=== PATIENT | male | born 1950 | race Caucasian/White ===

== ENCOUNTER 2017-04-21 08:24 | Emergency (ER) | payer MEDICARE, SELFPAY ==
[2017-04-21 08:26] VITALS: BP 150/85; PULSE 77; RESP 15; TEMP 36.4; O2SAT 100; BMI 29.2
--- NOTE | 2017-04-21 08:31 | NURSING ---
PT USING RIGHT ARM TO LIFT SELF TO STANDING POSITION WITHOUT DIFFICULTY.
--- NOTE | 2017-04-21 08:39 | RAD_ITS ---
STUDY: X-RAY - RIGHT SHOULDER REASON FOR EXAM: Male, 66 years old. Pain, fall TECHNIQUE: 4 view(s) of the shoulder. COMPARISON: Chest x-ray 06/12/2015 FINDINGS: Normal glenohumeral articulation. There is degenerative arthrosis of the acromioclavicular joint without inferior osseous spur formation. Normal acromion. High riding humeral head. There is periarticular soft tissue calcification consistent with a calcific tendinitis. Stable calcification along the inferior glenoid. Normal visualized pulmonary apex. RAD/Shoulder min 2 Views IMPRESSION: There is no acute displaced fracture or dislocation. Degenerative changes of the acromioclavicular joint, high riding humeral head frequency with ligamentous laxity or injury of the rotator cuff. Stable calcification along the inferior glenoid. Electronically Signed: Stacy Bates MD at 9:33 EST , Service support ,
--- NOTE | 2017-04-21 08:40 | ED.VISSUMM ---
- ER Visit Summary Date of Service: 04/21/17 Chief Complaint: [right Shoulder pain] History of Present Illness: The patient is a 66 M [who presents the emergency department with right shoulder pain. He fell on the ice 3 days ago. He fell directly on his right shoulder. He continues to have a sharp pain over the top and lateral aspect of the shoulder joint. He does have pain with range of motion. No numbness or tingling. No previous injuries. No other injuries during his fall. Past medical history: Diabetes] Physical Examination: [] Blood pressure 150/85 other vitals within acceptable limits Nation of the right upper extremity reveals no tenderness over the clavicle he has mild tenderness over the lateral proximal humerus there is no ecchymosis or swelling is no erythema he has full range of motion but does have some pain with abduction over 45?. Sensation is intact there is no motor weakness he has strong distal radial pulses skin is unremarkable Test Results: [] Emergency Department Course and Treatment: [X-rays of the shoulder were obtained.x ray show no fracture. sling will be counter productive and may result in frozen shoulder. patient will need physical therapy. he has an appointment with his primary doctor on . he does not want any additional pain medication. he will ice and rest.] Treatment Plan: [] Disposition: [discharge ] Impression: [right rotator cuff injury.] This note was generated with [employer] dictation software. It may contain incorrect words, spelling, and punctuation that were not noted in review of the chart prior to signing ED Disposition - Plan for ED Patient: Chief Complaint: Upper Extremity Injury Referrals: Chary Cardona MD [Primary Care Provider] -
--- NOTE | 2017-04-21 10:17 | ED.DEP ---
ED Disposition - Plan for ED Patient: Chief Complaint: Upper Extremity Injury Instructions: ED Torn Rotator Cuff Referrals: Chary Cardona MD [Primary Care Provider] - 04/25/17
[2017-04-21 10:22] VITALS: BP 158/91; PULSE 72; RESP 16; O2SAT 98
== END 2017-04-21 10:23 | disposition home or self-care (01) ==
PROVIDERS: Emergency Provider Emergency Medicine; Family Provider Internal Medicine; PCP Internal Medicine
DX: S46.001A Unspecified injury of muscle(s) and tendon(s) of the rotator cuff of right shoulder, initial encounter (principal); W00.9XXA Unspecified fall due to ice and snow, initial encounter; Y93.9 Activity, unspecified; Y92.9 Unspecified place or not applicable; E11.9 Type 2 diabetes mellitus without complications; Z79.84 Long term (current) use of oral hypoglycemic drugs
CPT/HCPCS: 73030; 99282

== ENCOUNTER 2017-05-19 17:21 | Emergency (ER) | payer MEDICARE, SELFPAY ==
[2017-05-19 17:22] VITALS: BP 182/91; PULSE 87; RESP 20; TEMP 36.6; O2SAT 98; BMI 28.3
[2017-05-19 17:27] VITALS: PULSE 85; RESP 17; O2SAT 98
[2017-05-19 18:45] LABS: Bedside Glucose 61 mg/dL (70-110)
[2017-05-19 18:47] VITALS: BP 144/88; PULSE 81; RESP 16; O2SAT 97
--- NOTE | 2017-05-19 18:48 | NURSING ---
PT EXPRESSES THAT HE WOULD LIKE TO GO TO A PENITENTIARY IF POSSIBLE. DEANNA DE LA ROSA STATES I DON'T KNOW IF THAT'S GOING TO BE POSSIBLE TONIGHT, BUT WE'LL GET YOU CHECKED OUT AND SEE WHERE YOU NEED TO BE
[2017-05-19 18:58] LABS: Absolute Lymphocyte Count 2.08 X10^3/ul (0.83-4.51); Absolute Neutrophil Count 5.3 X10^3/uL (2.0-7.7); Basophil# 0.04 X10^3/uL; Basophil% 0.5 % (0-1); Eosinophil# 0.09 X10^3/uL; Eosinophils% 1.1 % (0-5); Hematocrit 37.2 % (40-54); Hemoglobin 12.4 g/dl (13.0-16.5); Lymphocyte # 2.08 X10^3/ul (4.0); Lymphocyte % 24.8 % (19-41); Mean Corp Hgb Conc 33.3 g/gl (32-36); Mean Corpuscular Hgb 31.9 pg (27.0-32.0); Mean Corpuscular Volume 95.6 fL (80-94); Mean Platelet Vol. 8.8 fl (6.2-12.0); Monocyte# 0.89 X10^3/uL; Monocyte% 10.6 % (0-10); Neutrophil # 5.27 X10^3/uL (2.7-7.7); Neutrophil % 62.6 % (47-70); POSITIVE COUNT NO; POSITIVE DIFFERENTIAL NO; POSITIVE MORPHOLOGY NO; Platelet Count 203 K/mm3 (150-450); RBC Distribution Width CV 13.4 % (11.6-14.6); RBC Distribution Width SD 46.4 fl (35.1-43.9); Red Blood Count 3.89 M/mm3 (4.6-6.2); White Blood Count 8.4 K/mm3 (4.4-11.0)
--- NOTE | 2017-05-19 19:00 | RAD_ITS ---
STUDY: X-RAY - ACUTE ABDOMINAL SERIES REASON FOR EXAM: Male, 66 years old. Abdominal pain TECHNIQUE: Single view of the chest. Supine, and erect view(s) of the abdomen were obtained. COMPARISON: September 05, 2015 FINDINGS: The lungs are underexpanded with bibasilar compression of lung markings.. Normal size heart. Normal mediastinum and ofelia. Normal visualized pulmonary arteries. There is atherosclerotic calcification of the aortic arch with tortuosity. There is mild retained stool throughout the colon. No bowel obstruction. The soft tissue structures of the abdomen and pelvis are unremarkable. There are diffuse degenerative changes of the visualized lumbar spine. RAD/Acute Abdomen Inc Chest IMPRESSION: There is mild retained stool throughout the colon. Electronically Signed: Phyllis Cohen MD at 19:32 EDT , Service support ,
[2017-05-19 19:19] LABS: ALB/GLOB Ratio 0.8 RATIO (0.9-2.4); AST(SGOT) 17 U/L (15-37); Alanine Aminotransfer ALT/SGPT 18 U/L (16-61); Albumin, Serum 3.4 g/dL (3.2-5.0); Alkaline Phosphatase 94 U/L (45-117); Anion Gap 10 (5-15); BUN 18 mg/dL (7-18); BUN/Creat Ratio 17.6 RATIO (10-20); Calcium,Total 8.7 mg/dL (8.5-10.1); Chloride 106 mmol/L (98-107); Creatinine, Serum 1.02 mg/dL (0.70-1.30); EST Glomerular Filtration Rate 78 mL/min (>60); Est Glom Filt Rate - Afr Amer 94 mL/min (>60); Estimated Creatinine Clearance 73.16 ml/min; Glucose 61 mg/dL (74-106); Lipase 96 U/L (73-393); Potassium 3.4 mmol/L (3.5-5.1); Protein, Total 7.4 g/dL (6.4-8.2); Sodium Level 142 mmol/L (136-145)
[2017-05-19 20:57] LABS: Bacteria 0 SEEN /hpf (None Seen); Red Blood Cells-Urine 0 SEEN /hpf (0-5)
[2017-05-19 21:00] LABS: Color, Urine Yellow (Yellow); Glucose, Dipstick Normal (Normal); Ketone-Dipstick 5 mg/dl (Negative); Leukocyte Esterase-Dipstick Negative /ul (Negative); Nitrite-Dipstick Negative (Negative); Occult Blood-Urine 25 /ul (Negative); Protein-Dipstick 500 mg/dl (Negative); Urine Bilirubin Dipstick Negative (Negative); Urine Clarity Sl. Cloudy (Clear); Urine Urobilinogen Normal (Normal)
[2017-05-19 21:13] LABS: Hyaline Cast 0-5 SEEN /lpf (0-5)
[2017-05-19 21:15] LABS: Mucous, Urine 2+ /hpf (<or=2+)
[2017-05-19 21:16] LABS: Squamous Epithelial Cells - UA 0-5 SEEN /hpf (0-5)
[2017-05-19 21:19] LABS: Uric Acid Crystals Ur RARE /hpf (<or=1+); White Blood Cells 0-5 SEEN /hpf (0-5)
--- NOTE | 2017-05-19 21:47 | ED.VISSUMM ---
- ER Visit Summary Date of Service: 05/19/17 Chief Complaint: Abdominal pain History of Present Illness: The patient is a 66 M who presents with abdominal pain that has been getting worse over the past 2 hours. Patient states the pain is diffuse across his abdomen. Patient denies any nausea or vomiting. Patient denies any chest pain. Patient states he has occasional episodes where he gets short of breath. Patient also states he feels like he is unsteady on his feet and has occasional headaches. Patient states he does have a history of diabetes and thinks this may be was causing him to be unsteady on his feet. Physical Examination: Vital signs are stable. Patient is afebrile. Patient is in no acute distress. Oral mucosa is pink and moist. Neck is supple. Trachea is midline. There is no JVD or lymphadenopathy noted. Heart was regular rate and rhythm. Lungs are clear and equal bilaterally. Abdomen is soft. There is mild diffuse tenderness. There is no rebound or guarding noted. Cranial nerves II through XII are intact. There are no focal motor or sensory deficits noted. The remaining physical exam is within normal limits. Test Results: Acute abdominal x-rays were obtained and were negative. CBC, basic metabolic profile, and urinalysis were obtained and were all within normal limits. Emergency Department Course and Treatment: Patient was able to eat a meal here in the emergency department. Patient felt better on reevaluation. Treatment Plan: Patient was instructed to follow-up with his primary care physician in 7-10 days. Patient was instructed to return if worse in any way. Patient understood and was agreeable with the plan. All questions were answered. Disposition: Discharged home Impression: Abdominal pain This note was generated with [employer] dictation software. It may contain incorrect words, spelling, and punctuation that were not noted in review of the chart prior to signing ED Disposition - Plan for ED Patient: Disposition: Home or Assisted Living Chief Complaint: General Illness Diagnosis: Abdominal pain Instructions: ED Abdominal Pain Unkn Cause Referrals: Chary Cardona MD [Primary Care Provider] -
[2017-05-19 22:07] VITALS: BP 163/93; PULSE 81; RESP 16; O2SAT 99
--- NOTE | 2017-05-19 22:08 | ED.RN ---
CALLED [facility] FOR PATIENT. ETA 30 MIN. PT SENT TO THE WAITING ROOM.
== END 2017-05-19 22:11 | disposition home or self-care (01) ==
PROVIDERS: Emergency Provider Emergency Medicine; Family Provider Internal Medicine; PCP Internal Medicine
DX: R10.9 Unspecified abdominal pain (principal); R06.00 Dyspnea, unspecified; R26.81 Unsteadiness on feet; R51 Headache; H53.8 Other visual disturbances; Z86.73 Personal history of transient ischemic attack (TIA), and cerebral infarction without residual deficits; E11.9 Type 2 diabetes mellitus without complications; Z79.84 Long term (current) use of oral hypoglycemic drugs
CPT/HCPCS: 74022; 80053; 81001; 82962; 83690; 85025; 99285; A4216

== ENCOUNTER 2017-08-19 09:43 | Emergency (ER) | payer MEDICARE, SELFPAY ==
[2017-08-19 09:45] VITALS: BP 101/56; PULSE 104; RESP 18; TEMP 36.6; O2SAT 98; BMI 29.5
--- NOTE | 2017-08-19 09:57 | ED.VISSUMM ---
- ER Visit Summary Date of Service: 08/19/17 Chief Complaint: Ache, nausea History of Present Illness: The patient is a 66 M presents to the emergency department with headache and nausea. Patient states he has a history of migraine. He states this morning, he woke with a dull headache. He states over the past 2 hours it has slightly progressed. He does describe light sensitivity. He has had nausea without vomiting. Patient does admit to some mild abdominal cramping. He denies any fevers or chills. He denies any carbon monoxide exposure. He denies any trauma. He is on no anticoagulants. Patient denies any weakness, numbness, tingling, or other neurologic complaints. He states this feels like all his other headaches that he has had in the past. Physical Examination: Well-appearing patient is in no acute distress. Head is normocephalic, atraumatic. Pupils equal round reactive, extraocular muscles intact. There is no temporal artery tenderness. There is no vesicular rash. Neck supple. Kernig's and Brudzinski's are negative. Heart regular rate and rhythm. Lungs clear, chest nontender. Abdomen soft, nontender, nondistended. Neuro exam displays no focal or lateralizing deficit. 2+ symmetric lower extremity reflexes. No clonus. No ataxia or gait abnormality. Test Results: [] Emergency Department Course and Treatment: The patient presents with his normal migraine. He is not meningitic or encephalopathic. His neck is supple. His neurologic exam is benign. He was treated with IV fluids, Compazine, Benadryl, and Toradol. I did obtain some screening labs given his history of diabetes. He does have mild renal insufficiency which does appear to be chronic. With treatment, the patient symptoms are improved. His abdomen is nontender. I do not suspect a dangerous process. The patient be discharged home. Treatment Plan: [] Disposition: Charge Impression: 1. Migraine 2. Nausea This note was generated with [employer] dictation software. It may contain incorrect words, spelling, and punctuation that were not noted in review of the chart prior to signing ED Disposition - Plan for ED Patient: Chief Complaint: Headache Instructions: ED Headache Migraine Prescriptions: Ondansetron [Zofran Odt] 4 mg PO Q8H PRN PRN #10 tab PRN Reason: Nausea Referrals: Chary Cardona MD [Primary Care Provider] -
[2017-08-19 10:15] LABS: Absolute Lymphocyte Count 1.34 X10^3/ul (0.83-4.51); Basophil# 0.03 X10^3/uL; Basophil% 0.4 % (0-1); Eosinophils% 1.2 % (0-5); Hematocrit 35.3 % (40-54); Hemoglobin 12.3 g/dl (13.0-16.5); Lymphocyte # 1.34 X10^3/ul (4.0); Lymphocyte % 16.6 % (19-41); Mean Corp Hgb Conc 34.8 g/gl (32-36); Mean Corpuscular Hgb 33.5 pg (27.0-32.0); Mean Corpuscular Volume 96.2 fL (80-94); Monocyte# 0.58 X10^3/uL; Monocyte% 7.2 % (0-10); Neutrophil # 6.01 X10^3/uL (2.7-7.7); Neutrophil % 74.4 % (47-70); Platelet Count 222 K/mm3 (150-450); RBC Distribution Width CV 12.1 % (11.6-14.6); RBC Distribution Width SD 41.6 fl (35.1-43.9); Red Blood Count 3.67 M/mm3 (4.6-6.2); White Blood Count 8.1 K/mm3 (4.4-11.0)
[2017-08-19 10:16] LABS: POSITIVE COUNT NO; POSITIVE DIFFERENTIAL NO; POSITIVE MORPHOLOGY NO
[2017-08-19 10:29] LABS: Anion Gap 7 (5-15); BUN 38 mg/dL (7-18); BUN/Creat Ratio 20.7 RATIO (10-20); Calcium,Total 8.9 mg/dL (8.5-10.1); Chloride 105 mmol/L (98-107); Creatinine, Serum 1.84 mg/dL (0.70-1.30); EST Glomerular Filtration Rate 39 mL/min (>60); Est Glom Filt Rate - Afr Amer 48 mL/min (>60); Estimated Creatinine Clearance 40.56 ml/min; Glucose 231 mg/dL (74-106); Potassium 4.2 mmol/L (3.5-5.1); Sodium Level 136 mmol/L (136-145)
[2017-08-19] MEDS: proCHLORPERazine 10 MG/2 ML Vial IV (10:31)
[2017-08-19] MEDS: DiphenhydrAMINE 50 MG/ML Syringe 25 MG IV (10:31)
[2017-08-19] MEDS: Ketorolac 15 MG/ML Vial IV (10:31)
[2017-08-19] MEDS: 0.9% Normal Saline 1,000 ML 1000 ML IV (10:31)
[2017-08-19 12:05] VITALS: BP 152/90; PULSE 95; RESP 16; O2SAT 100
== END 2017-08-19 12:07 | disposition home or self-care (01) ==
LOC: ED 10:06
PROVIDERS: Emergency Provider Emergency Medicine; Family Provider Internal Medicine; PCP Internal Medicine
DX: G43.909 Migraine, unspecified, not intractable, without status migrainosus (principal); R11.0 Nausea; E11.22 Type 2 diabetes mellitus with diabetic chronic kidney disease; N18.9 Chronic kidney disease, unspecified; Z79.84 Long term (current) use of oral hypoglycemic drugs
CPT/HCPCS: 80048; 85025; 96361; 96374; 96375; 99284; A4216

== ENCOUNTER 2017-08-30 10:15 | Inpatient (IN) | payer MEDICARE, SELFPAY ==
[2017-08-30] VITALS (13 sets, daily range): BP systolic 142–166; BP diastolic 71–107; PULSE 78–98; RESP 16–21; TEMP 36.3–36.8; O2SAT 95–99; BMI 27.8
[2017-08-30 10:36] LABS: Bedside Glucose 136 mg/dL (70-110)
--- NOTE | 2017-08-30 10:40 | EKG12_ITS ---
Test Reason : NEURO Blood Pressure : / mmHG Vent. Rate : 086 BPM Atrial Rate : 086 BPM P-R Int : 146 ms QRS Dur : 090 ms QT Int : 360 ms P-R-T Axes : 019 036 063 degrees QTc Int : 430 ms Normal sinus rhythm Normal ECG Confirmed by DERRICK ORDAZ MD ([id number]), manuscript editor ARDEN CERVANTES ([id number]) on 09/05/2017 3:10:18 PM Referred By: DEB Confirmed By:DERRICK ORDAZ MD
--- NOTE | 2017-08-30 10:40 | CT_ITS ---
STUDY: CT BRAIN WITHOUT CONTRAST REASON FOR EXAM: Male, 67 years old. Mental status changes. RADIATION DOSAGE (If Supplied By Facility): CTDIvol = ( 60.81 ) mGy, DLP = ( 1089.89 ) mGycm TECHNIQUE: Transaxial CT imaging of the brain was performed without administration of intravenous contrast material. Individualized dose optimization techniques were used for this CT. COMPARISON: Comparison is made with prior study dated September 05, 2015. FINDINGS: Normal soft tissue structures. Normal calvarium. There is moderate cerebral atrophy with widening of the extra-axial spaces and ventricular dilatation. There are areas of decreased attenuation within the white matter tracts of the supratentorial brain, consistent with microvascular disease changes. Old lacunar infarcts of the thalami bilaterally. Normal brainstem. Normal cerebellum. There is no intracranial hemorrhage. There are no findings of an acute ischemic infarction. Nodular mucosal thickening of the maxillary sinuses and ethmoid sinuses bilaterally. Stable increased density of the right globe most likely prosthetic. CT/Brain/Head without Contrast IMPRESSION: Chronic involutional changes of the brain. Electronically Signed: Reese Segura MD at 11:25 EDT Tel [phone], Service support ,
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
[2017-08-30 11:08] LABS: International Normalized Ratio 0.9; Prothrombin Time (Protime)PT. 12.5 SECONDS (11.7-14.9)
[2017-08-30 11:09] LABS: Partial Thromboplast Time 25.2 Seconds (24.1-36.2)
[2017-08-30 11:20] LABS: Anion Gap 7 (5-15); BUN 27 mg/dL (7-18); BUN/Creat Ratio 24.3 RATIO (10-20); Calcium,Total 9.1 mg/dL (8.5-10.1); Chloride 105 mmol/L (98-107); Creatinine, Serum 1.11 mg/dL (0.70-1.30); EST Glomerular Filtration Rate 71 mL/min (>60); Est Glom Filt Rate - Afr Amer 86 mL/min (>60); Estimated Creatinine Clearance 66.35 ml/min; Glucose 129 mg/dL (74-106); Potassium 4.2 mmol/L (3.5-5.1); Sodium Level 138 mmol/L (136-145)
[2017-08-30 11:31] LABS: Absolute Lymphocyte Count 1.04 X10^3/ul (0.83-4.51); Absolute Neutrophil Count 3.6 X10^3/uL (2.0-7.7); Basophil# 0.01 X10^3/uL; Basophil% 0.2 % (0-1); Differential Indicated SCAN CRITERIA MET; Eosinophil# 0.11 X10^3/uL; Eosinophils% 2.1 % (0-5); Hematocrit 37.8 % (40-54); Lymphocyte # 1.04 X10^3/ul (4.0); Lymphocyte % 19.4 % (19-41); Mean Corp Hgb Conc 34.4 g/gl (32-36); Mean Corpuscular Hgb 32.8 pg (27.0-32.0); Mean Corpuscular Volume 95.5 fL (80-94); Mean Platelet Vol. 8.8 fl (6.2-12.0); Monocyte# 0.53 X10^3/uL; Monocyte% 9.9 % (0-10); Neutrophil # 3.64 X10^3/uL (2.7-7.7); POSITIVE COUNT YES; POSITIVE DIFFERENTIAL NO; POSITIVE MORPHOLOGY NO; Platelet Count 159 K/mm3 (150-450); RBC Distribution Width CV 12.5 % (11.6-14.6); RBC Distribution Width SD 43.1 fl (35.1-43.9); Red Blood Count 3.96 M/mm3 (4.6-6.2); White Blood Count 5.4 K/mm3 (4.4-11.0)
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
--- NOTE | 2017-08-30 13:18 | MRI_ITS ---
STUDY: MRI BRAIN WITHOUT CONTRAST REASON FOR EXAM: Male, 67 years old. Altered mental status TECHNIQUE: Standardized multiplanar fat and water weighted pulse sequences were obtained. COMPARISON: August 30, 2017 CT brain and MR brain November 11, 2013 FINDINGS: There is moderate cerebral atrophy with widening of the extra-axial spaces and ventricular dilatation. There are multiple white matter hyperintensities, distributed throughout the deep white matter tracts of the cerebral hemispheres, consistent with moderate chronic white matter ischemic changes. There is no evidence for recent intracranial ischemia or other cause of cytotoxic edema on diffusion weighted imaging (DWI). There are prominent perivascular spaces (PVS) involving the basal ganglia. Remote lacunar infarcts are noted in the thalami bilaterally. There is no extra-axial fluid accumulation. Normal flow voids within the major intracranial circulation suggesting patency by spin echo criteria. Normal sella turcica, pituitary gland, infundibular stalk, optic chiasm and hypothalamus. Normal tectal plate and pineal gland. Normal midbrain, sloane and medulla. Remote lacunar infarcts noted in the left cerebellar hemisphere. Normal basal cisterns. Normal bilateral temporal bones. Normal bilateral internal auditory canals. Ocular prosthesis on the right. Normal visualized paranasal sinuses. Normal calvarium and skull base. Normal visualized soft tissue structures. Normal visualized upper cervical spine. MRI/Brain without Contrast IMPRESSION: Involutional changes of the brain, as described above. Electronically Signed: Arnold Schmitt MD at 16:36 EDT , Service support ,
--- NOTE | 2017-08-30 13:18 | ECHOD_ITS ---
Reason For Study: TIA/CVA Procedure This was a 2D Doppler, Color Flow transthoracic echocardiogram. The study was technically difficult. Exam performed portable in patient room. Left Ventricle Normal LV size. Left ventricular systolic function is normal. The estimated ejection fraction is 60 %. Transmitral diastolic flow velocities suggest mild (stage 1) diastolic dysfunction (reversed pattern). No regional wall motion abnormalities noted. Aortic Valve Trisinus/trileaflet aortic valve. Pulmonic Valve The pulmonic valve is not well visualized. Great Vessels Mildly dilated aortic root. The pulmonary artery is normal size. Normal inferior vena cava. Pericardium/Pleural No pericardial effusion. MMode/2D Measurements & Calculations LVOT diam: 2.0 cm Ao root diam: 3.8 cm LAV(MOD-bp): 37.5 ml LVOT area: 3.1 cm2 ACS: 1.2 cm LAV(MOD-sp2): 31.6 ml LAV(MOD-sp4): 45.2 ml LVAd ap4: 24.8 cm2 SV(MOD-sp4): 38.0 ml SV(sp4-el): 37.6 ml EDV(MOD-sp4): 66.3 ml EDV(sp4-el): 66.7 ml LVAs ap4: 14.4 cm2 ESV(MOD-sp4): 28.3 ml ESV(sp4-el): 29.1 ml EF(MOD-sp4): 57.4 % EF(sp4-el): 56.4 % LA A4 area: 15.7 cm2 RA A4 area: 11.3 cm2 Time Measurements MV dec time: 0.25 sec Doppler Measurements & Calculations MV E max wilfredo: 59.9 cm/sec Lat Peak E' Wilfredo: 3.9 cm/sec Med Peak E' Wilfredo: 3.0 cm/sec MV A max wilfredo: 113.2 cm/sec E/E' lat: 15.2 E/E' med: 20.2 MV E/A: 0.53 MV V2 max: 143.5 cm/sec MV P1/2t max wilfredo: 73.2 cm/sec Ao V2 max: 127.1 cm/sec MV max P.2 mmHg MV P1/2t: 52.6 msec Ao max P.5 mmHg MV V2 mean: 74.9 cm/sec MV dec slope: 407.9 cm/sec2 Ao V2 mean: 76.4 cm/sec MV mean P.6 mmHg MVA(P1/2t): 4.2 cm2 Ao mean P.8 mmHg MV V2 VTI: 24.7 cm Ao V2 VTI: 22.0 cm MVA(VTI): 2.1 cm2 KARINA(I,D): 2.4 cm2 KARINA(V,D): 2.1 cm2 LV V1 max: 86.7 cm/sec SV(LVOT): 52.3 ml PA V2 max: 83.8 cm/sec LV V1 max P.0 mmHg LV V1 mean P.5 mmHg LV V1 mean: 57.1 cm/sec LV V1 VTI: 16.9 cm Interpretation Summary Normal LV size. Left ventricular systolic function is normal. The estimated ejection fraction is 60 %. Transmitral diastolic flow velocities suggest mild (stage 1) diastolic dysfunction (reversed pattern). Mildly dilated aortic root. Ordering Physician: Irene Thompson Referring Physician: Chary Cardona M.D. Performed By: Yann Ruby RCS
--- NOTE | 2017-08-30 13:18 | MRI_ITS ---
STUDY: MRA OF THE HEAD WITHOUT CONTRAST REASON FOR EXAM: Male, 67 years old. Altered mental status TECHNIQUE: 3-D [id number] (TOF) imaging was performed with MIPs. The study was performed unenhanced. COMPARISON: MRA brain November 16, 2013 FINDINGS: Normal bilateral petrous carotid arteries. Normal right cavernous carotid artery with a normal supraclinoid bifurcation. There may be a 1 to 2 mm aneurysm along the anterior lateral aspect of the cavernous segment on the left. Normal right A1 segments of the anterior cerebral artery. Normal left A1 segments of the anterior cerebral artery. Normal intact anterior communicating artery (ACOM). Normal bilateral A2 segments of the anterior cerebral arteries. Normal right M1 and M2 segments of the middle cerebral arteries, with a normal M1 bifurcation. Normal left M1 and M2 segments of the middle cerebral arteries, with a normal M1 bifurcation. Normal right posterior communicating artery (PCOM). Normal left posterior communicating artery (PCOM). Normal bilateral vertebral arteries. Normal basilar artery with a normal basilar bifurcation. The visualized bilateral superior cerebellar (SCA) arteries are normal. Normal bilateral P1, P2 and visualized P3 segments of the posterior cerebral arteries. There is no demonstrated aneurysm of the [place]. There is no major vessel occlusion or hemodynamically significant stenosis. There is no demonstrated abnormality of the visualized brain. 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 Follow-up CTA May BE helpful if clinically warranted. Electronically Signed: Arnold Schmitt MD at 16:47 EDT , Service support ,
--- NOTE | 2017-08-30 13:18 | MRI_ITS ---
STUDY: MRA NECK WITHOUT CONTRAST REASON FOR EXAM: Male, 67 years old. November 16, 2013 TECHNIQUE: Source images were obtained, MIPs were performed. The study was performed unenhanced. COMPARISON: November 16, 2013 FINDINGS: RIGHT CAROTID ARTERIES: Normal right common carotid artery (CCA). Normal right common carotid bulb. Normal origin of the right internal carotid (ICA) artery without a hemodynamically significant stenosis. Normal visualized cervical portion of the right internal carotid artery. Normal origin of the right external carotid artery (ECA). LEFT CAROTID ARTERIES: Normal left common carotid artery (CCA). Normal left common carotid bulb. Normal origin of the left internal carotid (ICA) artery without a hemodynamically significant stenosis. Normal visualized cervical portion of the left internal carotid artery. Normal origin of the left external carotid artery (ECA). VERTEBRAL ARTERIES: Normal antegrade flow within the bilateral vertebral artery without a hemodynamically significant stenosis. IMPRESSION: Motion limited exam but grossly Normal bilateral cervical carotid and vertebral arteries. Electronically Signed: Arnold Schmitt MD at 16:22 EDT , Service support , MRI/MRA Neck without Contrast
[2017-08-30] MEDS: 0.9% NaCl Peripheral Flush Adult/Peds IV (15:52)
[2017-08-30] MEDS: 0.9% Normal Saline 1,000 ML 75 ML IV (15:53)
[2017-08-30] MEDS: Atorvastatin Calcium 80 MG Tablet PO (15:59)
[2017-08-30 17:21] LABS: Bedside Glucose 170 mg/dL (70-110)
[2017-08-31] VITALS (10 sets, daily range): BP systolic 146–187; BP diastolic 83–108; PULSE 80–95; RESP 18; TEMP 36.5–37.2; O2SAT 96–97; BMI 27.8
[2017-08-31] MEDS: 0.9% Normal Saline 1,000 ML 75 ML IV (05:29)
[2017-08-31 06:50] LABS: Bedside Glucose 223 mg/dL (70-110)
[2017-08-31 07:18] LABS: Prothrombin Time (Protime)PT. 13.1 SECONDS (11.7-14.9)
[2017-08-31 07:56] LABS: Anion Gap 8 (5-15); BUN 23 mg/dL (7-18); BUN/Creat Ratio 22.5 RATIO (10-20); Calcium,Total 8.7 mg/dL (8.5-10.1); Chloride 105 mmol/L (98-107); Cholesterol 126 mg/dL (200); Creatinine, Serum 1.02 mg/dL (0.70-1.30); EST Glomerular Filtration Rate 78 mL/min (>60); Est Glom Filt Rate - Afr Amer 94 mL/min (>60); Glucose 228 mg/dL (74-106); High Density Lipoprotein 36 mg/dL; Sodium Level 138 mmol/L (136-145); Triglycerides 87 mg/dL; Very Low Density Lipoprotein 17 mg/dL (5-40)
[2017-08-31] MEDS: Insulin Lispro 100 UNIT/ML INSULN.PEN SC ×2 (09:01→12:41)
[2017-08-31] MEDS: Atorvastatin Calcium 80 MG Tablet PO (09:02)
[2017-08-31] MEDS: Aspirin 81 MG TAB.CHEW PO (09:02)
[2017-08-31] MEDS: Lisinopril 10 MG Tablet PO (10:05)
--- NOTE | 2017-08-31 10:29 | PCM.DC ---
- Discharge Diagnoses Reason(s) for Visit for Discharge Instructions: Confusion You will use the following diet at home:: Calorie/Carbohydrate Controlled (specify 1200, 1400, etc), Cardiac Your food should be the consistency of: Regular Your liquids should be the consistency of: Regular/Thin Discharge Activity: Return to Normal Activity Additional Instructions: Note the changes to your medications. Youshould avoid driving until yoiu have been re-evaluated by your primary physician and neurologist. Continue to monitor your blood glucose closely. Allergies/Adverse Reactions: Allergies No Known Allergies Allergy (Verified 08/30/17 10:22) Medications to take at Discharge Metformin HCl 1,000 mg PO BIDCM 04/21/17 Aspirin [Aspirin, Baby] 81 mg PO DAILY@0800 #30 tab.chew 08/31/17 Insulin Lispro [Humalog] 42 units SQ DAILY 08/31/17 Lisinopril [Zestril] 10 mg PO DAILY #30 tablet 08/31/17 The following prescriptions were given: Aspirin [Aspirin, Baby] 81 mg PO DAILY@0800 #30 tab.chew Lisinopril [Zestril] 10 mg PO DAILY #30 tablet Orders to be completed after discharge: Basic Metabolic Profile (BMP) Time Frame: 3 Days, Location: Laboratory Primary Care Physician: Chary Cardona MD [Primary Care Provider] - Please follow up with your Primary Care Physician in: within 2 weeks Proposed Discharge Date: 08/31/17
--- NOTE | 2017-08-31 10:38 | DCINST_ITS ---
- Discharge Diagnoses Reason(s) for Visit for Discharge Instructions: Confusion You will use the following diet at home:: Calorie/Carbohydrate Controlled ( specify 1200, 1400, etc), Cardiac Your food should be the consistency of: Regular Your liquids should be the consistency of: Regular/Thin Discharge Activity: Return to Normal Activity Additional Instructions: Note the changes to your medications. Youshould avoid driving until yoiu have been re-evaluated by your primary physician and neurologist. Continue to monitor your blood glucose closely. Allergies/Adverse Reactions: Allergies No Known Allergies Allergy (Verified 08/30/17 10:22) Medications to take at Discharge Metformin HCl 1,000 mg PO BIDCM 04/21/17 Aspirin [Aspirin, Baby] 81 mg PO DAILY@0800 #30 tab.chew 08/31/17 Insulin Lispro [Humalog] 42 units SQ DAILY 08/31/17 Lisinopril [Zestril] 10 mg PO DAILY #30 tablet 08/31/17 The following prescriptions were given: Aspirin [Aspirin, Baby] 81 mg PO DAILY@0800 #30 tab.chew Lisinopril [Zestril] 10 mg PO DAILY #30 tablet Orders to be completed after discharge: Basic Metabolic Profile (BMP) Time Frame: 3 Days, Location: Laboratory Primary Care Physician: Chary Cardona MD [Primary Care Provider] - Please follow up with your Primary Care Physician in: within 2 weeks Proposed Discharge Date: 08/31/17
--- NOTE | 2017-08-31 10:41 | PCM.DC.SUM ---
Discharge Date and Diagnosis Date of Admission: 08/30/17 Date of Discharge: 08/31/17 - Primary Discharge Diagnosis Acute metabolic encephalopathy CVA ruled out Cervical spondylosis - Secondary Discharge Diagnosis Chronic Problems HTN (hypertension) (Chronic) NSTEMI (non-ST elevation myocardial infarction) (Chronic) Type 2 diabetes mellitus (Chronic) Hospital Course and Treatment Imaging Results: Clinical Impression(s) from Imaging Studies Brain CT 08/30/17 10:40 IMPRESSION: Chronic involutional changes of the brain. Electronically Signed: Reese Segura MD at 11:25 EDT Tel [phone], Service support , Brain MRI 08/30/17 13:18 IMPRESSION: Involutional changes of the brain, as described above. Electronically Signed: Arnold Schmitt MD at 16:36 EDT , Service support , Head MRA 08/30/17 13:18 IMPRESSION: Possible minute 1 to 2 mm aneurysm left cavernous segment internal carotid artery. Follow-up CTA May BE helpful if clinically warranted. Electronically Signed: Arnold Schmitt MD at 16:47 EDT , Service support , Neck MRA 08/30/17 13:18 Neurology Operations: None Procedures: None Summary of Care Provided: 67 year old M with PMHx of Type 2DM, hypertension, history of CVA, CAD status post GA comes in with altered mental status/confusion. Patient was found by the police weaving in between traffic. He was brought into the ED and NIH score was said to be 2, repeat on the floor was 0. Neurology consulted and stroke workup begun. 1. Altered mental status/acute metabolic encephalopathy, unclear etiology, resolved. Admitting CT scan was negative, MRI was unremarkable, blood work was unremarkable. Patient was said to have had a focal neurological deficit in the ED with pronator drift of the left arm as well as the right leg drift was and NIH scale of 2. This is apparently absent by the time patient came to the medical floor. Neurology consulted. MRI of the brain showed no acute stroke. MRA of the head and neck as well as CT of the head and neck was stable. 2D echo was normal, patient statins were normal. PT and OT evaluated and recommended home 2. Hypertension, not on medications, blood pressure slightly elevated, made to his medications, discharged home on amlodipine 3. Type II DM, on metformin 4. CAD status post GA, on aspirin Discharge Diet: Low fat/ Low Cholesterol, 2000 mg Sodium Diet, Carb Control Diet Discharge Activity: Return to Normal Activity Home Medications: Medications to take at Discharge Amlodipine [Norvasc] 5 mg PO DAILY #30 tab 08/31/17 Aspirin [Aspirin, Baby] 81 mg PO DAILY@0800 #30 tab.chew 08/31/17 Insulin Glargine [Lantus SoloStar Pen] 42 units SC DAILY pen 08/31/17 Following Prescrptions Were Given to Patient: Amlodipine [Norvasc] 5 mg PO DAILY #30 tab Aspirin [Aspirin, Baby] 81 mg PO DAILY@0800 #30 tab.chew Primary Care Physician: Chary Cardona MD [Primary Care Provider] - Please follow up with your Primary Care Physician in: within 2 weeks Please Follow Up With: Carlos Gregg MD When: in 2 weeks Disposition: Home Minutes spent on discharge:: 45 Patient Condition:: Stable Medical Necessity - Tobacco Use Smoking Status: Never smoker Tobacco Use: Non-smoker Meaningful Use Info Meaningful Use Diagnoses (Choose all that apply): None applicable Code Visit Inpatient E&M: 36378 Disch Hosp
--- NOTE | 2017-08-31 11:16 | CT_ITS ---
STUDY: CTA OF THE BRAIN REASON FOR EXAM: Male, 67 years old. ? 1-2 MM ANEURYSM LT INTERNAL CAROTID SEEN ON MRI, HX-CAD, [place], CVA, HTN, DB. RADIATION DOSAGE (If Supplied By Facility): CTDIvol = ( 30.44 ) mGy, DLP = ( 1606.53 ) mGycm TECHNIQUE: CT angiography was performed with a multi-detector CT scanner. Data acquisition was obtained from the skull base through the vertex following intravenous administration of ml of . MIP images were reconstructed from the axial data set. Post-processing of the angiographic images was performed, with multiplanar reformation and 3D reconstruction. Individualized dose optimization techniques were used for this CT. COMPARISON: MRA dated August 30, 2017 FINDINGS: Normal bilateral petrous carotid arteries. There is calcified plaque formation of the right cavernous carotid artery, without a cross-sectional luminal stenosis. There is calcified plaque formation of the left cavernous carotid artery, without a cross-sectional luminal stenosis. There is no demonstrated aneurysms of the left cavernous carotid artery. Normal right A1 segments of the anterior cerebral artery. Normal left A1 segments of the anterior cerebral artery. Normal intact anterior communicating artery (ACOM). Normal bilateral A2 segments of the anterior cerebral arteries. Normal right M1 and M2 segments of the middle cerebral arteries, with a normal M1 bifurcation. Normal left M1 and M2 segments of the middle cerebral arteries, with a normal M1 bifurcation. Normal bilateral vertebral arteries. Normal basilar artery with a normal basilar bifurcation. The visualized bilateral superior cerebellar (SCA) arteries are normal. Normal bilateral P1, P2 and visualized P3 segments of the posterior cerebral arteries. There is no demonstrated aneurysm of the [place]. There is no demonstrated abnormality of the visualized brain. CT/CTA Head W/WO Contrast IMPRESSION: Mild atherosclerotic plaque. No demonstrated aneurysm or hemodynamically significant stenosis. Electronically Signed: Benji Echols MD at 13:52 EDT Tel , Service support ,
--- NOTE | 2017-08-31 11:17 | CT_ITS ---
STUDY: CTA NECK WITH CONTRAST REASON FOR EXAM: Male, 67 years old. ? 1-2 MM ANEURYSM LT INTERNAL CAROTID SEEN ON MRI, HX-CAD, [place], CVA, HTN, DB. RADIATION DOSAGE (If Supplied By Facility): CTDIvol = ( 30.44 ) mGy, DLP = ( 1606.53 ) mGycm TECHNIQUE: CT angiography with multi-detector data acquisition was performed from the aortic arch to the skull base following intravenous administration of 100 ml of Isovue 370 contrast. MIP images were reconstructed from the axial data set. Post-processing of the angiographic images was performed, with multiplanar reformation and 3D reconstruction. Individualized dose optimization techniques were used for this CT. COMPARISON: None. FINDINGS: AORTIC ARCH: There is mild atherosclerotic calcification of the aorta RIGHT CAROTID ARTERIES: Normal right common carotid artery (CCA). There is mild atherosclerotic plaque formation with minimal narrowing of the right carotid bulb. Normal origin of the right internal carotid (ICA) artery without a hemodynamically significant stenosis. Normal visualized cervical portion of the right internal carotid artery. Normal origin of the right external carotid artery (ECA). LEFT CAROTID ARTERIES: Normal left common carotid artery (CCA). There is mild atherosclerotic plaque formation with minimal narrowing of the left carotid bulb. There is mild atherosclerotic plaque formation of the origin of the left internal carotid artery with less than 50% cross sectional diameter stenosis. Normal visualized cervical portion of the left internal carotid artery. Normal origin of the left external carotid artery (ECA). VERTEBRAL ARTERIES: Normal bilateral vertebral arteries. CT/CTA Neck W/WO Contrast IMPRESSION: Less than 50% stenosis of the left ICA. Electronically Signed: Benji Echols MD at 15:29 EDT Tel , Service support ,
--- NOTE | 2017-08-31 11:43 | MRI_ITS ---
STUDY: MRI CERVICAL SPINE WITHOUT CONTRAST REASON FOR EXAM: Male, 67 years old. Right arm weakness. Confusion TECHNIQUE: Standardized fat and water weighted pulse sequences were obtained in the sagittal and axial planes. COMPARISON: None FINDINGS: Mild straightening of the cervical lordotic curvature. Craniocervical junction appears unremarkable. No evidence for cord edema or myelomalacia. Mild anterior wedging of the C5 and C6 vertebral bodies which appear chronic. Disc desiccation all levels. Mild loss of disc at and C5-C6 and C6-C7 levels. Mild anterior and posterior ossific spurring. Mild endplate degenerative changes at C5-C6 level. Level by level segmental analysis: C2-C3 level: Uncovertebral joint and facet joint degenerative changes and broad-based disc osteophyte complexes resulting in moderate to severe right-sided and mild left-sided neural foraminal narrowing with mild effacement of ventral thecal sac. C3-C4 level: Uncovertebral joint and facet joint degenerative changes with broadbase disc osteophyte complex resulting in severe left-sided and [id number] right-sided neural foraminal narrowing with a superimposed small central disc protrusion with mild effacement of ventral thecal sac. C4-C5 level: Uncovertebral joint and facet joint degenerative changes of broad-based disc osteophyte complex resulting in moderate to severe right-sided and moderate left-sided neural foraminal narrowing without seen in central canal stenosis. C5-C6 level: Uncovertebral joint and facet joint degenerative changes with broad-based disc osteophyte complex resulting in moderate to severe bilateral neural foraminal narrowing and superimposed small central disc protrusion with mild effacement of ventral thecal sac. Thickening of the ligamentum flavum is seen. C6-C7 level: Uncovertebral joint and facet joint degenerative changes with broad-based disc osteophyte complexes resulting in uiiw-he-dvlneoeh bilateral neural foraminal narrowing and a superimposed small central disc protrusion with minimal effacement of ventral thecal sac. C7-T1 level: Uncovertebral joint and facet joint degenerative changes with broadbase disc osteophyte complex resulting in minimal bilateral neural foraminal narrowing without significant central canal stenosis. No paraspinal soft tissue mass. No evidence for acute cervical spine fractures. IMPRESSION: Cervical spondylotic changes with multilevel neural foraminal narrowing without significant central canal stenosis. As above level by level complete analysis and details. No evidence for acute cervical spine fractures. Electronically Signed: Ramy Colin, at 15:04 EDT Tel , Service support , MRI/Spine Cervical (Routine)
--- NOTE | 2017-08-31 11:54 | CASEMGMT ---
RN RICARDO Face to Face with patient for initial transition planning/care coordination assessment. RN CM introduced self and role at [facility]. Patient lying chair, alert and oriented. Patient willing to participate in assessment and is able to answer all questions appropriately. Care providers, pharmacy, and demographics verified. See link attached. Patient wishes to discharge home, denies need for home health at this time. Patient states he has no further needs or concerns at this time. CM to follow for discharge planning needs that may arise. Disposition Plan: Patient to discharge home with follow-up plans in place.
[2017-08-31 12:00] LABS: Bedside Glucose 331 mg/dL (70-110)
--- NOTE | 2017-08-31 12:32 | PCM.CONS.GEN ---
Problem List (1) Confusion Status: Acute Reason for Consult Date of Consultation: 08/31/17 Reason for Consultation: confusion History of Present Illness: The patient is a 67 year old CM with PMH HTN, HLD, DM, H/O Stroke, CAD admitted with episode of confusion. Per patient yesterday (08/30/17) he started driving at around 8 am after dropping his friend at his place and later remembers being pulled over by the police since he was weaving in and out of the road, transit police officer felt he was confused and by the time patient was in the ED he was back to his baseline per ED documentation. Per patient he remembers that he started to drive and the next thing he remembers was being pulled over, but probably does not remember driving for about 30 minutes. Patient is a poor historian, per patient he lives alone, denies any falls, does not use cane or walker to ambulate, does drive and does not need any assistance for his ADLs. Patient denies any neck pain but does have atrophy of the small muscles of hands bilaterally, with a weak care program director bilaterally. No fasciculations. MRI brain done on admission reported nothing acute. MRA head/neck reported to show possible small left cavernous ICA aneurysm. Patient denies any ESQUEDA, visual disturbances, speech disturbances, sensory loss or focal motor weakness.Per patient he takes ASA at baseline but does not take it everyday. Denies any witnessed seizures, tongue bite or urinary incontinence. [] Past Medical History Past Medical History (Chronic Problems): Chronic Problems HTN (hypertension) (Chronic) NSTEMI (non-ST elevation myocardial infarction) (Chronic) Type 2 diabetes mellitus (Chronic) Allergies No Known Allergies Allergy (Verified 08/30/17 10:22) Home Medications: Ambulatory Orders Medication Instructions Recorded Amlodipine [Norvasc] 5 mg PO DAILY #30 tab 08/31/17 Aspirin [Aspirin, Baby] 81 mg PO DAILY@0800 #30 tab.chew 08/31/17 Insulin Glargine [Lantus SoloStar 42 units SC DAILY pen 08/31/17 Pen] Surgical History: - - Foot surgery Psychiatric History: No pertinent psych hx Lives: Alone Smoking Status: Never smoker Tobacco Use: Non-smoker Alcohol: None Drugs: None - *Family History Maternal History Items: Unknown Paternal History Items: Unknown Sibling History Items: Unknown Review of Systems Constitutional: Reports: - - complete ROS negative except as documented in HPI - Physical Exam General: Alert, - HEENT: Normocephalic Neck: Supple Lungs: Clear to auscultation Cardiovascular: Normal S1, Normal S2 Abdomen: Bowel Sounds Present Extremities: No cyanosis Skin: No rashes Musculoskeletal: No Tenderness to Palpation of Joints or Extremities Neurological: - - consious, alert, CN 2-12 grossly intact, power 5/5 proximally both UE, 5/5 both LE, but distal hand care program director weakness with atrophy of small muscles of hands, bilateral FDI, no fasciculations, Reflexes B/L +++ B/S/T/K/A, no clonus, no sensory loss, no cerebellar signs, gait deferred. Vital Signs Temp Pulse Resp BP Pulse Ox 98.9 F 89 18 166/92 H 96 08/31/17 09:10 08/31/17 09:10 08/31/17 09:10 08/31/17 09:10 08/31/17 09:10 Oxygen Delivery Method Room Air Weight: 81.4 kg Body Mass Index (BMI) 27.8 Intake and Output for Last 24 Hours 08/29/17 08/30/17 08/31/17 23:59 23:59 23:59 Intake Total 655 / 655 406 / 406 Output Total 650 / 650 Balance 655 / 655 -244 / -244 Laboratory Tests Past 24 Hrs 08/30/17 08/30/17 08/31/17 13:55 17:09 06:53 PT INR Sodium 138 Potassium 4.0 Chloride 105 Carbon Dioxide 25.0 Anion Gap 8 BUN 23 H Creatinine 1.02 Estim Creat Clear Calc 72.20 Est GFR (MDRD) Af Amer 94 Est GFR (MDRD) Non-Af 78 BUN/Creatinine Ratio 22.5 H Glucose 228 H Calcium 8.7 Troponin I < 0.015 < 0.015 Triglycerides 87 Cholesterol 126 LDL Cholesterol 73 VLDL Cholesterol 17 HDL Cholesterol 36 L 08/31/17 06:53 PT 13.1 INR 1.0 Sodium Potassium Chloride Carbon Dioxide Anion Gap BUN Creatinine Estim Creat Clear Calc Est GFR (MDRD) Af Amer Est GFR (MDRD) Non-Af BUN/Creatinine Ratio Glucose Calcium Troponin I Triglycerides Cholesterol LDL Cholesterol VLDL Cholesterol HDL Cholesterol POC Glucose 08/31/17 08/31/17 08/30/17 11:54 06:44 17:15 POC Glucose 331 H 223 H 170 H Assessment/Plan All Active Problems Acute ischemic stroke (Acute) Encephalopathy (Acute) Confusion (Acute) Acute renal insufficiency (Acute) The patient is a 67 year old CM with PMH HTN, HLD, DM, H/O Stroke, CAD admitted with episode of confusion. Per patient yesterday (08/30/17) he started driving at around 8 am after dropping his friend at his place and later remembers being pulled over by the police since he was weaving in and out of the road, transit police officer felt he was confused and by the time patient was in the ED he was back to his baseline per ED documentation. Per patient he remembers that he started to drive and the next thing he remembers was being pulled over, but probably does not remember driving for about 30 minutes. Patient is a poor historian, per patient he lives alone, denies any falls, does not use cane or walker to ambulate, does drive and does not need any assistance for his ADLs. Patient denies any neck pain but does have atrophy of the small muscles of hands bilaterally, with a weak care program director bilaterally. No fasciculations. MRI brain done on admission reported nothing acute. MRA head/neck reported to show possible small left cavernous ICA aneurysm. Patient denies any ESQUEDA, visual disturbances, speech disturbances, sensory loss or focal motor weakness.Per patient he takes ASA at baseline but does not take it everyday. Impression Acute confusion episode- possible TGA Unlikely to be TIA/acute stroke at present ? Left ICA aneurysm R/O Compressive cervical myelopathy Plan -On ASA and statin -Recommend MRI C spine w/o contrast and CTA head/neck -If CTA head/neck shows aneurysm, need outpatient neurosurgery consult -Spine surgery consult if MRI C spine is abnormal -Await EEG -Recommend outpatient EMG/NCS both UE/LE. -Patient counseled to be compliant with medications, he understands the same. -Denies any illicit drug abuse, ETOH or tobacco abuse. -Fall precautions -PT/OT -Stroke risk factors discussed and stroke education provided -Plan discussed with Dr. Ocampo -Follow up with Neurology in 4-6 weeks as outpatient -Please call with questions if any -Thank you for allowing us to participate in patients care and management I spent 60 minutes taking history, doing physical examination, reviewing medical records, coordinating care and counseling the patient. Code Visit Inpatient E&M: 03442 Init Hosp L3
[2017-08-31] MEDS: amLODIPine 5 MG Tablet PO (17:12)
--- NOTE | 2017-09-02 14:35 | EEG ---
- Electroencephalogram Date of Service: 08/31/17 History EEG is being done in this 67 yr M to rule out seizures EEG Description: This is an 18 channel EEG with 10-20 lead placement system. Bipolar montages, Referential and Circumferential montages were reviewed. Photic stimulation and Hyperventilation were performed. The posterior dominant background rhythm is 7 HZ synchronous, symmetric, reacting to eye opening and closing. Photo stimulation elicited normal driving response but no abnormal photoparoxysmal response, Hyperventilation did not elicit any abnormal photoparoxysmal response. Drowsiness was identified. There was no epileptiform discharges or electrographic seizures noted during this recording. The generalized back ground rhythm was in the theta frequency range. EEG Interpretation This is an abnormal EEG due to the presence of mild generalized slowing. This can be seen in generalized cerebral dysfunction like metabolic/toxic encephalopathy. Clinical correlation is advised. There is no epileptiform discharges or electrographic seizures noted during the record.
--- NOTE | 2017-09-02 16:10 | CASEMGMT ---
DEANNA SILVA Discharge F/U phone call LACE: 12 Strata: 4 Discharge date: 08/31/17 Call date: 09/02/17 Call time: [id number] Duration: 3 minutes Admission dx: TIA Pt states has been doing 'OK' since discharge from hospital. Pt states no questions/concerns regarding medications or discharge instructions at this time. Pt states has follow up appointment scheduled for 09/09/17 at 1220 and states plans on keeping appointment. Pt states no suggestions for [facility] at this time. Pt states no further questions/concerns/needs at this time. [place] DEANNA SILVA
== END 2017-08-31 17:45 | disposition home or self-care (01) | DRG 72 ==
LOC: ED 11:21 → PCU 12:52
PROVIDERS: Admitting Provider Internal Medicine; Emergency Provider Emergency Medicine; Family Provider Internal Medicine; PCP Internal Medicine; Visit Provider Internal Medicine
DX: G93.41 Metabolic encephalopathy (principal); E11.9 Type 2 diabetes mellitus without complications; Z79.84 Long term (current) use of oral hypoglycemic drugs; I25.2 Old myocardial infarction; I25.10 Atherosclerotic heart disease of native coronary artery without angina pectoris; I10 Essential (primary) hypertension; M47.9 Spondylosis, unspecified; Z86.73 Personal history of transient ischemic attack (TIA), and cerebral infarction without residual deficits
CPT/HCPCS: 36415; 70450; 70496; 70498; 70544; 70547; 70551; 72141; 80048; 80061; 82962; 84484; 85025; 85610; 85730; 92523; 93005; 93306; 95819; 97162; 97166; 99285; J7030; Q9957; Q9967; A4216

== ENCOUNTER → 2017-10-29 05:00 | Outpatient (REF) | payer MEDICARE, SELFPAY ==
[2017-10-29 10:04] LABS: Hematocrit 36.6 % (40-54); Hemoglobin 12.1 g/dl (13.0-16.5); Mean Corp Hgb Conc 33.1 g/gl (32-36); Mean Corpuscular Hgb 32.4 pg (27.0-32.0); Mean Corpuscular Volume 97.9 fL (80-94); Mean Platelet Vol. 9.3 fl (6.2-12.0); Platelet Count 232 K/mm3 (150-450); RBC Distribution Width CV 12.8 % (11.6-14.6); RBC Distribution Width SD 45.7 fl (35.1-43.9); Red Blood Count 3.74 M/mm3 (4.6-6.2)
[2017-10-29 10:07] LABS: Anion Gap 8 (5-15); BUN 31 mg/dL (7-18); BUN/Creat Ratio 25.8 RATIO (10-20); Chloride 107 mmol/L (98-107); Cholesterol 125 mg/dL (200); EST Glomerular Filtration Rate 65 mL/min (>60); Est Glom Filt Rate - Afr Amer 78 mL/min (>60); Glucose 119 mg/dL (74-106); High Density Lipoprotein 34 mg/dL; Scan Indicated on CBC? Y/N NO; Sodium Level 139 mmol/L (136-145); Triglycerides 93 mg/dL; Very Low Density Lipoprotein 19 mg/dL (5-40)
[2017-10-29 10:17] LABS: Hemoglobin A1c 8.3 % (4.2-6.3)
== END ==
LOC: OLS.WCC 05:00
PROVIDERS: Visit Provider Family Medicine
DX: E11.9 Type 2 diabetes mellitus without complications (principal); E78.5 Hyperlipidemia, unspecified; Z79.899 Other long term (current) drug therapy
CPT/HCPCS: 36415; 80048; 80061; 83036; 85027

== ENCOUNTER 2017-11-26 15:44 | Inpatient (IN) | payer MEDICARE, SELFPAY ==
[2017-11-26] VITALS (11 sets, daily range): BP systolic 131–171; BP diastolic 80–111; PULSE 83–114; RESP 13–24; TEMP 36.6–36.8; O2SAT 95–100; BMI 29.2; BMI 27.3
--- NOTE | 2017-11-26 15:57 | CT_ITS ---
STUDY: CTA NECK WITH CONTRAST REASON FOR EXAM: Male, 67 years old. CVA RADIATION DOSAGE (If Supplied By Facility): CTDIvol = ( 22.36 ) mGy, DLP = ( 789.60 ) mGycm Individualized dose optimization techniques were used for this CT. TECHNIQUE: CT angiography with multi-detector data acquisition was performed from the aortic arch to the skull base following intravenous administration of 100 ml of Isovue 370 contrast. MIP images were reconstructed from the axial data set. Post-processing of the angiographic images was performed, with multiplanar reformation and 3D reconstruction. COMPARISON: None. FINDINGS: AORTIC ARCH: There is atherosclerotic calcific plaque formation of the aortic arch and great vessels arising from the aortic arch, without a hemodynamically significant stenosis. There is a normal origin of the brachiocephalic, left common carotid, and left subclavian arteries. Normal origins of the brachiocephalic, left common carotid, and left subclavian arteries. RIGHT CAROTID ARTERIES: Normal right common carotid artery (CCA). Normal right common carotid bulb. There is mild atherosclerotic plaque formation of the origin of the right internal carotid artery with less than 50% cross sectional diameter stenosis. Normal visualized cervical portion of the right internal carotid artery. Normal origin of the right external carotid artery (ECA). LEFT CAROTID ARTERIES: Normal left common carotid artery (CCA). Normal left common carotid bulb. There is mild atherosclerotic plaque formation of the origin of the left internal carotid artery with less than 50% cross sectional diameter stenosis. Normal visualized cervical portion of the left internal carotid artery. Normal origin of the left external carotid artery (ECA). VERTEBRAL ARTERIES: Normal bilateral vertebral arteries. IMPRESSION: There is no hemodynamically significant stenosis. Calculated stenosis of the Right and Left ICA's is less than 50% By ICA/CCA PSV Ratio. ALL ABOVE CRITERIA BY NASCET. Electronically Signed: Monroe Aburto MD at 17:16 EDT , Service support , STUDY: CTA OF THE BRAIN REASON FOR EXAM: Male, 67 years old. CVA RADIATION DOSAGE (If Supplied By Facility): CTDIvol = ( 22.36 ) mGy, DLP = ( 789.60 ) mGycm TECHNIQUE: CT angiography was performed with a multi-detector CT scanner. Data acquisition was obtained from the skull base through the vertex following intravenous administration of 100 ml of Isovue-370. MIP images were reconstructed from the axial data set. Post-processing of the angiographic images was performed, with multiplanar reformation and 3D reconstruction. Individualized dose optimization techniques were used for this CT. COMPARISON: None. FINDINGS: Normal bilateral petrous carotid arteries. There is calcified plaque formation of the right cavernous carotid artery, with a mild stenosis (less than 50%). There is calcified plaque formation of the left cavernous carotid artery, with a mild stenosis (less than 50%). Normal right A1 segments of the anterior cerebral artery. Normal left A1 segments of the anterior cerebral artery. Normal intact anterior communicating artery (ACOM). Normal bilateral A2 segments of the anterior cerebral arteries. Normal right M1 and M2 segments of the middle cerebral arteries, with a normal M1 bifurcation. Normal left M1 and M2 segments of the middle cerebral arteries, with a normal M1 bifurcation. Normal right posterior communicating artery (PCOM). Normal left posterior communicating artery (PCOM). Normal bilateral vertebral arteries. Normal basilar artery with a normal basilar bifurcation. The visualized bilateral superior cerebellar (SCA) arteries are normal. Normal bilateral P1, P2 and visualized P3 segments of the posterior cerebral arteries. There is no demonstrated aneurysm of the [place] of [place]. There is no demonstrated abnormality of the visualized brain. CT/CTA Head W/WO Contrast IMPRESSION: There is calcified plaque formation of the right cavernous carotid artery, with a mild stenosis (less than 50%). There is calcified plaque formation of the left cavernous carotid artery, with a mild stenosis (less than 50%). ALL ABOVE CRITERIA BY NASCET. Electronically Signed: Monroe Aburto MD at 17:17 EDT , Service support ,
--- NOTE | 2017-11-26 15:57 | CT_ITS ---
STUDY: CT BRAIN WITHOUT CONTRAST REASON FOR EXAM: Male, 67 years old. CVA. RADIATION DOSAGE (If Supplied By Facility): CTDIvol = ( 60.81 ) mGy, DLP = ( 1158.30 ) mGycm TECHNIQUE: Transaxial CT imaging of the brain was performed without administration of intravenous contrast material. Individualized dose optimization techniques were used for this CT. COMPARISON: 08/31/2017. FINDINGS: There is no definite acute abnormality. There is diffuse mild symmetric atrophy. There is atrophy of the posterior fossa structures. There is diffuse small vessel ischemic disease of the white matter. There are stable bilateral lacunar infarcts. Encephalomalacia from previous infarcts seen in the left cerebellar hemisphere, in the right occipital lobe, and in the right frontal lobe. There is no definite acute infarct. There is no bleed. There is no gross mass, mass effect, or midline shift. There is no acute abnormality of the skull. No fractures. Hypodensity in the right globe consistent with intraocular blood. Grossly normal sinuses. CT/Brain/Head without Contrast IMPRESSION: Chronic age related changes and atrophy. Several previous infarcts. No change since previous exam. No acute abnormality. Electronically Signed: Andre Cadet MD at 16:30 EDT , Service support ,
--- NOTE | 2017-11-26 15:57 | EKG12_ITS ---
Test Reason : NEURO Blood Pressure : / mmHG Vent. Rate : 082 BPM Atrial Rate : 082 BPM P-R Int : 178 ms QRS Dur : 092 ms QT Int : 384 ms P-R-T Axes : 028 057 083 degrees QTc Int : 448 ms Normal sinus rhythm Normal ECG Confirmed by JP MOLINA, RUBENS ([id number]), news editor ARDEN CERVANTES ([id number]) on 11/29/2017 2:17:20 PM Referred By: Shelley Perez Confirmed By:RUBENS OLIVA MD
--- NOTE | 2017-11-26 15:57 | CT_ITS ---
STUDY: CTA NECK WITH CONTRAST REASON FOR EXAM: Male, 67 years old. CVA RADIATION DOSAGE (If Supplied By Facility): CTDIvol = ( 22.36 ) mGy, DLP = ( 789.60 ) mGycm Individualized dose optimization techniques were used for this CT. TECHNIQUE: CT angiography with multi-detector data acquisition was performed from the aortic arch to the skull base following intravenous administration of 100 ml of Isovue 370 contrast. MIP images were reconstructed from the axial data set. Post-processing of the angiographic images was performed, with multiplanar reformation and 3D reconstruction. COMPARISON: None. FINDINGS: AORTIC ARCH: There is atherosclerotic calcific plaque formation of the aortic arch and great vessels arising from the aortic arch, without a hemodynamically significant stenosis. There is a normal origin of the brachiocephalic, left common carotid, and left subclavian arteries. Normal origins of the brachiocephalic, left common carotid, and left subclavian arteries. RIGHT CAROTID ARTERIES: Normal right common carotid artery (CCA). Normal right common carotid bulb. There is mild atherosclerotic plaque formation of the origin of the right internal carotid artery with less than 50% cross sectional diameter stenosis. Normal visualized cervical portion of the right internal carotid artery. Normal origin of the right external carotid artery (ECA). LEFT CAROTID ARTERIES: Normal left common carotid artery (CCA). Normal left common carotid bulb. There is mild atherosclerotic plaque formation of the origin of the left internal carotid artery with less than 50% cross sectional diameter stenosis. Normal visualized cervical portion of the left internal carotid artery. Normal origin of the left external carotid artery (ECA). VERTEBRAL ARTERIES: Normal bilateral vertebral arteries. IMPRESSION: There is no hemodynamically significant stenosis. Calculated stenosis of the Right and Left ICA's is less than 50% By ICA/CCA PSV Ratio. ALL ABOVE CRITERIA BY NASCET. Electronically Signed: Monroe Aburto MD at 17:16 EDT , Service support , STUDY: CTA OF THE BRAIN REASON FOR EXAM: Male, 67 years old. CVA RADIATION DOSAGE (If Supplied By Facility): CTDIvol = ( 22.36 ) mGy, DLP = ( 789.60 ) mGycm TECHNIQUE: CT angiography was performed with a multi-detector CT scanner. Data acquisition was obtained from the skull base through the vertex following intravenous administration of 100 ml of Isovue-370. MIP images were reconstructed from the axial data set. Post-processing of the angiographic images was performed, with multiplanar reformation and 3D reconstruction. Individualized dose optimization techniques were used for this CT. COMPARISON: None. FINDINGS: Normal bilateral petrous carotid arteries. There is calcified plaque formation of the right cavernous carotid artery, with a mild stenosis (less than 50%). There is calcified plaque formation of the left cavernous carotid artery, with a mild stenosis (less than 50%). Normal right A1 segments of the anterior cerebral artery. Normal left A1 segments of the anterior cerebral artery. Normal intact anterior communicating artery (ACOM). Normal bilateral A2 segments of the anterior cerebral arteries. Normal right M1 and M2 segments of the middle cerebral arteries, with a normal M1 bifurcation. Normal left M1 and M2 segments of the middle cerebral arteries, with a normal M1 bifurcation. Normal right posterior communicating artery (PCOM). Normal left posterior communicating artery (PCOM). Normal bilateral vertebral arteries. Normal basilar artery with a normal basilar bifurcation. The visualized bilateral superior cerebellar (SCA) arteries are normal. Normal bilateral P1, P2 and visualized P3 segments of the posterior cerebral arteries. There is no demonstrated aneurysm of the [place] of [place]. There is no demonstrated abnormality of the visualized brain. CT/CTA Neck W/WO Contrast IMPRESSION: There is calcified plaque formation of the right cavernous carotid artery, with a mild stenosis (less than 50%). There is calcified plaque formation of the left cavernous carotid artery, with a mild stenosis (less than 50%). ALL ABOVE CRITERIA BY NASCET. Electronically Signed: Monroe Aburto MD at 17:17 EDT , Service support ,
[2017-11-26 16:01] LABS: Bedside Glucose 367 mg/dL (70-110)
--- NOTE | 2017-11-26 16:15 | RAD_ITS ---
STUDY: X-RAY CHEST REASON FOR EXAM: Male, 67 years old. Confusion and weakness. TECHNIQUE: Single AP portable view of the chest. COMPARISON: 05/19/2017. FINDINGS: Low to moderate lung volumes. No infiltrates. No effusions. Normal size heart. Implanted court recording monitor seen on the left. Normal mediastinum and ofelia. Normal visualized pulmonary arteries. Normal visualized aortic arch and descending thoracic aorta. There are diffuse degenerative changes of the visualized thoracic spine. There is degenerative osteoarthritis of the bilateral shoulders. There is no demonstrated abnormality of the visualized soft tissue structures of the upper abdomen. RAD/Chest 1 View IMPRESSION: Low to moderate lung volumes. No evidence for acute chest disease. Electronically Signed: Andre Cadet MD at 16:33 EDT , Service support ,
[2017-11-26 16:24] LABS: Absolute Lymphocyte Count 2.04 X10^3/ul (0.83-4.51); Absolute Neutrophil Count 6.1 X10^3/uL (2.0-7.7); Basophil# 0.05 X10^3/uL; Basophil% 0.5 % (0-1); Eosinophil# 0.19 X10^3/uL; Eosinophils% 2.1 % (0-5); Hematocrit 35.9 % (40-54); Hemoglobin 12.4 g/dl (13.0-16.5); Lymphocyte # 2.04 X10^3/ul (4.0); Lymphocyte % 22.3 % (19-41); Mean Corp Hgb Conc 34.5 g/gl (32-36); Mean Corpuscular Hgb 33.1 pg (27.0-32.0); Mean Corpuscular Volume 95.7 fL (80-94); Mean Platelet Vol. 9.3 fl (6.2-12.0); Monocyte# 0.71 X10^3/uL; Monocyte% 7.8 % (0-10); Neutrophil # 6.09 X10^3/uL (2.7-7.7); Neutrophil % 66.8 % (47-70); Platelet Count 270 K/mm3 (150-450); RBC Distribution Width CV 12.5 % (11.6-14.6); RBC Distribution Width SD 42.3 fl (35.1-43.9); Red Blood Count 3.75 M/mm3 (4.6-6.2); White Blood Count 9.1 K/mm3 (4.4-11.0)
[2017-11-26 16:26] LABS: Anion Gap 8 (5-15); BUN 36 mg/dL (7-18); BUN/Creat Ratio 23.8 RATIO (10-20); Calcium,Total 9.1 mg/dL (8.5-10.1); Chloride 100 mmol/L (98-107); Creatinine, Serum 1.51 mg/dL (0.70-1.30); EST Glomerular Filtration Rate 50 mL/min (>60); Est Glom Filt Rate - Afr Amer 60 mL/min (>60); Estimated Creatinine Clearance 48.77 ml/min; Glucose 336 mg/dL (74-106); Potassium 4.9 mmol/L (3.5-5.1); Sodium Level 134 mmol/L (136-145)
[2017-11-26 16:37] LABS: POSITIVE COUNT NO; POSITIVE DIFFERENTIAL NO; POSITIVE MORPHOLOGY NO
[2017-11-26 17:09] LABS: Partial Thromboplast Time 28.3 Seconds (24.1-36.2); Prothrombin Time (Protime)PT. 12.7 SECONDS (11.7-14.9)
--- NOTE | 2017-11-26 17:35 | NURSING ---
pt walked to restroom. needed assistance for balance. pt tore out his iv while in the restroom. he was unable to explain as to why her pulled it. dr mccarty informed.
--- NOTE | 2017-11-26 17:50 | NURSING ---
NIH's can be discontinued per ed [id number]
--- NOTE | 2017-11-26 18:38 | HP.PCM_ITS ---
Problem List (1) Headache Status: Acute History of Present Illness Date of Admission: 11/26/17 Chief Complaint: headache The patient is a 67 year old M with an extensive past medical history of hypertension, diabetes, hyperlipidemia and arthritis. He was admitted from his senior care on 11/26/2017 with a complaint of headache. His last known well was ~ 10am this morning, was on his exercise bike in the senior care was noted to have a headache. There is a question of if patient possibly passed out or not. Nursing was concerned about him having a stroke and so he was brought to the ED. Patient states he had a headache which started around 10 AM this morning was around his right eye. There is a question of possible loss of vision in left eye. He has a history of left-sided weakness from a prior stroke and so nursing was concerned that he possibly had increased weakness on that side again. Patient was brought into the ED and review of systems is otherwise negative. Vitals in the ED showed temperature of 97.8 Fahrenheit, blood pressure 160/97, pulse rate of 93 respiratory rate of 14. Labs were significant for sodium of 134 and creatinine of 1.51 with glucose of 336. Troponin was less than 0.015. Brain CT showed hypodensity in the right lobe consistent with intraocular blood and chronic age-related changes and atrophic with several previous infarct but no other change since previous exam. CTA of the head and neck showed calcified plaque formation of the right cavernous carotid artery with mild stenosis less than 50% and calcified plaques of motion of the left cavernous carotid artery with mild stenosis less than 50%. He is being admitted to be worked up for stroke. Per ED doctor, he discussed intraocular bleeding of right globe with traffic monitor specialist who did not think he was acute and so said he would see patient tomorrow on consult. [] Past Medical History Past Medical History (Chronic Problems): Chronic Problems HTN (hypertension) (Chronic) NSTEMI (non-ST elevation myocardial infarction) (Chronic) Type 2 diabetes mellitus (Chronic) Allergies No Known Allergies Allergy (Verified 11/26/17 15:50) Home Medications: Ambulatory Orders Medication Instructions Recorded Acetaminophen [Tylenol Arthritis] 1,300 mg PO PRN PRN 11/26/17 Aspirin [Aspirin EC] 81 mg PO DAILY 11/26/17 Atorvastatin Calcium [Lipitor] 40 mg PO QHS 11/26/17 Cholecalciferol (Vitamin D3) 1,000 unit PO DAILY 11/26/17 [Vitamin D3] Insulin Glargine [Lantus SoloStar 50 units SC DAILY 11/26/17 Pen] Lisinopril [Zestril] 2.5 mg PO DAILY 11/26/17 Metformin HCl 1,000 mg PO BID 11/26/17 Metoprolol Tartrate [Lopressor 25 mg PO BID 11/26/17 (Beta Karla)] Surgical History: - - Foot surgery Psychiatric History: No pertinent psych hx Lives: Senior Living Smoking Status: Former smoker Tobacco Use: Non-smoker Alcohol: None Drugs: None - *Family History Maternal History Items: Unknown Paternal History Items: Unknown Sibling History Items: Unknown Review of Systems Constitutional: Denies: Chills, Fever, Weight Change Eyes: Reports: Blurred vision, Pain. Denies: Double vision, Redness, Vision Change HEENT: Denies: Head Aches, Sinus Congestion, Sinus Drainage Cardiovascular: Denies: Chest Pain, Chest Pressure, Chest Tightness, Edema, Light Headedness, Orthopnea, Palpitations Respiratory: Denies: Cough, Shortness of Breath, Shortness of breath at rest, Sputum production Gastrointestinal: Denies: Abdominal Pain, Constipation, Diarrhea, Nausea, Vomiting Genitourinary: Denies: Dysuria Musculoskeletal: Denies: Joint Pain, Joint Tenderness Skin: Denies: Rash, Wounds Neurological: Reports: Blurred vision - right eye. Denies: Focal weakness, Numbness, Tingling Psychiatric: Denies: Anxiety, Depression, Homicidal Ideations, Suicidal Ideations Hematologic/ Lymphatic: Denies: Easy Bruising, Easy Bleeding VTE Information - Inpt Only VTE Present on Admission: No VTE Mechan Device Prophylaxis: SCD's VTE Pharm Prophylaxis ordered?: No Patient Problems: Active and Suspected Problems Headache (Acute) - Physical Exam General: Alert, Oriented x3, Cooperative, No apparent distress HEENT: Atraumatic, PERRLA, EOMI, Normocephalic Oral: Moist Mucosa Neck: Supple, No JVD, Negative Carotid Bruits Lungs: Clear to auscultation, Normal air movement, No rhonchi, No wheeze, No rales Cardiovascular: Regular rate, Regular Rhythm, Normal S1, Normal S2, No murmurs Abdomen: Bowel Sounds Present, Soft, Non Tender, Non-Distended, No Hepato- splenomegaly Extremities: No clubbing, No cyanosis, No edema, Capillary Refill Less than 3 Seconds Skin: No rashes, No breakdown Musculoskeletal: No Tenderness to Palpation of Joints or Extremities Lymphatic: No Cervical, Supraclavicular, or Inguinal Adenopathy Neurological: Cranial nerves II-XII grossly intact, Neuro grossly intact, Motor Exam 5/5 strength throughout, Muscle tone normal, Sensory exam intact to light touch and pain Psych/Mental Status: Normal Affect, Appropriate, Alert and oriented to time, place, person, mood and affect Comment: NIHSS -1 (for LLE drift- may be chronic from old stroke) Vital Signs Temp Pulse Resp BP Pulse Ox 97.8 F 93 14 164/97 H 97 11/26/17 15:45 11/26/17 18:29 11/26/17 18:29 11/26/17 18:29 11/26/17 18:29 Oxygen Flow Rate (L/min) 14 Oxygen Delivery Method Room Air Weight: 197 lb 12.074 oz Body Mass Index (BMI) 29.2 Finger Stick Blood Glucose 367 Laboratory Tests Past 24 Hrs 11/26/17 11/26/17 11/26/17 15:50 15:50 15:50 WBC 9.1 RBC 3.75 L Hgb 12.4 L Hct 35.9 L MCV 95.7 H MCH 33.1 H MCHC 34.5 RDW 12.5 RDW Differential 42.3 Plt Count 270 MPV 9.3 Immature Gran % (Auto) 0.500 Neut % (Auto) 66.8 Lymph % (Auto) 22.3 Dickinson % (Auto) 7.8 Eos % (Auto) 2.1 Baso % (Auto) 0.5 Absolute Neuts (auto) 6.1 Absolute Lymphs (auto) 2.04 Total Counted Not Reportable PT 12.7 INR 1.0 APTT 28.3 Sodium 134 L Potassium 4.9 Chloride 100 Carbon Dioxide 26.0 Anion Gap 8 BUN 36 H Creatinine 1.51 H Estim Creat Clear Calc 48.77 Est GFR (MDRD) Af Amer 60 Est GFR (MDRD) Non-Af 50 L BUN/Creatinine Ratio 23.8 H Glucose 336 H Calcium 9.1 Troponin I < 0.015 POC Glucose 11/26/17 15:52 POC Glucose 367 H Diagnostic Data Brain CT 11/26/17 15:57 IMPRESSION: Chronic age related changes and atrophy. Several previous infarcts. No change since previous exam. No acute abnormality. Electronically Signed: Andre Cadet MD at 16:30 EDT , Service support , Head CTA 11/26/17 15:57 IMPRESSION: There is calcified plaque formation of the right cavernous carotid artery, with a mild stenosis (less than 50%). There is calcified plaque formation of the left cavernous carotid artery, with a mild stenosis (less than 50%). ALL ABOVE CRITERIA BY NASCET. Electronically Signed: Monroe Aburto MD at 17:17 EDT , Service support , Neck CTA 11/26/17 15:57 IMPRESSION: There is calcified plaque formation of the right cavernous carotid artery, with a mild stenosis (less than 50%). There is calcified plaque formation of the left cavernous carotid artery, with a mild stenosis (less than 50%). ALL ABOVE CRITERIA BY NASCET. Electronically Signed: Monroe Aburto MD at 17:17 EDT , Service support , Chest X-Ray 11/26/17 16:15 IMPRESSION: Low to moderate lung volumes. No evidence for acute chest disease. Electronically Signed: Andre Caedt MD at 16:33 EDT , Service support , Assessment/Plan All Active Problems Headache (Acute) Acute ischemic stroke (Acute) Encephalopathy (Acute) Confusion (Acute) Acute renal insufficiency (Acute) [age]-year-old male presenting with headache and last known well of 10 AM this morning. 1. Right periorbital headache * suspicion for stroke as he complained of severe headache this morning. rated it at 8/10 * he suddenly had time finding left hand up on his exercise bicycle and so they were concerned he may have lost vision in his left eye. He does have a history of left-sided weakness from previous stroke. * EKG showed normal sinus rhythm with no acute ST changes. initial troponin was negative. * CT head showed chronic ischemic changes and hypodensity in the right lobe consistent with intraocular blood. CT a of the head and neck showed narrowing of blood vessels less than 50%. * ED discussed with ophthalmology, will evaluate patient tomorrow. * NIH stroke scale was only 1 for mild drift of the left lower extremity which may be chronic from previous stroke. * I do not think this patient may have had a stroke I think his symptoms are likely due to intraocular bleeding. * will consult ophthalmology and neurology * will get MRI of brain tomorrow. will hold off on plavix for now as patient has an intraocular bleed; will await ophthalmology evaluation.DIscussed with Dr Amanda on the phone. I discussed my concern about persistent right periorbital headache. Patient's does not have any right eye erythema or swelling. Dr. Amanda to see patient tomorrow. * on atorvastatin and aspirin. will continue * 2.FAVIAN: Cr is 1.51. Baseline is on 1. Will hydrate and monitor. 3. Diabetes mellitus blood sugar was in 300s on admission. On lantus 50IU daily and metformin 1000mg bid. 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 Will continue insulin. Accu-Cheks before meals at bedtime. 4.Hypertension: Fairly controlled. On lisinopril 2.5 mg daily and metoprolol 25 mg twice daily. Will continue. DVT prophylaxis: SCDs.No anticoagulation o/a of suspicion for intraocular bleeding. Code status: full code. * Code Visit Inpatient E&M: 02860 Init Hosp L3
--- NOTE | 2017-11-26 18:43 | ED.VISSUMM ---
- ER Visit Summary Date of Service: 11/26/17 Chief Complaint: [Headache and concern for possible stroke] History of Present Illness: The patient is a 67 M [presents the emergency department with a headache that he tells me started around 10 AM this morning. Headache came on rather suddenly. Patient still rates his pain as an 8 out of 10. Patient has had some pain behind his right eye. The correction was concerned because patient was on a exercise bicycle and he was having a hard time finding the left handlebar and was concerned that he had vision loss in the left eye. Patient has a history of left-sided weakness from prior stroke and the correction staff had concern that he he had increased weakness to that side again. Patient to me denies any weakness or paresthesias. He denies any visual changes. Patient has no other complaints other than the right-sided headache at this time. He denies any chest pain or shortness of breath. He denies any falls or head injuries.] Physical Examination: [Patient right pupil is 2 mm and reactive and his left pupil is 4 mm and irregularly shaped. Patient does not know if his pupils are normally unequal., EOMI. Cranial nerves II through XII grossly intact. TMs clear. Mucous membranes moist. No adenopathy. Cardiovascular-regular rate and rhythm without murmur or ectopy Lungs-clear to auscultation, chest wall stable without crepitus or subcu emphysema Abdomen-normoactive bowel sounds, soft, nontender, no rebound or rigidity, no peritoneal signs. Neuro [id number] and heel sands testing within normal limits, negative Romberg, negative pronator drift, NIH stroke scale was 0. Extremities-intact ?4, normal range of motion, normal pulses, atraumatic] Test Results: [EKG obtained on arrival showed sinus rhythm with a ventricular rate of 82 bpm with no acute ST segment changes. CT scan of the brain without contrast showed chronic ischemic changes and a hypodensity in the right globe consistent with intraocular blood. No new infarct noted. CTA of the head and neck showed some chronic changes with some narrowing of blood vessels less than 50%.] Emergency Department Course and Treatment: [Case was discussed with ophthalmology who will evaluate patient tomorrow regarding the possible blood in the right eye. Patient case was discussed with hospitalist will evaluate patient for admission. Etiology of patient's symptoms unclear at and it is unclear patient may have had a TIA.] Patient is not a TPA candidate as symptoms have resolved and symptoms started greater than 4-1/2 hours ago. Treatment Plan: [Admit for further workup and evaluation] Disposition: [Admit] Impression: [TIA Cephalgia] This note was generated with [employer] dictation software. It may contain incorrect words, spelling, and punctuation that were not noted in review of the chart prior to signing ED Disposition - Plan for ED Patient: Chief Complaint: Neuro S/Sx Referrals: Chary Cardona MD [Primary Care Provider] -
--- NOTE | 2017-11-26 18:47 | ED.DCSUM_ITS ---
- ER Visit Summary Date of Service: 11/26/17 Chief Complaint: [Headache and concern for possible stroke] History of Present Illness: The patient is a 67 M [presents the emergency department with a headache that he tells me started around 10 AM this morning. Headache came on rather suddenly. Patient still rates his pain as an 8 out of 10. Patient has had some pain behind his right eye. The [facility] was concerned because patient was on a exercise bicycle and he was having a hard time finding the left handlebar and was concerned that he had vision loss in the left eye. Patient has a history of left-sided weakness from prior stroke and the [facility] staff had concern that he he had increased weakness to that side again. Patient to me denies any weakness or paresthesias. He denies any visual changes. Patient has no other complaints other than the right-sided headache at this time. He denies any chest pain or shortness of breath. He denies any falls or head injuries.] Physical Examination: [Patient right pupil is 2 mm and reactive and his left pupil is 4 mm and irregularly shaped. Patient does not know if his pupils are normally unequal., EOMI. Cranial nerves II through XII grossly intact. TMs clear. Mucous membranes moist. No adenopathy. Cardiovascular-regular rate and rhythm without murmur or ectopy Lungs-clear to auscultation, chest wall stable without crepitus or subcu emphysema Abdomen-normoactive bowel sounds, soft, nontender, no rebound or rigidity, no peritoneal signs. Neuro [id number] and heel sands testing within normal limits, negative Romberg, negative pronator drift, NIH stroke scale was 0. Extremities-intact ?4, normal range of motion, normal pulses, atraumatic] Test Results: [EKG obtained on arrival showed sinus rhythm with a ventricular rate of 82 bpm with no acute ST segment changes. CT scan of the brain without contrast showed chronic ischemic changes and a hypodensity in the right globe consistent with intraocular blood. No new infarct noted. CTA of the head and neck showed some chronic changes with some narrowing of blood vessels less than 50%.] Emergency Department Course and Treatment: [Case was discussed with ophthalmology who will evaluate patient tomorrow regarding the possible blood in the right eye. Patient case was discussed with hospitalist will evaluate patient for admission. Etiology of patient's symptoms unclear at and it is unclear patient may have had a TIA.] Patient is not a TPA candidate as symptoms have resolved and symptoms started greater than 4-1/2 hours ago. Treatment Plan: [Admit for further workup and evaluation] Disposition: [Admit] Impression: [TIA Cephalgia] This note was generated with Tweegee dictation software. It may contain incorrect words, spelling, and punctuation that were not noted in review of the chart prior to signing ED Disposition - Plan for ED Patient: Chief Complaint: Neuro S/Sx Referrals: Chary Cardona MD [Primary Care Provider] -
[2017-11-26] MEDS: Metoprolol Tartrate 25 MG Tablet PO (22:28)
[2017-11-26] MEDS: Atorvastatin Calcium 40 MG Tablet PO (22:28)
[2017-11-26] MEDS: Insulin Lispro 100 UNIT/ML INSULN.PEN SQ (22:42)
[2017-11-26 23:00] LABS: Bedside Glucose 389 mg/dL (70-110)
[2017-11-27] VITALS (13 sets, daily range): BP systolic 116–145; BP diastolic 66–94; PULSE 80–98; RESP 14–20; TEMP 36.4–36.9; O2SAT 94–100; BMI 27.3
--- NOTE | 2017-11-27 03:01 | NURSING ---
BED ALARM WAS GOING OFF. THIS RN IMMEDIATELY RESPONDED TO THE PATIENT'S ROOM AND HE WAS STANDING INSIDE THE BATHROOM. THIS RN APPROACHED THE PATIENT AND HIS LEGS SUDDENLY WENT WEAK AND THIS RN LOWERED HIM TO THE FLOOR. VSS. MOVED HIM FROM ROOM 122 TO 111.
[2017-11-27 06:08] LABS: Absolute Lymphocyte Count 0.42 X10^3/ul (0.83-4.51); Absolute Neutrophil Count 7.1 X10^3/uL (2.0-7.7); Basophil# 0.02 X10^3/uL; Basophil% 0.2 % (0-1); Eosinophil# 0.11 X10^3/uL; Eosinophils% 1.3 % (0-5); Hematocrit 36.5 % (40-54); Hemoglobin 12.8 g/dl (13.0-16.5); Lymphocyte # 0.42 X10^3/ul (4.0); Lymphocyte % 5.1 % (19-41); Mean Corp Hgb Conc 35.1 g/gl (32-36); Mean Corpuscular Hgb 33.1 pg (27.0-32.0); Mean Corpuscular Volume 94.3 fL (80-94); Mean Platelet Vol. 9.1 fl (6.2-12.0); Monocyte# 0.54 X10^3/uL; Monocyte% 6.6 % (0-10); Neutrophil # 7.06 X10^3/uL (2.7-7.7); Neutrophil % 86.4 % (47-70); Platelet Count 246 K/mm3 (150-450); RBC Distribution Width CV 12.3 % (11.6-14.6); RBC Distribution Width SD 41.6 fl (35.1-43.9); Red Blood Count 3.87 M/mm3 (4.6-6.2); White Blood Count 8.2 K/mm3 (4.4-11.0)
[2017-11-27 06:09] LABS: Differential Indicated SCAN CRITERIA MET; POSITIVE COUNT NO; POSITIVE DIFFERENTIAL YES; POSITIVE MORPHOLOGY NO
[2017-11-27 06:10] LABS: Anion Gap 10 (5-15); BUN 34 mg/dL (7-18); Calcium,Total 8.9 mg/dL (8.5-10.1); Chloride 103 mmol/L (98-107); Cholesterol 141 mg/dL (200); Creatinine, Serum 1.26 mg/dL (0.70-1.30); EST Glomerular Filtration Rate 61 mL/min (>60); Est Glom Filt Rate - Afr Amer 74 mL/min (>60); Estimated Creatinine Clearance 58.45 ml/min; Glucose 248 mg/dL (74-106); High Density Lipoprotein 39 mg/dL; Potassium 4.2 mmol/L (3.5-5.1); Sodium Level 136 mmol/L (136-145); Triglycerides 139 mg/dL; Very Low Density Lipoprotein 28 mg/dL (5-40)
[2017-11-27 06:11] LABS: Bedside Glucose 248 mg/dL (70-110)
[2017-11-27 06:47] LABS: Differential Comment SCANNED
--- NOTE | 2017-11-27 07:24 | NURSING ---
VOICEMAIL LEFT FOR HIS SISTER SENA TO NOTIFY HER TO CALL [facility] SO WE CAN TELL HER ABOUT LOWERING THE PATIENT TO THE FLOOR OVERNIGHT. [employer] DEANNA GRIMALDO NOTIFIED THAT A VOICEMAIL AND PCU PHONE NUMBER WAS LEFT.
[2017-11-27 07:26] LABS: Bedside Glucose 275 mg/dL (70-110)
--- NOTE | 2017-11-27 08:00 | MRI_ITS ---
STUDY: MRI BRAIN WITHOUT CONTRAST REASON FOR EXAM: Male, 67 years old. Headache, confusion and weakness. TECHNIQUE: Standardized multiplanar fat and water weighted pulse sequences were obtained. COMPARISON: CT of the head dated November 26, 2017 and MRI of the brain dated August 30, 2017. FINDINGS: There is mild cerebral atrophy with widening of the extra-axial spaces and ventricular dilatation. There are multiple white matter hyperintensities, distributed throughout the deep white matter tracts of the cerebral hemispheres, consistent with moderate chronic white matter ischemic changes. There appears to be encephalomalacia right frontal lobe probably related to old infarcts. There are several areas of abnormal signal within the centrum semiovale that are probably related to old infarcts. There is abnormal signal within the posterior right paramedian occipital lobe that suggest sequela of previous infarct and probably are cysts related to the infarct. There is a tiny focus of restricted diffusion in the right centrum semiovale best seen on axial image #22 of MR series #4. There may be additional foci of restricted diffusion in the left basal ganglia with the one most obvious on image 16 of MR series 4. This is also identified on MR series #401 images #15, 16 and 17. Normal T2* images of the brain without demonstrated susceptibility artifact. There is no demonstrated hemosiderin stain. The basal ganglia have a generally normal appearance on other sequences. There appear to be small areas of abnormal signal in the thalami suggesting encephalomalacia and sequela of old infarcts. There is no extra-axial fluid accumulation. Normal flow voids within the major intracranial circulation suggesting patency by spin echo criteria. There is tortuosity of the cavernous carotid arteries. Normal sella turcica, pituitary gland, infundibular stalk, optic chiasm and hypothalamus. Normal tectal plate and pineal gland. Normal midbrain, sloane and medulla. There are large areas of encephalomalacia in the left cerebellar hemisphere consistent with old infarcts. The right cerebellar hemisphere is within normal limits. There are large basal cisterns. Normal bilateral temporal bones. Normal bilateral internal auditory canals. There is abnormal signal in the right globe. This suggests possible sequela of previous intervention possibly for retinal detachment. There are bilateral lenticular implants. Normal visualized paranasal sinuses. Normal calvarium and skull base. Normal visualized soft tissue structures. Normal visualized upper cervical spine. MRI/Brain without Contrast IMPRESSION: 1. Involutional changes of the brain, as described above. 2. Multiple tiny foci of restricted diffusion, as described, suggesting acute or subacute infarcts. 3. Sequela of multiple previous infarcts. N.B. : The above information has been verbally conveyed by Orly Mendez MD to Maxi Kwok MD, on 11/27/2017 11:15:13 (ET). Electronically Signed: Orly Mendez MD at 11:02 EDT , Service support ,
--- NOTE | 2017-11-27 09:55 | CON.PCM_ITS ---
Problem List (1) Headache Status: Acute Qualifiers: Headache chronicity pattern: unspecified pattern Reason for Consult Date of Consultation: 11/27/17 Reason for Consultation: Headache History of Present Illness: The patient is a 67 year old CM with PMH HTN, HLD, DM, H/O stroke, NH resident admitted with ESQUEDA. Patient is a poor historian, history is obtained from patient, medical records and documentation. Per patient he woke up normal yesterday morning (11/26/17), was later resting in the NH and the next thing he remembers was waking up in the ambulance, he complained of right sided ESQUEDA, per doc umentation there was a question if he passed out, nursing was concerned about possible loss of vision left eye, possible increase left sided weakness, CT head on admission reported to show right optic globe hemorrhage, CTA head/neck showed < 50% stenosis of B/L ICA. MRI brain done on admission reported (by Dr. Orly Mendez) to show tiny focus of restricted diffusion in the right centrum semiovale, there may be additional foci of restricted diffusion in the left basal ganglia but on my review there is no clear DWI restriction and there does not appear to be any acute or subacute stroke but shows old right MCA stroke. Per patient he ambulates with a walker. [] Past Medical History Past Medical History (Chronic Problems): Chronic Problems HTN (hypertension) (Chronic) NSTEMI (non-ST elevation myocardial infarction) (Chronic) Type 2 diabetes mellitus (Chronic) Allergies No Known Allergies Allergy (Verified 11/26/17 15:50) Home Medications: Ambulatory Orders Medication Instructions Recorded Acetaminophen [Tylenol Arthritis] 1,300 mg PO PRN PRN 11/26/17 Aspirin [Aspirin EC] 81 mg PO DAILY 11/26/17 Atorvastatin Calcium [Lipitor] 40 mg PO QHS 11/26/17 Cholecalciferol (Vitamin D3) 1,000 unit PO DAILY 11/26/17 [Vitamin D3] Insulin Glargine [Lantus SoloStar 50 units SC DAILY 11/26/17 Pen] Lisinopril [Zestril] 2.5 mg PO DAILY 11/26/17 Metformin HCl 1,000 mg PO BID 11/26/17 Metoprolol Tartrate [Lopressor 25 mg PO BID 11/26/17 (Beta Karla)] Surgical History: - - Foot surgery Psychiatric History: No pertinent psych hx [facility]: [facility] Smoking Status: Former smoker Tobacco Use: Non-smoker Alcohol: None Drugs: None - *Family History Maternal History Items: Unknown Paternal History Items: Unknown Sibling History Items: Unknown Review of Systems Constitutional: Reports: - - complete ROS negative except as documented in HPI Patient Problems: Active and Suspected Problems Headache (Acute) - Physical Exam General: Alert HEENT: Normocephalic Neck: Supple Lungs: Normal air movement Cardiovascular: Normal S1, Normal S2 Abdomen: Bowel Sounds Present Extremities: No cyanosis Neurological: - - consious, awake, CN 2-12 grossly intact except right pupil smaller than right, moves all 4 extremities, power 5/5 all 4 extremities, denies any sensory loss, no cerebellar signs, Reflexes + B/L B/S/T/K/A, gait deferred. Psych/Mental Status: Normal Affect Vital Signs Temp Pulse Resp BP Pulse Ox 97.8 F 94 14 116/66 100 11/27/17 06:50 11/27/17 07:11 11/27/17 06:50 11/27/17 06:50 11/27/17 06:50 Oxygen Flow Rate (L/min) 14 Oxygen Delivery Method Room Air Weight: 84 kg Body Mass Index (BMI) 27.3 Finger Stick Blood Glucose 367 Intake and Output for Last 24 Hours 11/25/17 11/26/17 11/27/17 23:59 23:59 23:59 Intake Total 200 / 200 Output Total 150 / 150 Balance 50 / 50 Laboratory Tests Past 24 Hrs 11/26/17 11/26/17 11/26/17 15:50 15:50 15:50 WBC 9.1 RBC 3.75 L Hgb 12.4 L Hct 35.9 L MCV 95.7 H MCH 33.1 H MCHC 34.5 RDW 12.5 RDW Differential 42.3 Plt Count 270 MPV 9.3 Immature Gran % (Auto) 0.500 Neut % (Auto) 66.8 Lymph % (Auto) 22.3 [place] % (Auto) 7.8 Eos % (Auto) 2.1 Baso % (Auto) 0.5 Absolute Neuts (auto) 6.1 Absolute Lymphs (auto) 2.04 Total Counted Not Reportable Differential Comment PT 12.7 INR 1.0 APTT 28.3 Sodium 134 L Potassium 4.9 Chloride 100 Carbon Dioxide 26.0 Anion Gap 8 BUN 36 H Creatinine 1.51 H Estim Creat Clear Calc 48.77 Est GFR (MDRD) Af Amer 60 Est GFR (MDRD) Non-Af 50 L BUN/Creatinine Ratio 23.8 H Glucose 336 H Calcium 9.1 Troponin I < 0.015 Triglycerides Cholesterol LDL Cholesterol VLDL Cholesterol HDL Cholesterol 11/27/17 11/27/17 05:24 05:24 WBC 8.2 RBC 3.87 L Hgb 12.8 L Hct 36.5 L MCV 94.3 H MCH 33.1 H MCHC 35.1 RDW 12.3 RDW Differential 41.6 Plt Count 246 MPV 9.1 Immature Gran % (Auto) 0.400 Neut % (Auto) 86.4 H Lymph % (Auto) 5.1 L [place] % (Auto) 6.6 Eos % (Auto) 1.3 Baso % (Auto) 0.2 Absolute Neuts (auto) 7.1 Absolute Lymphs (auto) 0.42 L Total Counted Not Reportable Differential Comment SCANNED PT INR APTT Sodium 136 Potassium 4.2 Chloride 103 Carbon Dioxide 23.0 Anion Gap 10 BUN 34 H Creatinine 1.26 Estim Creat Clear Calc 58.45 Est GFR (MDRD) Af Amer 74 Est GFR (MDRD) Non-Af 61 BUN/Creatinine Ratio 27.0 H Glucose 248 H Calcium 8.9 Troponin I Triglycerides 139 Cholesterol 141 LDL Cholesterol 74 VLDL Cholesterol 28 HDL Cholesterol 39 L POC Glucose 11/27/17 11/27/17 11/26/17 07:09 02:44 22:27 POC Glucose 275 H 248 H 389 H 11/26/17 15:52 POC Glucose 367 H Assessment/Plan All Active Problems Headache (Acute) Acute ischemic stroke (Acute) Encephalopathy (Acute) Confusion (Acute) Acute renal insufficiency (Acute) The patient is a 67 year old CM with PMH HTN, HLD, DM, H/O stroke, NH resident admitted with ESQUEDA. Patient is a poor historian, history is obtained from patient, medical records and documentation. Per patient he woke up normal yesterday morning (11/26/17), was later resting in the NH and the next thing he remembers was waking up in the ambulance, he complained of right sided ESQUEDA, per documentation there was a question if he passed out, nursing was concerned about possible loss of vision left eye, possible increase left sided weakness, CT head on admission reported to show right optic globe hemorrhage, CTA head/neck showed < 50% stenosis of B/L ICA. MRI brain done on admission reported (by Dr. Orly Mendez) to show tiny focus of restricted diffusion in the right centrum semiovale, there may be additional foci of restricted diffusion in the left basal ganglia but on my review there is no clear DWI restriction and there does not appear to be any acute or subacute stroke but shows old right MCA stroke. P er patient he ambulates with a walker. At present patient denies any focal motor weakness, sensory loss. Impression Headache ?Syncope Plan -MRI brain images reviewed- unlikely to be acute/subacute stroke at present, no DWI restriction appreciated on my review but Radiologist Dr. Orly Mendez reported as showing tiny focus of restricted diffusion in the right centrum semiovale, there may be additional foci of restricted diffusion in the left basal ganglia. Also discussed MRI brain images with Radiologist Dr. Jones and on review he also did not see any acute DWI restriction lesions suggestive of stroke. -CTA head/neck -B/L ICA < 50% stenosis -On ASA and Lipitor 40 mg PO q hs -Ophthalmology referral for right optic globe hemorrhage and pupil asymmetry on examination -Check EEG, TTE- since per patient he remembers waking up in the ambulance and clinical history is not clear -LDL-74, check HbA1c -Check 30 day event recorder -PT/OT/ST -GI/DVT prophylaxis -Further medical management per primary team -Fall precautions -Please call with questions if any -Thank you for allowing us to participate in patient's care and management I spent 60 minutes taking history, doing physical examination, reviewing medical records, coordinating care and counseling the patient. Code Visit Inpatient E&M: 70005 Init Hosp L3
[2017-11-27] MEDS: Insulin Lispro 100 UNIT/ML INSULN.PEN SQ ×4 (10:11→21:01)
[2017-11-27] MEDS: Aspirin E.C. 81 MG Tablet PO (10:11)
[2017-11-27] MEDS: Lisinopril 2.5 MG Tablet PO (10:13)
[2017-11-27] MEDS: Metoprolol Tartrate 25 MG Tablet PO ×2 (10:28→21:00)
--- NOTE | 2017-11-27 11:39 | CASEMGMT ---
Patient is from [facility]. FRANCISCO called Jenfier at [facility] and she said patient is from their assisted living, but they will have a bed for him on the skilled side when ready and if needed. FRANCISCO to send updates when available and follow for d/c back to [facility]. Daphnie OAKLEY
[2017-11-27 12:20] LABS: Bedside Glucose 373 mg/dL (70-110)
[2017-11-27] MEDS: Glucerna Shake 120 ML LIQUID PO ×3 (13:21→21:00)
--- NOTE | 2017-11-27 13:26 | ECHOD_ITS ---
Reason For Study: syncope Procedure This was a 2D Doppler, Color Flow transthoracic echocardiogram. The study was technically difficult. Exam performed portable in patient room. Left Ventricle Normal size and thickness. The estimated ejection fraction is 65 %. Stage 1 diastolic dysfunction. No regional wall motion abnormalities noted. Right Ventricle Normal RV size. Normal systolic function. Atria Normal left atrium. Normal right atrium. Normal atrial septum. Mitral Valve The mitral valve is structurally normal. No prolapse or stenosis seen. Tricuspid Valve Normal tricuspid valve. Trivial tricuspid valve insufficiency. Right ventricular systolic pressure estimated to be 23 mmHg. Aortic Valve Trisinus/trileaflet aortic valve. Mild focal aortic valve thickening. There is no aortic stenosis. Pulmonic Valve Normal pulmonic valve. Great Vessels Normal aortic root. Normal arch. Normal inferior vena cava. Inferior vena cava collapse with sniff. Pericardium/Pleural No pericardial effusion. MMode/2D Measurements & Calculations LVIDd: 4.0 cm IVSd: 1.6 cm Ao root diam: 3.4 cm LVIDs: 2.8 cm LVPWd: 1.2 cm LA dimension: 3.6 cm RVDd: 3.0 cm FS: 28.8 % LAV(MOD-bp): 42.0 ml LA A4 area: 15.7 cm2 RA A4 area: 11.3 cm2 LAV(MOD-bp) Indexed: 21.0 ml/m2 LAV(MOD-sp2): 39.5 ml LAV(MOD-sp4): 39.7 ml Doppler Measurements & Calculations MV E max wilfredo: 72.3 cm/sec Lat Peak E' Wilfredo: 6.4 cm/sec Med Peak E' Wilfredo: 4.9 cm/sec MV A max wilfredo: 124.8 cm/sec E/E' lat: 11.4 E/E' med: 14.7 MV E/A: 0.58 Ao V2 max: 143.7 cm/sec LV V1 max: 103.5 cm/sec PA V2 max: 91.8 cm/sec Ao max P.3 mmHg LV V1 max P.3 mmHg TR max wilfredo: 211.7 cm/sec TR max P.9 mmHg Interpretation Summary The estimated ejection fraction is 65 %. Stage 1 diastolic dysfunction. Trivial tricuspid valve insufficiency. Right ventricular systolic pressure estimated to be 23 mmHg. Compared to echo report dated 08/30/2017, no appreciable changes noted. Ordering Physician: Julianna Gregg Referring Physician: Shelley Perez Performed By: Polly Thomson RDCS, RVT
--- NOTE | 2017-11-27 13:49 | CASEMGMT ---
Addendum entered by Daphnie Sepulveda 11/27/17 13:58: Received return call from Jenifer at [facility] and she is aware patient will possibly be returning [facility]. Daphnie OAKLEY Original Note: Physician said he plans on discharging patient tomorrow. Patient will not get a qualifying stay. PT is not recommending further therapy. SW called Jenifer at [facility] and left her a voice mail letting her know above. Daphnie OAKLEY
[2017-11-27 16:31] LABS: Bedside Glucose 496 mg/dL (70-110)
--- NOTE | 2017-11-27 17:26 | PN_ITS ---
Patient Problems: Active and Suspected Problems Headache (Acute) Subjective: Patient was seen and examined today, I talked with neurology about his care, neurology does not feel that he had an acute stroke this admission, patient complains of a slight headache but he does not seem to be bothered by it. Ophthalmology saw the patient today and they were familiar with the patient and stated that they no longer see the patient because he has had a series of bleeds into his right eye and it is a chronic condition and there is no treatment for it. I also talked with the patient's sister who told me that up until a few months ago, patient was living by himself but was not taking care of himself and he had a hoarder's house and was forced to move out of his house into assisted living. - Physical Exam General: Alert, Cooperative, No apparent distress, Well developed HEENT: Atraumatic, PERRLA, EOMI, Normocephalic Oral: Moist Mucosa Neck: Supple, No Nuchal Rigidity, Trachea Midline, Thyroid Normal Size and Te xture Lungs: Clear to auscultation, Normal air movement, No rhonchi, No wheeze, No rales Cardiovascular: Regular rate, Regular Rhythm, Normal S1, Normal S2, No murmurs, No Ectopic Activity, PMI Normal, No rub noted, No Gallop Abdomen: Bowel Sounds Present, Soft, Non Tender, Non-Distended, No hernias noted Extremities: No clubbing, No cyanosis, No edema, Capillary Refill Less than 3 Seconds Skin: No rashes, No breakdown Musculoskeletal: No Tenderness to Palpation of Joints or Extremities Neurological: Cranial nerves II-XII grossly intact, Sensory exam intact to light touch and pain Psych/Mental Status: Flat Affect, - - Patient is alert, he has moderate confusion, he is oriented as to self and place Vital Signs Temp Pulse Resp BP Pulse Ox 98.5 F 86 16 133/85 H 95 11/27/17 14:33 11/27/17 15:06 11/27/17 14:33 11/27/17 14:33 11/27/17 14:33 Oxygen Flow Rate (L/min) 14 Oxygen Delivery Method Room Air Weight: 84 kg Body Mass Index (BMI) 27.3 Finger Stick Blood Glucose 367 Intake and Output for Last 24 Hours 11/25/17 11/26/17 11/27/17 23:59 23:59 23:59 Intake Total 600 / 600 Output Total 150 / 150 Balance 450 / 450 Laboratory Tests Past 24 Hrs 11/27/17 11/27/17 05:24 05:24 WBC 8.2 RBC 3.87 L Hgb 12.8 L Hct 36.5 L MCV 94.3 H MCH 33.1 H MCHC 35.1 RDW 12.3 RDW Differential 41.6 Plt Count 246 MPV 9.1 Immature Gran % (Auto) 0.400 Neut % (Auto) 86.4 H Lymph % (Auto) 5.1 L [place] % (Auto) 6.6 Eos % (Auto) 1.3 Baso % (Auto) 0.2 Absolute Neuts (auto) 7.1 Absolute Lymphs (auto) 0.42 L Total Counted Not Reportable Differential Comment SCANNED Sodium 136 Potassium 4.2 Chloride 103 Carbon Dioxide 23.0 Anion Gap 10 BUN 34 H Creatinine 1.26 Estim Creat Clear Calc 58.45 Est GFR (MDRD) Af Amer 74 Est GFR (MDRD) Non-Af 61 BUN/Creatinine Ratio 27.0 H Glucose 248 H Calcium 8.9 Triglycerides 139 Cholesterol 141 LDL Cholesterol 74 VLDL Cholesterol 28 HDL Cholesterol 39 L POC Glucose 11/27/17 11/27/17 11/27/17 16:22 12:06 07:09 POC Glucose 496 H* 373 H 275 H 11/27/17 11/26/17 02:44 22:27 POC Glucose 248 H 389 H Medical Necessity - Tobacco Use Smoking Status: Former smoker Tobacco Use: Non-smoker Assessment/Plan All Active Problems Headache (Acute) Acute ischemic stroke (Ruled-out) NSTEMI (non-ST elevation myocardial infarction) (Resolved) Encephalopathy (Resolved) Confusion (Resolved) Acute renal insufficiency (Resolved) #1 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 Neurology wants to do an EEG today, echocardiogram that was performed today does not show any evidence of thrombus. 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
[2017-11-27] MEDS: Atorvastatin Calcium 40 MG Tablet PO (21:00)
[2017-11-27 23:36] LABS: Bedside Glucose 331 mg/dL (70-110)
[2017-11-28] VITALS (7 sets, daily range): BP systolic 120–141; BP diastolic 57–78; PULSE 68–83; RESP 16–18; TEMP 36.4–36.7; O2SAT 95–97
[2017-11-28 07:16] LABS: Bedside Glucose 288 mg/dL (70-110)
[2017-11-28] MEDS: Insulin Lispro 100 UNIT/ML INSULN.PEN SQ ×2 (08:56→11:03)
[2017-11-28] MEDS: Insulin Lispro 100 UNIT/ML INSULN.PEN 18 UNIT SC ×2 (08:57→11:03)
[2017-11-28] MEDS: Aspirin E.C. 81 MG Tablet PO (08:57)
[2017-11-28] MEDS: Metoprolol Tartrate 25 MG Tablet PO (08:58)
[2017-11-28] MEDS: Lisinopril 2.5 MG Tablet PO (08:59)
--- NOTE | 2017-11-28 11:32 | DCINST_ITS ---
- Discharge Diagnoses Current Active Problems: Current Active and Chronic Problems Headache (Acute) You will use the following diet at home:: Calorie/Carbohydrate Controlled (specify 1200, 1400, etc) - 1800 fernando Your food should be the consistency of: Regular Your liquids should be the consistency of: Regular/Thin Discharge Activity: Return to Normal Activity Weight Bearing Status: Full weight bearing Additional Instructions: NO DRIVING UNTIL YOU SEE DR MENDEZ Allergies/Adverse Reactions: Allergies No Known Allergies Allergy (Verified 11/26/17 15:50) Medications to take at Discharge Acetaminophen [Tylenol Arthritis] 1,300 mg PO PRN PRN 11/26/17 Aspirin [Aspirin EC] 81 mg PO DAILY 11/26/17 Atorvastatin Calcium [Lipitor] 40 mg PO QHS 11/26/17 Cholecalciferol (Vitamin D3) [Vitamin D3] 1,000 unit PO DAILY 11/26/17 Lisinopril [Zestril] 2.5 mg PO DAILY 11/26/17 Metoprolol Tartrate [Lopressor (beta marilee)] 25 mg PO BID 11/26/17 Insulin Glargine [Lantus SoloStar Pen] 40 units SC BID pen 11/28/17 Insulin Lispro [Humalog KwikPen] 18 unit SUBCUT TIDAC #5 insuln.pen 11/28/17 Metformin HCl 1,000 mg PO BID #1 11/28/17 The following prescriptions were given: Insulin Lispro [Humalog KwikPen] 18 unit SUBCUT TIDAC #5 insuln.pen Primary Care Physician: Chary Cardona MD [Primary Care Provider] - Test Results: Test results from this visit will be discussed in further detail at your follow- up appointment, if applicable. Please Follow Up With: Armaan Mendez MD When: next week
[2017-11-28 11:36] LABS: Bedside Glucose 248 mg/dL (70-110)
--- NOTE | 2017-11-28 12:15 | CASEMGMT ---
Social Work Pt ready for d/c. SW met with pt in room and pt plans to return to [facility] and states he believes someone from the Care center can transport him back. Phone call to Jenifer at [facility] and informed of return to [facility] today. Pt will return to [place] where he has been residing. [facility] can transport pt and will pick him up at 1:30. Pt and nursing made aware. With pt permission phone call to sister Bisi and VM left with d/c plan. Orders faxed. Plan: [facility] assisted living today SAMINA Arambula
--- NOTE | 2017-11-28 13:07 | EEG ---
- Electroencephalogram Date of service 11/27/2017 History EEG is being done in this 67 yr M to rule out seizures EEG Description: This is an 18 channel EEG with 10-20 lead placement system. Bipolar montages, Referential and Circumferential montages were reviewed. Photic stimulation and Hyperventilation were performed. The posterior dominant rhythm is 6 HZ synchronous, symmetric, reacting to eye opening and closing. Photo stimulation elicited normal driving response but no abnormal photoparoxysmal response, Hyperventilation did not elicit any abnormal photoparoxysmal response. Sleep was identified. There is abnormal background slowing noted in the theta frequency range. There was no epileptiform discharges or electrographic seizures noted during this recording. EEG Interpretation This is an abnormal EEG due to the presence of moderate background slowing. This can be seen in generalized cerebral dysfunction like metabolic/toxic encephalopathy. Clinical correlation is advised. There is no epileptiform discharges or electrographic seizures noted during the record.
[2017-11-28 15:30] LABS: Bedside Glucose 466 mg/dL (70-110)
[2017-11-28 15:31] LABS: Bedside Glucose 421 mg/dL (70-110)
--- NOTE | 2017-11-28 18:23 | DS.PCM_ITS ---
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 #4 type 2 diabetes-uncontrolled #5 hyperlipidemia #6 hypertension #7 cephalgia-etiology unknown, not related to ischemic stroke or right eye hemorrhage - Secondary Discharge Diagnosis Chronic Problems HTN (hypertension) (Chronic) Type 2 diabetes mellitus (Chronic) Hospital Course and Treatment Operations: None Procedures: 2-D Echocardiogram Summary of Care Provided: The patient is a 67 year old M who was seen in the emergency room at [facility] after being brought in from a local assisted living at which he resided with complaints of headache, mild confusion, and possible left-sided weakness. Workup in the emergency room included a CT scan of the brain which showed chronic ischemic changes and a hypodensity in the right globe consistent with blood, no evidence of new infarction was noted, CT of the head neck showed some chronic changes and mild narrowing of his blood vessels. Etiology of the patient's symptoms were unclear, he was admitted to PCU for possible ischemic stroke, further workup however revealed that he did not have an acute stroke, this was confirmed by neurology who personally reviewed his MRI images. Ophthalmology was contacted but it was noted that the blood in the patient's right globe was chronic and this was not an acute event. Patient was seen by PT and OT, he had some period of confusion during his hospitalization, I felt it was probably secondary to multi-infarct dementia. Patient had a mild headache d uring his hospitalization, the etiology of this headache was not determined, it was not related to any pathology on the patient's imaging studies. On 11/28/17, patient was seen and examined: HEENT: Patient is normocephalic, no thyroid masses were palpated, no JVD was noted. Lungs: Lungs were clear to auscultation apex to base bilaterally, no rales rhonchi or wheezes were noted. Heart: Heart rate and rhythm is regular, no ectopy was noted there was no murmurs noted, patient was not tachycardic. Abdomen: abdomen was soft, bowel sounds are present in all 4 quadrants, abdomen was nontender. Neuro: No focal motor deficits were noted, sensation is intact to light touch and pinprick, cranial nerves II through XII are grossly intact. Psych: Patient is alert, he is oriented as to time, place and self. EEG was performed on the patient, it showed only diffuse slowing indicative of previous cerebral damage from his old stroke. Patient was stable for discharge back to assisted living on 11/28/17, he was advised not to drive until he discussed this with his primary care doctor. Discharge Activity: Return to Normal Activity, May Not Drive Weight Bearing Status: Full weight bearing Home Medications: Medications to take at Discharge Acetaminophen [Tylenol Arthritis] 1,300 mg PO PRN PRN 11/26/17 Aspirin [Aspirin EC] 81 mg PO DAILY 11/26/17 Atorvastatin Calcium [Lipitor] 40 mg PO QHS 11/26/17 Cholecalciferol (Vitamin D3) [Vitamin D3] 1,000 unit PO DAILY 11/26/17 Lisinopril [Zestril] 2.5 mg PO DAILY 11/26/17 Metoprolol Tartrate [Lopressor (beta marilee)] 25 mg PO BID 11/26/17 Insulin Glargine [Lantus SoloStar Pen] 40 units SC BID pen 11/28/17 Insulin Lispro [Humalog KwikPen] 18 unit SUBCUT TIDAC #5 insuln.pen 11/28/17 Metformin HCl 1,000 mg PO BID #1 11/28/17 Following Prescrptions Were Given to Patient: Insulin Lispro [Humalog KwikPen] 18 unit SUBCUT TIDAC #5 insuln.pen Primary Care Physician: Chary Cardona MD [Primary Care Provider] - Please Follow Up With: Armaan Mendez MD When: next week Disposition: Asstd Living/Non-Skill [place] Minutes spent on discharge:: 32 Patient Condition:: Stable Medical Necessity - Tobacco Use Smoking Status: Former smoker Tobacco Use: Non-smoker Meaningful Use Info Meaningful Use Diagnoses (Choose all that apply): None applicable Code Visit Inpatient E&M: 11733 Disch Hosp
== END 2017-11-28 13:40 | disposition home or self-care (01) | DRG 57 ==
LOC: ED 17:05 → PCU 19:02
PROVIDERS: Admitting Provider Student in an Organized Health Care Education/Training Program; Emergency Provider Emergency Medicine; Family Provider Internal Medicine; PCP Internal Medicine; Referring Provider Student in an Organized Health Care Education/Training Program; Visit Provider Internal Medicine
DX: I69.318 Other symptoms and signs involving cognitive functions following cerebral infarction (principal); N17.9 Acute kidney failure, unspecified; R41.0 Disorientation, unspecified; F01.50 Vascular dementia, unspecified severity, without behavioral disturbance, psychotic disturbance, mood disturbance, and anxiety; R51 Headache; I10 Essential (primary) hypertension; E78.5 Hyperlipidemia, unspecified; E11.9 Type 2 diabetes mellitus without complications; Z87.891 Personal history of nicotine dependence; Z79.4 Long term (current) use of insulin; H54.61 Unqualified visual loss, right eye, normal vision left eye
CPT/HCPCS: 36415; 70450; 70496; 70498; 70551; 71045; 80048; 80061; 82962; 84484; 85025; 85610; 85730; 92523; 93005; 93306; 97162; 97166; 97530; 97802; 99284; Q9957; Q9967; A4216

== ENCOUNTER 2017-12-16 19:38 | Inpatient (IN) | payer MEDICARE, SELFPAY ==
[2017-12-16] VITALS (9 sets, daily range): BP systolic 142–163; BP diastolic 76–88; PULSE 77–88; RESP 16–20; TEMP 36.7; O2SAT 96–100; BMI 28.9
[2017-12-16 19:51] LABS: Bedside Glucose 105 mg/dL (70-110)
--- NOTE | 2017-12-16 19:52 | EKG12_ITS ---
Test Reason : CP Blood Pressure : / mmHG Vent. Rate : 080 BPM Atrial Rate : 080 BPM P-R Int : 192 ms QRS Dur : 092 ms QT Int : 382 ms P-R-T Axes : 023 071 083 degrees QTc Int : 440 ms Normal sinus rhythm Normal ECG Confirmed by PJ MOLINA, RUBENS ([id number]), visual effects editor ARDEN CERVANTES ([id number]) on 12/19/2017 11:28:51 AM Referred By: Confirmed By:RUBENS OLIVA MD
--- NOTE | 2017-12-16 19:52 | CT_ITS ---
STUDY: CT BRAIN WITHOUT CONTRAST REASON FOR EXAM: Male, 67 years old. Weakness. Recent fall. RADIATION DOSAGE (If Supplied By Facility): CTDIvol = ( 44.99 ) mGy, DLP = ( 829.85 ) mGycm TECHNIQUE: Transaxial CT imaging of the brain was performed without administration of intravenous contrast material. Individualized dose optimization techniques were used for this CT. COMPARISON: November 26, 2017 FINDINGS: There is stable increased density of the right orbital globe. Normal calvarium. There is moderate cerebral atrophy with widening of the extra-axial spaces and ventricular dilatation. There are areas of decreased attenuation within the white matter tracts of the supratentorial brain, consistent with microvascular disease changes. Stable right frontal and occipital volume loss with encephalomalacia. Normal basal ganglia and thalami. Normal brainstem. There is mild cerebellar atrophy. The prior left cerebellar infarcts. There is no intracranial hemorrhage. There are no findings of an acute ischemic infarction. Mild mucosal thickening in the left maxillary sinus CT/Brain/Head without Contrast IMPRESSION: Chronic involutional changes of the brain. Stable appearance. No hemorrhage. Electronically Signed: Aurelio Anderson MD at 20:57 EDT , Service support ,
--- NOTE | 2017-12-16 20:00 | RAD_ITS ---
STUDY: X-RAY CHEST REASON FOR EXAM: Male, 67 years old. Neurologic symptoms TECHNIQUE: Single AP portable view of the chest. COMPARISON: November 26, 2017 FINDINGS: There are monitoring devices. There is implantable cardiac rhythm monitoring device. The lungs are underexpanded with crowding of bronchovascular markings. There is no demonstrated pleural abnormality. There is borderline cardiomegaly. Normal mediastinum and ofelia. Normal visualized pulmonary arteries. Normal visualized aortic arch and descending thoracic aorta. There are diffuse degenerative changes of the visualized thoracic spine. Normal visualized ribs, clavicles, and shoulders. There is no demonstrated abnormality of the visualized soft tissue structures of the upper abdomen. RAD/Chest 1 View IMPRESSION: Degenerative changes, as described above. No demonstrated acute cardiopulmonary process. Electronically Signed: Aurelio Anderson MD at 21:26 EDT , Service support ,
[2017-12-16 20:12] LABS: Absolute Neutrophil Count 6.8 X10^3/uL (2.0-7.7); Basophil# 0.03 X10^3/uL; Basophil% 0.3 % (0-1); Eosinophil# 0.13 X10^3/uL; Eosinophils% 1.3 % (0-5); Hematocrit 38.2 % (40-54); Hemoglobin 12.7 g/dl (13.0-16.5); Lymphocyte % 20.5 % (19-41); Mean Corp Hgb Conc 33.2 g/gl (32-36); Mean Corpuscular Hgb 32.6 pg (27.0-32.0); Mean Corpuscular Volume 98.2 fL (80-94); Monocyte# 0.82 X10^3/uL; Monocyte% 8.4 % (0-10); Neutrophil # 6.75 X10^3/uL (2.7-7.7); Neutrophil % 69.3 % (47-70); Platelet Count 230 K/mm3 (150-450); RBC Distribution Width SD 46.5 fl (35.1-43.9); Red Blood Count 3.89 M/mm3 (4.6-6.2); White Blood Count 9.8 K/mm3 (4.4-11.0)
[2017-12-16 20:17] LABS: POSITIVE COUNT NO; POSITIVE DIFFERENTIAL NO; POSITIVE MORPHOLOGY NO
[2017-12-16 20:21] LABS: Anion Gap 9 (5-15); BUN 37 mg/dL (7-18); BUN/Creat Ratio 26.8 RATIO (10-20); Calcium,Total 9.6 mg/dL (8.5-10.1); Chloride 102 mmol/L (98-107); Creatinine, Serum 1.38 mg/dL (0.70-1.30); EST Glomerular Filtration Rate 55 mL/min (>60); Est Glom Filt Rate - Afr Amer 66 mL/min (>60); Estimated Creatinine Clearance 53.37 ml/min; Glucose 137 mg/dL (74-106); Potassium 4.6 mmol/L (3.5-5.1); Sodium Level 137 mmol/L (136-145)
[2017-12-16 20:24] LABS: International Normalized Ratio 0.9; Prothrombin Time (Protime)PT. 12.4 SECONDS (11.7-14.9)
--- NOTE | 2017-12-16 21:59 | ED.DCSUM_ITS ---
- ER Visit Summary Date of Service: 12/16/17 Chief Complaint: Weakness History of Present Illness: The patient is a 67 M who presents after 10-1/2 hours of left leg and left arm weakness. No paresthesias. He has had a history of CVA. He has no chest pain shortness of breath fever chills or any other syst emic complaints. He has no vision changes he has no speech difficulties. He lives in an assisted living and is brought by the nurse there. Physical Examination: Not appear in acute distress. Moist mucous membranes, no obvious facial deformity No C-spine tenderness supple neck. Regular rate and rhythm without any obvious murmurs Clear lungs bilaterally speaking in full sentences without any obvious respiratory distress Abdomen soft and nontender no guarding or rebound Moves all extremities without any difficulty or pain. Skin does not show any obvious rashes or lesions, no trauma. Alert oriented ?3 there is weakness of the left arm and left leg, this makes his NIH stroke scale of 4. Emergency Department Course and Treatment: Patient was reevaluated he did have an NIH stroke scale of 2, so he is improving, I reviewed his recent MRI, I reviewed his recent angiogram of the vessels and echocardiogram all these were unremarkable. He is on antiplatelet therapy in the form of aspirin. I discussed with neurology and they did recommend admission. Therefore patient will be admitted to the hospital. Admit to the hospital Impression: Acute stroke symptoms This note was generated with Access [employer] dictation software. It may contain incorrect words, spelling, and punctuation that were not noted in review of the chart prior to signing ED Disposition - Plan for ED Patient: Chief Complaint: Neuro S/Sx Referrals: Armaan Mendez MD [Primary Care Provider] -
--- NOTE | 2017-12-16 23:05 | HP.PCM_ITS ---
Problem List (1) Transient left leg weakness Status: Acute (2) HTN (hypertension) Status: Chronic Qualifiers: (3) Encephalopathy Status: Resolved (4) Confusion Status: Resolved (5) Type 2 diabetes mellitus Status: Chronic History of Present Illness Date of Admission: 12/16/17 Chief Complaint: left leg weakness The patient is a 67 year old male patient with a history of stroke and left sided weakness presents to the ER with complaint of worsening left leg and arm weakness. Onset was 10.5 hours prior to ED arrival. His baseline NIH score is a 2 and was a 4 upon arrival. He now states he feels more like himself and NIH is currently a 2 at time of my evaluation. He denies chest pain or shortness of breath or other complaints. CT scan of brain is negative for hemorrhage. Recent MRI showed multiple areas of stroke and CTA of head and neck showed areas of stenosis but none greater than 50%(done in late November). He will be admitted for observation and MRI in am per neurology request. Past Medical History Past Medical History (Chronic Problems): Chronic Problems HTN (hypertension) (Chronic) Type 2 diabetes mellitus (Chronic) Allergies No Known Allergies Allergy (Verified 12/16/17 19:44) Home Medications: Ambulatory Orders Medication Instructions Recorded Aspirin [Aspirin EC] 81 mg PO DAILY 11/26/17 Atorvastatin Calcium [Lipitor] 40 mg PO QHS 11/26/17 Cholecalciferol (Vitamin D3) 1,000 unit PO DAILY 11/26/17 [Vitamin D3] Lisinopril [Zestril] 2.5 mg PO DAILY 11/26/17 Metoprolol Tartrate [Lopressor 25 mg PO BID 11/26/17 (beta marilee)] Insulin Aspart [Novolog Flexpen 14 units SC TIDCM 12/16/17 ([facility])] Insulin Glargine [Lantus SoloStar 50 units SC DAILY 12/16/17 Pen] Latanoprost [Xalatan] 2.5 ml RIGHT EYE QHS 12/16/17 Metformin HCl 1,000 mg PO BIDCM 12/16/17 Surgical History: - - Foot surgery Psychiatric History: No pertinent psych hx Smoking Status: Never smoker - *Family History Maternal History Items: Unknown Paternal History Items: Unknown Sibling History Items: Unknown Review of Systems Constitutional: Denies: Chills, Fever, Weight Change HEENT: Denies: Head Aches, Sinus Congestion, Sinus Drainage Cardiovascular: Denies: Chest Pain, Palpitations Respiratory: Denies: Cough, Shortness of breath at rest, Sputum production Gastrointestinal: Denies: Abdominal Pain, Nausea, Vomiting Genitourinary: Denies: Dysuria Musculoskeletal: Denies: Joint Pain, Joint Tenderness Skin: Denies: Rash, Wounds Neurological: Reports: Focal weakness, Numbness, Tingling Psychiatric: Denies: Anxiety, Depression, Homicidal Ideations, Suicidal Ideations Hematologic/ Lymphatic: Denies: Easy Bruising, Easy Bleeding VTE Information - Inpt Only VTE Present on Admission: No VTE Mechan Device Prophylaxis: None VTE Pharm Prophylaxis ordered?: Yes Patient Problems: Active and Suspected Problems Transient left leg weakness (Acute) - Physical Exam General: Alert, Oriented x3, Cooperative HEENT: Atraumatic, PERRLA - constricted, EOMI, Normocephalic Neck: Supple, No JVD, Negative Carotid Bruits Lungs: Clear to auscultation, Normal air movement Cardiovascular: Regular rate, Normal S1, Normal S2, No murmurs Abdomen: Bowel Sounds Present, Soft, Non Tender Extremities: No edema, Capillary Refill Less than 3 Seconds Skin: No rashes, No breakdown Musculoskeletal: No Tenderness to Palpation of Joints or Extremities Neurological: Cranial nerves II-XII grossly intact Psych/Mental Status: Normal Affect, Appropriate Vital Signs Temp Pulse Resp BP Pulse Ox 98.1 F 80 20 H 144/76 H 97 12/16/17 19:39 12/16/17 22:30 12/16/17 22:30 12/16/17 22:30 12/16/17 22:30 Oxygen Delivery Method Room Air Weight: 195 lb 12.8 oz Body Mass Index (BMI) 28.9 Finger Stick Blood Glucose 105 Laboratory Tests Past 24 Hrs 12/16/17 12/16/17 12/16/17 19:55 19:55 19:55 WBC 9.8 RBC 3.89 L Hgb 12.7 L Hct 38.2 L MCV 98.2 H MCH 32.6 H MCHC 33.2 RDW 13.0 RDW Differential 46.5 H Plt Count 230 MPV 9.0 Immature Gran % (Auto) 0.200 Neut % (Auto) 69.3 Lymph % (Auto) 20.5 [place] % (Auto) 8.4 Eos % (Auto) 1.3 Baso % (Auto) 0.3 Absolute Neuts (auto) 6.8 Absolute Lymphs (auto) 2.00 Total Counted Not Reportable PT 12.4 INR 0.9 APTT 29.0 Sodium 137 Potassium 4.6 Chloride 102 Carbon Dioxide 26.0 Anion Gap 9 BUN 37 H Creatinine 1.38 H Estim Creat Clear Calc 53.37 Est GFR (MDRD) Af Amer 66 Est GFR (MDRD) Non-Af 55 L BUN/Creatinine Ratio 26.8 H Glucose 137 H Calcium 9.6 Troponin I < 0.015 POC Glucose 12/16/17 19:45 POC Glucose 105 Assessment/Plan All Active Problems Transient left leg weakness (Acute) Headache (Acute) Acute ischemic stroke (Ruled-out) NSTEMI (non-ST elevation myocardial infarction) (Resolved) Encephalopathy (Resolved) Confusion (Resolved) Acute renal insufficiency (Resolved) Assessment - TIA Plan - admit to PCU for observation - neurochecks q 4 hrs - Consult Dr Morocho - aspirin per routine - MRI brain in am - continue routine home medications for stable medical conditions - LMWH for DVT prophylaxis Code Visit OBSV E&M: 99803 Initial observation care L2
[2017-12-17] VITALS (15 sets, daily range): BP systolic 115–161; BP diastolic 67–97; PULSE 81–99; RESP 16–21; TEMP 36.4–37; O2SAT 97–99; BMI 28.0; BMI 28.1
--- NOTE | 2017-12-17 06:12 | NURSING ---
paged through [employer] and later through the ground surveillance systems operator. Attempting to reach MD to notify of increase in NIHSS and to obtain order for STAT CTA of head and neck. Still have not heard back from .
[2017-12-17 07:01] LABS: Bedside Glucose 126 mg/dL (70-110)
[2017-12-17] MEDS: metFORMIN HCl 1,000 MG Tablet 1000 MG PO ×2 (08:48→17:41)
[2017-12-17] MEDS: Aspirin E.C. 81 MG Tablet PO (08:48)
[2017-12-17] MEDS: Metoprolol Tartrate 25 MG Tablet PO (08:49)
[2017-12-17] MEDS: Lisinopril 2.5 MG Tablet PO (08:49)
[2017-12-17] MEDS: Enoxaparin 40 MG/0.4 ML Syringe SC (08:50)
[2017-12-17] MEDS: Glucerna Shake 120 ML LIQUID PO ×4 (08:55→21:38)
--- NOTE | 2017-12-17 09:56 | CASEMGMT ---
FRANCISCO noted patient is from [facility] [place]. FRANCISCO spoke with Jenifer at [facility] and she confirmed patient is still in [place]. SW to follow for d/c planning. Daphnie DEXTER AGRICULTURAL SCIENTIST
--- NOTE | 2017-12-17 10:09 | CON.PCM_ITS ---
Reason for Consult Date of Consultation: 12/17/17 Reason for Consultation: CVA History of Present Illness: The patient is a 67 year old M Per admit H&P: The patient is a 67 year old male patient with a history of stroke and left sided weakness presents to the ER with complaint of worsening left leg and arm weakness. Onset was 10.5 hours prior to ED arrival. His baseline NIH score is a 2 and was a 4 upon arrival. He now states he feels more like himself and NIH is currently a 2 at time of my evaluation. He denies chest pain or shortness of breath or other complaints. CT scan of brain is negative for hemorrhage. Recent MRI showed multiple areas of stroke and CTA of head and neck showed areas of stenosis but none greater than 50%(done in late November). He will be admitted for observation and MRI in am per neurology request. Past Medical History Past Medical History (Chronic Problems): Chronic Problems HTN (hypertension) (Chronic) Type 2 diabetes mellitus (Chronic) Allergies No Known Allergies Allergy (Verified 12/16/17 19:44) Home Medications: Ambulatory Orders Medication Instructions Recorded Aspirin [Aspirin EC] 81 mg PO DAILY 11/26/17 Atorvastatin Calcium [Lipitor] 40 mg PO QHS 11/26/17 Cholecalciferol (Vitamin D3) 1,000 unit PO DAILY 11/26/17 [Vitamin D3] Lisinopril [Zestril] 2.5 mg PO DAILY 11/26/17 Metoprolol Tartrate [Lopressor 25 mg PO BID 11/26/17 (beta marilee)] Insulin Aspart [Novolog Flexpen 14 units SC TIDCM 12/16/17 ([facility])] Insulin Glargine [Lantus SoloStar 50 units SC DAILY 12/16/17 Pen] Latanoprost [Xalatan] 2.5 ml RIGHT EYE QHS 12/16/17 Metformin HCl 1,000 mg PO BIDCM 12/16/17 Surgical History: - - Foot surgery Psychiatric History: No pertinent psych hx Smoking Status: Never smoker Tobacco Use: Cigarettes - *Family History Maternal History Items: Unknown Paternal History Items: Unknown Sibling History Items: Unknown Patient Problems: Active and Suspected Problems Transient left leg weakness (Acute) - Physical Exam Vital Signs Temp Pulse Resp BP Pulse Ox 36.6 C 99 16 133/75 H 97 12/17/17 08:40 12/17/17 08:49 12/17/17 08:40 12/17/17 08:49 12/17/17 08:40 Oxygen Delivery Method Room Air Weight: 86.2 kg Body Mass Index (BMI) 28.0 Finger Stick Blood Glucose 105 Intake and Output for Last 24 Hours 12/15/17 12/16/17 12/17/17 23:59 23:59 23:59 Intake Total 0 / 0 Output Total 600 / 600 Balance -600 / -600 Laboratory Tests Past 24 Hrs 12/16/17 12/16/17 12/16/17 19:55 19:55 19:55 WBC 9.8 RBC 3.89 L Hgb 12.7 L Hct 38.2 L MCV 98.2 H MCH 32.6 H MCHC 33.2 RDW 13.0 RDW Differential 46.5 H Plt Count 230 MPV 9.0 Immature Gran % (Auto) 0.200 Neut % (Auto) 69.3 Lymph % (Auto) 20.5 [place] % (Auto) 8.4 Eos % (Auto) 1.3 Baso % (Auto) 0.3 Absolute Neuts (auto) 6.8 Absolute Lymphs (auto) 2.00 Total Counted Not Reportable PT 12.4 INR 0.9 APTT 29.0 Sodium 137 Potassium 4.6 Chloride 102 Carbon Dioxide 26.0 Anion Gap 9 BUN 37 H Creatinine 1.38 H Estim Creat Clear Calc 53.37 Est GFR (MDRD) Af Amer 66 Est GFR (MDRD) Non-Af 55 L BUN/Creatinine Ratio 26.8 H Glucose 137 H Calcium 9.6 Troponin I < 0.015 POC Glucose 12/17/17 12/16/17 06:53 19:45 POC Glucose 126 H 105 MRI reviewed. He has acute right pontine infarct. He also has confluent subcortical white matter chronic changes. CTA from 11/26/17 reviewed, no significant stenosis. MRI from 11/27/17 reviewed, he has a small acute right MCA distribution infarct at that time. Assessment/Plan All Active Problems Transient left leg weakness (Acute) Headache (Acute) Acute ischemic stroke (Ruled-out) NSTEMI (non-ST elevation myocardial infarction) (Resolved) Encephalopathy (Resolved) Confusion (Resolved) Acute renal insufficiency (Resolved) right pontine infarct, acute, on asa and lipitor at e[facility] await echo hold bp meds tele pt/ot/sp consider rehab
--- NOTE | 2017-12-17 10:19 | PN_ITS ---
Patient Problems: Active and Suspected Problems Transient left leg weakness (Acute) Subjective: 67-year-old male with past medical history of CVA and residual left-sided weakness admitted with worsening left-sided weakness. MRI showed acute pontine infarct. Patient denies any complaints. NIHSS scores this morning 6-8 No worsening weakness of the extremities or dizziness Vitals/I&O's: Vital Signs Temp Pulse Resp BP Pulse Ox 97.8 F 99 16 133/75 H 97 12/17/17 08:40 12/17/17 08:49 12/17/17 08:40 12/17/17 08:49 12/17/17 08:40 Oxygen Delivery Method Room Air Weight: 86.2 kg Body Mass Index (BMI) 28.0 Finger Stick Blood Glucose 105 Intake and Output for Last 24 Hours 12/15/17 12/16/17 12/17/17 23:59 23:59 23:59 Intake Total 0 / 0 Output Total 600 / 600 Balance -600 / -600 General: Alert, Oriented x3, Cooperative, No apparent distress HEENT: Atraumatic, PERRLA, EOMI, Normocephalic Neck: Supple Lungs: Clear to auscultation, Normal air movement Cardiovascular: Regular rate, Regular Rhythm, Normal S1, Normal S2, No murmurs Abdomen: Bowel Sounds Present, Soft, Non Tender, Non-Distended, No Hepato- splenomegaly Extremities: No edema Skin: No rashes, No breakdown Musculoskeletal: No Tenderness to Palpation of Joints or Extremities Lymphatic: No Cervical, Supraclavicular, or Inguinal Adenopathy Neurological: Cranial nerves II-XII grossly intact, Motor Exam 5/5 strength throughout Psych/Mental Status: Normal Affect, Appropriate Laboratory Results 12/16/17 19:45: POC Glucose 105 12/16/17 19:55: WBC 9.8, RBC 3.89 L, Hgb 12.7 L, Hct 38.2 L, MCV 98.2 H, MCH 32.6 H, MCHC 33.2, RDW 13.0, RDW Differential 46.5 H, Plt Count 230, MPV 9.0, Immature Gran % (Auto) 0.200, Neut % (Auto) 69.3, Lymph % (Auto) 20.5, [place] % (Auto) 8.4, Eos % (Auto) 1.3, Baso % (Auto) 0.3, Absolute Neuts (auto) 6.8, Absolute Lymphs (auto) 2.00, Total Counted Not Reportable 12/16/17 19:55: PT 12.4, INR 0.9, APTT 29.0 12/16/17 19:55: Sodium 137, Potassium 4.6, Chloride 102, Carbon Dioxide 26.0, Anion Gap 9, BUN 37 H, Creatinine 1.38 H, Estim Creat Clear Calc 53.37, Est GFR (MDRD) Af Amer 66, Est GFR (MDRD) Non-Af 55 L, BUN/Creatinine Ratio 26.8 H, Glucose 137 H, Calcium 9.6, Troponin I < 0.015 12/17/17 06:53: POC Glucose 126 H Current Medications Aspirin (Ecotrin) 81 mg PO DAILY [facility] Last Admin: 12/17/17 08:48 Dose: 81 mg Atorvastatin Calcium (Lipitor) 40 mg PO QHS [facility] Cholecalciferol (Vitamin D) 1,000 unit PO DAILY [facility] Last Admin: 12/17/17 08:49 Dose: 1,000 unit Enoxaparin Sodium (Lovenox) 40 mg SC DAILY [facility] Last Admin: 12/17/17 08:50 Dose: 40 mg Insulin Glargine (Lantus (Bkc)) 50 units SC DAILY [facility] Last Admin: 12/17/17 08:53 Dose: 50 units Insulin Human Lispro (Humalog Kwikpen (Bkc)) 0 unit SC [facility]; Protocol Last Admin: 12/17/17 07:04 Dose: Not Given Latanoprost (Xalatan Opthalmic) 1 drop RIGHT EYE QHS [facility] Lisinopril (Zestril) 2.5 mg PO DAILY [facility] Last Admin: 12/17/17 08:49 Dose: 2.5 mg [facility] ([facility] Last Admin: 12/17/17 08:48 Dose: 1,000 mg Metoprolol Tartrate (Lopressor (Beta Karla)) 25 mg PO BID [facility] Last Admin: 12/17/17 08:49 Dose: 25 mg Nutritional Formula (Lactose Free) (Glucerna Shake) 120 ml PO 4X/DAY [facility] Last Admin: 12/17/17 08:55 Dose: 120 ml Sodium Chloride () 5 - 30 ml IV UD PRN PRN Reason: SALINE FLUSH Medical Necessity - Tobacco Use Smoking Status: Never smoker Tobacco Use: Cigarettes Assessment/Plan All Active Problems Transient left leg weakness (Acute) Headache (Acute) Acute ischemic stroke (Ruled-out) NSTEMI (non-ST elevation myocardial infarction) (Resolved) Encephalopathy (Resolved) Confusion (Resolved) Acute renal insufficiency (Resolved) 87-year-old male with past medical history of CVA, residual left sided weakness, recently discharged, comes in with complaints of worsening right-sided weakness 1. Acute right pontine infarct, in a patient who is on aspirin, recent 2D echo done that was negative for any bubble study or thrombi. Blood pressure is controlled Will add Plavix to aspirin, continue on statin, lipid profile, monitor on telemetry, will hold lisinopril 2. Hypertension, on lisinopril, will hold blood pressure medication to allow for permissive hypertension, continue to monitor vitals 3. Hyperlipidemia, on statin, lipid profile in a.m. 4. Type II DM, on Lantus, pre-meal insulin, metformin, will add Accu-Cheks with insulin sliding scale 5. DVT prophylaxis with Lovenox subcu Code Visit Inpatient E&M: 96323 Subs Hosp L2
[2017-12-17 11:40] LABS: Anion Gap 10 (5-15); BUN 30 mg/dL (7-18); BUN/Creat Ratio 23.6 RATIO (10-20); Calcium,Total 9.5 mg/dL (8.5-10.1); Chloride 104 mmol/L (98-107); Creatinine, Serum 1.27 mg/dL (0.70-1.30); EST Glomerular Filtration Rate 60 mL/min (>60); Est Glom Filt Rate - Afr Amer 73 mL/min (>60); Estimated Creatinine Clearance 57.99 ml/min; Glucose 236 mg/dL (74-106); Potassium 4.3 mmol/L (3.5-5.1); Sodium Level 138 mmol/L (136-145)
[2017-12-17] MEDS: Clopidogrel Bisulfate 75 MG Tablet PO (11:57)
[2017-12-17 12:00] LABS: Bedside Glucose 202 mg/dL (70-110)
[2017-12-17] MEDS: Insulin Lispro 100 UNIT/ML INSULN.PEN SC ×3 (12:00→21:38)
--- NOTE | 2017-12-17 15:11 | CASEMGMT ---
SW spoke with patient about d/c plan. He is from [facility]. He is in agreement with going to [facility] care home for skilled therapy. Daphnie DEXTER MSW
[2017-12-17 15:19] LABS: Hemoglobin A1c 7.9 % (4.2-6.3)
[2017-12-17 17:46] LABS: Bedside Glucose 153 mg/dL (70-110)
[2017-12-17] MEDS: Latanoprost 0.005% 1 Bottle 1 DRP RIGHT EYE (21:39)
[2017-12-17] MEDS: Atorvastatin Calcium 40 MG Tablet PO (21:46)
--- NOTE | 2017-12-17 23:39 | MRI_ITS ---
STUDY: MRI BRAIN WITHOUT CONTRAST REASON FOR EXAM: Male, 67 years old. AMS,weakness; hx prior cva TECHNIQUE: Standardized multiplanar fat and water weighted pulse sequences were obtained. COMPARISON: None. FINDINGS: There is 1.2 cm right pontine restricted diffusion with drop of signal on ADC map, consistent with acute infarct. There is moderate cerebral atrophy with widening of the extra-axial spaces and ventricular dilatation. There are multiple confluent white matter hyperintensities, distributed throughout the deep white matter tracts of the cerebral hemispheres, consistent with severe chronic white matter ischemic changes. Again noted are the right frontal, right occipital cortical small infarcts. Bilateral cerebellar chronic lacunar infarcts are also noted. Normal bilateral basal ganglia. Normal thalami. There is no extra-axial fluid accumulation. Normal flow voids within the major intracranial circulation suggesting patency by spin echo criteria. Normal sella turcica, pituitary gland, infundibular stalk, optic chiasm and hypothalamus. Normal tectal plate and pineal gland. There are chronic white matter ischemic changes of the [place]. The midbrain and medulla are otherwise normal. Normal basal cisterns. MRI/Brain without Contrast IMPRESSION: Acute right pontine infarction. Chronic right frontal and occipital infarctions. Lacunar infarcts and Severe chronic microvascular ischemic changes. N.B. : The above information has been verbally conveyed by Benji Echols MD to Debbie Neumann RN, on 12/17/2017 11:01:29 (ET). Electronically Signed: Benji Echols MD at 10:54 EDT Tel , Service support ,
[2017-12-17 23:45] LABS: Bedside Glucose 174 mg/dL (70-110)
[2017-12-18] VITALS (16 sets, daily range): BP systolic 104–153; BP diastolic 67–88; PULSE 80–105; RESP 14–18; TEMP 36.3–37.1; O2SAT 95–98; BMI 28.0
--- NOTE | 2017-12-18 03:34 | NURSING ---
NIHSS completed at this time. Pt scoring a 15. Pt lethargic at this time and not participating fully in NIHSS. Will relay results to
[2017-12-18 06:10] LABS: Absolute Lymphocyte Count 1.75 X10^3/ul (0.83-4.51); Absolute Neutrophil Count 6.1 X10^3/uL (2.0-7.7); Basophil# 0.04 X10^3/uL; Basophil% 0.4 % (0-1); Eosinophil# 0.26 X10^3/uL; Eosinophils% 2.9 % (0-5); Hematocrit 36.3 % (40-54); Hemoglobin 12.3 g/dl (13.0-16.5); Lymphocyte # 1.75 X10^3/ul (4.0); Lymphocyte % 19.3 % (19-41); Mean Corp Hgb Conc 33.9 g/gl (32-36); Mean Corpuscular Hgb 33.3 pg (27.0-32.0); Mean Corpuscular Volume 98.4 fL (80-94); Mean Platelet Vol. 9.2 fl (6.2-12.0); Monocyte# 0.88 X10^3/uL; Monocyte% 9.7 % (0-10); Neutrophil # 6.08 X10^3/uL (2.7-7.7); Neutrophil % 67.3 % (47-70); Platelet Count 238 K/mm3 (150-450); RBC Distribution Width CV 12.7 % (11.6-14.6); RBC Distribution Width SD 43.5 fl (35.1-43.9); Red Blood Count 3.69 M/mm3 (4.6-6.2); White Blood Count 9.1 K/mm3 (4.4-11.0)
[2017-12-18 06:17] LABS: POSITIVE COUNT NO; POSITIVE DIFFERENTIAL NO; POSITIVE MORPHOLOGY NO
--- NOTE | 2017-12-18 06:32 | CT_ITS ---
STUDY: CT BRAIN WITHOUT CONTRAST REASON FOR EXAM: Male, 67 years old. Worsening NIHSS RADIATION DOSAGE (If Supplied By Facility): CTDIvol = ( 60.81 ) mGy, DLP = ( 3338.08 ) mGycm TECHNIQUE: Transaxial CT imaging of the brain was performed without administration of intravenous contrast material. Individualized dose optimization techniques were used for this CT. COMPARISON: 12/16/2017 FINDINGS: Normal soft tissue structures. Normal calvarium. Stable increased density at the right orbital globe. There is mild cerebral atrophy with widening of the extra-axial spaces and ventricular dilatation. There are areas of decreased attenuation within the white matter tracts of the supratentorial brain, consistent with microvascular disease changes. Normal basal ganglia and thalami. Normal brainstem. There is mild cerebellar atrophy. Stable left cerebellar infarct. There is no intracranial hemorrhage. There are no findings of an acute ischemic infarction. There is mucoperiosteal inflammatory disease of the paranasal sinuses consistent with mild chronic sinusitis. CT/Brain/Head without Contrast IMPRESSION: Chronic involutional changes of the brain. Stable from 2 days prior Electronically Signed: Nicolas Ledesma DO at 7:30 EDT Tel , Service support ,
[2017-12-18 06:36] LABS: Anion Gap 10 (5-15); BUN 32 mg/dL (7-18); BUN/Creat Ratio 27.8 RATIO (10-20); Calcium,Total 8.8 mg/dL (8.5-10.1); Chloride 108 mmol/L (98-107); Cholesterol 131 mg/dL (200); Creatinine, Serum 1.15 mg/dL (0.70-1.30); EST Glomerular Filtration Rate 68 mL/min (>60); Est Glom Filt Rate - Afr Amer 82 mL/min (>60); Estimated Creatinine Clearance 64.04 ml/min; Glucose 85 mg/dL (74-106); High Density Lipoprotein 37 mg/dL; Potassium 4.3 mmol/L (3.5-5.1); Sodium Level 138 mmol/L (136-145); Triglycerides 90 mg/dL; Very Low Density Lipoprotein 18 mg/dL (5-40)
[2017-12-18 07:05] LABS: Bedside Glucose 77 mg/dL (70-110)
[2017-12-18] MEDS: metFORMIN HCl 1,000 MG Tablet 1000 MG PO ×2 (08:01→16:07)
[2017-12-18] MEDS: Enoxaparin 40 MG/0.4 ML Syringe SC (09:13)
[2017-12-18] MEDS: Aspirin E.C. 81 MG Tablet PO (09:13)
[2017-12-18] MEDS: Clopidogrel Bisulfate 75 MG Tablet PO (09:16)
[2017-12-18] MEDS: Glucerna Shake 120 ML LIQUID PO ×4 (09:16→23:28)
--- NOTE | 2017-12-18 09:32 | PN_ITS ---
Patient Problems: Active and Suspected Problems Transient left leg weakness (Acute) Subjective: Patient was seen and examined. Denies any new complaints. Overnight, his NIHSS goals were reportedly high - 8,10,15. He got a repeat repeat CT scan of the head to monitor for worsening NIH SS - results show stable changes. Telemetry shows normal sinus rhythm, no acute events Objective: General: Alert, Oriented x3, Cooperative, No apparent distress HEENT: Atraumatic, PERRLA, EOMI, Normocephalic Neck: Supple Lungs: Clear to auscultation, Normal air movement Cardiovascular: Regular rate, Regular Rhythm, Normal S1, Normal S2, No murmurs Abdomen: Bowel Sounds Present, Soft, Non Tender, Non-Distended, No Hepato- splenomegaly Extremities: No edema Skin: No rashes, No breakdown Musculoskeletal: No Tenderness to Palpation of Joints or Extremities Lymphatic: No Cervical, Supraclavicular, or Inguinal Adenopathy Neurological: Cranial nerves II-XII grossly intact except slight left facial droop, POA, Motor Exam 5/5 strength except 4/5 in the left upper extremity, present on admission, remains the same Psych/Mental Status: Normal Affect, Appropriate Vitals/I&O's: Vital Signs Temp Pulse Resp BP Pulse Ox 97.4 F L 96 14 117/69 98 12/18/17 07:32 12/18/17 07:32 12/18/17 07:32 12/18/17 07:32 12/18/17 07:32 Oxygen Delivery Method Room Air Weight: 86.2 kg Body Mass Index (BMI) 28.0 Finger Stick Blood Glucose 105 Intake and Output for Last 24 Hours 12/16/17 12/17/17 12/18/17 23:59 23:59 23:59 Intake Total 1240 / 1240 0 / 0 Output Total 1350 / 1350 Balance -110 / -110 0 / 0 Laboratory Results 12/16/17 19:55: Hemoglobin A1c 7.9 H 12/17/17 10:55: Sodium 138, Potassium 4.3, Chloride 104, Carbon Dioxide 24.0, Anion Gap 10, BUN 30 H, Creatinine 1.27, Estim Creat Clear Calc 57.99, Est GFR (MDRD) Af Amer 73, Est GFR (MDRD) Non-Af 60, BUN/Creatinine Ratio 23.6 H, Glucose 236 H, Calcium 9.5 12/17/17 11:55: POC Glucose 202 H 12/17/17 17:38: POC Glucose 153 H 12/17/17 21:36: POC Glucose 174 H 12/18/17 05:38: WBC 9.1, RBC 3.69 L, Hgb 12.3 L, Hct 36.3 L, MCV 98.4 H, MCH 33.3 H, MCHC 33.9, RDW 12.7, RDW Differential 43.5, Plt Count 238, MPV 9.2, Immature Gran % (Auto) 0.400, Neut % (Auto) 67.3, Lymph % (Auto) 19.3, [place] % (Auto) 9.7, Eos % (Auto) 2.9, Baso % (Auto) 0.4, Absolute Neuts (auto) 6.1, Absolute Lymphs (auto) 1.75, Total Counted Not Reportable 12/18/17 05:38: Sodium 138, Potassium 4.3, Chloride 108 H, Carbon Dioxide 20.0 L , Anion Gap 10, BUN 32 H, Creatinine 1.15, Estim Creat Clear Calc 64.04, Est GFR (MDRD) Af Amer 82, Est GFR (MDRD) Non-Af 68, BUN/Creatinine Ratio 27.8 H, Glucose 85, Calcium 8.8, Triglycerides 90, Cholesterol 131, LDL Cholesterol 76, VLDL Cholesterol 18, HDL Cholesterol 37 L 12/18/17 06:56: POC Glucose 77 Current Medications Aspirin (Ecotrin) 81 mg PO DAILY [facility] Last Admin: 12/18/17 09:13 Dose: 81 mg Atorvastatin Calcium (Lipitor) 40 mg PO QHS [facility] Last Admin: 12/17/17 21:46 Dose: 40 mg Cholecalciferol (Vitamin D) 1,000 unit PO DAILY [facility] Last Admin: 12/18/17 09:14 Dose: 1,000 unit Clopidogrel Bisulfate (Plavix) 75 mg PO DAILY [facility] Last Admin: 12/18/17 09:16 Dose: 75 mg Dextrose (D50w Syringe) 0 gm IV X1 PRN; Protocol PRN Reason: Hypoglycemia Enoxaparin Sodium (Lovenox) 40 mg SC DAILY [facility] Last Admin: 12/18/17 09:13 Dose: 40 mg Glucagon () 1 mg IM .X1 PRN PRN Reason: Hypoglycemia Insulin Human Lispro (Humalog Kwikpen (Bkc)) 0 unit SC ACHS [facility]; Protocol Last Admin: 12/18/17 07:45 Dose: Not Given Latanoprost (Xalatan Opthalmic) 1 drop RIGHT EYE QHS [facility] Last Admin: 12/17/17 21:39 Dose: 1 drop Metformin HCl (Glucophage) 1,000 mg PO BIDCM [facility] Last Admin: 12/18/17 08:01 Dose: 1,000 mg Metoprolol Tartrate (Lopressor (Beta Karla)) 25 mg PO BID [facility] Last Admin: 12/18/17 00:26 Dose: Not Given Nutritional Formula (Lactose Free) (Glucerna Shake) 120 ml PO 4X/DAY [facility] Last Admin: 12/18/17 09:16 Dose: 120 ml Sodium Chloride () 5 - 30 ml IV UD PRN PRN Reason: SALINE FLUSH Medical Necessity - Tobacco Use Smoking Status: Former smoker Tobacco Use: Cigarettes Assessment/Plan All Active Problems Transient left leg weakness (Acute) Headache (Acute) Acute ischemic stroke (Ruled-out) NSTEMI (non-ST elevation myocardial infarction) (Resolved) Encephalopathy (Resolved) Confusion (Resolved) Acute renal insufficiency (Resolved) 87-year-old male with past medical history of CVA, residual left sided weakness, recently discharged, comes in with complaints of worsening right-sided weakness 1. Acute right pontine infarct, in a patient who was on aspirin, recent 2D echo done that was negative for any bubble study or thrombi. Blood pressure is controlled, started on Plavix, continue aspirin, statin, Lipid profile showed triglycerides of 90, total cholesterol 131, LDL 76, HDL 37, No acute events on telemetry. 2. Hypertension, on lisinopril and metoprolol, blood pressure meds were held yesterday to allow for permissive hypertension, will slowly resume on lisinopril, continue to monitor blood pressure if elevated would add metoprolol. 3. Hyperlipidemia, on statin 4. Type II DM, on Lantus, pre-meal insulin, metformin, blood sugar profile showed a low blood sugar reading of 77 this morning, will hold insulin, continue Metformin, will trend Accu-Cheks and may resume home insulin regimen if sugars start to be elevated 5. Mild oropharyngeal dysphagia, high risk for aspiration with rapid intake, seen by speech therapy, on regular textures, thin liquids, distant supervision with cues to slow down with feeding, will continue to follow-up with nursing and speech therapy 6. Debility related to current acute stroke, will continue with PT and OT recommendation, possible discharge back to care home facility 7. DVT prophylaxis with Lovenox subcu Code Visit Inpatient E&M: 59539 Subs Hosp L2
--- NOTE | 2017-12-18 10:20 | PCM.PN.NEU ---
Patient Problems: Active and Suspected Problems Transient left leg weakness (Acute) Subjective: no new complaints, denies pain. willing to consider inpt rehab - Physical Exam General: Alert, Oriented x3, Cooperative, No apparent distress Neurological: Cranial nerves II-XII grossly intact, Sensory exam intact to light touch and pain, - - left arm drift 4/5, left leg minimal weakness compared to right Vital Signs Temp Pulse Resp BP Pulse Ox 36.3 C L 96 14 104/72 98 12/18/17 07:32 12/18/17 07:32 12/18/17 09:48 12/18/17 10:08 12/18/17 09:48 Oxygen Delivery Method Room Air Weight: 86.2 kg Body Mass Index (BMI) 28.0 Finger Stick Blood Glucose 105 Intake and Output for Last 24 Hours 12/16/17 12/17/17 12/18/17 23:59 23:59 23:59 Intake Total 1240 / 1240 0 / 0 Output Total 1350 / 1350 Balance -110 / -110 0 / 0 Laboratory Tests Past 24 Hrs 12/16/17 12/17/17 12/18/17 19:55 10:55 05:38 WBC 9.1 RBC 3.69 L Hgb 12.3 L Hct 36.3 L MCV 98.4 H MCH 33.3 H MCHC 33.9 RDW 12.7 RDW Differential 43.5 Plt Count 238 MPV 9.2 Immature Gran % (Auto) 0.400 Neut % (Auto) 67.3 Lymph % (Auto) 19.3 [place] % (Auto) 9.7 Eos % (Auto) 2.9 Baso % (Auto) 0.4 Absolute Neuts (auto) 6.1 Absolute Lymphs (auto) 1.75 Total Counted Not Reportable Sodium 138 Potassium 4.3 Chloride 104 Carbon Dioxide 24.0 Anion Gap 10 BUN 30 H Creatinine 1.27 Estim Creat Clear Calc 57.99 Est GFR (MDRD) Af Amer 73 Est GFR (MDRD) Non-Af 60 BUN/Creatinine Ratio 23.6 H Glucose 236 H Hemoglobin A1c 7.9 H Calcium 9.5 Triglycerides Cholesterol LDL Cholesterol VLDL Cholesterol HDL Cholesterol 12/18/17 05:38 WBC RBC Hgb Hct MCV MCH MCHC RDW RDW Differential Plt Count MPV Immature Gran % (Auto) Neut % (Auto) Lymph % (Auto) [place] % (Auto) Eos % (Auto) Baso % (Auto) Absolute Neuts (auto) Absolute Lymphs (auto) Total Counted Sodium 138 Potassium 4.3 Chloride 108 H Carbon Dioxide 20.0 L Anion Gap 10 BUN 32 H Creatinine 1.15 Estim Creat Clear Calc 64.04 Est GFR (MDRD) Af Amer 82 Est GFR (MDRD) Non-Af 68 BUN/Creatinine Ratio 27.8 H Glucose 85 Hemoglobin A1c Calcium 8.8 Triglycerides 90 Cholesterol 131 LDL Cholesterol 76 VLDL Cholesterol 18 HDL Cholesterol 37 L POC Glucose 12/18/17 12/17/17 12/17/17 06:56 21:36 17:38 POC Glucose 77 174 H 153 H 12/17/17 11:55 POC Glucose 202 H Medical Necessity - Tobacco Use Smoking Status: Former smoker Tobacco Use: Cigarettes Assessment/Plan All Active Problems Transient left leg weakness (Acute) Headache (Acute) Acute ischemic stroke (Ruled-out) NSTEMI (non-ST elevation myocardial infarction) (Resolved) Encephalopathy (Resolved) Confusion (Resolved) Acute renal insufficiency (Resolved) right pontine infarct, acute, on asa and lipitor at [facility] asa/plavix/statin hold bp meds tele pt/ot/sp consider rehab
--- NOTE | 2017-12-18 10:52 | CASEMGMT ---
Patient is ready for d/c today. However, he has not received his qualifying stay to go to SNF. FRANCISCO spoke with Beth regarding patient going to the rehab unit. They are full, but a patient is possibly being d/c today and he can have that bed. Dr Morocho has accepted patient. FRANCISCO let Jenifer at [facility] know about plan and she was fine with this as patient needs therapy. FRANCISCO spoke with patient and explained above. He was ok with going to rehab before going back to [place]. He then told SW to call [facility] and have someone come and pick him up today. FRANCISCO reminded him of converstion we just had about going to the rehab unit. He said he was ok with rehab unit. FRANCISCO called patient's sister and left her a vm to discuss plan. Plan: possible d/c to inpatient rehab unit Daphnie DEXTER MSW
[2017-12-18] MEDS: Insulin Lispro 100 UNIT/ML INSULN.PEN SC ×3 (11:29→23:30)
[2017-12-18] MEDS: Magnesium Hydroxide 30 ML UDC PO (11:29)
[2017-12-18 11:31] LABS: Bedside Glucose 267 mg/dL (70-110)
--- NOTE | 2017-12-18 12:56 | NURSING ---
student charting reviewed by this rn.
--- NOTE | 2017-12-18 13:54 | CASEMGMT ---
Patient in Rehab is not being d/c at this time. volleyball referee told SW that patient is getting a Modified Barium Swallow (MBS) tomorrow. FRANCISCO spoke with Jenifer at [facility] and told her there is not a bed in rehab right now. FRANCISCO told her he is having a MBS tomorrow so we can follow up tomorrow. FRANCISCO also spoke with patient's sister letting her know patient may not get qualifying stay so he may have to private pay. FRANCISCO also told her we were hoping for a bed in the rehab unit, but at this time there is not bed. SW told her will let her know what happens. Daphnie DEXTER MSW
[2017-12-18 16:35] LABS: Bedside Glucose 220 mg/dL (70-110)
[2017-12-18] MEDS: Latanoprost 0.005% 1 Bottle 1 DRP RIGHT EYE (23:29)
[2017-12-18] MEDS: Atorvastatin Calcium 40 MG Tablet PO (23:29)
[2017-12-19] VITALS (10 sets, daily range): BP systolic 124–155; BP diastolic 81–86; PULSE 91–108; RESP 16–20; TEMP 36.4–36.9; O2SAT 95–97
[2017-12-19 00:31] LABS: Bedside Glucose 202 mg/dL (70-110)
[2017-12-19 07:51] LABS: Bedside Glucose 187 mg/dL (70-110)
[2017-12-19] MEDS: Enoxaparin 40 MG/0.4 ML Syringe SC (08:19)
[2017-12-19] MEDS: Insulin Lispro 100 UNIT/ML INSULN.PEN SC ×4 (08:19→21:06)
[2017-12-19] MEDS: Aspirin E.C. 81 MG Tablet PO (08:19)
[2017-12-19] MEDS: metFORMIN HCl 1,000 MG Tablet 1000 MG PO ×2 (08:19→15:50)
[2017-12-19] MEDS: Clopidogrel Bisulfate 75 MG Tablet PO (08:19)
[2017-12-19] MEDS: Glucerna Shake 120 ML LIQUID PO ×3 (08:21→21:18)
--- NOTE | 2017-12-19 11:31 | PCM.PN.HOSP ---
Patient Problems: Active and Suspected Problems Transient left leg weakness (Acute) Subjective: Patient was seen and examined. No acute events overnight. Intermittently confused. Waiting on insurance precertification for discharge to rehab Objective: General: Alert, Oriented x3, Cooperative, No apparent distress HEENT: Atraumatic, PERRLA, EOMI, Normocephalic Neck: Supple Lungs: Clear to auscultation, Normal air movement Cardiovascular: Regular rate, Regular Rhythm, Normal S1, Normal S2, No murmurs Abdomen: Bowel Sounds Present, Soft, Non Tender, Non-Distended, No Hepato-splenomegaly Extremities: No edema Skin: No rashes, No breakdown Musculoskeletal: No Tenderness to Palpation of Joints or Extremities Lymphatic: No Cervical, Supraclavicular, or Inguinal Adenopathy Neurological: Cranial nerves II-XII grossly intact except slight left facial droop, POA, Motor Exam 5/5 strength except 4/5 in the left upper extremity, present on admission, remains the same Psych/Mental Status: Normal Affect, Appropriate Vitals/I&O's: Vital Signs Temp Pulse Resp BP Pulse Ox 97.7 F L 99 18 131/81 H 97 12/19/17 07:25 12/19/17 11:19 12/19/17 07:25 12/19/17 07:25 12/19/17 07:25 Oxygen Delivery Method Room Air Weight: 86.2 kg Body Mass Index (BMI) 28.0 Finger Stick Blood Glucose 105 Intake and Output for Last 24 Hours 12/17/17 12/18/17 12/19/17 23:59 23:59 23:59 Intake Total 1240 / 1240 1119.9 / 1119.9 Output Total 1350 / 1350 1200 / 1200 350 / 350 Balance -110 / -110 -80.1 / -80.1 -350 / -350 Laboratory Results 12/18/17 11:23: POC Glucose 267 H 12/18/17 16:05: POC Glucose 220 H 12/18/17 23:23: POC Glucose 202 H 12/19/17 07:30: POC Glucose 187 H Current Medications Aspirin (Ecotrin) 81 mg PO DAILY [facility] Last Admin: 12/19/17 08:19 Dose: 81 mg Atorvastatin Calcium (Lipitor) 40 mg PO QHS [facility] Last Admin: 12/18/17 23:29 Dose: 40 mg Cholecalciferol (Vitamin D) 1,000 unit PO DAILY [facility] Last Admin: 12/19/17 08:19 Dose: 1,000 unit Clopidogrel Bisulfate (Plavix) 75 mg PO DAILY [facility] Last Admin: 12/19/17 08:19 Dose: 75 mg Dextrose (D50w Syringe) 0 gm IV X1 PRN; Protocol PRN Reason: Hypoglycemia Enoxaparin Sodium (Lovenox) 40 mg SC DAILY [facility] Last Admin: 12/19/17 08:19 Dose: 40 mg Glucagon () 1 mg IM .X1 PRN PRN Reason: Hypoglycemia Insulin Human Lispro (Humalog Kwikpen (Bkc)) 0 unit SC ACHS [facility]; Protocol Last Admin: 12/19/17 08:19 Dose: 1 unit Latanoprost (Xalatan Opthalmic) 1 drop RIGHT EYE QHS [facility] Last Admin: 12/18/17 23:29 Dose: 1 drop Magnesium Hydroxide (Milk Of Magnesia) 30 ml PO BID PRN PRN Reason: Constipation Last Admin: 12/18/17 11:29 Dose: 30 ml Metformin HCl (Glucophage) 1,000 mg PO BIDCM [facility] Last Admin: 12/19/17 08:19 Dose: 1,000 mg Nutritional Formula (Lactose Free) (Glucerna Shake) 120 ml PO 4X/DAY [facility] Last Admin: 12/19/17 08:21 Dose: 120 ml Sodium Chloride () 5 - 30 ml IV UD PRN PRN Reason: SALINE FLUSH Medical Necessity - Tobacco Use Smoking Status: Former smoker Tobacco Use: Cigarettes Assessment/Plan All Active Problems Transient left leg weakness (Acute) Headache (Acute) Acute ischemic stroke (Ruled-out) NSTEMI (non-ST elevation myocardial infarction) (Resolved) Encephalopathy (Resolved) Confusion (Resolved) Acute renal insufficiency (Resolved) 87-year-old male with past medical history of CVA, residual left sided weakness, recently discharged, comes in with complaints of worsening right-sided weakness 1. Acute right pontine infarct, on aspirin, Plavix, statin, awaiting discharge to shelter facility. 2. Hypertension, off blood pressure medications, blood pressures remain controlled, will continue to monitor. 3. Hyperlipidemia, on statin 4. Type II DM, HbA1c 7.9, was on Lantus, pre-meal insulin, metformin, blood sugar profile to fairly controlled blood sugar, will resume Lantus at 5 units nightly, continue to monitor blood sugars 5. Mild oropharyngeal dysphagia, high risk for aspiration with rapid intake, seen by speech therapy, on regular textures, thin liquids, distant supervision with cues to slow down with feeding, going for modified barium swallow today, will follow 6. Debility related to current acute stroke, awaiting discharge to shelter facility. 7. DVT prophylaxis with Lovenox subcu Code Visit Inpatient E&M: 06162 Subs Hosp L2
[2017-12-19 12:01] LABS: Bedside Glucose 199 mg/dL (70-110)
--- NOTE | 2017-12-19 13:00 | RAD_ITS ---
STUDY: SWALLOWING STUDY REASON FOR EXAM: Male, 67 years old. TIA and dysphagia TECHNIQUE: The examination was performed with Speech Pathology in attendance. Under fluoroscopic observation, the patient ingested thin barium, thick barium, barium pudding, and barium coated cracker. # of Images: 0 FLUOROSCOPY TIME: 2:48 minutes/seconds RADIOLOGIST INVOLVEMENT: No COMPARISON: None. FINDINGS: Fluoroscopic guided swallowing study was performed in the lateral projection utilizing barium intermixed with multiple textured foods and liquids as per clinical history. The exam was performed without radiologist presence and consultation with the speech pathologist is recommended for more complete information RAD/Swallowing Function w/Video IMPRESSION: Fluoroscopic guided barium swallow. The swallow study findings were discussed with the patient by the speech pathologist at the conclusion of the examination. Please see speech pathology report for more information and recommendations. The procedure was performed by speech pathologist Electronically Signed: John Keys MD at 17:15 EDT , Service support ,
--- NOTE | 2017-12-19 13:00 | SP.MBSS_ITS ---
PRIMARY / SECONDARY DIAGNOSIS: CVA / dysphagia REFERRING PHYSICIAN: Dr. Thompson CURRENT DIET: Regular textures / Thin liquids DENTITION: Natural dentition w/ poor repair, multiple missing teeth; halitosis. MENTAL STATUS: decreased ability to follow commands for participation in MBS w/ verbal/tactile cues and repetition of instruction required RESPIRATORY STATUS: Respiratory standards met w/ patient oxygenating on room air PREVIOUS MODIFIED BARIUM SWALLOW STUDY: n/a REASON FOR REFERRAL: Pt is a 67 y/o right handed male w/ a history of CVA and left sided weakness who presented to ED from [facility] d/t worsening of left arm/leg weakness. Further assessment of swallow function under fluoroscopy recommended following meal analysis at bedside 12/18/2917 d/t concern for dyssynchrony w/ increased risk for aspiration 12/16/2017 CT/Brain/Head without Contrast IMPRESSION: Chronic involutional changes of the brain. Stable appearance. No hemorrhage. 12/16/2017 Chest x-ray IMPRESSION: Degenerative changes, as described above. No demonstrated acute cardiopulmonary process. 12/17/2017 MRI/Brain without Contrast IMPRESSION: Acute right pontine infarction. Chronic right frontal and occipital infarctions. Lacunar infarcts and Severe chronic microvascular ischemic changes. MEDICAL HISTORY: CVA, HTN and DMI STUDY FINDINGS: Patient participated in a Modified Barium Swallow (MBS) study on 12/19/2017. This study was recorded in the lateral view and images were sent to PACs fto be read by the Radiologist and for storage. The following consistencies were presented to this patient for analysis of oropharyngeal swallow function: thin liquid, pudding, and a regular texture Carol Doone cookie. Results of the MBS are as follows: PENETRATION / ASPIRATION SCALE (STODDARD): 1 = does not enter airway 2 = enters airway/above vocal folds/ejected 3 = enters airway/above vocal folds/not ejected 4 = enters airway/contacts vocal folds/ejected 5 = enters airway/contacts vocal folds/not ejected 6 = enters airway/below vocal folds/ejected 7 = enters airway/below vocal folds/not ejected despite effort 8 = enters airway/below vocal folds/no effort PENETRATION / ASPIRATION SCALE (SCORE) listed in order of presentation: 1. Thin liquid, teaspoon: 1 2. Thin liquid, teaspoon: 5 difficult to assess of trace contrast dropped below vocal folds d/t positioning w/ shoulder partially obstructing view, increased risk for aspiration as penetrated contrast was not ejected 3. Thin liquid, cup: 2 4. Thin liquid, cup: 2 trace undercoating of the epiglottis during the swallow 5. Thin liquid, cup: 2 trace undercoating of the epiglottis during the swallow 6. Puddin 7. ? Shortbread Cookie: 1 8. Thin liquid, cup: 2 trace undercoating of the epiglottis during the swallow 9. Thin liquid, sequential swallows, cup: 2 10. Thin liquid, straw: 3 11. Thin liquid, cup, cued for small sip: 1 IMPRESSION ORAL PHASE CHARACTERIZED BY: LABIAL SEAL: could not view under fluoroscopy TONGUE CONTROL DURING ORAL HOLDING OF LIQUIDS: posterior escape of greater than half of bolus BOLUS PREPARATION / MASTICATION: slow prolonged chewing/mashing with complete recollection BOLUS TRANSPORT / LINGUAL MOTION: slowed tongue motion ORAL RESIDUE: residue collection on oral structures PHARYNGEAL PHASE CHARACTERIZED BY: INITIATION OF PHARYNGEAL SWALLOW: bolus head in pyriforms at first hyoid excursion SOFT PALATE ELEVATION: no bolus between soft palate and pharyngeal wall LARYNGEAL ELEVATION: partial superior movement of thyroid cartilage/partial approximation of arytenoids cartilage to epiglottic petiole ANTERIOR HYOID EXCURSION: partial anterior movement EPIGLOTTIC MOVEMENT: incomplete epiglottic inversion LARYNGEAL VESTIBULE CLOSURE AT HEIGHT OF SWALLOW: incomplete laryngeal vestibule closure with narrow column of air/contrast in laryngeal vestibule PHARYNGEAL STRIPPING WAVE: pharyngeal stripping wave present / diminished PHARYNGOESOPHAGEAL SEGMENT OPENING: could not view d/t positioning w/ shoulder obstructing view TONGUE BASE RETRACTION: wide column of contrast between tongue base and posterior pharyngeal wall PHARYNGEAL RESIDUE: collection of residue within or on pharyngeal structures ESOPHAGEAL PHASE CHARACTERIZED BY: ESOPHAGEAL BOLUS CLEARANCE IN THE UPRIGHT POSITION: could not view d/t positioning w/ shoulder obstructing view EFFECTS OF TREATMENT STRATEGIES ATTEMPTED: * Cough and reswallow = unable to follow command to execute effectively w/ dystussia appreciated * Double swallow = unable to follow command to elicit a volitional second swallow * Reduced bolus size = effective * Reduced rate of intake = effective * Removal of straw = effective INTERPRETATION OF RESULTS: Patient presents with mild to moderate oropharyngeal dysphagia (R13.12). Oral phase is characterized by mild mastication inefficiency w/ a munching pattern utilized resulting in prolonged oral prep of solid textures. Suboptimal lingual control (moderate) resulting in premature pharyngeal bolus entry w/ liquids pooling in the pyriform sinuses prior to swallow onset. Mild oral residue post deglutition noted w/ inability to clear when prompted to utilize a volitional dry swallow. Pharyngeal phase primarily marked by delayed pharyngeal swallow onset timing resulting in suboptimal bolus location upon swallow onset resulting in inconsistent pooling of liquid in the pyriform sinuses w/ laryngeal vestibule penetration occurring w/ liquid transferring from the pyriform sinuses into the laryngeal vestibule during the swallow. Reduced tongue base retraction and diminished pharyngeal stripping wave resulted in suboptimal pressure for pharyngeal bolus clearance. Incomplete epiglottic inversion and incomplete airway closure achieved during deglutition d/t reduced laryngeal elevation and anterior hyoid excursion which resulted in inconsistent laryngeal vestibule closure and moderate pharyngeal residue retention (valleculae). Reduced tongue base retraction and diminished pharyngeal stripping wave resulted in suboptimal pressure for pharyngeal bolus clearance. Patient demonstrated poor ability to follow commands, with little to no benefit from attempted compensatory strategies. Moderate dystussia w/ cough ineffective to clear laryngeal vestibule penetration. Although unable to visualize if penetrated contrast did result in aspiration under fluoroscopy d/t poor positioning w/ shoulder partially obstructing view, the patient remains at increased risk to aspirate. Elevated risk for penetration/aspiration appreciated w/ large volume sips, sequential swallow via cup and with thin liquid consumption via straw. Deficits ameliorated with bolus volume adjustments. RECOMMENDATIONS: DIET TEXTURE RECOMMENDATIONS: Will recommend a regular textured, thin liquid diet. COMPENSATORY STRATEGIES RECOMMENDED: Direct 1:1 supervision with frequent verbal cues to facilitate adherence to the following precautions and assist w/ positioning - reduced bolus volume, reduced rate of intake, no straws, seated upright at 90 degrees during PO intake, remain upright for 30-60 minutes post meal (GERD precaution) Patient requires intensive skilled speech-language intervention targeting: * training and implementation of recommended compensatory strategies * training and implementation of recommended oral strengthening exercises to facilitate improved oral control * training and implementation of recommended oropharyngeal strengthening exercises to facilitate improved swallow onset timing, laryngeal vestibule closure / pressure and pharyngeal motility The patient demonstrated significant difficulty following directions presented both verbally one step at a time, and visually, with very limited benefit for extensive implementation of compensatory strategies. Anticipate that this may limit patient?s benefit from traditional dysphagia treatment / exercise program ADDITIONAL COMMENTS/RECOMMENDATIONS: Results and recommendations were discussed with the Patient immediately following MBS completion, with the Patient verbalizing understanding and agreement with all recommendations and education provided. Continued education and reinforcement of recommendations and aspiration precautions are necessary d/t suspected poor comprehension and poor likelihood of carryover / compliance.
--- NOTE | 2017-12-19 14:36 | CASEMGMT ---
Addendum entered by Daphnie Sepulveda 12/19/17 14:41: SW also notified Lillian in the rehab unit patient will be going to [facility]. Daphnie OAKLEY Original Note: Patient is not ready for d/c today and he will go to [facility] for skilled therapy tomorrow. SW let patient know this information. FRANCISCO also let Jenifer at [facility] know this too. Patient's sister was also notified. Plan: d/c to [facility] under skilled level of care. Daphnie OAKLEY
[2017-12-19 15:55] LABS: Bedside Glucose 219 mg/dL (70-110)
[2017-12-19] MEDS: Atorvastatin Calcium 40 MG Tablet PO (21:06)
[2017-12-19] MEDS: Latanoprost 0.005% 1 Bottle 1 DRP RIGHT EYE (21:10)
[2017-12-19] MEDS: 0.9% NaCl Peripheral Flush Adult/Peds IV (21:16)
[2017-12-19 21:40] LABS: Bedside Glucose 187 mg/dL (70-110)
[2017-12-20 02:20] VITALS: BP 160/84; PULSE 99; RESP 20; TEMP 36.8; O2SAT 98
[2017-12-20 02:59] VITALS: PULSE 90
[2017-12-20 05:50] LABS: Absolute Lymphocyte Count 1.75 X10^3/ul (0.83-4.51); Absolute Neutrophil Count 5.8 X10^3/uL (2.0-7.7); Basophil# 0.02 X10^3/uL; Basophil% 0.2 % (0-1); Eosinophil# 0.27 X10^3/uL; Eosinophils% 3.1 % (0-5); Hematocrit 35.7 % (40-54); Lymphocyte # 1.75 X10^3/ul (4.0); Lymphocyte % 19.9 % (19-41); Mean Corp Hgb Conc 33.6 g/gl (32-36); Mean Corpuscular Hgb 32.8 pg (27.0-32.0); Mean Corpuscular Volume 97.5 fL (80-94); Mean Platelet Vol. 8.8 fl (6.2-12.0); Monocyte# 0.97 X10^3/uL; Neutrophil # 5.77 X10^3/uL (2.7-7.7); Neutrophil % 65.6 % (47-70); Platelet Count 192 K/mm3 (150-450); RBC Distribution Width CV 12.8 % (11.6-14.6); RBC Distribution Width SD 45.6 fl (35.1-43.9); Red Blood Count 3.66 M/mm3 (4.6-6.2); White Blood Count 8.8 K/mm3 (4.4-11.0)
[2017-12-20 05:52] LABS: POSITIVE COUNT NO; POSITIVE DIFFERENTIAL NO; POSITIVE MORPHOLOGY NO
[2017-12-20 06:08] LABS: Anion Gap 9 (5-15); BUN 30 mg/dL (7-18); BUN/Creat Ratio 25.4 RATIO (10-20); Calcium,Total 8.8 mg/dL (8.5-10.1); Chloride 104 mmol/L (98-107); Creatinine, Serum 1.18 mg/dL (0.70-1.30); EST Glomerular Filtration Rate 66 mL/min (>60); Est Glom Filt Rate - Afr Amer 80 mL/min (>60); Estimated Creatinine Clearance 62.41 ml/min; Glucose 177 mg/dL (74-106); Potassium 4.4 mmol/L (3.5-5.1); Sodium Level 138 mmol/L (136-145)
[2017-12-20 06:50] LABS: Bedside Glucose 170 mg/dL (70-110)
[2017-12-20 07:00] VITALS: PULSE 90
[2017-12-20 08:09] VITALS: BP 161/95; PULSE 101; RESP 16; TEMP 36.6; O2SAT 97
[2017-12-20] MEDS: Aspirin E.C. 81 MG Tablet PO (09:39)
[2017-12-20] MEDS: metFORMIN HCl 1,000 MG Tablet 1000 MG PO (09:39)
[2017-12-20] MEDS: Insulin Lispro 100 UNIT/ML INSULN.PEN SC ×2 (09:39→11:51)
[2017-12-20] MEDS: Enoxaparin 40 MG/0.4 ML Syringe SC (09:40)
[2017-12-20] MEDS: Glucerna Shake 120 ML LIQUID PO (09:40)
[2017-12-20] MEDS: Clopidogrel Bisulfate 75 MG Tablet PO (09:40)
[2017-12-20 11:00] VITALS: PULSE 103
--- NOTE | 2017-12-20 11:20 | PCM.TXEXTCAR ---
- Diet 12/17/17 01:55 Diet: Cardiac: Carb-Controlled Is pt able to select menu?: No Diet Comments: 1800 ADA - Routine Orders/Code Status Routine Lab Work: CBC - within 1 week, BMP - within 1 week Code Status: Full Code - Therapies Weight Bearing: Full weight bearing Physical Therapy: Eval and Treat Occupational Therapy: Eval and Treat Speech Therapy: Eval and Treat - Allergies/Procedures Done in Hospital Allergies/Adverse Reactions: Allergies No Known Allergies Allergy (Verified 12/16/17 19:44) Procedures: None - Type of Care/Length of Stay Estimated LOS: Convalescent Care Less Than 30 days Type of Care Needed: Skilled Rehab Potential: Good Prognosis: Good - Additional Orders/Day of Discharge Additional Orders: Patient's BP medications were held for permissive hypertension. On the day of discharge, patient was resumed on his Lisinopril. His BP should be monitored and he should be restarted on his metoprolol if BP persists to be elevated. His Lantus was also held for hypoglycemia and he was slowly resumed on Lantus 10 units QHS as well as premeal insulin 14 units TID. Blood glucose monitoring should be continued and Lantus insulin may slowly need to be increased. Day of Discharge: 12/20/17 - Dietary and Speech Recommendations Dietitian Recommendations/Changes: Rec continue 1800 calorie controlled, cardiac diet. Continue Glucerna ONS w/ medpass until PO >75% consistently established. Speech Linguistic Eval Summary: Pt is a 67 y/o right handed male w/ a history of CVA and left sided weakness who presented to ED from [facility] d/t worsening of left arm/leg weakness. Past medical history is significant for CVA, HTN and DMII. 12/16/2017 CT/Brain/Head without Contrast IMPRESSION: Chronic involutional changes of the brain. Stable appearance. No hemorrhage. 12/16/2017 Chest x-ray IMPRESSION: Degenerative changes, as described above. No demonstrated acute cardiopulmonary process. 12/17/2017 MRI/Brain without Contrast IMPRESSION: Acute right pontine infarction. Chronic right frontal and occipital infarctions. Lacunar infarcts and Severe chronic microvascular ischemic changes. Patient has a 9th grade education. Baseline cognitive status is unknown. Patient denies any new/acute changes in cognitive function associated w/ this admission, although patient was evaluated by this department approx. 2 weeks prior w/ a marked change in performance this date comparatively. Patient presents w/ expressive and receptive deficits characterized by mild to moderate dysarthria, decreased attention, memory, recall. Oriented to all except date (off by 2). Answered simple to complex yes/no ?s accurately. Executed 2 step commands w/ 50% accuracy, 3 step commands w/ 0% accuracy. Adequate generative naming, although patient repeated items previously named several times w/ no seeming awareness. Able to read at the word and sentence level WNL. Immediate recall of 3 word sequences: 50%, delayed recall 0% even w/ category cues and choice of 3. Mod-max cues required for problem solving and reasoning tasks this date. Again, premorbid cognitive-linguistic function is unknown, but warrants further investigation. Pt is agreeable to participation in skilled ST services targeting the above listed deficits w/ goal of returning to [facility] at highest level of independent functioning possible. - Follow Up Care Primary Care Physician: Armaan Mendez MD [Primary Care Provider] - Please follow up with your Primary Care Physician in: within 2 weeks Please Follow Up With: Koko Morocho MD When: in 3 weeks
[2017-12-20 11:22] VITALS: BP 159/83; PULSE 101; RESP 16; O2SAT 98
--- NOTE | 2017-12-20 11:33 | TREXTCAR_ITS ---
- Diet 12/17/17 01:55 Diet: Cardiac: Carb-Controlled Is pt able to select menu?: No Diet Comments: 1800 ADA - Routine Orders/Code Status Routine Lab Work: CBC - within 1 week, BMP - within 1 week Code Status: Full Code - Therapies Weight Bearing: Full weight bearing Physical Therapy: Eval and Treat Occupational Therapy: Eval and Treat Speech Therapy: Eval and Treat - Allergies/Procedures Done in Hospital Allergies/Adverse Reactions: Allergies No Known Allergies Allergy (Verified 12/16/17 19:44) Procedures: None - Type of Care/Length of Stay Estimated LOS: Convalescent Care Less Than 30 days Type of Care Needed: Skilled Rehab Potential: Good Prognosis: Good - Additional Orders/Day of Discharge Additional Orders: Patient's BP medications were held for permissive hypertension. On the day of discharge, patient was resumed on his Lisinopril. His BP should be monitored and he should be restarted on his metoprolol if BP persists to be elevated. His Lantus was also held for hypoglycemia and he was slowly resumed on Lantus 10 units QHS as well as premeal insulin 14 units TID. Blood glucose monitoring should be continued and Lantus insulin may slowly need to be increased. Day of Discharge: 12/20/17 - Dietary and Speech Recommendations Dietitian Recommendations/Changes: Rec continue 1800 calorie controlled, cardiac diet. Continue Glucerna ONS w/ medpass until PO >75% consistently established. Speech Linguistic Eval Summary: Pt is a 67 y/o right handed male w/ a history of CVA and left sided weakness who presented to ED from [facility] d/t worsening of left arm/leg weakness. Past medical history is significant for CVA, HTN and DMII. 12/16/2017 CT/Brain/Head without Contrast IMPRESSION: Chronic involutional changes of the brain. Stable appearance. No hemorrhage. 12/16/2017 Chest x-ray IMPRESSION: Degenerative changes, as described above. No demonstrated acute cardiopulmonary process. 12/17/2017 MRI/Brain without Contrast IMPRESSION: Acute right pontine infarction. Chronic right frontal and occipital infarctions. Lacunar infarcts and Severe chronic microvascular ischemic changes. Patient has a 9th grade education. Baseline cognitive status is unknown. Patient denies any new/acute changes in cognitive function associat ed w/ this admission, although patient was evaluated by this department approx. 2 weeks prior w/ a marked change in performance this date comparatively. Patient presents w/ expressive and receptive deficits characterized by mild to moderate dysarthria, decreased attention, memory, recall. Oriented to all except date (off by 2). Answered simple to complex yes/no ?s accurately. Executed 2 step commands w/ 50% accuracy, 3 step commands w/ 0% accuracy. Adequate generative naming, although patient repeated items previously named several times w/ no seeming awareness. Able to read at the word and sentence level WNL. Immediate recall of 3 word sequences: 50%, delayed recall 0% even w/ category cues and choice of 3. Mod-max cues required for problem solving and reasoning tasks this date. Again, premorbid cognitive-linguistic function is unknown, but warrants further investigation. Pt is agreeable to participation in skilled ST services targeting the above listed deficits w/ goal of returning to [facility] at highest level of independent functioning possible. - Follow Up Care Primary Care Physician: Armaan Mendez MD [Primary Care Provider] - Please follow up with your Primary Care Physician in: within 2 weeks Please Follow Up With: Koko Morocho MD When: in 3 weeks
--- NOTE | 2017-12-20 11:38 | PCM.DC.SUM ---
Discharge Date and Diagnosis Date of Admission: 12/16/17 Date of Discharge: 12/20/17 - Primary Discharge Diagnosis Active and Suspected Problems Acute right parietal CVA - Secondary Discharge Diagnosis Chronic Problems HTN (hypertension) (Chronic) Type 2 diabetes mellitus (Chronic) H/O TIA Hospital Course and Treatment Imaging Results: Clinical Impression(s) from Imaging Studies Brain CT 12/16/17 19:52 IMPRESSION: Chronic involutional changes of the brain. Stable appearance. No hemorrhage. Electronically Signed: Aurelio Anderson MD at 20:57 EDT , Service support , Chest X-Ray 12/16/17 20:00 IMPRESSION: Degenerative changes, as described above. No demonstrated acute cardiopulmonary process. Electronically Signed: Aurelio Anderson MD at 21:26 EDT , Service support , Brain MRI 12/17/17 23:39 IMPRESSION: Acute right pontine infarction. Chronic right frontal and occipital infarctions. Lacunar infarcts and Severe chronic microvascular ischemic changes. N.B. : The above information has been verbally conveyed by Benji Echols MD to Debbie Neumann RN, on 12/17/2017 11:01:29 (ET). Electronically Signed: Benji Echols MD at 10:54 EDT Tel , Service support , ADDENDUM: 12/19/[address] 12/18/17 06:32 IMPRESSION: Chronic involutional changes of the brain. Stable from 2 days prior Electronically Signed: Nicolas Ledesma DO at 7:30 EDT Tel , Service support , Videofluoroscopic Swallow 12/19/17 13:00 IMPRESSION: Fluoroscopic guided barium swallow. The swallow study findings were discussed with the patient by the speech pathologist at the conclusion of the examination. Please see speech pathology report for more information and recommendations. The procedure was performed by speech pathologist Electronically Signed: John Keys MD at 17:15 EDT , Service support , Neurology - Dr. Morocho Operations: None Procedures: None Summary of Care Provided: The patient is a 67 year 5-year-old male with past medical history of CVA, residual left sided weakness, recently discharged after CVA comes in with complaints of worsening right-sided weakness. MRI brain showed new acute right pontine infarct. Neurology was consulted. He was on aspirin, started on Plavix, continued on statin. He was skilled to go back to SNF for subacute rehab. He was managed initially off BP meds to allow for permissive hypertension. His BP meds were slowly resumed when BP started going up. His home Lantus was also adjusted for hypoglycemia and slowly resumed. He was seen by speech therapy and started on a modified diet for oropharyngeal dysphagia. He also underwent modified barium swallow and findings confirmed oropharyngeal dysphagia and recmmedations included direct 1:1 supervision with frequent verbal cues to facilitate adherence to the following precautions and assist w/ positioning - reduced bolus volume, reduced rate of intake, no straws, seated upright at 90 degrees during PO intake, remain upright for 30-60 minutes post meal (GERD precaution). He will have follow-up speech therapy treatments in the SNF. Subjective: On the day of discharge, patient felt well. No complains. No events on telemetry Objective: Physical exam: General: Alert, Oriented x3, Cooperative, No apparent distress HEENT: Atraumatic, PERRLA, EOMI, Normocephalic Neck: Supple Lungs: Clear to auscultation, Normal air movement Cardiovascular: Regular rate, Regular Rhythm, Normal S1, Normal S2, No murmurs Abdomen: Bowel Sounds Present, Soft, Non Tender, Non-Distended, No Hepato-splenomegaly Extremities: No edema Skin: No rashes, No breakdown Musculoskeletal: No Tenderness to Palpation of Joints or Extremities Lymphatic: No Cervical, Supraclavicular, or Inguinal Adenopathy Neurological: Cranial nerves II-XII grossly intact except slight left facial droop, POA, Motor Exam 5/5 strength except 4/5 in the left upper extremity, present on admission, remains the same Psych/Mental Status: Normal Affect, Appropriate - Physical Exam Vital Signs Temp Pulse Resp BP Pulse Ox 98 F 103 H 16 161/95 H 97 12/20/17 08:09 12/20/17 11:00 12/20/17 08:09 12/20/17 08:09 12/20/17 08:09 Oxygen Delivery Method Room Air Weight: 86.2 kg Body Mass Index (BMI) 28.0 Finger Stick Blood Glucose 105 Intake and Output for Last 24 Hours 12/18/17 12/19/17 12/20/17 23:59 23:59 23:59 Intake Total 1119.9 / 1119.9 370 / 370 50 / 50 Output Total 1200 / 1200 830 / 830 225 / 225 Balance -80.1 / -80.1 -460 / -460 -175 / -175 Laboratory Tests Past 24 Hrs 12/20/17 12/20/17 05:33 05:33 WBC 8.8 RBC 3.66 L Hgb 12.0 L Hct 35.7 L MCV 97.5 H MCH 32.8 H MCHC 33.6 RDW 12.8 RDW Differential 45.6 H Plt Count 192 MPV 8.8 Immature Gran % (Auto) 0.200 Neut % (Auto) 65.6 Lymph % (Auto) 19.9 [place] % (Auto) 11.0 H Eos % (Auto) 3.1 Baso % (Auto) 0.2 Absolute Neuts (auto) 5.8 Absolute Lymphs (auto) 1.75 Total Counted Not Reportable Sodium 138 Potassium 4.4 Chloride 104 Carbon Dioxide 25.0 Anion Gap 9 BUN 30 H Creatinine 1.18 Estim Creat Clear Calc 62.41 Est GFR (MDRD) Af Amer 80 Est GFR (MDRD) Non-Af 66 BUN/Creatinine Ratio 25.4 H Glucose 177 H Calcium 8.8 POC Glucose 12/20/17 12/19/17 12/19/17 06:46 21:04 15:48 POC Glucose 170 H 187 H 219 H 12/19/17 11:51 POC Glucose 199 H Discharge Diet: Low fat/ Low Cholesterol, 2000 mg Sodium Diet Discharge Activity: Return to Normal Activity Home Medications: Medications to take at Discharge Aspirin [Aspirin EC] 81 mg PO DAILY 11/26/17 Atorvastatin Calcium [Lipitor] 40 mg PO QHS 11/26/17 Cholecalciferol (Vitamin D3) [Vitamin D3] 1,000 unit PO DAILY 11/26/17 Lisinopril [Zestril] 2.5 mg PO DAILY 11/26/17 Insulin Aspart [Novolog Flexpen] 14 units SC TIDCM 12/16/17 Latanoprost [Xalatan] 2.5 ml RIGHT EYE QHS 12/16/17 Metformin HCl 1,000 mg PO BIDCM 12/16/17 Clopidogrel Bisulfate [Plavix] 75 mg PO DAILY tablet 12/20/17 Glucerna Shake 120 ml PO 4X/DAY liquid 12/20/17 Insulin Glargine [Lantus SoloStar Pen] 10 units SC QHS pen 12/20/17 Insulin Lispro [Humalog KwikPen] See Protocol SC ACHS insuln.pen 12/20/17 Primary Care Physician: Armaan Mendez MD [Primary Care Provider] - Please follow up with your Primary Care Physician in: within 2 weeks Please Follow Up With: Koko Morocho MD When: in 3 weeks Disposition: Shelter facility Minutes spent on discharge:: 40 Patient Condition:: Stable Medical Necessity - Tobacco Use Smoking Status: Former smoker Tobacco Use: Cigarettes Meaningful Use Info Meaningful Use Diagnoses (Choose all that apply): Ischemic CVA - CVA Therapy Assessed for PT,OT and/or ST?: Yes - Ischemic Stroke Antithrombotic order at d/c?: No Reason antithrombotic not ordered: Treatment not Indicated Dx of Atrial fib/flutter?: No Anticoagulant at discharge?: No Reason anticoagulant not ordered: Treatment not Indicated Statins at discharge?: Yes Primary Dx Acute Ischemic CVA?: Yes IV tPA ordered during stay?: No Reason IV t-PA not ordered: Treatment not Indicated Code Visit Inpatient E&M: 94991 Disch Hosp
--- NOTE | 2017-12-20 12:17 | CASEMGMT ---
Social Work Pt ready to be d/c today. SW met with pt in room and informed of d/c to [facility] today. Pt is agreeable and states he thinks [facility] can transport him. Phone call to Michelle at [facility] and informed of d/c today and confirmed they are able to transport pt. Orders faxed and 7000 completed and faxed. Pt and nursing made aware that [facility] will be coming shortly to fern picker pt. Phone call to pt sister and VM left informing of d/c to [facility] today. SAMINA Arambula
[2017-12-20] MEDS: Lisinopril 2.5 MG Tablet PO (12:37)
[2017-12-20 15:25] LABS: Bedside Glucose 269 mg/dL (70-110)
== END 2017-12-20 13:00 | disposition skilled nursing facility (03) | DRG 65 ==
LOC: ED 21:19 → PCU 23:36
PROVIDERS: Internal Medicine; Admitting Provider Family Medicine; Emergency Provider Emergency Medicine; Family Provider Family Medicine; PCP Family Medicine; Visit Provider Internal Medicine
DX: I63.9 Cerebral infarction, unspecified (principal); I69.354 Hemiplegia and hemiparesis following cerebral infarction affecting left non-dominant side; R13.12 Dysphagia, oropharyngeal phase; R29.810 Facial weakness; R29.704 NIHSS score 4; I10 Essential (primary) hypertension; E11.9 Type 2 diabetes mellitus without complications; Z79.4 Long term (current) use of insulin; Z87.891 Personal history of nicotine dependence
CPT/HCPCS: 36415; 70450; 70551; 71045; 74230; 80048; 80061; 82962; 83036; 84484; 85025; 85610; 85730; 92523; 92526; 93005; 97162; 97165; 97530; 97535; 97802; 99283; A4216

== ENCOUNTER → 2018-03-20 04:30 | Outpatient (REF) | payer MEDICARE, SELFPAY ==
[2018-03-20 08:16] LABS: Hemoglobin 11.7 g/dl (13.0-16.5); Mean Corp Hgb Conc 33.4 g/gl (32-36); Mean Corpuscular Volume 98.6 fL (80-94); Mean Platelet Vol. 9.2 fl (6.2-12.0); Platelet Count 248 K/mm3 (150-450); RBC Distribution Width CV 13.6 % (11.6-14.6); RBC Distribution Width SD 47.4 fl (35.1-43.9); Red Blood Count 3.55 M/mm3 (4.6-6.2); White Blood Count 8.2 K/mm3 (4.4-11.0)
[2018-03-20 08:19] LABS: Scan Indicated on CBC? Y/N NO
[2018-03-20 08:39] LABS: Anion Gap 9 (5-15); BUN 35 mg/dL (7-18); BUN/Creat Ratio 29.2 RATIO (10-20); Calcium,Total 8.9 mg/dL (8.5-10.1); Chloride 106 mmol/L (98-107); Cholesterol 120 mg/dL (200); EST Glomerular Filtration Rate 65 mL/min (>60); Est Glom Filt Rate - Afr Amer 78 mL/min (>60); Glucose 100 mg/dL (74-106); High Density Lipoprotein 36 mg/dL; Potassium 4.5 mmol/L (3.5-5.1); Sodium Level 138 mmol/L (136-145); Thyroid Stim Hormone (TSH) 5.06 uIU/mL (0.358-3.74); Triglycerides 121 mg/dL; Very Low Density Lipoprotein 24 mg/dL (5-40)
[2018-03-20 09:32] LABS: Hemoglobin A1c 6.7 % (4.2-6.3)
--- OUTSIDE RECORDS SUMMARY | 2018-05-24 17:44 | XMS RPT_ITS ---
:1950 Author Organization OHIP Support Name Relationship Address Phone Mast, Sena Unavailable [address] + [place] [address] R Unavailable Unavailable Unavailable Mast, Sena Unavailable [address] + [place] [address] R Unavailable Unavailable Unavailable MAST, SENA Unavailable [address] + [place] [address] R Unavailable Unavailable Unavailable MAST, SENA Unavailable [address] + [place] [address] R Unavailable Unavailable Unavailable MAST, SENA Unavailable [address] + [place] [address] R Unavailable Unavailable Unavailable MAST, SENA Unavailable [address] + [place] [address] R Unavailable Unavailable Unavailable MAST, SENA Unavailable [address] + [place] [address] R Unavailable Unavailable Unavailable MAST, SENA Unavailable [address] + [place] [address] R Unavailable Unavailable Unavailable MAST, SENA Unavailable Unavailable + [place] [address] R Unavailable Unavailable Unavailable MAST, SENA Unavailable Unavailable + [place] [address] R Unavailable Unavailable Unavailable MAST, SENA Unavailable Unavailable + [place] [address] R Unavailable Unavailable Unavailable MAST, SENA Unavailable Unavailable + [place] [address] R Unavailable Unavailable Unavailable MAST, SENA Unavailable [address] + [place] [address] R Unavailable Unavailable Unavailable Mast, Sena Unavailable [address] + [place] [address] R Unavailable Unavailable Unavailable MAST, SENA Unavailable Unavailable + [place] [address] R Unavailable Unavailable Unavailable D Unavailable Unavailable Unavailable MAST, SENA Unavailable Unavailable + [place] [address] MAST, SENA Unavailable Unavailable + [place] [address] R Unavailable Unavailable Unavailable MAST, SENA Unavailable Unavailable + [place] [address] R Unavailable Unavailable Unavailable D Unavailable Unavailable Unavailable MAST, SENA Unavailable Unavailable + [place] [address] D Unavailable Unavailable Unavailable MAST, SENA Unavailable Unavailable + [place] [address] D Unavailable Unavailable Unavailable MAST, SENA Unavailable / + [place] [address] Care Team Providers Name Role Phone DARIN CHRIS Referring Unavailable TALAMPAS, SHIMON D Attending Unavailable DARIN CHRIS Referring Unavailable DARIN CHRIS Referring Unavailable TALAMPAS, SHIMON D Referring Unavailable DARIN CHRIS Referring Unavailable DOTDARIN Referring Unavailable TALAMPAS, SHIMON D Attending Unavailable DARIN CHRIS Referring Unavailable TALAMPAS, SHIMON D Referring Unavailable Armaan Cervantes Attending Unavailable Talampas, Shimon Primary Care Unavailable Racquel Segal Attending Unavailable Talampas, Shimon Primary Care Unavailable Shai Mcfarlane Attending Unavailable Talampas, Shimon Primary Care Unavailable Braulio Mueller Attending Unavailable Talampas, Shimon Primary Care Unavailable Paintsil, Lyerly Admitting Unavailable Paintsil, Lyerly Attending Unavailable Carlos Gregg Consulting Unavailable Paintsil, Lyerly Admitting Unavailable Paintsil, Lyerly Attending Unavailable Talampas, Shimon Primary Care Unavailable Koko Morocho Consulting Unavailable Paintsil, Lyerly Consulting Unavailable Paintsil, Lyerly Admitting Unavailable Paintsil, Lyerly Attending Unavailable Talampas, Shimon Primary Care Unavailable Koko Morocho Consulting Unavailable Paintsil, Lyerly Consulting Unavailable Chris Quinteros Attending Unavailable CervantesArmaan Attending Unavailable Talampas, Shimon Primary Care Unavailable Koram, Shelley Jennifer Admitting Unavailable Koram, Shelley Jennifer Referring Unavailable John Amanda Consulting Unavailable Tereletsky, Maxi Attending Unavailable Cristino, Carlos S. Consulting Unavailable Koram, Shelley Jennifer Admitting Unavailable Koram, Shelley Jennifer Attending Unavailable Koram, Shelley Jennifer Referring Unavailable Talampas, Shimon Primary Care Unavailable AmandaJohn Consulting Unavailable Koram, Shelley Jennifer Consulting Unavailable Koram, Shelley Jennifer Admitting Unavailable Tereletsky, Maxi Attending Unavailable Koram, Shelley Jennifer Referring Unavailable Talampas, Shimon Primary Care Unavailable Amanda, John Consulting Unavailable Cristino, Carlos S. Consulting Unavailable Tereletsky, Maxi Consulting Unavailable Koram, Shelley Jennifer Admitting Unavailable Tereletsky, Maxi Attending Unavailable Koram, Shelley Jennifer Referring Unavailable Talampas, Shimon Primary Care Unavailable Amanda, John Consulting Unavailable Crisitno, Carlos S. Consulting Unavailable Tereletsky, Maxi Consulting Unavailable [place], Armaan Primary Care Unavailable Espinoza, Silvano Admitting Unavailable Morocho, Koko Consulting Unavailable Paintsil, Lyerly Attending Unavailable Espinoza, Islvano Attending Unavailable Cervantes, Armaan Primary Care Unavailable Espinoza, Silvano Admitting Unavailable Paintsil, Lyerly Attending Unavailable [place], Armaan Primary Care Unavailable Morocho, Koko Consulting Unavailable Paintsil, Lyerly Consulting Unavailable Espinoza, Silvano Admitting Unavailable Paintsil, Lyerly Attending Unavailable [place], Armaan Primary Care Unavailable Morocho, Koko Consulting Unavailable Paintsil, Lyerly Consulting Unavailable Espinoza, Silvano Admitting Unavailable Paintsil, Lyerly Attending Unavailable [place], Armaan Primary Care Unavailable Morocho, Koko Consulting Unavailable Paintsil, Lyerly Consulting Unavailable Espinoza, Silvano Admitting Unavailable Paintsil, Lyerly Attending Unavailable [facility] Primary Care Unavailable Morocho, Koko Consulting Unavailable Paintsil, Lyerly Consulting Unavailable Harish Levy Attending Unavailable TereletskyMaxi Referring Unavailable Cervantes, Armaan Attending Unavailable PROBLEMS PROBLEMS DATE TYPE CONDITION / CODE ATTENDING STATUS SOURCE 12/26/2017 Unknown E11.9 - Type 2 Andrea Armaan Active [place] diabetes mellitus Community without Hospital complications / Repository E11.9(ICD-10) 12/26/2017 Unknown E78.5 - Armaan Cervantes Active [place] Hyperlipidemia, Community unspecified / Hospital E78.5(ICD-10) Repository 12/26/2017 Unknown Z79.899 - Other Armaan Guevara Active [place] term (current) drug Community therapy / Hospital Z79.899(ICD-10) Repository 09/03/2017 Unknown R41.82 - Altered Paintsil, Lyerly Active [place] mental status, Community unspecified / Hospital R41.82(ICD-10) Repository 02/26/2015 Active Mixed hyperlipidemia NA Active [place] / E78.2(ICD-10) Clinic Main [place] Repository 01/21/2015 Active Essential (primary) NA Active [place] hypertension / Clinic Main I10(ICD-10) [place] Repository 01/21/2015 Active Type 2 diabetes NA Active [place] mellitus with Clinic Main diabetic peripheral [place] angiopathy without Repository gangrene / E11.51(ICD-10) 01/21/2015 Active Type 2 diabetes NA Active [place] mellitus with Clinic Main hyperglycemia / [place] E11.65(ICD-10) Repository 04/09/2017 Active Unknown / NA Active [place] UNK(Unknown) Clinic Main [place] Repository PROCEDURES PROCEDURES No Procedure Records FoundRESULTS RESULTS CBC-COMPLETE BLOOD CNT Collected: 03/20/2018 Status: F Source: [place] NO DIFF 5:16 AM [facility] REPOSITORY Order Comment: 119/1 TYPE CODE TESTS RESULT OUT OF RANGE REFERENCE UNITS LAB L100.1000 4.4-11.0 K/mm3 Normal WBC 8.2 LAB L100.1200 4.6-6.2 M/mm3 Low RBC 3.55 LAB L100.1300 13.0-16.5 g/dl Low HGB 11.7 LAB L100.1400 40-54 % Low HCT 35.0 LAB L100.1500 80-94 fL High MCV 98.6 LAB L100.1600 27.0-32.0 pg High MCH 33.0 LAB L100.1700 32-36 g/gl Normal MCHC 33.4 LAB L100.1810 11.6-14.6 % Normal RDW CV 13.6 LAB L100.1820 35.1-43.9 fl High RDW SD 47.4 LAB L100.1900 150-450 K/mm3 Normal PLT 248 LAB L100.2000 6.2-12.0 fl Normal MPV 9.2 Performed By: #### L100.0500 #### [facility] [address] [place], [address] BASIC METABOLIC Collected: 03/20/2018 Status: F Source: [place] PROFILE (BMP) 5:16 AM [facility] REPOSITORY Order Comment: 119/ TYPE CODE TESTS RESULT OUT OF RANGE REFERENCE UNITS LAB L501.0100 74-106 mg/dL Normal GLU 100 Result Comment: Fasting Glucose result from 100 to 125 mg/dL suggests IMPAIRED HOMEOSTASIS per A.D.A. criteria. Please note revised GLUCOSE reference range effective 2017. LAB L501.1000 7-18 mg/dL High BUN 35 LAB L501.1100 0.70-1.30 mg/dL Normal CREAT,SERUM 1.20 Result Comment: The validity of the calculated GFR AND GFRAA in patients over 70 years has not been determined. Clinical correlation is essential. LAB L501.1110 >60 mL/min Normal EST GFR 65 Result Comment: Non- GFR Calc LAB L501.1115 >60 mL/min Normal EST GFR - AA 78 Result Comment: GFR Calc LAB L501.1300 10-20 RATIO High BUN/CRE 29.2 LAB L501.2200 8.5-10.1 mg/dL CA Normal 8.9 LAB L501.5300 136-145 mmol/L NA Normal 138 LAB L501.5600 3.5-5.1 mmol/L K Normal 4.5 LAB L501.5900 98-107 mmol/L CL Normal 106 LAB L501.6100 21.0-32.0 mmol/L Normal CO2 23.0 LAB L501.6200 5-15 Normal GAP 9 Performed By: #### L500.2500, L500.4100, L501.9520 #### [facility] [address] [place], [address] LIPID PROFILE Collected: 03/20/2018 Status: F Source: [place] 5:16 AM [facility] REPOSITORY Order Comment: 119/1 TYPE CODE TESTS RESULT OUT OF RANGE REFERENCE UNITS LAB L501.4900 200 mg/dL Normal CHOL 120 Result Comment: <200 mg/dL Desirable 200-240 mg/dL Borderline >240 mg/dL High Risk LAB L501.5000 mg/dL Normal TRIG 121 Result Comment: The drugs N-Acetylcysteine and Metamizole may falsely depress this assay. Serum Triglycerides Reference Interval Normal <150 mg/dL Borderline high 150 - 199 mg/dL High 200 - 499 mg/dL Very High > or = 500 mg/dL LAB L501.6400 mg/dL Low HDL 36 Result Comment: The drugs N-Acetylcysteine and Metamizole may falsely depress this assay. Reference Range HDL <40 mg/dL Low HDL Cholesterol HDL >or= 60 mg/dL High HDL Cholesterol LAB L501.6500 0-130 mg/dL Normal LDL 60 LAB L501.6600 5-40 mg/dL Normal VLDL 24 Performed By: #### L500.2500, L500.4100, L501.9520 #### [facility] [address] [place], [address] THYROID STIM HORMONE Collected: 03/20/2018 Status: F Source: [place] (TSH) 5:16 AM [facility] REPOSITORY Order Comment: 119/1 TYPE CODE TESTS RESULT OUT OF RANGE REFERENCE UNITS LAB L501.9520 0.358-3.74 uIU/mL High TSH 5.06 Performed By: #### L500.2500, L500.4100, L501.9520 #### [facility] [address] [place], [address] HEMOGLOBIN A1C Collected: 03/20/2018 Status: F Source: [place] 5:16 AM [facility] REPOSITORY Order Comment: 119/1 TYPE CODE TESTS RESULT OUT OF RANGE REFERENCE UNITS LAB L501.9985 4.2-6.3 % High HGB A1C 6.7 Performed By: #### L501.9985 #### [facility] [address] [place], [address] PROGRESS Observed: 01/31/2018 Status: COMPLETED Source: [place] 10:56 AM [facility] [place] REPOSITORY O ID: [id number] Author: Lauren Graff Service: (none) Author Type: Registered Nurse Type: Progress Notes Filed: 01/31/2018 10:57 AM Note Text: PRIMARY CARE COORDINATION CHART REVIEW Patient identified for Care Coordination from: PCP Referral Last PCP office visit: 2017 Next OV: Visit date not found CHRONIC DX: DM, uncontrolled CARE GAPS: None UTILIZATION WITHIN THE LAST 12 MONTHS: ? none ? HOSPITAL: no ? SNF: [facility]- pt will be permanent resident there as of 10/2017 DOES THIS PATIENT HAVE AN ADVANCE DIRECTIVE? ? No PRIMARY CARE COORDINATION OUTREACH PLAN: ? None Lauren Graff RN Ambulatory Director Family Internal Medicine [facility] ? ? ? January 31, 2018 ONURJACOBY Observed: 01/31/2018 Status: COMPLETED Source: [place] 12:00 AM [facility] REPOSITORY Patient Outreach (INTMWS) SUKI OKEEFE ([id number]) 1950 M Date Time Provider Department 01/31/18 LAUREN GIBSON During your visit today, we recorded the following information about you: Lauren Allen RN 01/31/2018 10:57 AM Signed PRIMARY CARE COORDINATION CHART REVIEW Patient identified for Care Coordination from: PCP Referral Last PCP office visit: 2017 Next OV: Visit date not found CHRONIC DX: DM, uncontrolled CARE GAPS: None UTILIZATION WITHIN THE LAST 12 MONTHS: ? none ? HOSPITAL: no ? SNF: [facility]- pt will be permanent resident there as of 10/2017 DOES THIS PATIENT HAVE AN ADVANCE DIRECTIVE? ? No PRIMARY CARE COORDINATION OUTREACH PLAN: ? None Lauren Graff RN Ambulatory Director Family Internal Medicine [facility] ? ? ? January 31, 2018 Allergies As of Date: 01/31/2018 (No Known Allergies) Date Reviewed: 2017 Reviewed by: Oumou Mosqueda Ma - Fully Assessed Reason for Visit: Director Family Chronic Care [[id number]] Prescriptions as of 01/31/2018 Sig: INSULIN GLARGINE (U-100) 100 * Inject 42 Units subcutaneousl* BLOOD SUGAR DIAGNOSTIC STRIPS Use as instructed to check bl* CHOLECALCIFEROL (VITAMIN D3) * Take 1 capsule by mouth once * METFORMIN 1,000 MG TABLET TAKE 1 TABLET BY MOUTH TWICE * ATORVASTATIN 40 MG TABLET Take 1 tablet by mouth once d* LISINOPRIL 2.5 MG TABLET TAKE 1 TABLET BY MOUTH DAILY METOPROLOL TARTRATE 25 MG TAB* Take 1 tablet by mouth twice * ASPIRIN 81 MG TABLET,DELAYED * Take 1 tablet by mouth once d* PEN NEEDLE, DIABETIC 32 GAUGE* Use as directed once daily wi* LANCETS Use as instructed to check bl* Problem List As Of Date 01/31/2018 Noted Resolved Open wound of foot excluding toes [S91.309A] INVALID FOR* More... DM (diabetes mellitus) type II uncontrolled, pe*INVALID FOR* More... Essential hypertension [I10] INVALID FOR* More... DEPRESSIVE DISORDER NEC [F32.9] INVALID FOR* More... Diabetic polyneuropathy (HCC) [E11.42] INVALID FOR* Debility [R53.81] INVALID FOR* OVERWEIGHT [E66.9] INVALID FOR* Mixed hyperlipidemia [E78.2] INVALID FOR* More... Proteinuria [R80.9] INVALID FOR* More... Non-proliferative diabetic retinopathy, moderat*INVALID FOR* More... Proliferative diabetic retinopathy, right eye [*INVALID FOR* More... Angina pectoris (HCC) [I20.9] INVALID FOR*03/09/2016 More... CAD (coronary artery disease) [I25.10] INVALID FOR* Financial difficulties [Z59.8] INVALID FOR* Current non-adherence to medical treatment [Z91*INVALID FOR* Non-STEMI (non-ST elevated myocardial infarctio*INVALID FOR*04/25/2017 H/O: CVA (cerebrovascular accident) [Z86.73] INVALID FOR* Hemiparesis due to recent stroke (HCC) [I69.359]INVALID FOR* More... Other malaise and fatigue [R53.81, R53.83] INVALID FOR* Encounter Status:Closed by LAUREN GRAFF on 01/31/18 DISCHARGE SUMMARY Observed: 12/23/2017 Status: F Source: [place] 9:02 AM [facility] REPOSITORY [facility] Medical Records Department [address] [place] [address] [place] [address] Discharge Summary 12/20/17 1138 MR#: [id number] Acct: [id number] Name: SUKI OKEEFE Rep #: [id number] : 1950 67 From: Irene Thompson MD PCP: Armaan Cervantes MD Status: DIS IN Y Location: [place] [id number] Discharge Date and Diagnosis Date of Admission: 12/16/17 Date of Discharge: 12/20/17 - Primary Discharge Diagnosis Active and Suspected Problems Acute right parietal CVA - Secondary Discharge Diagnosis Chronic Problems HTN (hypertension) (Chronic) Type 2 diabetes mellitus (Chronic) H/O TIA Hospital Course and Treatment Imaging Results: Clinical Impression(s) from Imaging Studies Brain CT 12/16/17 19:52 IMPRESSION: Chronic involutional changes of the brain. Stable appearance. No hemorrhage. Electronically Signed: Aurelio Anderson MD at 20:57 EDT , Service support , Chest X-Ray 12/16/17 20:00 IMPRESSION: Degenerative changes, as described above. No demonstrated acute cardiopulmonary process. Electronically Signed: Aurelio nAderson MD at 21:26 EDT , Service support , Brain MRI 12/17/17 23:39 IMPRESSION: Acute right pontine infarction. Chronic right frontal and occipital infarctions. Lacunar infarcts and Severe chronic microvascular ischemic changes. N.B. : The above information has been verbally conveyed by Benji Echols MD to Debbie Neumann RN, on 12/17/2017 11:01:29 (ET). Electronically Signed: Benji Echols MD at 10:54 EDT Tel , Service support , ADDENDUM: 12/19/[address] 12/18/17 06:32 IMPRESSION: Chronic involutional changes of the brain. Stable from 2 days prior Electronically Signed: Nicolas Ledesma DO at 7:30 EDT Tel , Service support , Videofluoroscopic Swallow 12/19/17 13:00 IMPRESSION: Fluoroscopic guided barium swallow. The swallow study findings were discussed with the patient by the speech pathologist at the conclusion of the examination. Please see speech pathology report for more information and recommendations. The procedure was performed by speech pathologist Electronically Signed: John Keys MD at 17:15 EDT , Service support , Neurology - Dr. Morocho Operations: None Procedures: None Summary of Care Provided: The patient is a 67 year 5-year-old male with past medical history of CVA, residual left sided weakness, recently discharged after CVA comes in with complaints of worsening right-sided weakness. MRI brain showed new acute right pontine infarct. Neurology was consulted. He was on aspirin, started on Plavix, continued on statin. He was skilled to go back to SNF for subacute rehab. He was managed initially off BP meds to allow for permissive hypertension. His BP meds were slowly resumed when BP started going up. His home Lantus was also adjusted for hypoglycemia and slowly resumed. He was seen by speech therapy and started on a modified diet for oropharyngeal dysphagia. He also underwent modified barium swallow and findings confirmed oropharyngeal dysphagia and recmmedations included direct 1:1 supervision with frequent verbal cues to facilitate adherence to the following precautions and assist w/ positioning - reduced bolus volume, reduced rate of intake, no straws, seated upright at 90 degrees during PO intake, remain upright for 30-60 minutes post meal (GERD precaution). He will have follow-up speech therapy treatments in the SNF. Subjective: On the day of discharge, patient felt well. No complains. No events on telemetry Objective: Physical exam: General: Alert, Oriented x3, Cooperative, No apparent distress HEENT: Atraumatic, PERRLA, EOMI, Normocephalic Neck: Supple Lungs: Clear to auscultation, Normal air movement Cardiovascular: Regular rate, Regular Rhythm, Normal S1, Normal S2, No murmurs Abdomen: Bowel Sounds Present, Soft, Non Tender, Non-Distended, No Hepato-splenomegaly Extremities: No edema Skin: No rashes, No breakdown Musculoskeletal: No Tenderness to Palpation of Joints or Extremities Lymphatic: No Cervical, Supraclavicular, or Inguinal Adenopathy Neurological: Cranial nerves II-XII grossly intact except slight left facial droop, POA, Motor Exam 5/5 strength except 4/5 in the left upper extremity, present on admission, remains the same Psych/Mental Status: Normal Affect, Appropriate - Physical Exam Vital Signs Temp Pulse Resp BP Pulse Ox 98 F 103 H 16 161/95 H 97 12/20/17 08:09 12/20/17 11:00 12/20/17 08:09 12/20/17 08:09 12/20/17 08:09 Oxygen Delivery Method Room Air Weight: 86.2 kg Body Mass Index (BMI) 28.0 Finger Stick Blood Glucose 105 Intake and Output for Last 24 Hours Intake Total 1119.9 / 1119.9 370 / 370 50 / 50 Output Total 1200 / 1200 830 / 830 225 / 225 Balance -80.1 / -80.1 -460 / -460 -175 / -175 Laboratory Tests Past 24 Hrs WBC 8.8 RBC 3.66 L Hgb 12.0 L Hct 35.7 L MCV 97.5 H MCH 32.8 H MCHC 33.6 POC Glucose POC Glucose 170 H 187 H 219 H POC Glucose 199 H Discharge Diet: Low fat/ Low Cholesterol, 2000 mg Sodium Diet Discharge Activity: Return to Normal Activity Home Medications: Medications to take at Discharge Aspirin [Aspirin EC] 81 mg PO DAILY 11/26/17 Atorvastatin Calcium [Lipitor] 40 mg PO QHS 11/26/17 Cholecalciferol (Vitamin D3) [Vitamin D3] 1,000 unit PO DAILY 11/26/17 Lisinopril [Zestril] 2.5 mg PO DAILY 11/26/17 Insulin Aspart [Novolog Flexpen] 14 units SC TIDCM 12/16/17 Latanoprost [Xalatan] 2.5 ml RIGHT EYE QHS 12/16/17 Metformin HCl 1,000 mg PO BIDCM 12/16/17 Clopidogrel Bisulfate [Plavix] 75 mg PO DAILY tablet 12/20/17 Glucerna Shake 120 ml PO 4X/DAY liquid 12/20/17 Insulin Glargine [Lantus SoloStar Pen] 10 units SC QHS pen 12/20/17 Insulin Lispro [Humalog KwikPen] See Protocol SC ACHS insuln.pen 12/20/17 Primary Care Physician: Armaan Cervantes MD [Primary Care Provider] - Please follow up with your Primary Care Physician in: within 2 weeks Please Follow Up With: Koko Morcoho MD When: in 3 weeks Disposition: Retirement facility Minutes spent on discharge:: 40 Patient Condition:: Stable Medical Necessity - Tobacco Use Smoking Status: Former smoker Tobacco Use: Cigarettes Meaningful Use Info Meaningful Use Diagnoses (Choose all that apply): Ischemic CVA - CVA Therapy Assessed for PT,OT and/or ST?: Yes - Ischemic Stroke Antithrombotic order at d/c?: No Reason antithrombotic not ordered: Treatment not Indicated Dx of Atrial fib/flutter?: No Anticoagulant at discharge?: No Reason anticoagulant not ordered: Treatment not Indicated Statins at discharge?: Yes Primary Dx Acute Ischemic CVA?: Yes IV tPA ordered during stay?: No Reason IV t-PA not ordered: Treatment not Indicated Code Visit Inpatient E AND M: [id number] Disch Hosp 12/23/17 0902 <Electronically signed by Irene Thompson MD> Date Irene Thompson MD Cosigner Signature (if applicable): Date CC: Irene Thompson MD; Armaan Cervantes MD Signed CBC-COMPLETE BLOOD CNT Collected: 12/23/2017 Status: F Source: [place] NO DIFF 5:10 AM [facility] REPOSITORY Order Comment: 119-1 TYPE CODE TESTS RESULT OUT OF RANGE REFERENCE UNITS LAB L100.1000 4.4-11.0 K/mm3 Normal WBC 8.0 LAB L100.1200 4.6-6.2 M/mm3 Low RBC 3.43 LAB L100.1300 13.0-16.5 g/dl Low HGB 11.2 LAB L100.1400 40-54 % Low HCT 33.9 LAB L100.1500 80-94 fL High MCV 98.8 LAB L100.1600 27.0-32.0 pg High MCH 32.7 LAB L100.1700 32-36 g/gl Normal MCHC 33.0 LAB L100.1810 11.6-14.6 % Normal RDW CV 13.0 LAB L100.1820 35.1-43.9 fl High RDW SD 46.7 LAB L100.1900 150-450 K/mm3 Normal PLT 232 LAB L100.2000 6.2-12.0 fl Normal MPV 9.4 Performed By: #### L100.0500 #### [facility] [address] [place], [address] BASIC METABOLIC Collected: 12/23/2017 Status: F Source: [place] PROFILE (BMP) 5:10 AM [facility] REPOSITORY Order Comment: 119-1 TYPE CODE TESTS RESULT OUT OF RANGE REFERENCE UNITS LAB L501.0100 74-106 mg/dL High GLU 154 Result Comment: Fasting Glucose result greater than or equal to 126 mg/dL suggests DIABETES MELLITUS per A.D.A. criteria. Please note revised GLUCOSE reference range effective 2017. LAB L501.1000 7-18 mg/dL High BUN 50 LAB L501.1100 0.70-1.30 mg/dL High CREAT,SERUM 1.38 Result Comment: The validity of the calculated GFR AND GFRAA in patients over 70 years has not been determined. Clinical correlation is essential. LAB L501.1110 >60 mL/min Low EST GFR 55 Result Comment: Non- GFR Calc LAB L501.1115 >60 mL/min Normal EST GFR - AA 66 Result Comment: GFR Calc LAB L501.1300 10-20 RATIO High BUN/CRE 36.2 LAB L501.2200 8.5-10.1 mg/dL CA Normal 8.9 LAB L501.5300 136-145 mmol/L NA Normal 140 LAB L501.5600 3.5-5.1 mmol/L K Normal 4.5 LAB L501.5900 98-107 mmol/L CL Normal 105 LAB L501.6100 21.0-32.0 mmol/L Normal CO2 22.0 LAB L501.6200 5-15 Normal GAP 13 Performed By: #### L500.2500 #### [facility] [address] [place], [address] TRANSFER TO [facility] Observed: 12/20/2017 Status: F Source: [facility] 11:33 [facility] REPOSITORY [facility] Medical Records Department [address] [place] [address] Transfer to Extended Care MR#: [id number] Acct: [id number] Name: SUKI OKEEFE Rep #: [id number] : 1950 67 From: Irene Thompson MD PCP: Armaan Cervantes MD Status: ADM IN SUKI OKEEFE (Patient) (Health Ins. Claim No.) (Day of Discharge to Facility) Certification of patient admission REQUIRED AT TIME OF ADMISSION. I CERTIFY THAT POST-HOSPITAL ECF SERVICES ARE REQUIRED TO BE GIVEN ON AN IN-PATIENT BASIS BECAUSE OF THE ABOVE NAMED PATIENT'S NEED FOR [facility]CI CARE ON A CONTINUING BASIS FOR THE CONDITION(S) FOR WHICH HE/SHE WAS RECEIVING IN-PATIENT HOSPITAL SERVICES PRIOR TO HIS/HER TRANSFER TO THE F. 12/20/17 1133 <Electronically signed by Irene Thompson MD> Date Irene Thompson MD - Diet 12/17/17 01:55 Diet: Cardiac: Carb-Controlled Is pt able to select menu?: No Diet Comments: 1800 ADA - Routine Orders/Code Status Routine Lab Work: CBC - within 1 week, BMP - within 1 week Code Status: Full Code - Therapies Weight Bearing: Full weight bearing Physical Therapy: Eval and Treat Occupational Therapy: Eval and Treat Speech Therapy: Eval and Treat - Allergies/Procedures Done in Hospital Allergies/Adverse Reactions: Allergies No Known Allergies Allergy (Verified 12/16/17 19:44) Procedures: None - Type of Care/Length of Stay Estimated LOS: Convalescent Care Less Than 30 days Type of Care Needed: Skilled Rehab Potential: Good Prognosis: Good - Additional Orders/Day of Discharge Additional Orders: Patient's BP medications were held for permissive hypertension. On the day of discharge, patient was resumed on his Lisinopril. His BP should be monitored and he should be restarted on his metoprolol if BP persists to be elevated. His Lantus was also held for hypoglycemia and he was slowly resumed on Lantus 10 units QHS as well as premeal insulin 14 units TID. Blood glucose monitoring should be continued and Lantus insulin may slowly need to be increased. Day of Discharge: 12/20/17 - Dietary and Speech Recommendations Dietitian Recommendations/Changes: Rec continue 1800 calorie controlled, cardiac diet. Continue Glucerna ONS w/ medpass until PO >75% consistently established. Speech Linguistic Eval Summary: Pt is a 67 y/o right handed male w/ a history of CVA and left sided weakness who presented to ED from [facility] d/t worsening of left arm/leg weakness. Past medical history is significant for CVA, HTN and DMII. 12/16/2017 CT/Brain/Head without Contrast IMPRESSION: Chronic involutional changes of the brain. Stable appearance. No hemorrhage. 12/16/2017 Chest x-ray IMPRESSION: Degenerative changes, as described above. No demonstrated acute cardiopulmonary process. 12/17/2017 MRI/Brain without Contrast IMPRESSION: Acute right pontine infarction. Chronic right frontal and occipital infarctions. Lacunar infarcts and Severe chronic microvascular ischemic changes. Patient has a 9th grade education. Baseline cognitive status is unknown. Patient denies any new/acute changes in cognitive function associated w/ this admission, although patient was evaluated by this department approx. 2 weeks prior w/ a marked change in performance this date comparatively. Patient presents w/ expressive and receptive deficits characterized by mild to moderate dysarthria, decreased attention, memory, recall. Oriented to all except date (off by 2). Answered simple to complex yes/no ?s accurately. Executed 2 step commands w/ 50% accuracy, 3 step commands w/ 0% accuracy. Adequate generative naming, although patient repeated items previously named several times w/ no seeming awareness. Able to read at the word and sentence level WNL. Immediate recall of 3 word sequences: 50%, delayed recall 0% even w/ category cues and choice of 3. Mod-max cues required for problem solving and reasoning tasks this date. Again, premorbid cognitive-linguistic function is unknown, but warrants further investigation. Pt is agreeable to participation in skilled ST services targeting the above listed deficits w/ goal of returning to [facility] at highest level of independent functioning possible. - Follow Up Care Primary Care Physician: Armaan Cervantes MD [Primary Care Provider] - Please follow up with your Primary Care Physician in: within 2 weeks Please Follow Up With: Koko Morocho MD When: in 3 weeks 12/20/17 1133 <Electronically signed by Irene Thompson MD> Date Irene Thompson MD CC: Armaan Cervantes MD; Koko Morocho MD Signed BEDSIDE GLUCOSE Collected: 12/20/2017 Status: F Source: ARLENE 11:11 AM [facility] REPOSITORY TYPE CODE TESTS RESULT OUT OF REFERENCE UNITS RANGE LAB L501.080 70-110 mg/dL High BEDSIDE GLU 269 Result Comment: MANAGEMENT OF PATIENT CARE PER NURSING PROTOCOL Performed By: #### L501.080 #### [facility] Point of Care [address] [place] [address] BEDSIDE GLUCOSE Collected: 12/20/2017 Status: F Source: ARLENE 6:46 AM [facility] REPOSITORY TYPE CODE TESTS RESULT OUT OF REFERENCE UNITS RANGE LAB L501.080 70-110 mg/dL High BEDSIDE GLU 170 Result Comment: MANAGEMENT OF PATIENT CARE PER NURSING PROTOCOL Performed By: #### L501.080 #### [facility] Point of Care [address] [place] [address] CBC W/DIFF, AUTOMATED Collected: 12/20/2017 Status: F Source: ARLENE 5:33 AM [facility] REPOSITORY TYPE CODE TESTS RESULT OUT OF RANGE REFERENCE UNITS LAB L100.1000 4.4-11.0 K/mm3 Normal WBC 8.8 LAB L100.1200 4.6-6.2 M/mm3 Low RBC 3.66 LAB L100.1300 13.0-16.5 g/dl Low HGB 12.0 LAB L100.1400 40-54 % Low HCT 35.7 LAB L100.1500 80-94 fL High MCV 97.5 LAB L100.1600 27.0-32.0 pg High MCH 32.8 LAB L100.1700 32-36 g/gl Normal MCHC 33.6 LAB L100.1810 11.6-14.6 % Normal RDW CV 12.8 LAB L100.1820 35.1-43.9 fl High RDW SD 45.6 LAB L100.1900 150-450 K/mm3 Normal PLT 192 LAB L100.2000 6.2-12.0 fl Normal MPV 8.8 LAB L100.2100 47-70 % Normal NEUT% 65.6 LAB L100.2200 19-41 % Normal LY% 19.9 LAB L100.2300 0-10 % High MONO% 11.0 LAB L100.2400 0-5 % Normal EO% 3.1 LAB L100.2500 0-1 % Normal BASO% 0.2 LAB L100.2550 0.0-0.9 % Normal IM GRAN % 0.200 Result Comment: IG% - Immature Granulocytes (promyelocytes, myelocytes and metamyelocytes) > 1% indicates that a LEFT SHIFT is Present. LAB L100.2620 2.0-7.7 X10 3/uL Normal Absolute Neut 5.8 LAB L100.2720 0.83-4.51 X10 3/ul Normal Absolute Lymph 1.75 Performed By: #### L100.0100 #### [facility] [address] [place], [place], [address] BASIC METABOLIC Collected: 12/20/2017 Status: F Source: TROPIC PROFILE (BMP) 5:33 AM [facility] REPOSITORY TYPE CODE TESTS RESULT OUT OF RANGE REFERENCE UNITS LAB L501.0100 74-106 mg/dL High GLU 177 Result Comment: Fasting Glucose result greater than or equal to 126 mg/dL suggests DIABETES MELLITUS per A.D.A. criteria. Please note revised GLUCOSE reference range effective 2017. LAB L501.1000 7-18 mg/dL High BUN 30 LAB L501.1100 0.70-1.30 mg/dL Normal CREAT,SERUM 1.18 Result Comment: The validity of the calculated GFR AND GFRAA in patients over 70 years has not been determined. Clinical correlation is essential. LAB L501.1110 >60 mL/min Normal EST GFR 66 Result Comment: Non- GFR Calc LAB L501.1115 >60 mL/min Normal EST GFR - AA 80 Result Comment: GFR Calc LAB L501.1255 ml/min Normal Estimated CRCL 62.41 LAB L501.1300 10-20 RATIO High BUN/CRE 25.4 LAB L501.2200 8.5-10 mg/dL Normal .1 CA 8.8 LAB L501.5300 136-14 mmol/L Normal 5 NA 138 LAB L501.5600 3.5-5. mmol/L Normal 1 K 4.4 LAB L501.5900 98-107 mmol/L Normal CL 104 LAB L501.6100 21.0-3 mmol/L Normal 2.0 CO2 25.0 LAB L501.6200 5-15 Normal GAP 9 Performed By: #### L500.2500 #### [facility] [address] [facility] [address] BEDSIDE GLUCOSE Collected: 12/19/2017 Status: F Source: TROPIC 9:04 PM [facility] REPOSITORY TYPE CODE TESTS RESULT OUT OF REFERENCE UNITS RANGE LAB L501.080 70-110 mg/dL High BEDSIDE GLU 187 Result Comment: MANAGEMENT OF PATIENT CARE PER NURSING PROTOCOL Performed By: #### L501.080 #### [facility] Point of Care [address] [place] [address] BEDSIDE GLUCOSE Collected: 12/19/2017 Status: F Source: TROPIC 3:48 PM [facility] REPOSITORY TYPE CODE TESTS RESULT OUT OF REFERENCE UNITS RANGE LAB L501.080 70-110 mg/dL High BEDSIDE GLU 219 Result Comment: MANAGEMENT OF PATIENT CARE PER NURSING PROTOCOL Performed By: #### L501.080 #### [facility] Point of Care [address] [place] [address] MODIFIED BARIUM Observed: 12/19/2017 Status: F Source: TROPIC SWALLOW STUDY 3:21 PM [facility] REPOSITORY [facility] Speech Pathology [address] [place] [id number] Modified Barium Swallow Study MR#: [id number] Acct: [id number] Name: SUKI OKEEFE Rep #: [id number] : 1950 67 From: Jessica Mtz M.A., CCC-PANEL INSTALLER PRIMARY / SECONDARY DIAGNOSIS: CVA / dysphagia REFERRING PHYSICIAN: Dr. Thompson CURRENT DIET: Regular textures / Thin liquids DENTITION: Natural dentition w/ poor repair, multiple missing teeth; halitosis. MENTAL STATUS: decreased ability to follow commands for participation in MBS w/ verbal/tactile cues and repetition of instruction required RESPIRATORY STATUS: Respiratory standards met w/ patient oxygenating on room air PREVIOUS MODIFIED BARIUM SWALLOW STUDY: n/a REASON FOR REFERRAL: Pt is a 67 y/o right handed male w/ a history of CVA and left sided weakness who presented to ED from [facility] d/t worsening of left arm/leg weakness. Further assessment of swallow function under fluoroscopy recommended following meal analysis at bedside 12/18/2917 d/t concern for dyssynchrony w/ increased risk for aspiration 12/16/2017 CT/Brain/Head without Contrast IMPRESSION: Chronic involutional changes of the brain. Stable appearance. No hemorrhage. 12/16/2017 Chest x-ray IMPRESSION: Degenerative changes, as described above. No demonstrated acute cardiopulmonary process. 12/17/2017 MRI/Brain without Contrast IMPRESSION: Acute right pontine infarction. Chronic right frontal and occipital infarctions. Lacunar infarcts and Severe chronic microvascular ischemic changes. MEDICAL HISTORY: CVA, HTN and DMI STUDY FINDINGS: Patient participated in a Modified Barium Swallow (MBS) study on 12/19/2017. This study was recorded in the lateral view and images were sent to PACs fto be read by the Radiologist and for storage. The following consistencies were presented to this patient for analysis of oropharyngeal swallow function: thin liquid, pudding, and a regular texture Carol Doone cookie. Results of the MBS are as follows: PENETRATION / ASPIRATION SCALE (STODDARD): 1 = does not enter airway 2 = enters airway/above vocal folds/ejected 3 = enters airway/above vocal folds/not ejected 4 = enters airway/contacts vocal folds/ejected 5 = enters airway/contacts vocal folds/not ejected 6 = enters airway/below vocal folds/ejected 7 = enters airway/below vocal folds/not ejected despite effort 8 = enters airway/below vocal folds/no effort PENETRATION / ASPIRATION SCALE (SCORE) listed in order of presentation: 1. Thin liquid, teaspoon: 1 2. Thin liquid, teaspoon: 5 difficult to assess of trace contrast dropped below vocal folds d/t positioning w/ shoulder partially obstructing view, increased risk for aspiration as penetrated contrast was not ejected 3. Thin liquid, cup: 2 4. Thin liquid, cup: 2 trace undercoating of the epiglottis during the swallow 5. Thin liquid, cup: 2 trace undercoating of the epiglottis during the swallow 6. Puddin 7. Shortbread Cookie: 1 8. Thin liquid, cup: 2 trace undercoating of the epiglottis during the swallow 9. Thin liquid, sequential swallows, cup: 2 10. Thin liquid, straw: 3 11. Thin liquid, cup, cued for small sip: 1 IMPRESSION ORAL PHASE CHARACTERIZED BY: LABIAL SEAL: could not view under fluoroscopy TONGUE CONTROL DURING ORAL HOLDING OF LIQUIDS: posterior escape of greater than half of bolus BOLUS PREPARATION / MASTICATION: slow prolonged chewing/mashing with complete recollection BOLUS TRANSPORT / LINGUAL MOTION: slowed tongue motion ORAL RESIDUE: residue collection on oral structures PHARYNGEAL PHASE CHARACTERIZED BY: INITIATION OF PHARYNGEAL SWALLOW: bolus head in pyriforms at first hyoid excursion SOFT PALATE ELEVATION: no bolus between soft palate and pharyngeal wall LARYNGEAL ELEVATION: partial superior movement of thyroid cartilage/partial approximation of arytenoids cartilage to epiglottic petiole ANTERIOR HYOID EXCURSION: partial anterior movement EPIGLOTTIC MOVEMENT: incomplete epiglottic inversion LARYNGEAL VESTIBULE CLOSURE AT HEIGHT OF SWALLOW: incomplete laryngeal vestibule closure with narrow column of air/contrast in laryngeal vestibule PHARYNGEAL STRIPPING WAVE: pharyngeal stripping wave present / diminished PHARYNGOESOPHAGEAL SEGMENT OPENING: could not view d/t positioning w/ shoulder obstructing view TONGUE BASE RETRACTION: wide column of contrast between tongue base and posterior pharyngeal wall PHARYNGEAL RESIDUE: collection of residue within or on pharyngeal structures ESOPHAGEAL PHASE CHARACTERIZED BY: ESOPHAGEAL BOLUS CLEARANCE IN THE UPRIGHT POSITION: could not view d/t positioning w/ shoulder obstructing view EFFECTS OF TREATMENT STRATEGIES ATTEMPTED: * Cough and reswallow = unable to follow command to execute effectively w/ dystussia appreciated * Double swallow = unable to follow command to elicit a volitional second swallow * Reduced bolus size = effective * Reduced rate of intake = effective * Removal of straw = effective INTERPRETATION OF RESULTS: Patient presents with mild to moderate oropharyngeal dysphagia (R13.12). Oral phase is characterized by mild mastication inefficiency w/ a munching pattern utilized resulting in prolonged oral prep of solid textures. Suboptimal lingual control (moderate) resulting in premature pharyngeal bolus entry w/ liquids pooling in the pyriform sinuses prior to swallow onset. Mild oral residue post deglutition noted w/ inability to clear when prompted to utilize a volitional dry swallow. Pharyngeal phase primarily marked by delayed pharyngeal swallow onset timing resulting in suboptimal bolus location upon swallow onset resulting in inconsistent pooling of liquid in the pyriform sinuses w/ laryngeal vestibule penetration occurring w/ liquid transferring from the pyriform sinuses into the laryngeal vestibule during the swallow. Reduced tongue base retraction and diminished pharyngeal stripping wave resulted in suboptimal pressure for pharyngeal bolus clearance. Incomplete epiglottic inversion and incomplete airway closure achieved during deglutition d/t reduced laryngeal elevation and anterior hyoid excursion which resulted in inconsistent laryngeal vestibule closure and moderate pharyngeal residue retention (valleculae). Reduced tongue base retraction and diminished pharyngeal stripping wave resulted in suboptimal pressure for pharyngeal bolus clearance. Patient demonstrated poor ability to follow commands, with little to no benefit from attempted compensatory strategies. Moderate dystussia w/ cough ineffective to clear laryngeal vestibule penetration. Although unable to visualize if penetrated contrast did result in aspiration under fluoroscopy d/t poor positioning w/ shoulder partially obstructing view, the patient remains at increased risk to aspirate. Elevated risk for penetration/aspiration appreciated w/ large volume sips, sequential swallow via cup and with thin liquid consumption via straw. Deficits ameliorated with bolus volume adjustments. RECOMMENDATIONS: DIET TEXTURE RECOMMENDATIONS: Will recommend a regular textured, thin liquid diet. COMPENSATORY STRATEGIES RECOMMENDED: Direct 1:1 supervision with frequent verbal cues to facilitate adherence to the following precautions and assist w/ positioning - reduced bolus volume, reduced rate of intake, no straws, seated upright at 90 degrees during PO intake, remain upright for 30-60 minutes post meal (GERD precaution) Patient requires intensive skilled speech-language intervention targeting: * training and implementation of recommended compensatory strategies * training and implementation of recommended oral strengthening exercises to facilitate improved oral control * training and implementation of recommended oropharyngeal strengthening exercises to facilitate improved swallow onset timing, laryngeal vestibule closure / pressure and pharyngeal motility The patient demonstrated significant difficulty following directions presented both verbally one step at a time, and visually, with very limited benefit for extensive implementation of compensatory strategies. Anticipate that this may limit patient s benefit from traditional dysphagia treatment / exercise program ADDITIONAL COMMENTS/RECOMMENDATIONS: Results and recommendations were discussed with the Patient immediately following MBS completion, with the Patient verbalizing understanding and agreement with all recommendations and education provided. Continued education and reinforcement of recommendations and aspiration precautions are necessary d/t suspected poor comprehension and poor likelihood of carryover / compliance. 12/19/17 1521 <Electronically signed by Jessica Mtz M.A., CCC-PANEL INSTALLER> Date Jessica Mtz M.A., CCC-PANEL INSTALLER Co-Signature Required for all Medicare patients Date/Time Co-Signature CC: BEDSIDE GLUCOSE Collected: 12/19/2017 Status: F Source: TROPIC 11:51 AM [facility] REPOSITORY TYPE CODE TESTS RESULT OUT OF REFERENCE UNITS RANGE LAB L501.080 70-110 mg/dL High BEDSIDE GLU 199 Result Comment: MANAGEMENT OF PATIENT CARE PER NURSING PROTOCOL Performed By: #### L501.080 #### [facility] Point of Care [address] [facility] [place] [address] 12 LEAD ELECTROCARDIOGRAM Observed: 12/19/2017 Status: F Source: TROPIC 11:29 AM [facility] REPOSITORY [facility] Cardiovascular Services [address] [place] [address] 12 Lead EKG 12/16/171999 MR#: [id number] Acct: [id number] Name: SUKI OKEEFE Rep #: [id number] : 1950 67 From: Silvano Lemon MD Attending Dr: Irene Thompson MD Status: ADM IN Ordering Dr: Silvano Siegel MD Date: 12/16/17 Location: [facility] Sex: M C Admitted: 12/17/17 Test Reason : CP Blood Pressure : / mmHG Vent. Rate : 080 BPM Atrial Rate : 080 BPM P-R Int : 192 ms QRS Dur : 092 ms QT Int : 382 ms P-R-T Axes : 023 071 083 degrees QTc Int : 440 ms Normal sinus rhythm Normal ECG Confirmed by PJ MOLINA, SILVANO ([id number]), editorial clerk ARDEN CERVANTES ([id number]) on 12/19/2017 11:28:51 AM Referred By: Confirmed By:SILVANO LEMON MD 12/19/17 1128 Date Silvano Lemon MD CC: Irene Thompson MD; Armaan Cervantes MD; Silvano Siegel MD Signed BEDSIDE GLUCOSE Collected: 12/19/2017 Status: F Source: ARLENE 7:30 AM [facility] REPOSITORY TYPE CODE TESTS RESULT OUT OF REFERENCE UNITS RANGE LAB L501.080 70-110 mg/dL High BEDSIDE GLU 187 Result Comment: MANAGEMENT OF PATIENT CARE PER NURSING PROTOCOL Performed By: #### L501.080 #### [facility] Point of Care [address] [place] [address] SWALLOWING FUNCTION Observed: 12/19/2017 Status: F Source: ARLENE W/VIDEO 12:00 AM [facility] REPOSITORY [facility] Imaging Services [address] [place] [address] Swallowing Function w/Video MR#: [id number] Acct: [id number] Name: SUKI OKEEFE Rep #: [id number] : 1950 M 67 From: John Keys MD PCP: Armaan Cervantes MD Status: DIS IN Study: Swallowing Function w/Video Date of Exam: 12/19/17 Exam# [id number] Ordering Dr: Irene Thompson MD STUDY: SWALLOWING STUDY REASON FOR EXAM: Male, 67 years old. TIA and dysphagia TECHNIQUE: The examination was performed with Speech Pathology in attendance. Under fluoroscopic observation, the patient ingested thin barium, thick barium, barium pudding, and barium coated cracker. # of Images: 0 FLUOROSCOPY TIME: 2:48 minutes/seconds RADIOLOGIST INVOLVEMENT: No COMPARISON: None. FINDINGS: Fluoroscopic guided swallowing study was performed in the lateral projection utilizing barium intermixed with multiple textured foods and liquids as per clinical history. The exam was performed without radiologist presence and consultation with the speech pathologist is recommended for more complete information RAD/Swallowing Function w/Video IMPRESSION: Fluoroscopic guided barium swallow. The swallow study findings were discussed with the patient by the speech pathologist at the conclusion of the examination. Please see speech pathology report for more information and recommendations. The procedure was performed by speech pathologist Electronically Signed: John Keys MD at 17:15 EDT , Service support , CC: Irene Thompson MD; Armaan Cervantes MD Speeder Frame Tender: Signed BEDSIDE GLUCOSE Collected: 12/18/2017 Status: F Source: ARLENE 11:23 PM [facility] REPOSITORY TYPE CODE TESTS RESULT OUT OF REFERENCE UNITS RANGE LAB L501.080 70-110 mg/dL High BEDSIDE GLU 202 Result Comment: MANAGEMENT OF PATIENT CARE PER NURSING PROTOCOL Performed By: #### L501.080 #### [facility] Point of Care [address] [place] [address] BEDSIDE GLUCOSE Collected: 12/18/2017 Status: F Source: ARLENE 4:05 PM [facility] REPOSITORY TYPE CODE TESTS RESULT OUT OF REFERENCE UNITS RANGE LAB L501.080 70-110 mg/dL High BEDSIDE GLU 220 Result Comment: MANAGEMENT OF PATIENT CARE PER NURSING PROTOCOL Performed By: #### L501.080 #### [facility] Point of Care [address] [place] [address] BEDSIDE GLUCOSE Collected: 12/18/2017 Status: F Source: ARLENE 11:23 AM [facility] REPOSITORY TYPE CODE TESTS RESULT OUT OF REFERENCE UNITS RANGE LAB L501.080 70-110 mg/dL High BEDSIDE GLU 267 Result Comment: MANAGEMENT OF PATIENT CARE PER NURSING PROTOCOL Performed By: #### L501.080 #### [facility] Point of Care [address] [place] [address] BEDSIDE GLUCOSE Collected: 12/18/2017 Status: F Source: ARLENE 6:56 AM [facility] REPOSITORY TYPE CODE TESTS RESULT OUT OF RANGE REFERENCE UNITS LAB L501.080 70-110 mg/dL Normal BEDSIDE GLU 77 Result Comment: Dextrose 50 Given MANAGEMENT OF PATIENT CARE PER NURSING PROTOCOL Performed By: #### L501.080 #### [facility] Point of Care [address] [place] [address] BRAIN/HEAD WITHOUT Observed: 12/18/2017 Status: F Source: ARLENE CONTRAST 6:32 AM [facility] REPOSITORY [facility] Imaging Services [address] [place] [address] Brain/Head without Contrast MR#: [id number] Acct: [id number] Name: SUKI OKEEFE Rep #: [id number] : 1950 M 67 From: Nicolas Ledesma DO PCP: Armaan Cervantes MD Status: ADM IN Study: Brain/Head without Contrast Date of Exam: 12/18/17 Exam# [id number] Ordering Dr: Franco Garay MD STUDY: CT BRAIN WITHOUT CONTRAST REASON FOR EXAM: Male, 67 years old. Worsening NIHSS RADIATION DOSAGE (If Supplied By Facility): CTDIvol = ( 60.81 ) mGy, DLP = ( 3338.08 ) mGycm TECHNIQUE: Transaxial CT imaging of the brain was performed without administration of intravenous contrast material. Individualized dose optimization techniques were used for this CT. COMPARISON: 12/16/2017 FINDINGS: Normal soft tissue structures. Normal calvarium. Stable increased density at the right orbital globe. There is mild cerebral atrophy with widening of the extra- axial spaces and ventricular dilatation. There are areas of decreased attenuation within the white matter tracts of the supratentorial brain, consistent with microvascular disease changes. Normal basal ganglia and thalami. Normal brainstem. There is mild cerebellar atrophy. Stable left cerebellar infarct. There is no intracranial hemorrhage. There are no findings of an acute ischemic infarction. There is mucoperiosteal inflammatory disease of the paranasal sinuses consistent with mild chronic sinusitis. CT/Brain/Head without Contrast IMPRESSION: Chronic involutional changes of the brain. Stable from 2 days prior Electronically Signed: Nicolas Ledesma DO at 7:30 EDT Tel , Service support , CC: Armaan Cervantes MD; Franco Garay MD Speeder Frame Tender: Signed CBC W/DIFF, AUTOMATED Collected: 12/18/2017 Status: F Source: ARLENE 5:38 AM [facility] REPOSITORY TYPE CODE TESTS RESULT OUT OF RANGE REFERENCE UNITS LAB L100.1000 4.4-11.0 K/mm3 Normal WBC 9.1 LAB L100.1200 4.6-6.2 M/mm3 Low RBC 3.69 LAB L100.1300 13.0-16.5 g/dl Low HGB 12.3 LAB L100.1400 40-54 % Low HCT 36.3 LAB L100.1500 80-94 fL High MCV 98.4 LAB L100.1600 27.0-32.0 pg High MCH 33.3 LAB L100.1700 32-36 g/gl Normal MCHC 33.9 LAB L100.1810 11.6-14.6 % Normal RDW CV 12.7 LAB L100.1820 35.1-43.9 fl Normal RDW SD 43.5 LAB L100.1900 150-450 K/mm3 Normal PLT 238 LAB L100.2000 6.2-12.0 fl Normal MPV 9.2 LAB L100.2100 47-70 % Normal NEUT% 67.3 LAB L100.2200 19-41 % Normal LY% 19.3 LAB L100.2300 0-10 % Normal MONO% 9.7 LAB L100.2400 0-5 % Normal EO% 2.9 LAB L100.2500 0-1 % Normal BASO% 0.4 LAB L100.2550 0.0-0.9 % Normal IM GRAN % 0.400 Result Comment: IG% - Immature Granulocytes (promyelocytes, myelocytes and metamyelocytes) > 1% indicates that a LEFT SHIFT is Present. LAB L100.2620 2.0-7.7 X10 3/uL Normal Absolute Neut 6.1 LAB L100.2720 0.83-4.51 X10 3/ul Normal Absolute Lymph 1.75 Performed By: #### L100.0100 #### [facility] [address] [facility] [address] [facility]. [place], [place], [id number] BASIC METABOLIC Collected: 12/18/2017 Status: F Source: ARLENE PROFILE (BMP) 5:38 AM [facility] REPOSITORY TYPE CODE TESTS RESULT OUT OF RANGE REFERENCE UNITS LAB L501.0100 74-106 mg/dL Normal GLU 85 Result Comment: Please note revised GLUCOSE reference range effective 2017. LAB L501.1000 7-18 mg/dL High BUN 32 LAB L501.1100 0.70-1.30 mg/dL Normal CREAT,SERUM 1.15 Result Comment: The validity of the calculated GFR AND GFRAA in patients over 70 years has not been determined. Clinical correlation is essential. LAB L501.1110 >60 mL/min Normal EST GFR 68 Result Comment: Non- GFR Calc LAB L501.1115 >60 mL/min Normal EST GFR - AA 82 Result Comment: GFR Calc LAB L501.1255 ml/min Normal Estimated CRCL 64.04 LAB L501.1300 10-20 RATIO High BUN/CRE 27.8 LAB L501.2200 8.5-10 mg/dL Normal .1 CA 8.8 LAB L501.5300 136-14 mmol/L Normal 5 NA 138 LAB L501.5600 3.5-5. mmol/L Normal 1 K 4.3 LAB L501.5900 98-107 mmol/L High CL 108 LAB L501.6100 21.0-3 mmol/L Low 2.0 CO2 20.0 LAB L501.6200 5-15 Normal GAP 10 Performed By: #### L500.2500, L500.4100 #### [facility] [address] [facility]. [place], [place], [address] LIPID PROFILE Collected: 12/18/2017 Status: F Source: ARLENE 5:38 AM [facility] REPOSITORY TYPE CODE TESTS RESULT OUT OF RANGE REFERENCE UNITS LAB L501.4900 200 mg/dL Normal CHOL 131 Result Comment: <200 mg/dL Desirable 200-240 mg/dL Borderline >240 mg/dL High Risk LAB L501.5000 mg/dL Normal TRIG 90 Result Comment: The drugs N-Acetylcysteine and Metamizole may falsely depress this assay. Serum Triglycerides Reference Interval Normal <150 mg/dL Borderline high 150 - 199 mg/dL High 200 - 499 mg/dL Very High > or = 500 mg/dL LAB L501.6400 mg/dL Low HDL 37 Result Comment: The drugs N-Acetylcysteine and Metamizole may falsely depress this assay. Reference Range HDL <40 mg/dL Low HDL Cholesterol HDL >or= 60 mg/dL High HDL Cholesterol LAB L501.6500 0-130 mg/dL Normal LDL 76 LAB L501.6600 5-40 mg/dL Normal VLDL 18 Performed By: #### L500.2500, L500.4100 #### [facility] [address] [facility] [place], [address] BEDSIDE GLUCOSE Collected: 12/17/2017 Status: F Source: ARLENE 9:36 PM [facility] REPOSITORY TYPE CODE TESTS RESULT OUT OF REFERENCE UNITS RANGE LAB L501.080 70-110 mg/dL High BEDSIDE GLU 174 Result Comment: MANAGEMENT OF PATIENT CARE PER NURSING PROTOCOL Performed By: #### L501.080 #### [facility] Point of Care [address] [place] [address] BEDSIDE GLUCOSE Collected: 12/17/2017 Status: F Source: ARLENE 5:38 PM [facility] REPOSITORY TYPE CODE TESTS RESULT OUT OF REFERENCE UNITS RANGE LAB L501.080 70-110 mg/dL High BEDSIDE GLU 153 Result Comment: MANAGEMENT OF PATIENT CARE PER NURSING PROTOCOL Performed By: #### L501.080 #### [facility] Point of Care [address] [place] [address] BEDSIDE GLUCOSE Collected: 12/17/2017 Status: F Source: ARLENE 11:55 AM [facility] REPOSITORY TYPE CODE TESTS RESULT OUT OF REFERENCE UNITS RANGE LAB L501.080 70-110 mg/dL High BEDSIDE GLU 202 Result Comment: MANAGEMENT OF PATIENT CARE PER NURSING PROTOCOL Performed By: #### L501.080 #### [facility] Point of Care [address] [place] [address] CONSULTATION Observed: 12/17/2017 Status: F Source: ARLENE 11:05 AM [facility] REPOSITORY [facility] Medical Records Department [address] [place] [address] Consultation 12/17/17 1007 MR#: [id number] Acct: [id number] Name: SUKI OKEEFE Rep #: [id number] : 1950 67 From: Koko Morocho MD PCP: Armaan Cervantes MD Status: ADM IN Y Location: [place] [address] Reason for Consult Date of Consultation: 12/17/17 Reason for Consultation: CVA History of Present Illness: The patient is a 67 year old M Per admit H AND P: The patient is a 67 year old male patient with a history of stroke and left sided weakness presents to the ER with complaint of worsening left leg and arm weakness. Onset was 10.5 hours prior to ED arrival. His baseline NIH score is a 2 and was a 4 upon arrival. He now states he feels more like himself and NIH is currently a 2 at time of my evaluation. He denies chest pain or shortness of breath or other complaints. CT scan of brain is negative for hemorrhage. Recent MRI showed multiple areas of stroke and CTA of head and neck showed areas of stenosis but none greater than 50%(done in late November). He will be admitted for observation and MRI in am per neurology request. Past Medical History Past Medical History (Chronic Problems): Chronic Problems HTN (hypertension) (Chronic) Type 2 diabetes mellitus (Chronic) Allergies No Known Allergies Allergy (Verified 12/16/17 19:44) Home Medications: Ambulatory Orders Medication Instructions Recorded Aspirin [Aspirin EC] 81 mg PO DAILY 11/26/17 Atorvastatin Calcium [Lipitor] 40 mg PO QHS 11/26/17 Cholecalciferol (Vitamin D3) 1,000 unit PO DAILY 11/26/17 Surgical History: - - Foot surgery Psychiatric History: No pertinent psych hx Smoking Status: Never smoker Tobacco Use: Cigarettes - *Family History Maternal History Items: Unknown Paternal History Items: Unknown Sibling History Items: Unknown Patient Problems: Active and Suspected Problems Transient left leg weakness (Acute) - Physical Exam Vital Signs Temp Pulse Resp BP Pulse Ox 36.6 C 99 16 133/75 H 97 12/17/17 08:40 12/17/17 08:49 12/17/17 08:40 12/17/17 08:49 12/17/17 08:40 Oxygen Delivery Method Room Air Weight: 86.2 kg Body Mass Index (BMI) 28.0 Finger Stick Blood Glucose 105 Intake and Output for Last 24 Hours Intake Total 0 / 0 Output Total 600 / 600 Balance -600 / -600 Laboratory Tests Past 24 Hrs POC Glucose POC Glucose 126 H 105 MRI reviewed. He has acute right pontine infarct. He also has confluent subcortical white matter chronic changes. CTA from 11/26/17 reviewed, no significant stenosis. MRI from 11/27/17 reviewed, he has a small acute right MCA distribution infarct at that time. Assessment/Plan All Active Problems Transient left leg weakness (Acute) Headache (Acute) Acute ischemic stroke (Ruled-out) NSTEMI (non-ST elevation myocardial infarction) (Resolved) Encephalopathy (Resolved) Confusion (Resolved) Acute renal insufficiency (Resolved) right pontine infarct, acute, on asa and lipitor at ecf await echo hold bp meds tele pt/ot/sp consider rehab 12/17/17 1105 <Electronically signed by Koko Morocho MD> Date Koko Morocho MD Cosigner Signature (if applicable): Date CC: Armaan Cervantes MD; Koko Morocho MD Signed BASIC METABOLIC Collected: 12/17/2017 Status: F Source: ARLENE PROFILE ([facility]) 10:55 AM [facility] REPOSITORY TYPE CODE TESTS RESULT OUT OF RANGE REFERENCE UNITS LAB L501.0100 74-106 mg/dL High GLU 236 Result Comment: Glucose result greater than or equal to 200 mg/dL suggests DIABETES MELLITUS per A.D.A. criteria. Please note revised GLUCOSE reference range effective 2017. LAB L501.1000 7-18 mg/dL High BUN 30 LAB L501.1100 0.70-1.30 mg/dL Normal CREAT,SERUM 1.27 Result Comment: The validity of the calculated GFR AND GFRAA in patients over 70 years has not been determined. Clinical correlation is essential. LAB L501.1110 >60 mL/min Normal EST GFR 60 Result Comment: Non- GFR Calc LAB L501.1115 >60 mL/min Normal EST GFR - AA 73 Result Comment: GFR Calc LAB L501.1255 ml/min Normal Estimated CRCL 57.99 LAB L501.1300 10-20 RATIO High BUN/CRE 23.6 LAB L501.2200 8.5-10 mg/dL Normal .1 CA 9.5 LAB L501.5300 136-14 mmol/L Normal 5 NA 138 LAB L501.5600 3.5-5. mmol/L Normal 1 K 4.3 LAB L501.5900 98-107 mmol/L Normal CL 104 LAB L501.6100 21.0-3 mmol/L Normal 2.0 CO2 24.0 LAB L501.6200 5-15 Normal GAP 10 Performed By: #### L500.2500 #### [facility] [address] [place], [address] BEDSIDE GLUCOSE Collected: 12/17/2017 Status: F Source: TROPIC 6:53 AM [facility] REPOSITORY TYPE CODE TESTS RESULT OUT OF REFERENCE UNITS RANGE LAB L501.080 70-110 mg/dL High BEDSIDE GLU 126 Result Comment: MANAGEMENT OF PATIENT CARE PER NURSING PROTOCOL Performed By: #### L501.080 #### [facility] Point of Care [address] [place] [address] BRAIN WITHOUT Observed: 12/16/2017 Status: F Source: TROPIC CONTRAST 11:40 PM [facility] REPOSITORY [facility] Imaging Services [address] [place] [address] Brain without Contrast MR#: [id number] Acct: [id number] Name: SUKI OKEEFE Rep #: [id number] : 1950 M 67 From: Benji Echols PCP: Armaan Cervantes MD Status: ADM IN Study: Brain without Contrast Date of Exam: 12/17/17 Exam# [id number] Ordering Dr: Silvano Espinoza MD ADDENDUM by Benji Echols on 12/19/17 at 0934 ADDENDUM COMPARISON: MRI dated November 27, 2017 Electronically Signed: Benji Echols MD at 9:34 EDT Tel , Service support , N.B. : The above information has been verbally conveyed by Benji Echols MD to Debbie Neumann RN, on 12/17/2017 11:01:29 (ET). 12/19/17933 Date cc: Armaan Cervantes MD; Silvano Espinoza MD * Signed ADDENDUM by Benji Echols on 12/19/17 at 0934 MRI/Brain without Contrast 12/19/1741 Date cc: Armaan Cervantes MD; Silvano Espinoza MD * Signed STUDY: MRI BRAIN WITHOUT CONTRAST REASON FOR EXAM: Male, 67 years old. AMS,weakness; hx prior cva TECHNIQUE: Standardized multiplanar fat and water weighted pulse sequences were obtained. COMPARISON: None. FINDINGS: There is 1.2 cm right pontine restricted diffusion with drop of signal on ADC map, consistent with acute infarct. There is moderate cerebral atrophy with widening of the extra- axial spaces and ventricular dilatation. There are multiple confluent white matter hyperintensities, distributed throughout the deep white matter tracts of the cerebral hemispheres, consistent with severe chronic white matter ischemic changes. Again noted are the right frontal, right occipital cortical small infarcts. Bilateral cerebellar chronic lacunar infarcts are also noted. Normal bilateral basal ganglia. Normal thalami. There is no extra-axial fluid accumulation. Normal flow voids within the major intracranial circulation suggesting patency by spin echo criteria. Normal sella turcica, pituitary gland, infundibular stalk, optic chiasm and hypothalamus. Normal tectal plate and pineal gland. There are chronic white matter ischemic changes of the [place]. The midbrain and medulla are otherwise normal. Normal basal cisterns. MRI/Brain without Contrast IMPRESSION: Acute right pontine infarction. Chronic right frontal and occipital infarctions. Lacunar infarcts and Severe chronic microvascular ischemic changes. N.B. : The above information has been verbally conveyed by Benji Echols MD to Debbie Neumann RN, on 12/17/2017 11:01:29 (ET). Electronically Signed: Benji Echols MD at 10:54 EDT Tel , Service support , CC: Armaan Cervantes MD; Silvano Espinoza MD Speeder Frame Tender: Signed EMERGENCY DEPARTMENT Observed: 12/16/2017 Status: F Source: TROPIC SUMMARY 11:22 PM [facility] REPOSITORY [facility] Medical Records Department [address] [place] [address] Emergency Department Summary 12/16/17 2157 MR#: [id number] Acct: [id number] Name: SUKI OKEEFE Rep #: [id number] : 1950 67 From: Silvano Siegel MD PCP: Armaan Cervantes MD Status: REG ER - ER Visit Summary Date of Service: 12/16/17 Chief Complaint: Weakness History of Present Illness: The patient is a 67 M who presents after 10-1/2 hours of left leg and left arm weakness. No paresthesias. He has had a history of CVA. He has no chest pain shortness of breath fever chills or any other systemic complaints. He has no vision changes he has no speech difficulties. He lives in an assisted living and is brought by the nurse there. Physical Examination: Not appear in acute distress. Moist mucous membranes, no obvious facial deformity No C-spine tenderness supple neck. Regular rate and rhythm without any obvious murmurs Clear lungs bilaterally speaking in full sentences without any obvious respiratory distress Abdomen soft and nontender no guarding or rebound Moves all extremities without any difficulty or pain. Skin does not show any obvious rashes or lesions, no trauma. Alert oriented 3 there is weakness of the left arm and left leg, this makes his NIH stroke scale of 4. Emergency Department Course and Treatment: Patient was reevaluated he did have an NIH stroke scale of 2, so he is improving, I reviewed his recent MRI, I reviewed his recent angiogram of the vessels and echocardiogram all these were unremarkable. He is on antiplatelet therapy in the form of aspirin. I discussed with neurology and they did recommend admission. Therefore patient will be admitted to the hospital. Admit to the hospital Impression: Acute stroke symptoms This note was generated with RECESS. dictation software. It may contain incorrect words, spelling, and punctuation that were not noted in review of the chart prior to signing ED Disposition - Plan for ED Patient: Chief Complaint: Neuro S/Sx Referrals: Armaan Cervantes MD [Primary Care Provider] - What to do if you have Problems For any increased pain, shortness of breath, bleeding, nausea or vomiting, chest pain, or any unexpected problems, contact your Primary Care Provider. Call [facility] ([phone]) or report to the closest Emergency Room. Call 911 if necessary. 12/16/17 5320 <Electronically signed by Silvano Siegel MD> Date Silvano Siegel MD Cosigner Signature (If Indicated): Date CC: Armaan Cervantes MD HISTORY AND PHYSICAL Observed: 12/16/2017 Status: F Source: TROPIC EXAM 11:08 PM [facility] REPOSITORY [facility] Medical Records Department [address] [place] [address] History and Physical 10/15/18 2259 MR#: [id number] Acct: [id number] Name: SUKI OKEEFE Rep #: [id number] : 1950 67 From: Silvano Espinoza MD PCP: Armaan Cervantes MD Status: REG ER Y Location: ED Problem List (1) Transient left leg weakness Status: Acute (2) HTN (hypertension) Status: Chronic Qualifiers: (3) Encephalopathy Status: Resolved (4) Confusion Status: Resolved (5) Type 2 diabetes mellitus Status: Chronic History of Present Illness Date of Admission: 12/16/17 Chief Complaint: left leg weakness The patient is a 67 year old male patient with a history of stroke and left sided weakness presents to the ER with complaint of worsening left leg and arm weakness. Onset was 10.5 hours prior to ED arrival. His baseline NIH score is a 2 and was a 4 upon arrival. He now states he feels more like himself and NIH is currently a 2 at time of my evaluation. He denies chest pain or shortness of breath or other complaints. CT scan of brain is negative for hemorrhage. Recent MRI showed multiple areas of stroke and CTA of head and neck showed areas of stenosis but none greater than 50%(done in late November). He will be admitted for observation and MRI in am per neurology request. Past Medical History Past Medical History (Chronic Problems): Chronic Problems HTN (hypertension) (Chronic) Type 2 diabetes mellitus (Chronic) Allergies No Known Allergies Allergy (Verified 12/16/17 19:44) Home Medications: Ambulatory Orders Medication Instructions Recorded Aspirin [Aspirin EC] 81 mg PO DAILY 11/26/17 Atorvastatin Calcium [Lipitor] 40 mg PO QHS 11/26/17 Cholecalciferol (Vitamin D3) 1,000 unit PO DAILY 11/26/17 Surgical History: - - Foot surgery Psychiatric History: No pertinent psych hx Smoking Status: Never smoker - *Family History Maternal History Items: Unknown Paternal History Items: Unknown Sibling History Items: Unknown Review of Systems Constitutional: Denies: Chills, Fever, Weight Change HEENT: Denies: Head Aches, Sinus Congestion, Sinus Drainage Cardiovascular: Denies: Chest Pain, Palpitations Respiratory: Denies: Cough, Shortness of breath at rest, Sputum production Gastrointestinal: Denies: Abdominal Pain, Nausea, Vomiting Genitourinary: Denies: Dysuria Musculoskeletal: Denies: Joint Pain, Joint Tenderness Skin: Denies: Rash, Wounds Neurological: Reports: Focal weakness, Numbness, Tingling Psychiatric: Denies: Anxiety, Depression, Homicidal Ideations, Suicidal Ideations Hematologic/ Lymphatic: Denies: Easy Bruising, Easy Bleeding VTE Information - Inpt Only VTE Present on Admission: No VTE Mechan Device Prophylaxis: None VTE Pharm Prophylaxis ordered?: Yes Patient Problems: Active and Suspected Problems Transient left leg weakness (Acute) - Physical Exam General: Alert, Oriented x3, Cooperative HEENT: Atraumatic, PERRLA - constricted, EOMI, Normocephalic Neck: Supple, No JVD, Negative Carotid Bruits Lungs: Clear to auscultation, Normal air movement Cardiovascular: Regular rate, Normal S1, Normal S2, No murmurs Abdomen: Bowel Sounds Present, Soft, Non Tender Extremities: No edema, Capillary Refill Less than 3 Seconds Skin: No rashes, No breakdown Musculoskeletal: No Tenderness to Palpation of Joints or Extremities Neurological: Cranial nerves II-XII grossly intact Psych/Mental Status: Normal Affect, Appropriate Vital Signs Temp Pulse Resp BP Pulse Ox 98.1 F 80 20 H 144/76 H 97 12/16/17 19:39 12/16/17 22:30 12/16/17 22:30 12/16/17 22:30 12/16/17 22:30 Oxygen Delivery Method Room Air Weight: 195 lb 12.8 oz Body Mass Index (BMI) 28.9 Finger Stick Blood Glucose 105 Laboratory Tests Past 24 Hrs POC Glucose POC Glucose 105 Assessment/Plan All Active Problems Transient left leg weakness (Acute) Headache (Acute) Acute ischemic stroke (Ruled-out) NSTEMI (non-ST elevation myocardial infarction) (Resolved) Encephalopathy (Resolved) Confusion (Resolved) Acute renal insufficiency (Resolved) Assessment - TIA Plan - admit to PCU for observation - neurochecks q 4 hrs - Consult Dr Morocho - aspirin per routine - MRI brain in am - continue routine home medications for stable medical conditions - LMWH for DVT prophylaxis Code Visit OBSV E AND M: [id number] Initial observation care L2 12/16/17 5344 <Electronically signed by Silvano Espinoza MD> Date Silvano Espinoza MD Cosigner Signature: Date (if applicable) CC: Armaan Cervantes MD; Silvano Espinoza MD Signed CBC W/DIFF, AUTOMATED Collected: 12/16/2017 Status: F Source: ARLENE 7:55 PM [facility] REPOSITORY TYPE CODE TESTS RESULT OUT OF RANGE REFERENCE UNITS LAB L100.1000 4.4-11.0 K/mm3 Normal WBC 9.8 LAB L100.1200 4.6-6.2 M/mm3 Low RBC 3.89 LAB L100.1300 13.0-16.5 g/dl Low HGB 12.7 LAB L100.1400 40-54 % Low HCT 38.2 LAB L100.1500 80-94 fL High MCV 98.2 LAB L100.1600 27.0-32.0 pg High MCH 32.6 LAB L100.1700 32-36 g/gl Normal MCHC 33.2 LAB L100.1810 11.6-14.6 % Normal RDW CV 13.0 LAB L100.1820 35.1-43.9 fl High RDW SD 46.5 LAB L100.1900 150-450 K/mm3 Normal PLT 230 LAB L100.2000 6.2-12.0 fl Normal MPV 9.0 LAB L100.2100 47-70 % Normal NEUT% 69.3 LAB L100.2200 19-41 % Normal LY% 20.5 LAB L100.2300 0-10 % Normal MONO% 8.4 LAB L100.2400 0-5 % Normal EO% 1.3 LAB L100.2500 0-1 % Normal BASO% 0.3 LAB L100.2550 0.0-0.9 % Normal IM GRAN % 0.200 Result Comment: IG% - Immature Granulocytes (promyelocytes, myelocytes and metamyelocytes) > 1% indicates that a LEFT SHIFT is Present. LAB L100.2620 2.0-7.7 X10 3/uL Normal Absolute Neut 6.8 LAB L100.2720 0.83-4.51 X10 3/ul Normal Absolute Lymph 2.00 Performed By: #### L100.0100 #### [facility] [address] [place], [place], [address] BASIC METABOLIC Collected: 12/16/2017 Status: F Source: ARLENE PROFILE (BMP) 7:55 PM [facility] REPOSITORY TYPE CODE TESTS RESULT OUT OF RANGE REFERENCE UNITS LAB L501.0100 74-106 mg/dL High GLU 137 Result Comment: Fasting Glucose result greater than or equal to 126 mg/dL suggests DIABETES MELLITUS per A.D.A. criteria. Please note revised GLUCOSE reference range effective 2017. LAB L501.1000 7-18 mg/dL High BUN 37 LAB L501.1100 0.70-1.30 mg/dL High CREAT,SERUM 1.38 Result Comment: The validity of the calculated GFR AND GFRAA in patients over 70 years has not been determined. Clinical correlation is essential. LAB L501.1110 >60 mL/min Low EST GFR 55 Result Comment: Non- GFR Calc LAB L501.1115 >60 mL/min Normal EST GFR - AA 66 Result Comment: GFR Calc LAB L501.1255 ml/min Normal Estimated CRCL 53.37 LAB L501.1300 10-20 RATIO High BUN/CRE 26.8 LAB L501.2200 8.5-10 mg/dL Normal .1 CA 9.6 LAB L501.5300 136-14 mmol/L Normal 5 NA 137 LAB L501.5600 3.5-5. mmol/L Normal 1 K 4.6 LAB L501.5900 98-107 mmol/L Normal CL 102 LAB L501.6100 21.0-3 mmol/L Normal 2.0 CO2 26.0 LAB L501.6200 5-15 Normal GAP 9 Performed By: #### L500.2500, L501.4010 #### [facility] [address] [place], [place], [address] TROPONIN-I Collected: 12/16/2017 Status: F Source: TROPIC 7:55 PM [facility] REPOSITORY TYPE CODE TESTS RESULT OUT OF RANGE REFERENCE UNITS LAB L501.4010 <0.045 ng/mL Normal < 0.015 TROPONIN-I Result Comment: TROPONIN-I EXPECTED VALUES <0.045 Negative 0.045 - 0.590 Consistent with Cardiac Damage > OR = 0.600 Critical Value Not every elevated troponin is indicative of CO. These values should be used with clinical judgement in examining the patient's clinical picture for diagnosis. To establish a diagnosis of CO versus myocardial injury, there must be a demonstrated rise and/or fall in the troponin values, in addition to ischemic symptoms, EKG changes, new regional wall motion abnormality, and/or angiographical evidence. PLEASE NOTE: REFERENCE RANGES EDITED 17 Performed By: #### L500.2500, L501.4010 #### [facility] [address] [place], [address] PROTHROMBIN TIME W/INR Collected: 12/16/2017 Status: F Source: TROPIC 7:55 PM [facility] REPOSITORY TYPE CODE TESTS RESULT OUT OF RANGE REFERENCE UNITS LAB L300.4150 11.7-14.9 SECONDS Normal PROTIME 12.4 LAB L300.4200 Normal INR 0.9 Performed By: #### L300.3900, L300.4310 #### [facility] [address] [place], [address] PARTIAL THROMBOPLAST Collected: 12/16/2017 Status: F Source: TROPIC TIME 7:55 PM [facility] REPOSITORY TYPE CODE TESTS RESULT OUT OF RANGE REFERENCE UNITS LAB L300.4310 24.1-36.2 Seconds Normal PTT 29.0 Performed By: #### L300.3900, L300.4310 #### [facility] [address] [place], [address] HEMOGLOBIN A1C Collected: 12/16/2017 Status: F Source: TROPIC 7:55 PM [facility] REPOSITORY Order Comment: Comments: as add on test TYPE CODE TESTS RESULT OUT OF RANGE REFERENCE UNITS LAB L501.9985 4.2-6.3 % High HGB A1C 7.9 Performed By: #### L501.9985 #### [facility] [address] [place], [address] BRAIN/HEAD WITHOUT Observed: 12/16/2017 Status: F Source: TROPIC CONTRAST 7:53 PM [facility] REPOSITORY [facility] Imaging Services [address] [place] [address] Brain/Head without Contrast MR#: [id number] Acct: [id number] Name: SUKI OKEEFE Rep #: [id number] : 1950 M 67 From: Aurelio Anderson MD PCP: Armaan Cervantes MD Status: REG ER Study: Brain/Head without Contrast Date of Exam: 12/16/17 Exam# [id number] Ordering Dr: Silvano Siegel MD STUDY: CT BRAIN WITHOUT CONTRAST REASON FOR EXAM: Male, 67 years old. Weakness. Recent fall. RADIATION DOSAGE (If Supplied By Facility): CTDIvol = ( 44.99 ) mGy, DLP = ( 829.85 ) mGycm TECHNIQUE: Transaxial CT imaging of the brain was performed without administration of intravenous contrast material. Individualized dose optimization techniques were used for this CT. COMPARISON: November 26, 2017 FINDINGS: There is stable increased density of the right orbital globe. Normal calvarium. There is moderate cerebral atrophy with widening of the extra- axial spaces and ventricular dilatation. There are areas of decreased attenuation within the white matter tracts of the supratentorial brain, consistent with microvascular disease changes. Stable right frontal and occipital volume loss with encephalomalacia. Normal basal ganglia and thalami. Normal brainstem. There is mild cerebellar atrophy. The prior left cerebellar infarcts. There is no intracranial hemorrhage. There are no findings of an acute ischemic infarction. Mild mucosal thickening in the left maxillary sinus CT/Brain/Head without Contrast IMPRESSION: Chronic involutional changes of the brain. Stable appearance. No hemorrhage. Electronically Signed: Aurelio Anderson MD at 20:57 EDT , Service support , CC: Armaan Cervantes MD; Silvano Siegel MD Speeder Frame Tender: Signed CHEST 1 VIEW Observed: 12/16/2017 Status: F Source: [place] 7:53 PM [facility] REPOSITORY [facility] Imaging [place] [address] Chest 1 View MR#: [id number] Acct: [id number] Name: SUKI OKEEFE Rep #: [id number] : 1950 M 67 From: Aurelio Anderson MD PCP: Armaan Cervantes MD Status: REG ER Study: Chest 1 View Date of Exam: 12/16/17 Exam# [id number] Ordering Dr: Silvano Siegel MD STUDY: X-RAY CHEST REASON FOR EXAM: Male, 67 years old. Neurologic symptoms TECHNIQUE: Single AP portable view of the chest. COMPARISON: November 26, 2017 FINDINGS: There are monitoring devices. There is implantable cardiac rhythm monitoring device. The lungs are underexpanded with crowding of bronchovascular markings. There is no demonstrated pleural abnormality. There is borderline cardiomegaly. Normal mediastinum and ofelia. Normal visualized pulmonary arteries. Normal visualized aortic arch and descending thoracic aorta. There are diffuse degenerative changes of the visualized thoracic spine. Normal visualized ribs, clavicles, and shoulders. There is no demonstrated abnormality of the visualized soft tissue structures of the upper abdomen. RAD/Chest 1 View IMPRESSION: Degenerative changes, as described above. No demonstrated acute cardiopulmonary process. Electronically Signed: Aurelio Anderson MD at 21:26 EDT , Service support , CC: Armaan Cervantes MD; Silvano Siegel MD Speeder Frame Tender: Signed BEDSIDE GLUCOSE Collected: 12/16/2017 Status: F Source: [place] 7:45 PM [facility] REPOSITORY TYPE CODE TESTS RESULT OUT OF RANGE REFERENCE UNITS LAB L501.080 70-110 mg/dL Normal BEDSIDE GLU 105 Result Comment: MANAGEMENT OF PATIENT CARE PER NURSING PROTOCOL Performed By: #### L501.080 #### [facility] Point of Care [address] [place] [address] ELECTROENCEPHALOGRAM Observed: 12/13/2017 Status: F Source: [place] 1:01 PM [facility] REPOSITORY [facility] Pulmonary Services/Neurology [address] [place] [address] MR#: [id number] Acct: [id number] Name: SUKI OKEEFE Rep #: [id number] : 1950 67 From: Carlos Gregg MD Referring Dr: Maxi Kwok DO Status: DIS IN Ordering Dr: Date: Location: [address] Sex: M C - Electroencephalogram Date of service 11/27/2017 History EEG is being done in this 67 yr M to rule out seizures EEG Description: This is an 18 channel EEG with 10-20 lead placement system. Bipolar montages, Referential and Circumferential montages were reviewed. Photic stimulation and Hyperventilation were performed. The posterior dominant rhythm is 6 HZ synchronous, symmetric, reacting to eye opening and closing. Photo stimulation elicited normal driving response but no abnormal photoparoxysmal response, Hyperventilation did not elicit any abnormal photoparoxysmal response. Sleep was identified. There is abnormal background slowing noted in the theta frequency range. There was no epileptiform discharges or electrographic seizures noted during this recording. EEG Interpretation This is an abnormal EEG due to the presence of moderate background slowing. This can be seen in generalized cerebral dysfunction like metabolic/toxic encephalopathy. Clinical correlation is advised. There is no epileptiform discharges or electrographic seizures noted during the record. 12/13/17 1301 <Electronically signed by Carlos Gregg MD> Date Carlos Gregg MD CC: Julianna Gregg MD; Shimon Arias MD; Maxi Kwok DO; Shelley Perez MD Date Dictated: 11/28/17 1307 Date Transcribed: 11/28/171306 Speeder Frame Tender: MARTINEZ Signed CONSULTATION Observed: 12/13/2017 Status: F Source: [place] 1:01 PM [facility] REPOSITORY [facility] Medical Records Department [address] [place] [address] Consultation 11/27/17 0954 MR#: [id number] Acct: [id number] Name: SUKI OKEEFE Rep #: [id number] : 1950 67 From: Carlos Gregg MD PCP: Shimon Arias MD Status: DIS IN Y Location: [place] [address]-1 Problem List (1) Headache Status: Acute Qualifiers: Headache chronicity pattern: unspecified pattern Reason for Consult Date of Consultation: 11/27/17 Reason for Consultation: Headache History of Present Illness: The patient is a 67 year old CM with PMH HTN, HLD, DM, H/O stroke, [place] resident admitted with ESQUEDA. Patient is a poor historian, history is obtained from patient, medical records and documentation. Per patient he woke up normal yesterday morning (11/26/17), was later resting in the NH and the next thing he remembers was waking up in the ambulance, he complained of right sided ESQUEDA, per documentation there was a question if he passed out, nursing was concerned about possible loss of vision left eye, possible increase left sided weakness, CT head on admission reported to show right optic globe hemorrhage, CTA head/neck showed < 50% stenosis of B/L ICA. MRI brain done on admission reported (by Dr. Werner Cervantes) to show tiny focus of restricted diffusion in the right centrum semiovale, there may be additional foci of restricted diffusion in the left basal ganglia but on my review there is no clear DWI restriction and there does not appear to be any acute or subacute stroke but shows old right MCA stroke. Per patient he ambulates with a walker. [] Past Medical History Past Medical History (Chronic Problems): Chronic Problems HTN (hypertension) (Chronic) NSTEMI (non-ST elevation myocardial infarction) (Chronic) Type 2 diabetes mellitus (Chronic) Allergies No Known Allergies Allergy (Verified 11/26/17 15:50) Home Medications: Ambulatory Orders Medication Instructions Recorded Acetaminophen [Tylenol Arthritis] 1,300 mg PO PRN PRN 11/26/17 Aspirin [Aspirin EC] 81 mg PO DAILY 11/26/17 Surgical History: - - Foot surgery Psychiatric History: No pertinent psych hx Lives: Senior Living Smoking Status: Former smoker Tobacco Use: Non-smoker Alcohol: None Drugs: None - *Family History Maternal History Items: Unknown Paternal History Items: Unknown Sibling History Items: Unknown Review of Systems Constitutional: Reports: - - complete ROS negative except as documented in HPI Patient Problems: Active and Suspected Problems Headache (Acute) - Physical Exam General: Alert HEENT: Normocephalic Neck: Supple Lungs: Normal air movement Cardiovascular: Normal S1, Normal S2 Abdomen: Bowel Sounds Present Extremities: No cyanosis Neurological: - - consious, awake, CN 2-12 grossly intact except right pupil smaller than right, moves all 4 extremities, power 5/5 all 4 extremities, denies any sensory loss, no cerebellar signs, Reflexes + B/L B/S/T/K/A, gait deferred. Psych/Mental Status: Normal Affect Vital Signs Temp Pulse Resp BP Pulse Ox 97.8 F 94 14 116/66 100 11/27/17 06:50 11/27/17 07:11 11/27/17 06:50 11/27/17 06:50 11/27/17 06:50 Oxygen Flow Rate (L/min) 14 Oxygen Delivery Method Room Air Weight: 84 kg Body Mass Index (BMI) 27.3 Finger Stick Blood Glucose 367 Intake and Output for Last 24 Hours Intake Total 200 / 200 Output Total 150 / 150 Balance 50 / 50 Laboratory Tests Past 24 Hrs WBC 9.1 RBC 3.75 L Hgb 12.4 L Hct 35.9 L MCV 95.7 H MCH 33.1 H MCHC 34.5 RDW 12.5 WBC 8.2 RBC 3.87 L Hgb 12.8 L Hct 36.5 L MCV 94.3 H MCH 33.1 H POC Glucose POC Glucose 275 H 248 H 389 H POC Glucose 367 H Assessment/Plan All Active Problems Headache (Acute) Acute ischemic stroke (Acute) Encephalopathy (Acute) Confusion (Acute) Acute renal insufficiency (Acute) The patient is a 67 year old CM with PMH HTN, HLD, DM, H/O stroke, [place] resident admitted with ESQUEDA. Patient is a poor historian, history is obtained from patient, medical records and documentation. Per patient he woke up normal yesterday morning (11/26/17), was later resting in the NH and the next thing he remembers was waking up in the ambulance, he complained of right sided ESQUEDA, per documentation there was a question if he passed out, nursing was concerned about possible loss of vision left eye, possible increase left sided weakness, CT head on admission reported to show right optic globe hemorrhage, CTA head/neck showed < 50% stenosis of B/L ICA. MRI brain done on admission reported (by Dr. Werner Cervantes) to show tiny focus of restricted diffusion in the right centrum semiovale, there may be additional foci of restricted diffusion in the left basal ganglia but on my review there is no clear DWI restriction and there does not appear to be any acute or subacute stroke but shows old right MCA stroke. Per patient he ambulates with a walker. At present patient denies any focal motor weakness, sensory loss. Impression Headache ?Syncope Plan -MRI brain images reviewed- unlikely to be acute/subacute stroke at present, no DWI restriction appreciated on my review but Radiologist Dr. Werner Cervantes reported as showing tiny focus of restricted diffusion in the right centrum semiovale, there may be additional foci of restricted diffusion in the left basal ganglia. Also discussed MRI brain images with Radiologist Dr. Jones and on review he also did not see any acute DWI restriction lesions suggestive of stroke. -CTA head/neck -B/L ICA < 50% stenosis -On ASA and Lipitor 40 mg PO q hs -Ophthalmology referral for right optic globe hemorrhage and pupil asymmetry on examination -Check EEG, TTE- since per patient he remembers waking up in the ambulance and clinical history is not clear -LDL-74, check HbA1c -Check 30 day event recorder -PT/OT/ST -GI/DVT prophylaxis -Further medical management per primary team -Fall precautions -Please call with questions if any -Thank you for allowing us to participate in patient's care and management I spent 60 minutes taking history, doing physical examination, reviewing medical records, coordinating care and counseling the patient. Code Visit Inpatient E AND M: 43437 Init Hosp L3 12/13/17 1301 <Electronically signed by Carlos Gregg MD> Date Carlos Gregg MD Cosigner Signature (if applicable): Date CC: Julianna Gregg MD; John Amanda MD; Shimon Arias MD; Shelley Perez MD Signed 12 LEAD ELECTROCARDIOGRAM Observed: 11/29/2017 Status: F Source: [place] 2:17 PM [facility] REPOSITORY [facility] Cardiovascular Services [address] [address] 12 Lead EKG 11/26/17 1604 MR#: [id number] Acct: [id number] Name: SUKI OKEEFE Rep #: [id number] : 1950 67 From: Silvano Lemon MD Attending Dr: Maxi Kwok DO Status: DIS IN Ordering Dr: Bryan Marc DO Date: 11/26/17 Location: [facility] Sex: M C Admitted: 11/26/17 Test Reason : NEURO Blood Pressure : / mmHG Vent. Rate : 082 BPM Atrial Rate : 082 BPM P-R Int : 178 ms QRS Dur : 092 ms QT Int : 384 ms P-R-T Axes : 028 057 083 degrees QTc Int : 448 ms Normal sinus rhythm Normal ECG Confirmed by PJ MOLINA, SILVANO ([id number]), editorial clerk ARDEN CERVANTES ([id number]) on 11/29/2017 2:17:20 PM Referred By: Shelley Perez Confirmed By:SILVANO LEMON MD 11/29/17 1417 Date Silvano Lemon MD CC: Shimon Arias MD; Maxi Kwok DO; Shelley Perez MD; Bryan Marc DO Signed DISCHARGE SUMMARY Observed: 11/28/2017 Status: F Source: [place] 6:24 PM [facility] REPOSITORY [facility] Medical Records Department [address] [place] [address] Discharge Summary 11/28/17 1811 MR#: [id number] Acct: [id number] Name: SUKI OKEEFE Rep #: [id number] : 1950 67 From: Maxi Kwok DO PCP: Shimon Arias MD Status: DIS IN Y Location: [place] [address] 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 #4 type 2 diabetes-uncontrolled #5 hyperlipidemia #6 hypertension #7 cephalgia-etiology unknown, not related to ischemic stroke or right eye hemorrhage - Secondary Discharge Diagnosis Chronic Problems HTN (hypertension) (Chronic) Type 2 diabetes mellitus (Chronic) Hospital Course and Treatment Operations: None Procedures: 2-D Echocardiogram Summary of Care Provided: The patient is a 67 year old M who was seen in the emergency room at [facility] after being brought in from a local assisted living at which he resided with complaints of headache, mild confusion, and possible left-sided weakness. Workup in the emergency room included a CT scan of the brain which showed chronic ischemic changes and a hypodensity in the right globe consistent with blood, no evidence of new infarction was noted, CT of the head neck showed some chronic changes and mild narrowing of his blood vessels. Etiology of the patient's symptoms were unclear, he was admitted to PCU for possible ischemic stroke, further workup however revealed that he did not have an acute stroke, this was confirmed by neurology who personally reviewed his MRI images. Ophthalmology was contacted but it was noted that the blood in the patient's right globe was chronic and this was not an acute event. Patient was seen by PT and OT, he had some period of confusion during his hospitalization, I felt it was probably secondary to multi-infarct dementia. Patient had a mild headache during his hospitalization, the etiology of this headache was not determined, it was not related to any pathology on the patient's imaging studies. On 11/28/17, patient was seen and examined: HEENT: Patient is normocephalic, no thyroid masses were palpated, no JVD was noted. Lungs: Lungs were clear to auscultation apex to base bilaterally, no rales rhonchi or wheezes were noted. Heart: Heart rate and rhythm is regular, no ectopy was noted there was no murmurs noted, patient was not tachycardic. Abdomen: abdomen was soft, bowel sounds are present in all 4 quadrants, abdomen was nontender. Neuro: No focal motor deficits were noted, sensation is intact to light touch and pinprick, cranial nerves II through XII are grossly intact. Psych: Patient is alert, he is oriented as to time, place and self. EEG was performed on the patient, it showed only diffuse slowing indicative of previous cerebral damage from his old stroke. Patient was stable for discharge back to assisted living on 11/28/17, he was advised not to drive until he discussed this with his primary care doctor. Discharge Activity: Return to Normal Activity, May Not Drive Weight Bearing Status: Full weight bearing Home Medications: Medications to take at Discharge Acetaminophen [Tylenol Arthritis] 1,300 mg PO PRN PRN 11/26/17 Aspirin [Aspirin EC] 81 mg PO DAILY 11/26/17 Atorvastatin Calcium [Lipitor] 40 mg PO QHS 11/26/17 Cholecalciferol (Vitamin D3) [Vitamin D3] 1,000 unit PO DAILY 11/26/17 Lisinopril [Zestril] 2.5 mg PO DAILY 11/26/17 Metoprolol Tartrate [Lopressor (beta marilee)] 25 mg PO BID 11/26/17 Insulin Glargine [Lantus SoloStar Pen] 40 units SC BID pen 11/28/17 Insulin Lispro [Humalog KwikPen] 18 unit SUBCUT TIDAC #5 insuln.pen 11/28/17 Metformin HCl 1,000 mg PO BID #1 11/28/17 Following Prescrptions Were Given to Patient: Insulin Lispro [Humalog KwikPen] 18 unit SUBCUT TIDAC #5 insuln.pen Primary Care Physician: Shimon Arias MD [Primary Care Provider] - Please Follow Up With: Armaan Cervantes MD When: next week Disposition: Asstd Living/Non-Skill [place] Minutes spent on discharge:: 32 Patient Condition:: Stable Medical Necessity - Tobacco Use Smoking Status: Former smoker Tobacco Use: Non-smoker Meaningful Use Info Meaningful Use Diagnoses (Choose all that apply): None applicable Code Visit Inpatient E AND M: 33841 Disch Hosp 11/28/17 4254 <Electronically signed by Maxi Kwok DO> Date Maxi Kwok DO Cosigner Signature (if applicable): Date CC: Shimon Arias MD; Maxi Kwok DO Signed DISCHARGE INSTRUCTION Observed: 11/28/2017 Status: F Source: [place] 11:33 AM [facility] REPOSITORY [facility] Medical Records Department [address] [place] [address] Instructions for Home/Discharge Instructions 11/28/17 1127 MR#: [id number] Acct: [id number] Name: SUKI OKEEFE Rep #: [id number] : 1950 67 From: Maxi Kwok DO PCP: Shimon Arias MD Status: ADM IN - Discharge Diagnoses Current Active Problems: Current Active and Chronic Problems Headache (Acute) You will use the following diet at home:: Calorie/Carbohydrate Controlled (specify 1200, 1400, etc) - 1800 fernando Your food should be the consistency of: Regular Your liquids should be the consistency of: Regular/Thin Discharge Activity: Return to Normal Activity Weight Bearing Status: Full weight bearing Additional Instructions: NO DRIVING UNTIL YOU SEE DR CERVANTES Allergies/Adverse Reactions: Allergies No Known Allergies Allergy (Verified 11/26/17 15:50) Medications to take at Discharge Acetaminophen [Tylenol Arthritis] 1,300 mg PO PRN PRN 11/26/17 Aspirin [Aspirin EC] 81 mg PO DAILY 11/26/17 Atorvastatin Calcium [Lipitor] 40 mg PO QHS 11/26/17 Cholecalciferol (Vitamin D3) [Vitamin D3] 1,000 unit PO DAILY 11/26/17 Lisinopril [Zestril] 2.5 mg PO DAILY 11/26/17 Metoprolol Tartrate [Lopressor (beta marilee)] 25 mg PO BID 11/26/17 Insulin Glargine [Lantus SoloStar Pen] 40 units SC BID pen 11/28/17 Insulin Lispro [Humalog KwikPen] 18 unit SUBCUT TIDAC #5 insuln.pen 11/28/17 Metformin HCl 1,000 mg PO BID #1 11/28/17 The following prescriptions were given: Insulin Lispro [Humalog KwikPen] 18 unit SUBCUT TIDAC #5 insuln.pen Primary Care Physician: Shimon Arias MD [Primary Care Provider] - Test Results: Test results from this visit will be discussed in further detail at your follow-up appointment, if applicable. Please Follow Up With: Armaan Cervantes MD When: next week 11/28/17 1133 <Electronically signed by Maxi Kwok DO> Date Maxi Kwok DO CC: Julianna Gregg MD; John Amanda MD; Shimon Arias MD BEDSIDE GLUCOSE Collected: 11/28/2017 Status: F Source: [place] 11:01 AM [facility] REPOSITORY TYPE CODE TESTS RESULT OUT OF REFERENCE UNITS RANGE LAB L501.080 70-110 mg/dL High BEDSIDE GLU 248 Result Comment: MANAGEMENT OF PATIENT CARE PER NURSING PROTOCOL Performed By: #### L501.080 #### [facility] Point of Care [address] [facility] [place] [address] BEDSIDE GLUCOSE Collected: 11/28/2017 Status: F Source: [place] 7:03 AM [facility] REPOSITORY TYPE CODE TESTS RESULT OUT OF REFERENCE UNITS RANGE LAB L501.080 70-110 mg/dL High BEDSIDE GLU 288 Result Comment: MANAGEMENT OF PATIENT CARE PER NURSING PROTOCOL Performed By: #### L501.080 #### [facility] Point of Care [address] [place] [address] BEDSIDE GLUCOSE Collected: 11/27/2017 Status: F Source: [place] 11:28 PM [facility] REPOSITORY TYPE CODE TESTS RESULT OUT OF REFERENCE UNITS RANGE LAB L501.080 70-110 mg/dL High BEDSIDE GLU 331 Result Comment: MANAGEMENT OF PATIENT CARE PER NURSING PROTOCOL Performed By: #### L501.080 #### [facility] Point of Care [address] [place] [address] BEDSIDE GLUCOSE Collected: 11/27/2017 Status: F Source: [place] 8:53 PM [facility] REPOSITORY TYPE CODE TESTS RESULT OUT OF REFERENCE UNITS RANGE LAB L501.080 70-110 mg/dL High BEDSIDE GLU 421 Result Comment: MANAGEMENT OF PATIENT CARE PER NURSING PROTOCOL Performed By: #### L501.080 #### [facility] Point of Care [address] [place] [address] BEDSIDE GLUCOSE Collected: 11/27/2017 Status: F Source: [place] 8:51 PM [facility] REPOSITORY TYPE CODE TESTS RESULT OUT OF REFERENCE UNITS RANGE LAB L501.080 70-110 mg/dL High alert BEDSIDE GLU 466 Result Comment: Repeat Test MANAGEMENT OF PATIENT CARE PER NURSING PROTOCOL Performed By: #### L501.080 #### [facility] Point of Care [address] [place] [address] BEDSIDE GLUCOSE Collected: 11/27/2017 Status: F Source: [place] 4:22 PM [facility] REPOSITORY TYPE CODE TESTS RESULT OUT OF REFERENCE UNITS RANGE LAB L501.080 70-110 mg/dL High alert BEDSIDE GLU 496 Result Comment: MANAGEMENT OF PATIENT CARE PER NURSING PROTOCOL Performed By: #### L501.080 #### [facility] Point of Care [address] [place] [address] ECHOCARDIOGRAM COMPLETE Observed: 11/27/2017 Status: F Source: [place] 4:15 PM [facility] REPOSITORY [facility] Cardiovascular Services [address] [place] [address] Echo Complete 11/27/17 1522 MR#: [id number] Acct: [id number] Name: SUKI OKEEFE Rep #: [id number] : 1950 67 From: Harish Levy MD Attending Dr: Maxi Kwok DO Status: ADM IN Ordering Dr: Carlos Gregg MD Date: 11/27/17 Location: U Sex: M C Admitted: 09/25/18 Reason For Study: syncope Procedure This was a 2D Doppler, Color Flow transthoracic echocardiogram. The study was technically difficult. Exam performed portable in patient room. Left Ventricle Normal size and thickness. The estimated ejection fraction is 65 %. Stage 1 diastolic dysfunction. No regional wall motion abnormalities noted. Right Ventricle Normal RV size. Normal systolic function. Atria Normal left atrium. Normal right atrium. Normal atrial septum. Mitral Valve The mitral valve is structurally normal. No prolapse or stenosis seen. Tricuspid Valve Normal tricuspid valve. Trivial tricuspid valve insufficiency. Right ventricular systolic pressure estimated to be 23 mmHg. Aortic Valve Trisinus/trileaflet aortic valve. Mild focal aortic valve thickening. There is no aortic stenosis. Pulmonic Valve Normal pulmonic valve. Great Vessels Normal aortic root. Normal arch. Normal inferior vena cava. Inferior vena cava collapse with sniff. Pericardium/Pleural No pericardial effusion. MMode/2D Measurements AND Calculations LVIDd: 4.0 cm IVSd: 1.6 cm Ao root diam: 3.4 cm LVIDs: 2.8 cm LVPWd: 1.2 cm LA dimension: 3.6 cm RVDd: 3.0 cm FS: 28.8 % LAV(MOD-bp): 42.0 ml LA A4 area: 15.7 cm2 RA A4 area: 11.3 cm2 LAV(MOD-bp) Indexed: 21.0 ml/m2 LAV(MOD-sp2): 39.5 ml LAV(MOD-sp4): 39.7 ml Doppler Measurements AND Calculations MV E max martita: 72.3 cm/sec Lat Peak E' Martita: 6.4 cm/sec Med Peak E' Martita: 4.9 cm/sec MV A max martita: 124.8 cm/sec E/E' lat: 11.4 E/E' med: 14.7 MV E/A: 0.58 Ao V2 max: 143.7 cm/sec LV V1 max: 103.5 cm/sec PA V2 max: 91.8 cm/sec Ao max P.3 mmHg LV V1 max P.3 mmHg TR max martita: 211.7 cm/sec TR max P.9 mmHg Interpretation Summary The estimated ejection fraction is 65 %. Stage 1 diastolic dysfunction. Trivial tricuspid valve insufficiency. Right ventricular systolic pressure estimated to be 23 mmHg. Compared to echo report dated 08/30/2017, no appreciable changes noted. Ordering Physician: Julianna Gregg Referring Physician: Shelley Perez Performed By: Polly Thomson RDCS, RVT 11/27/17 5708 Date Harish Levy MD CC: Julianna Gregg MD; Shimon Arias MD; Maxi Kwok DO; Shelley Perez MD Date Dictated: 11/27/17 1522 Date Transcribed: 11/27/17 1615 Speeder Frame Tender: Signed BEDSIDE GLUCOSE Collected: 11/27/2017 Status: F Source: ARLENE 12:06 PM [facility] REPOSITORY TYPE CODE TESTS RESULT OUT OF REFERENCE UNITS RANGE LAB L501.080 70-110 mg/dL High BEDSIDE GLU 373 Result Comment: MANAGEMENT OF PATIENT CARE PER NURSING PROTOCOL Performed By: #### L501.080 #### [facility] Point of Care [address] [place] [address] BEDSIDE GLUCOSE Collected: 11/27/2017 Status: F Source: ARLENE 7:09 AM [facility] REPOSITORY TYPE CODE TESTS RESULT OUT OF REFERENCE UNITS RANGE LAB L501.080 70-110 mg/dL High BEDSIDE GLU 275 Result Comment: MANAGEMENT OF PATIENT CARE PER NURSING PROTOCOL Performed By: #### L501.080 #### [facility] Point of Care [address] [place] [address] CBC W/DIFF, AUTOMATED Collected: 11/27/2017 Status: F Source: ARLENE 5:24 AM [facility] REPOSITORY TYPE CODE TESTS RESULT OUT OF RANGE REFERENCE UNITS LAB L100.1000 4.4-11.0 K/mm3 Normal WBC 8.2 LAB L100.1200 4.6-6.2 M/mm3 Low RBC 3.87 LAB L100.1300 13.0-16.5 g/dl Low HGB 12.8 LAB L100.1400 40-54 % Low HCT 36.5 LAB L100.1500 80-94 fL High MCV 94.3 LAB L100.1600 27.0-32.0 pg High MCH 33.1 LAB L100.1700 32-36 g/gl Normal MCHC 35.1 LAB L100.1810 11.6-14.6 % Normal RDW CV 12.3 LAB L100.1820 35.1-43.9 fl Normal RDW SD 41.6 LAB L100.1900 150-450 K/mm3 Normal PLT 246 LAB L100.2000 6.2-12.0 fl Normal MPV 9.1 LAB L100.2100 47-70 % High NEUT% 86.4 LAB L100.2200 19-41 % Low LY% 5.1 LAB L100.2300 0-10 % Normal MONO% 6.6 LAB L100.2400 0-5 % Normal EO% 1.3 LAB L100.2500 0-1 % Normal BASO% 0.2 LAB L100.2550 0.0-0.9 % Normal IM GRAN % 0.400 Result Comment: IG% - Immature Granulocytes (promyelocytes, myelocytes and metamyelocytes) > 1% indicates that a LEFT SHIFT is Present. LAB L100.2620 2.0-7.7 X10 3/uL Normal Absolute Neut 7.1 LAB L100.2720 0.83-4.51 X10 3/ul Low Absolute Lymph 0.42 LAB L100.4500 Normal SMEAR COMMENT SCANNED Performed By: #### L100.0100 #### [facility] [address] [place], [place], [address] BASIC METABOLIC Collected: 11/27/2017 Status: F Source: TROPIC PROFILE (BMP) 5:24 AM [facility] REPOSITORY TYPE CODE TESTS RESULT OUT OF RANGE REFERENCE UNITS LAB L501.0100 74-106 mg/dL High GLU 248 Result Comment: Glucose result greater than or equal to 200 mg/dL suggests DIABETES MELLITUS per A.D.A. criteria. Please note revised GLUCOSE reference range effective 2017. LAB L501.1000 7-18 mg/dL High BUN 34 LAB L501.1100 0.70-1.30 mg/dL Normal CREAT,SERUM 1.26 Result Comment: The validity of the calculated GFR AND GFRAA in patients over 70 years has not been determined. Clinical correlation is essential. LAB L501.1110 >60 mL/min Normal EST GFR 61 Result Comment: Non- GFR Calc LAB L501.1115 >60 mL/min Normal EST GFR - AA 74 Result Comment: GFR Calc LAB L501.1255 ml/min Normal Estimated CRCL 58.45 LAB L501.1300 10-20 RATIO High BUN/CRE 27.0 LAB L501.2200 8.5-10 mg/dL Normal .1 CA 8.9 LAB L501.5300 136-14 mmol/L Normal 5 NA 136 LAB L501.5600 3.5-5. mmol/L Normal 1 K 4.2 LAB L501.5900 98-107 mmol/L Normal CL 103 LAB L501.6100 21.0-3 mmol/L Normal 2.0 CO2 23.0 LAB L501.6200 5-15 Normal GAP 10 Performed By: #### L500.2500, L500.4100 #### [facility] [address] [place], [address] LIPID PROFILE Collected: 11/27/2017 Status: F Source: ARLENE 5:24 AM [facility] REPOSITORY TYPE CODE TESTS RESULT OUT OF RANGE REFERENCE UNITS LAB L501.4900 200 mg/dL Normal CHOL 141 Result Comment: <200 mg/dL Desirable 200-240 mg/dL Borderline >240 mg/dL High Risk LAB L501.5000 mg/dL Normal TRIG 139 Result Comment: The drugs N-Acetylcysteine and Metamizole may falsely depress this assay. Serum Triglycerides Reference Interval Normal <150 mg/dL Borderline high 150 - 199 mg/dL High 200 - 499 mg/dL Very High > or = 500 mg/dL LAB L501.6400 mg/dL Low HDL 39 Result Comment: The drugs N-Acetylcysteine and Metamizole may falsely depress this assay. Reference Range HDL <40 mg/dL Low HDL Cholesterol HDL >or= 60 mg/dL High HDL Cholesterol LAB L501.6500 0-130 mg/dL Normal LDL 74 LAB L501.6600 5-40 mg/dL Normal VLDL 28 Performed By: #### L500.2500, L500.4100 #### [facility] [address] [place], [address] BEDSIDE GLUCOSE Collected: 11/27/2017 Status: F Source: ARLENE 2:44 AM [facility] REPOSITORY TYPE CODE TESTS RESULT OUT OF REFERENCE UNITS RANGE LAB L501.080 70-110 mg/dL High BEDSIDE GLU 248 Result Comment: MANAGEMENT OF PATIENT CARE PER NURSING PROTOCOL Performed By: #### L501.080 #### [facility] Point of Care [address] [place] [address] BRAIN WITHOUT Observed: 11/27/2017 Status: F Source: ARLENE CONTRAST 12:00 AM [facility] REPOSITORY [facility] Imaging Services [address] [place] [address] Brain without Contrast MR#: [id number] Acct: [id number] Name: SUKI OKEEFE Rep #: [id number] : 1950 M 67 From: Werner Cervantes MD PCP: Shimon Arias MD Status: ADM IN Study: Brain without Contrast Date of Exam: 11/27/17 Exam# [id number] Ordering Dr: Shelley Perez MD STUDY: MRI BRAIN WITHOUT CONTRAST REASON FOR EXAM: Male, 67 years old. Headache, confusion and weakness. TECHNIQUE: Standardized multiplanar fat and water weighted pulse sequences were obtained. COMPARISON: CT of the head dated November 26, 2017 and MRI of the brain dated August 30, 2017. FINDINGS: There is mild cerebral atrophy with widening of the extra- axial spaces and ventricular dilatation. There are multiple white matter hyperintensities, distributed throughout the deep white matter tracts of the cerebral hemispheres, consistent with moderate chronic white matter ischemic changes. There appears to be encephalomalacia right frontal lobe probably related to old infarcts. There are several areas of abnormal signal within the centrum semiovale that are probably related to old infarcts. There is abnormal signal within the posterior right paramedian occipital lobe that suggest sequela of previous infarct and probably are cysts related to the infarct. There is a tiny focus of restricted diffusion in the right centrum semiovale best seen on axial image #22 of MR series #4. There may be additional foci of restricted diffusion in the left basal ganglia with the one most obvious on image 16 of MR series 4. This is also identified on MR series #401 images #15, 16 and 17. Normal T2* images of the brain without demonstrated susceptibility artifact. There is no demonstrated hemosiderin stain. The basal ganglia have a generally normal appearance on other sequences. There appear to be small areas of abnormal signal in the thalami suggesting encephalomalacia and sequela of old infarcts. There is no extra-axial fluid accumulation. Normal flow voids within the major intracranial circulation suggesting patency by spin echo criteria. There is tortuosity of the cavernous carotid arteries. Normal sella turcica, pituitary gland, infundibular stalk, optic chiasm and hypothalamus. Normal tectal plate and pineal gland. Normal midbrain, sloane and medulla. There are large areas of encephalomalacia in the left cerebellar hemisphere consistent with old infarcts. The right cerebellar hemisphere is within normal limits. There are large basal cisterns. Normal bilateral temporal bones. Normal bilateral internal auditory canals. There is abnormal signal in the right globe. This suggests possible sequela of previous intervention possibly for retinal detachment. There are bilateral lenticular implants. Normal visualized paranasal sinuses. Normal calvarium and skull base. Normal visualized soft tissue structures. Normal visualized upper cervical spine. MRI/Brain without Contrast IMPRESSION: 1. Involutional changes of the brain, as described above. 2. Multiple tiny foci of restricted diffusion, as described, suggesting acute or subacute infarcts. 3. Sequela of multiple previous infarcts. N.B. : The above information has been verbally conveyed by Werner Cervantes MD to Maxi Kwok MD, on 11/27/2017 11:15:13 (ET). Electronically Signed: Werner Cervantes MD at 11:02 EDT , Service support , CC: Shimon Arias MD; Shelley Perez MD Speeder Frame Tender: Signed BEDSIDE GLUCOSE Collected: 11/26/2017 Status: F Source: TROPIC 10:27 PM [facility] REPOSITORY TYPE CODE TESTS RESULT OUT OF REFERENCE UNITS RANGE LAB L501.080 70-110 mg/dL High BEDSIDE GLU 389 Result Comment: MANAGEMENT OF PATIENT CARE PER NURSING PROTOCOL Performed By: #### L501.080 #### [facility] Point of Care [address] [place] [address] HISTORY AND PHYSICAL Observed: 11/26/2017 Status: F Source: TROPIC EXAM 8:05 PM [facility] REPOSITORY [facility] Medical Records Department [address] [place] [address] History and Physical 11/26/17 1838 MR#: [id number] Acct: [id number] Name: MACARIO OKEEFEJATINDER Walters Rep #: [id number] : 1950 67 From: Shelley Perez MD PCP: Shimon Arias MD Status: ADM IN Y Location: [address] Problem List (1) Headache Status: Acute History of Present Illness Date of Admission: 11/26/17 Chief Complaint: headache The patient is a 67 year old M with an extensive past medical history of hypertension, diabetes, hyperlipidemia and arthritis. He was [facility] from his shelter on 11/26/2017 with a complaint of headache. His last known well was 10am this morning, was on his exercise bike in the shelter was noted to have a headache. There is a question of if patient possibly passed out or not. Nursing was concerned about him having a stroke and so he was brought to the ED. Patient states he had a headache which started around 10 AM this morning was around his right eye. There is a question of possible loss of vision in left eye. He has a history of left-sided weakness from a prior stroke and so nursing was concerned that he possibly had increased weakness on that side again. Patient was brought into the ED and review of systems is otherwise negative. Vitals in the ED showed temperature of 97.8 Fahrenheit, blood pressure 160/97, pulse rate of 93 respiratory rate of 14. Labs were significant for sodium of 134 and creatinine of 1.51 with glucose of 336. Troponin was less than 0.015. Brain CT showed hypodensity in the right lobe consistent with intraocular blood and chronic age-related changes and atrophic with several previous infarct but no other change since previous exam. CTA of the head and neck showed calcified plaque formation of the right cavernous carotid artery with mild stenosis less than 50% and calcified plaques of motion of the left cavernous carotid artery with mild stenosis less than 50%. He is being admitted to be worked up for stroke. Per ED doctor, he discussed intraocular bleeding of right globe with registration clerk who did not think he was acute and so said he would see patient tomorrow on consult. [] Past Medical History Past Medical History (Chronic Problems): Chronic Problems HTN (hypertension) (Chronic) NSTEMI (non-ST elevation myocardial infarction) (Chronic) Type 2 diabetes mellitus (Chronic) Allergies No Known Allergies Allergy (Verified 11/26/17 15:50) Home Medications: Ambulatory Orders Medication Instructions Recorded Acetaminophen [Tylenol Arthritis] 1,300 mg PO PRN PRN 11/26/17 Aspirin [Aspirin EC] 81 mg PO DAILY 11/26/17 Surgical History: - - Foot surgery Psychiatric History: No pertinent psych hx Lives: Senior Living Smoking Status: Former smoker Tobacco Use: Non-smoker Alcohol: None Drugs: None - *Family History Maternal History Items: Unknown Paternal History Items: Unknown Sibling History Items: Unknown Review of Systems Constitutional: Denies: Chills, Fever, Weight Change Eyes: Reports: Blurred vision, Pain. Denies: Double vision, Redness, Vision Change HEENT: Denies: Head Aches, Sinus Congestion, Sinus Drainage Cardiovascular: Denies: Chest Pain, Chest Pressure, Chest Tightness, Edema, Light Headedness, Orthopnea, Palpitations Respiratory: Denies: Cough, Shortness of Breath, Shortness of breath at rest, Sputum production Gastrointestinal: Denies: Abdominal Pain, Constipation, Diarrhea, Nausea, Vomiting Genitourinary: Denies: Dysuria Musculoskeletal: Denies: Joint Pain, Joint Tenderness Skin: Denies: Rash, Wounds Neurological: Reports: Blurred vision - right eye. Denies: Focal weakness, Numbness, Tingling Psychiatric: Denies: Anxiety, Depression, Homicidal Ideations, Suicidal Ideations Hematologic/ Lymphatic: Denies: Easy Bruising, Easy Bleeding VTE Information - Inpt Only VTE Present on Admission: No VTE Mechan Device Prophylaxis: SCD's VTE Pharm Prophylaxis ordered?: No Patient Problems: Active and Suspected Problems Headache (Acute) - Physical Exam General: Alert, Oriented x3, Cooperative, No apparent distress HEENT: Atraumatic, PERRLA, EOMI, Normocephalic Oral: Moist Mucosa Neck: Supple, No JVD, Negative Carotid Bruits Lungs: Clear to auscultation, Normal air movement, No rhonchi, No wheeze, No rales Cardiovascular: Regular rate, Regular Rhythm, Normal S1, Normal S2, No murmurs Abdomen: Bowel Sounds Present, Soft, Non Tender, Non-Distended, No Hepato-splenomegaly Extremities: No clubbing, No cyanosis, No edema, Capillary Refill Less than 3 Seconds Skin: No rashes, No breakdown Musculoskeletal: No Tenderness to Palpation of Joints or Extremities Lymphatic: No Cervical, Supraclavicular, or Inguinal Adenopathy Neurological: Cranial nerves II-XII grossly intact, Neuro grossly intact, Motor Exam 5/5 strength throughout, Muscle tone normal, Sensory exam intact to light touch and pain Psych/Mental Status: Normal Affect, Appropriate, Alert and oriented to time, place, person, mood and affect Comment: NIHSS -1 (for LLE drift- may be chronic from old stroke) Vital Signs Temp Pulse Resp BP Pulse Ox 97.8 F 93 14 164/97 H 97 11/26/17 15:45 11/26/17 18:29 11/26/17 18:29 11/26/17 18:29 11/26/17 18:29 Oxygen Flow Rate (L/min) 14 Oxygen Delivery Method Room Air Weight: 197 lb 12.074 oz Body Mass Index (BMI) 29.2 Finger Stick Blood Glucose 367 Laboratory Tests Past 24 Hrs POC Glucose POC Glucose 367 H Diagnostic Data Brain CT 11/26/17 15:57 IMPRESSION: Chronic age related changes and atrophy. Several previous infarcts. No change since previous exam. No acute abnormality. Electronically Signed: Andre Cadet MD at 16:30 EDT , Service support , Head CTA 11/26/17 15:57 IMPRESSION: There is calcified plaque formation of the right cavernous carotid artery, with a mild stenosis (less than 50%). There is calcified plaque formation of the left cavernous carotid artery, with a mild stenosis (less than 50%). ALL ABOVE CRITERIA BY NASCET. Electronically Signed: Monroe Aburto MD at 17:17 EDT , Service support , Neck CTA 11/26/17 15:57 IMPRESSION: There is calcified plaque formation of the right cavernous carotid artery, with a mild stenosis (less than 50%). There is calcified plaque formation of the left cavernous carotid artery, with a mild stenosis (less than 50%). ALL ABOVE CRITERIA BY NASCET. Electronically Signed: Monroe Aburto MD at 17:17 EDT , Service support , Chest X-Ray 11/26/17 16:15 IMPRESSION: Low to moderate lung volumes. No evidence for acute chest disease. Electronically Signed: Andre Cadet MD at 16:33 EDT , Service support , Assessment/Plan All Active Problems Headache (Acute) Acute ischemic stroke (Acute) Encephalopathy (Acute) Confusion (Acute) Acute renal insufficiency (Acute) [age]-year-old male presenting with headache and last known well of 10 AM this morning. 1. Right periorbital headache * suspicion for stroke as he complained of severe headache this morning. rated it at 8/10 * he suddenly had time finding left hand up on his exercise bicycle and so they were concerned he may have lost vision in his left eye. He does have a history of left-sided weakness from previous stroke. * EKG showed normal sinus rhythm with no acute ST changes. initial troponin was negative. * CT head showed chronic ischemic changes and hypodensity in the right lobe consistent with intraocular blood. CT a of the head and neck showed narrowing of blood vessels less than 50%. * ED discussed with ophthalmology, will evaluate patient tomorrow. * NIH stroke scale was only 1 for mild drift of the left lower extremity which may be chronic from previous stroke. * I do not think this patient may have had a stroke I think his symptoms are likely due to intraocular bleeding. * will consult ophthalmology and neurology * will get MRI of brain tomorrow. will hold off on plavix for now as patient has an intraocular bleed; will await ophthalmology evaluation.DIscussed with Dr Amanda on the phone. I discussed my concern about persistent right periorbital headache. Patient's does not have any right eye erythema or swelling. Dr. Amanda to see patient tomorrow. * on atorvastatin and aspirin. will continue * 2.FAVIAN: Cr is 1.51. Baseline is on 1. Will hydrate and monitor. 3. Diabetes mellitus blood sugar was in 300s on admission. On lantus 50IU daily and metformin 1000mg bid. 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 Will continue insulin. Accu-Cheks before meals at bedtime. 4.Hypertension: Fairly controlled. On lisinopril 2.5 mg daily and metoprolol 25 mg twice daily. Will continue. DVT prophylaxis: SCDs.No anticoagulation o/a of suspicion for intraocular bleeding. Code status: full code. * Code Visit Inpatient E AND M: 72634 Init Hosp L3 11/26/172004 <Electronically signed by Shelley Perez MD> Date Shelley Perez MD Cosigner Signature: Date (if applicable) CC: Shimon Arias MD; Shelley Perez MD Signed EMERGENCY DEPARTMENT Observed: 11/26/2017 Status: F Source: TROPIC SUMMARY 6:47 PM [facility] REPOSITORY [facility] Medical Records Department [address] [place] [address] Emergency Department Summary 11/26/17 1843 MR#: [id number] Acct: [id number] Name: SUKI OKEEFE Rep #: [id number] : 1950 67 From: Bryan Marc DO PCP: Shimon Arias MD Status: REG ER - ER Visit Summary Date of Service: 11/26/17 Chief Complaint: [Headache and concern for possible stroke] History of Present Illness: The patient is a 67 M [presents the emergency department with a headache that he tells me started around 10 AM this morning. Headache came on rather suddenly. Patient still rates his pain as an 8 out of 10. Patient has had some pain behind his right eye. The shelter was concerned because patient was on a exercise bicycle and he was having a hard time finding the left handlebar and was concerned that he had vision loss in the left eye. Patient has a history of left-sided weakness from prior stroke and the shelter staff had concern that he he had increased weakness to that side again. Patient to me denies any weakness or paresthesias. He denies any visual changes. Patient has no other complaints other than the right-sided headache at this time. He denies any chest pain or shortness of breath. He denies any falls or head injuries.] Physical Examination: [Patient right pupil is 2 mm and reactive and his left pupil is 4 mm and irregularly shaped. Patient does not know if his pupils are normally unequal., EOMI. Cranial nerves II through XII grossly intact. TMs clear. Mucous membranes moist. No adenopathy. Cardiovascular-regular rate and rhythm without murmur or ectopy Lungs-clear to auscultation, chest wall stable without crepitus or subcu emphysema Abdomen-normoactive bowel sounds, soft, nontender, no rebound or rigidity, no peritoneal signs. Neuro ntxl-dbefpa-ubnn and heel sands testing within normal limits, negative Romberg, negative pronator drift, NIH stroke scale was 0. Extremities-intact 4, normal range of motion, normal pulses, atraumatic] Test Results: [EKG obtained on arrival showed sinus rhythm with a ventricular rate of 82 bpm with no acute ST segment changes. CT scan of the brain without contrast showed chronic ischemic changes and a hypodensity in the right globe consistent with intraocular blood. No new infarct noted. CTA of the head and neck showed some chronic changes with some narrowing of blood vessels less than 50%.] Emergency Department Course and Treatment: [Case was discussed with ophthalmology who will evaluate patient tomorrow regarding the possible blood in the right eye. Patient case was discussed with hospitalist will evaluate patient for admission. Etiology of patient's symptoms unclear at and it is unclear patient may have had a TIA.] Patient is not a TPA candidate as symptoms have resolved and symptoms started greater than 4- 1/2 hours ago. Treatment Plan: [Admit for further workup and evaluation] Disposition: [Admit] Impression: [TIA Cephalgia] This note was generated with RECESS. dictation software. It may contain incorrect words, spelling, and punctuation that were not noted in review of the chart prior to signing ED Disposition - Plan for ED Patient: Chief Complaint: Neuro S/Sx Referrals: Shimon Arias MD [Primary Care Provider] - What to do if you have Problems For any increased pain, shortness of breath, bleeding, nausea or vomiting, chest pain, or any unexpected problems, contact your Primary Care Provider. Call [facility] [employer] [facility] ([phone]) or report to the closest Emergency Room. Call 911 if necessary. 11/26/17 3310 <Electronically signed by Bryan Marc DO> Date Bryan Marc DO Cosigner Signature (If Indicated): Date CC: Shimon Arias MD BRAIN/HEAD WITHOUT Observed: 11/26/2017 Status: F Source: TROPIC CONTRAST 3:59 PM [facility] REPOSITORY [facility] Imaging Services [address] [place] [address] Brain/Head without Contrast MR#: [id number] Acct: [id number] Name: SUKI OKEEFE Rep #: [id number] : 1950 M 67 From: Andre Cadet MD PCP: Shimon Arias MD Status: REG ER Study: Brain/Head without Contrast Date of Exam: 11/26/17 Exam# [id number] Ordering Dr: Bryan Marc DO STUDY: CT BRAIN WITHOUT CONTRAST REASON FOR EXAM: Male, 67 years old. CVA. RADIATION DOSAGE (If Supplied By Facility): CTDIvol = ( 60.81 ) mGy, DLP = ( 1158.30 ) mGycm TECHNIQUE: Transaxial CT imaging of the brain was performed without administration of intravenous contrast material. Individualized dose optimization techniques were used for this CT. COMPARISON: 08/31/2017. FINDINGS: There is no definite acute abnormality. There is diffuse mild symmetric atrophy. There is atrophy of the posterior fossa structures. There is diffuse small vessel ischemic disease of the white matter. There are stable bilateral lacunar infarcts. Encephalomalacia from previous infarcts seen in the left cerebellar hemisphere, in the right occipital lobe, and in the right frontal lobe. There is no definite acute infarct. There is no bleed. There is no gross mass, mass effect, or midline shift. There is no acute abnormality of the skull. No fractures. Hypodensity in the right globe consistent with intraocular blood. Grossly normal sinuses. CT/Brain/Head without Contrast IMPRESSION: Chronic age related changes and atrophy. Several previous infarcts. No change since previous exam. No acute abnormality. Electronically Signed: Andre Cadet MD at 16:30 EDT , Service support , CC: Shimon Arias MD; Bryan Marc DO Speeder Frame Tender: Signed CHEST 1 VIEW Observed: 11/26/2017 Status: F Source: TROPIC 3:59 PM [facility] REPOSITORY [facility] Imaging Services [address] [place] [address] Chest 1 View MR#: [id number] Acct: [id number] Name: SUKI OKEEFE Rep #: [id number] : 1950 67 From: Andre Cadet MD PCP: Shimon Arias MD Status: REG ER Study: Chest 1 View Date of Exam: 11/26/17 Exam# [id number] Ordering Dr: Bryan Marc DO STUDY: X-RAY CHEST REASON FOR EXAM: Male, 67 years old. Confusion and weakness. TECHNIQUE: Single AP portable view of the chest. COMPARISON: 05/19/2017. FINDINGS: Low to moderate lung volumes. No infiltrates. No effusions. Normal size heart. Implanted junior analyst seen on the left. Normal mediastinum and ofelia. Normal visualized pulmonary arteries. Normal visualized aortic arch and descending thoracic aorta. There are diffuse degenerative changes of the visualized thoracic spine. There is degenerative osteoarthritis of the bilateral shoulders. There is no demonstrated abnormality of the visualized soft tissue structures of the upper abdomen. RAD/Chest 1 View IMPRESSION: Low to moderate lung volumes. No evidence for acute chest disease. Electronically Signed: Andre Cadet MD at 16:33 EDT , Service support , CC: Shimon Arias MD; Bryan Marc DO Speeder Frame Tender: Signed CTA HEAD W/WO Observed: 11/26/2017 Status: F Source: ARLENE CONTRAST 3:59 PM [facility] REPOSITORY [facility] Imaging Services [address] [place] [address] CTA Head W/WO Contrast MR#: [id number] Acct: [id number] Name: SUKI OKEEFE Rep #: [id number] : 1950 M 67 From: Monroe Aburto MD PCP: Shimon Arias MD Status: REG ER Study: CTA Head W/WO Contrast Date of Exam: 11/26/17 Exam# [id number] Ordering Dr: Bryan Marc DO STUDY: CTA NECK WITH CONTRAST REASON FOR EXAM: Male, 67 years old. CVA RADIATION DOSAGE (If Supplied By Facility): CTDIvol = ( 22.36 ) mGy, DLP = ( 789.60 ) mGycm Individualized dose optimization techniques were used for this CT. TECHNIQUE: CT angiography with multi-detector data acquisition was performed from the aortic arch to the skull base following intravenous administration of 100 ml of Isovue 370 contrast. MIP images were reconstructed from the axial data set. Post-processing of the angiographic images was performed, with multiplanar reformation and 3D reconstruction. COMPARISON: None. FINDINGS: AORTIC ARCH: There is atherosclerotic calcific plaque formation of the aortic arch and great vessels arising from the aortic arch, without a hemodynamically significant stenosis. There is a normal origin of the brachiocephalic, left common carotid, and left subclavian arteries. Normal origins of the brachiocephalic, left common carotid, and left subclavian arteries. RIGHT CAROTID ARTERIES: Normal right common carotid artery (CCA). Normal right common carotid bulb. There is mild atherosclerotic plaque formation of the origin of the right internal carotid artery with less than 50% cross sectional diameter stenosis. Normal visualized cervical portion of the right internal carotid artery. Normal origin of the right external carotid artery (ECA). LEFT CAROTID ARTERIES: Normal left common carotid artery (CCA). Normal left common carotid bulb. There is mild atherosclerotic plaque formation of the origin of the left internal carotid artery with less than 50% cross sectional diameter stenosis. Normal visualized cervical portion of the left internal carotid artery. Normal origin of the left external carotid artery (ECA). VERTEBRAL ARTERIES: Normal bilateral vertebral arteries. IMPRESSION: There is no hemodynamically significant stenosis. Calculated stenosis of the Right and Left ICA's is less than 50% By ICA/CCA PSV Ratio. ALL ABOVE CRITERIA BY [facility]. Electronically Signed: Monroe Aburto MD at 17:16 EDT , Service support , STUDY: CTA OF THE BRAIN REASON FOR EXAM: Male, 67 years old. CVA RADIATION DOSAGE (If Supplied By Facility): CTDIvol = ( 22.36 ) mGy, DLP = ( 789.60 ) mGycm TECHNIQUE: CT angiography was performed with a multi-detector CT scanner. Data acquisition was obtained from the skull base through the vertex following intravenous administration of 100 ml of Isovue-370. MIP images were reconstructed from the axial data set. Post-processing of the angiographic images was performed, with multiplanar reformation and 3D reconstruction. Individualized dose optimization techniques were used for this CT. COMPARISON: None. FINDINGS: Normal bilateral petrous carotid arteries. There is calcified plaque formation of the right cavernous carotid artery, with a mild stenosis (less than 50%). There is calcified plaque formation of the left cavernous carotid artery, with a mild stenosis (less than 50%). Normal right A1 segments of the anterior cerebral artery. Normal left A1 segments of the anterior cerebral artery. Normal intact anterior communicating artery (ACOM). Normal bilateral A2 segments of the anterior cerebral arteries. Normal right M1 and M2 segments of the middle cerebral arteries, with a normal M1 bifurcation. Normal left M1 and M2 segments of the middle cerebral arteries, with a normal M1 bifurcation. Normal right posterior communicating artery (PCOM). Normal left posterior communicating artery (PCOM). Normal bilateral vertebral arteries. Normal basilar artery with a normal basilar bifurcation. The visualized bilateral superior cerebellar (SCA) arteries are normal. Normal bilateral P1, P2 and visualized P3 segments of the posterior cerebral arteries. There is no demonstrated aneurysm of the [place] of [place]. There is no demonstrated abnormality of the visualized brain. CT/CTA Head W/WO Contrast IMPRESSION: There is calcified plaque formation of the right cavernous carotid artery, with a mild stenosis (less than 50%). There is calcified plaque formation of the left cavernous carotid artery, with a mild stenosis (less than 50%). ALL ABOVE CRITERIA BY [facility]. Electronically Signed: Monroe Aburto MD at 17:17 EDT , Service support , CC: Shimon Arias MD; Bryan Marc DO Speeder Frame Tender: Signed CTA NECK W/WO Observed: 11/26/2017 Status: F Source: TROPIC CONTRAST 3:59 PM [facility] REPOSITORY [facility] Imaging Services [address] [place] [address] CTA Neck W/WO Contrast MR#: [id number] Acct: [id number] Name: SUKI OKEEFE Rep #: [id number] : 1950 67 From: Monroe Aburto MD PCP: Shimon Arias MD Status: REG ER Study: CTA Neck W/WO Contrast Date of Exam: 11/26/17 Exam# [id number] Ordering Dr: Bryan Marc DO STUDY: CTA NECK WITH CONTRAST REASON FOR EXAM: Male, 67 years old. CVA RADIATION DOSAGE (If Supplied By Facility): CTDIvol = ( 22.36 ) mGy, DLP = ( 789.60 ) mGycm Individualized dose optimization techniques were used for this CT. TECHNIQUE: CT angiography with multi-detector data acquisition was performed from the aortic arch to the skull base following intravenous administration of 100 ml of Isovue 370 contrast. MIP images were reconstructed from the axial data set. Post-processing of the angiographic images was performed, with multiplanar reformation and 3D reconstruction. COMPARISON: None. FINDINGS: AORTIC ARCH: There is atherosclerotic calcific plaque formation of the aortic arch and great vessels arising from the aortic arch, without a hemodynamically significant stenosis. There is a normal origin of the brachiocephalic, left common carotid, and left subclavian arteries. Normal origins of the brachiocephalic, left common carotid, and left subclavian arteries. RIGHT CAROTID ARTERIES: Normal right common carotid artery (CCA). Normal right common carotid bulb. There is mild atherosclerotic plaque formation of the origin of the right internal carotid artery with less than 50% cross sectional diameter stenosis. Normal visualized cervical portion of the right internal carotid artery. Normal origin of the right external carotid artery (ECA). LEFT CAROTID ARTERIES: Normal left common carotid artery (CCA). Normal left common carotid bulb. There is mild atherosclerotic plaque formation of the origin of the left internal carotid artery with less than 50% cross sectional diameter stenosis. Normal visualized cervical portion of the left internal carotid artery. Normal origin of the left external carotid artery (ECA). VERTEBRAL ARTERIES: Normal bilateral vertebral arteries. IMPRESSION: There is no hemodynamically significant stenosis. Calculated stenosis of the Right and Left ICA's is less than 50% By ICA/CCA PSV Ratio. ALL ABOVE CRITERIA BY NASCET. Electronically Signed: Monroe Aburto MD at 17:16 EDT , Service support , STUDY: CTA OF THE BRAIN REASON FOR EXAM: Male, 67 years old. CVA RADIATION DOSAGE (If Supplied By Facility): CTDIvol = ( 22.36 ) mGy, DLP = ( 789.60 ) mGycm TECHNIQUE: CT angiography was performed with a multi-detector CT scanner. Data acquisition was obtained from the skull base through the vertex following intravenous administration of 100 ml of Isovue-370. MIP images were reconstructed from the axial data set. Post-processing of the angiographic images was performed, with multiplanar reformation and 3D reconstruction. Individualized dose optimization techniques were used for this CT. COMPARISON: None. FINDINGS: Normal bilateral petrous carotid arteries. There is calcified plaque formation of the right cavernous carotid artery, with a mild stenosis (less than 50%). There is calcified plaque formation of the left cavernous carotid artery, with a mild stenosis (less than 50%). Normal right A1 segments of the anterior cerebral artery. Normal left A1 segments of the anterior cerebral artery. Normal intact anterior communicating artery (ACOM). Normal bilateral A2 segments of the anterior cerebral arteries. Normal right M1 and M2 segments of the middle cerebral arteries, with a normal M1 bifurcation. Normal left M1 and M2 segments of the middle cerebral arteries, with a normal M1 bifurcation. Normal right posterior communicating artery (PCOM). Normal left posterior communicating artery (PCOM). Normal bilateral vertebral arteries. Normal basilar artery with a normal basilar bifurcation. The visualized bilateral superior cerebellar (SCA) arteries are normal. Normal bilateral P1, P2 and visualized P3 segments of the posterior cerebral arteries. There is no demonstrated aneurysm of the [place] of [place]. There is no demonstrated abnormality of the visualized brain. CT/CTA Neck W/WO Contrast IMPRESSION: There is calcified plaque formation of the right cavernous carotid artery, with a mild stenosis (less than 50%). There is calcified plaque formation of the left cavernous carotid artery, with a mild stenosis (less than 50%). [facility] Electronically Signed: Monroe Aburto MD at 17:17 EDT , Service support , CC: Shimon Arias MD; Bryan Marc DO Speeder Frame Tender: Signed BEDSIDE GLUCOSE Collected: 11/26/2017 Status: F Source: ARLENE 3:52 PM [facility] REPOSITORY TYPE CODE TESTS RESULT OUT OF REFERENCE UNITS RANGE LAB L501.080 70-110 mg/dL High BEDSIDE GLU 367 Result Comment: MANAGEMENT OF PATIENT CARE PER NURSING PROTOCOL Performed By: #### L501.080 #### [facility] Point of Care [address] [place], [place] [address] BASIC METABOLIC Collected: 11/26/2017 Status: F Source: ARLENE PROFILE (BMP) 3:50 PM [facility] REPOSITORY TYPE CODE TESTS RESULT OUT OF RANGE REFERENCE UNITS LAB L501.0100 74-106 mg/dL High GLU 336 Result Comment: Glucose result greater than or equal to 200 mg/dL suggests DIABETES MELLITUS per A.D.A. criteria. Please note revised GLUCOSE reference range effective 2017. LAB L501.1000 7-18 mg/dL High BUN 36 LAB L501.1100 0.70-1.30 mg/dL High CREAT,SERUM 1.51 Result Comment: The validity of the calculated GFR AND GFRAA in patients over 70 years has not been determined. Clinical correlation is essential. LAB L501.1110 >60 mL/min Low EST GFR 50 Result Comment: Non- GFR Calc LAB L501.1115 >60 mL/min Normal EST GFR - AA 60 Result Comment: GFR Calc LAB L501.1255 ml/min Normal Estimated CRCL 48.77 LAB L501.1300 10-20 RATIO High BUN/CRE 23.8 LAB L501.2200 8.5-10 mg/dL Normal .1 CA 9.1 LAB L501.5300 136-14 mmol/L Low 5 NA 134 LAB L501.5600 3.5-5. mmol/L Normal 1 K 4.9 LAB L501.5900 98-107 mmol/L Normal CL 100 LAB L501.6100 21.0-3 mmol/L Normal 2.0 CO2 26.0 LAB L501.6200 5-15 Normal GAP 8 Performed By: #### L500.2500, L501.4010 #### [facility] [address] [place], [place], [address] TROPONIN-I Collected: 11/26/2017 Status: F Source: TROPIC 3:50 PM [facility] REPOSITORY TYPE CODE TESTS RESULT OUT OF RANGE REFERENCE UNITS LAB L501.4010 <0.045 ng/mL Normal < 0.015 TROPONIN-I Result Comment: TROPONIN-I EXPECTED VALUES <0.045 Negative 0.045 - 0.590 Consistent with Cardiac Damage > OR = 0.600 Critical Value Not every elevated troponin is indicative of CO. These values should be used with clinical judgement in examining the patient's clinical picture for diagnosis. To establish a diagnosis of CO versus myocardial injury, there must be a demonstrated rise and/or fall in the troponin values, in addition to ischemic symptoms, EKG changes, new regional wall motion abnormality, and/or angiographical evidence. PLEASE NOTE: REFERENCE RANGES EDITED 17 Performed By: #### L500.2500, L501.4010 #### [facility] [address] [place], [address] CBC W/DIFF, AUTOMATED Collected: 11/26/2017 Status: F Source: TROPIC 3:50 PM [facility] REPOSITORY TYPE CODE TESTS RESULT OUT OF RANGE REFERENCE UNITS LAB L100.1000 4.4-11.0 K/mm3 Normal WBC 9.1 LAB L100.1200 4.6-6.2 M/mm3 Low RBC 3.75 LAB L100.1300 13.0-16.5 g/dl Low HGB 12.4 LAB L100.1400 40-54 % Low HCT 35.9 LAB L100.1500 80-94 fL High MCV 95.7 LAB L100.1600 27.0-32.0 pg High MCH 33.1 LAB L100.1700 32-36 g/gl Normal MCHC 34.5 LAB L100.1810 11.6-14.6 % Normal RDW CV 12.5 LAB L100.1820 35.1-43.9 fl Normal RDW SD 42.3 LAB L100.1900 150-450 K/mm3 Normal PLT 270 LAB L100.2000 6.2-12.0 fl Normal MPV 9.3 LAB L100.2100 47-70 % Normal NEUT% 66.8 LAB L100.2200 19-41 % Normal LY% 22.3 LAB L100.2300 0-10 % Normal MONO% 7.8 LAB L100.2400 0-5 % Normal EO% 2.1 LAB L100.2500 0-1 % Normal BASO% 0.5 LAB L100.2550 0.0-0.9 % Normal IM GRAN % 0.500 Result Comment: IG% - Immature Granulocytes (promyelocytes, myelocytes and metamyelocytes) > 1% indicates that a LEFT SHIFT is Present. LAB L100.2620 2.0-7.7 X10 3/uL Normal Absolute Neut 6.1 LAB L100.2720 0.83-4.51 X10 3/ul Normal Absolute Lymph 2.04 Performed By: #### L100.0100 #### [facility] [address] [facility]. [place], [place], [id number] PROTHROMBIN TIME W/INR Collected: 11/26/2017 Status: F Source: ARLENE 3:50 PM [facility] REPOSITORY TYPE CODE TESTS RESULT OUT OF RANGE REFERENCE UNITS LAB L300.4150 11.7-14.9 SECONDS Normal PROTIME 12.7 LAB L300.4200 Normal INR 1.0 Performed By: #### L300.3900, L300.4310 #### [facility] [address] [facility]. [place], [place], [id number] PARTIAL THROMBOPLAST Collected: 11/26/2017 Status: F Source: ARLENE TIME 3:50 PM [facility] REPOSITORY TYPE CODE TESTS RESULT OUT OF RANGE REFERENCE UNITS LAB L300.4310 24.1-36.2 Seconds Normal PTT 28.3 Performed By: #### L300.3900, L300.4310 #### [facility] [address] [place], [address] CBC-COMPLETE BLOOD CNT Collected: 10/29/2017 Status: F Source: ARLENE NO DIFF 5:20 AM [facility] REPOSITORY Order Comment: ROOM 213 TYPE CODE TESTS RESULT OUT OF RANGE REFERENCE UNITS LAB L100.1000 4.4-11.0 K/mm3 Normal WBC 7.0 LAB L100.1200 4.6-6.2 M/mm3 Low RBC 3.74 LAB L100.1300 13.0-16.5 g/dl Low HGB 12.1 LAB L100.1400 40-54 % Low HCT 36.6 LAB L100.1500 80-94 fL High MCV 97.9 LAB L100.1600 27.0-32.0 pg High MCH 32.4 LAB L100.1700 32-36 g/gl Normal MCHC 33.1 LAB L100.1810 11.6-14.6 % Normal RDW CV 12.8 LAB L100.1820 35.1-43.9 fl High RDW SD 45.7 LAB L100.1900 150-450 K/mm3 Normal PLT 232 LAB L100.2000 6.2-12.0 fl Normal MPV 9.3 Performed By: #### L100.0500 #### [facility] [address] [place], [address] BASIC METABOLIC Collected: 10/29/2017 Status: F Source: TROPIC PROFILE (BMP) 5:20 AM [facility] REPOSITORY Order Comment: ROOM 213 TYPE CODE TESTS RESULT OUT OF RANGE REFERENCE UNITS LAB L501.0100 74-106 mg/dL High GLU 119 Result Comment: Fasting Glucose result from 100 to 125 mg/dL suggests IMPAIRED HOMEOSTASIS per A.D.A. criteria. Please note revised GLUCOSE reference range effective 2017. LAB L501.1000 7-18 mg/dL High BUN 31 LAB L501.1100 0.70-1.30 mg/dL Normal CREAT,SERUM 1.20 Result Comment: The validity of the calculated GFR AND GFRAA in patients over 70 years has not been determined. Clinical correlation is essential. LAB L501.1110 >60 mL/min Normal EST GFR 65 Result Comment: Non- GFR Calc LAB L501.1115 >60 mL/min Normal EST GFR - AA 78 Result Comment: GFR Calc LAB L501.1300 10-20 RATIO High BUN/CRE 25.8 LAB L501.2200 8.5-10.1 mg/dL CA Normal 9.0 LAB L501.5300 136-145 mmol/L NA Normal 139 LAB L501.5600 3.5-5.1 mmol/L K Normal 5.0 LAB L501.5900 98-107 mmol/L CL Normal 107 LAB L501.6100 21.0-32.0 mmol/L Normal CO2 24.0 LAB L501.6200 5-15 Normal GAP 8 Performed By: #### L500.2500, L500.4100 #### [facility] [address] [place], [place], [address] LIPID PROFILE Collected: 10/29/2017 Status: F Source: TROPIC 5:20 AM [facility] REPOSITORY Order Comment: ROOM 213 TYPE CODE TESTS RESULT OUT OF RANGE REFERENCE UNITS LAB L501.4900 200 mg/dL Normal CHOL 125 Result Comment: <200 mg/dL Desirable 200-240 mg/dL Borderline >240 mg/dL High Risk LAB L501.5000 mg/dL Normal TRIG 93 Result Comment: The drugs N-Acetylcysteine and Metamizole may falsely depress this assay. Serum Triglycerides Reference Interval Normal <150 mg/dL Borderline high 150 - 199 mg/dL High 200 - 499 mg/dL Very High > or = 500 mg/dL LAB L501.6400 mg/dL Low HDL 34 Result Comment: The drugs N-Acetylcysteine and Metamizole may falsely depress this assay. Reference Range HDL <40 mg/dL Low HDL Cholesterol HDL >or= 60 mg/dL High HDL Cholesterol LAB L501.6500 0-130 mg/dL Normal LDL 72 LAB L501.6600 5-40 mg/dL Normal VLDL 19 Performed By: #### L500.2500, L500.4100 #### [facility] [address] [facility] [place], [address] HEMOGLOBIN A1C Collected: 10/29/2017 Status: F Source: TROPIC 5:20 AM [facility] REPOSITORY Order Comment: ROOM 213 TYPE CODE TESTS RESULT OUT OF RANGE REFERENCE UNITS LAB L501.9985 4.2-6.3 % High HGB A1C 8.3 Performed By: #### L501.9985 #### [facility] [address] [place], [place], [address] PROGRESS Observed: 09/26/2017 Status: COMPLETED Source: VICI 2:00 PM [facility] REPOSITORY HNO ID: [id number] Author: Werner Kennedy (Pharmacist) Service: (none) Author Type: Pharmacist Type: Progress Notes Filed: 09/26/2017 3:12 PM Note Text: Patient consents to pharmacy collaborative practice agreement. REASON FOR CONSULT: DM? GOALS: A1c <?8% CONSULTING PROVIDER: Dr. Arias?? Date of Consult: 12/2015 Suki Okeefe is a 67 year old male was last seen in [facility] by PCP, Dr. Shimon Arias MD on 08/28. Patient is presenting today for f/u pharmacotherapy management appointment for DM. At last PharmD visit on 08/28 insulin glargine dose was decreased from 44 to 42 units due to hypoglycemia INTERIM HISTORY: Reports doing well Is moving to the [facility], so if he transfers PCP services, PharmD will no longer be able to follow patient, SW and PCP are aware Current DM Medications: Insulin glargine 42 units QAM (has 4 or 5?pens at home) Metformin 1,000mg BID Current HTN Medications: Lisinopril 2.5mg once daily Metoprolol tartrate 25mg BID Preventative Medications: ? On MIGUEL ANGEL/ARB: Yes ? On Statin: Yes ? On ASA: Yes ROS: ? Patient denies CP, SOB, ESQUEDA, blurred vision, dizziness or lightheadedness ? Patient denies symptoms of hypoglycemia (sweating, anxiety, palpitations, hunger, and tremor) ? Patient denies symptoms of hyperglycemia (polyuria, polydipsia, polyphagia) ? Patient denies potential medication adverse effects DIET/EXERCISE/SOCIAL Hx: ? Denies any changes ? [facility] MEDICATIONS: ? Pill bottles are not?present. ? Adherence: denies?missed doses. ? Pharmacy: [facility]? Rx coverage: Medicare ? Affordability: no issues, [employer] PAP for Lantus ? Diabetes supplies: Relion ? Organization System: [employer] ACTIVE PROBLEM LIST Open Wound of Foot Excluding Toes Dm (Diabetes Mellitus) Type II Uncontrolled, Periph Vascular Disorder (Hcc) Essential Hypertension Depressive Disorder, Not Elsewhere Classified Diabetic Polyneuropathy (Hcc) Debility OVERWEIGHT Mixed Hyperlipidemia Proteinuria Non-Proliferative Diabetic Retinopathy, Moderate, Left Eye (Hcc) Proliferative Diabetic Retinopathy, Right Eye (Hcc) Cad (Coronary Artery Disease) Financial Difficulties Current Non-Adherence to Medical Treatment H/O: Cva (Cerebrovascular Accident) Hemiparesis Due to Recent Stroke (Hcc) Other Malaise and Fatigue PAST MEDICAL HISTORY Diagnosis Date - Angina pectoris (HCC) - Diabetes mellitus without mention of complication Diabetes mellitus - Hemiparesis due to recent stroke ([facility]) 11/2013 left leg weakness on admission; has felt weak all over today; some increased confusion today - HYPERTENSION NOS 01/28/2006 - Non-STEMI (non-ST elevated myocardial infarction) ([facility]) 10/27/2013 - NSTEMI (non-ST elevated myocardial infarction) ([facility]) 10/2013 - Other and unspecified hyperlipidemia 08/24/2008 - Proliferative diabetic retinopathy, right eye ([facility]) 09/20/[address] Mireles at the [facility] - Proteinuria 03/01/2010 Persistent elevation, 2008 - 111, and 02/2010 330. - Retinopathy due to secondary diabetes mellitus ([facility]) 08/16/2009 - Type II or unspecified type diabetes mellitus with peripheral circulatory disorders, not stated as uncontrolled(250.70) ALLERGIES No Known Allergies Medication List Medication Directions Comments Action/Plan aspirin, enteric coated (ASPIRIN, ENTERIC COATED) 81 mg EC tablet Take 1 tablet by mouth once daily. TAKING atorvastatin (LIPITOR) 40 mg tablet Take 1 tablet by mouth once daily. TAKING blood sugar diagnostic (RELION PRIME TEST STRIPS) test strip Use as instructed to check blood sugar twice daily Cholecalciferol, Vitamin D3, 1,000 unit cap Take 1 capsule by mouth once daily. TAKING insulin glargine (LANTUS SOLOSTAR U-100 INSULIN) 100 unit/mL (3 mL) inpn Inject 42 Units subcutaneously every morning. SANOFI PAP TAKING Insulin [place], Disposable, (AJAY PEN NEEDLE) 32 gauge x 5/32 ndle Use as directed once daily with insulin DM:yes Insulin: yes DX: E11.51 Lancets (RELION ULTRA THIN PLUS LANCETS) lancets Use as instructed to check blood sugar BID. (E11.51, E11.65) DM (diabetes mellitus) type II uncontrolled, periph vascular disorder ([facility]) lisinopril 2.5 mg tablet TAKE 1 TABLET BY MOUTH DAILY TAKING metFORMIN (GLUCOPHAGE) 1,000 mg tablet TAKE 1 TABLET BY MOUTH TWICE A DAY WITH MEALS TAKING metoprolol tartrate, short acting, (LOPRESSOR) 25 mg tablet Take 1 tablet by mouth twice daily. TAKING Rx meds not listed in EPIC: NONE OTCs: NONE Herbals: NONE GLYCEMIC CONTROL: ? Glucometer present at visit: Yes ? SMBG?s: Date Fasting AM 2 hr PP Before Lunch 2 hr PP Before Dinner 2 hr PP Bedtime 09/25 180 /20 lo 09/18 181 /16 196 7/14 222 7/11 168 7/9 23 181 7/8 166 7/7 192 7/3 212 7/2 165 / 138 ? Hypoglycemia: yes ? How corrected: life savers VITALS: BP 118/64 Pulse 92 Last 3 Encounter BP Readings: Date: BP: 2017 124/76 07/23/2017 112/60 06/12/2017 108/55 Wt: 84.4 kg (186 lb) BMI: 29.57 kg/(m2) LABS Lab Results Component Value Date HBA1C 7.5 06/12/2017 HBA1C 7.4 03/05/2017 HBA1C 7.8 11/12/2016 CMP: Glucose 415 06/12/2017 BUN 30 06/12/2017 Creatinine 1.16 06/12/2017 Sodium 132 06/12/2017 Potassium 5.3 06/12/2017 Chloride 96 06/12/2017 CO2 25 06/12/2017 Protein, Total 6.7 06/12/2017 Albumin 3.6 06/12/2017 Calcium 8.4 06/12/2017 Alkaline Phosphatase 83 06/12/2017 Bilirubin, Total <0.2 06/12/2017 AST 15 06/12/2017 ALT 13 06/12/2017 Estimated CrCL 67?mL/min (calculated using Ht 66, adjusted Wt 76?kg, sCr 1.16?mg/dL, using [place]ro[place] Gault) Last Lipid Panel Lab Results Component Value Date CHOL 191 03/05/2017 Lab Results Component Value Date HDL 39 03/05/2017 Lab Results Component Value Date LDL 107 03/05/2017 Lab Results Component Value Date TG 225 03/05/2017 Albumin/Creat Ratio (mg/g) Date Value 03/05/2017 2,255 (H) PHARMACOTHERAPY ASSESSMENT/PLAN: 1. DM (diabetes mellitus) type II uncontrolled, periph vascular disorder (HCC) - ICD9: 250.72, 443.81, ICD10: E11.51, E11.65 (primary diagnosis) A1c goal <?8%, patient is at goal (7.5% on 06/12). Due for recheck. FBGs mostly at goal, fewer instances of hypoglycemia.?Tolerating and compliant with current therapy. Will continue at this time, might require further reduction in dose in the future. Renal fxn LFTs WNL appropriate for continued therapy. ? CONTINUE insulin glargine 42 units once daily and metformin 1,000 mg BID ? Instructed patient to continue to monitor FBG and at least one PPBG value during the day. ? Provided insulin pens from PAP shipment in , provided full shipment for patient to bring to [facility] tomorrow ? A1c, BMP today 2. Essential hypertension - ICD9: 401.9, ICD10: I10 BP goal <?140/90, pt is at goal on current therapy. Renal fxn and K+ appropriate for continued therapy. K+ slightly elevated from last check, recheck today. ? CONTINUE lisinopril 2.5 mg once daily and metoprolol 25 mg BID ? 3. Mixed hyperlipidemia - ICD9: 272.2, ICD10: E78.2 Pt is on appropriate statin intensity (high?intensity d/t clinical ASCVD). Patient compliant with and tolerating current regimen. Will continue. ?LFTs and renal fxn WNL?and appropriate for continued therapy ? CONTINUE atorvastatin 40mg once daily Health Maintenance issues addressed: DILATED RETINAL EXAM due on 03/08/2017 Patient is scheduled to see PCP 12/27 unless following with [facility] PCP. Patient to return to clinic for PharmD f/u on as requested. Patient verbalized understanding of instructions. Werner Kennedy, PharmD, BCPS CNOV Observed: 09/26/2017 Status: COMPLETED Source: VICI 2:00 PM [facility] REPOSITORY Office Visit (PHMEWO) SUKI OKEEFE ([id number]) 1950 M Date Time Provider Department 09/26/17 2:00 PM BRENT (PHARMACIST)WERNER During your visit today, we recorded the following information about you: Pulse Blood pressure 92/minute 118/64 NIA DECKER 09/26/2017 3:12 PM Signed Patient consents to pharmacy collaborative practice agreement. REASON FOR CONSULT: DM? GOALS: A1c <?8% CONSULTING PROVIDER: Dr. Arias?? Date of Consult: 12/2015 Suki Okeefe is a 67 year old male was last seen in [facility] by PCP, Dr. Shimon Arias MD on 08/28. Patient is presenting today for f/u pharmacotherapy management appointment for DM. At last PharmD visit on 08/28 insulin glargine dose was decreased from 44 to 42 units due to hypoglycemia INTERIM HISTORY: Reports doing well Is moving to the [facility], so if he transfers PCP services, PharmD will no longer be able to follow patient, SW and PCP are aware Current DM Medications: Insulin glargine 42 units QAM (has 4 or 5?pens at home) Metformin 1,000mg BID Current HTN Medications: Lisinopril 2.5mg once daily Metoprolol tartrate 25mg BID Preventative Medications: ? On MIGUEL ANGEL/ARB: Yes ? On Statin: Yes ? On ASA: Yes ROS: ? Patient denies CP, SOB, ESQUEDA, blurred vision, dizziness or lightheadedness ? Patient denies symptoms of hypoglycemia (sweating, anxiety, palpitations, hunger, and tremor) ? Patient denies symptoms of hyperglycemia (polyuria, polydipsia, polyphagia) ? Patient denies potential medication adverse effects DIET/EXERCISE/SOCIAL Hx: ? Denies any changes ? Will have more set meal schedule at the [facility] MEDICATIONS: ? Pill bottles are not?present. ? Adherence: denies?missed doses. ? Pharmacy: [facility]? Rx coverage: Medicare ? Affordability: no issues, [employer] PAP for Lantus ? Diabetes supplies: Relion ? Organization System: [employer] ACTIVE PROBLEM LIST Open Wound of Foot Excluding Toes Dm (Diabetes Mellitus) Type II Uncontrolled, Periph Vascular Disorder (Hcc) Essential Hypertension Depressive Disorder, Not Elsewhere Classified Diabetic Polyneuropathy (Hcc) Debility OVERWEIGHT Mixed Hyperlipidemia Proteinuria Non-Proliferative Diabetic Retinopathy, Moderate, Left Eye (Hcc) Proliferative Diabetic Retinopathy, Right Eye (Hcc) Cad (Coronary Artery Disease) Financial Difficulties Current Non-Adherence to Medical Treatment H/O: Cva (Cerebrovascular Accident) Hemiparesis Due to Recent Stroke (Hcc) Other Malaise and Fatigue PAST MEDICAL HISTORY Diagnosis Date - Angina pectoris (HCC) - Diabetes mellitus without mention of complication Diabetes mellitus - Hemiparesis due to recent stroke ([facility]) 11/2013 left leg weakness on admission; has felt weak all over today; some increased confusion today - HYPERTENSION NOS 01/28/2006 - Non-STEMI (non-ST elevated myocardial infarction) ([facility]) 10/27/2013 - NSTEMI (non-ST elevated myocardial infarction) ([facility]) 10/2013 - Other and unspecified hyperlipidemia 08/24/2008 - Proliferative diabetic retinopathy, right eye ([facility]) 09/20/[address] Mireles at the [facility] - Proteinuria 03/01/2010 Persistent elevation, 2008 - 111, and 02/2010 330. - Retinopathy due to secondary diabetes mellitus ([facility]) 08/16/2009 - Type II or unspecified type diabetes mellitus with peripheral circulatory disorders, not stated as uncontrolled(250.70) ALLERGIES No Known Allergies Medication List Medication Directions Comments Action/Plan aspirin, enteric coated (ASPIRIN, ENTERIC COATED) 81 mg EC tablet Take 1 tablet by mouth once daily. TAKING atorvastatin (LIPITOR) 40 mg tablet Take 1 tablet by mouth once daily. TAKING blood sugar diagnostic (RELION PRIME TEST STRIPS) test strip Use as instructed to check blood sugar twice daily Cholecalciferol, Vitamin D3, 1,000 unit cap Take 1 capsule by mouth once daily. TAKING insulin glargine (LANTUS SOLOSTAR U-100 INSULIN) 100 unit/mL (3 mL) inpn Inject 42 Units subcutaneously every morning. SAN[employer]FI PAP TAKING Insulin [place], Disposable, (AJAY PEN NEEDLE) 32 gauge x 5/32 ndle Use as directed once daily with insulin DM:yes Insulin: yes DX: E11.51 Lancets (RELION ULTRA THIN PLUS LANCETS) lancets Use as instructed to check blood sugar BID. (E11.51, E11.65) DM (diabetes mellitus) type II uncontrolled, periph vascular disorder ([facility]) lisinopril 2.5 mg tablet TAKE 1 TABLET BY MOUTH DAILY TAKING metFORMIN (GLUCOPHAGE) 1,000 mg tablet TAKE 1 TABLET BY MOUTH TWICE A DAY WITH MEALS TAKING metoprolol tartrate, short acting, (LOPRESSOR) 25 mg tablet Take 1 tablet by mouth twice daily. TAKING Rx meds not listed in EPIC: NONE OTCs: NONE Herbals: NONE GLYCEMIC CONTROL: ? Glucometer present at visit: Yes ? SMBG?s: Date Fasting AM 2 hr PP Before Lunch 2 hr PP Before Dinner 2 hr PP Bedtime 09/25 180 /20 lo 09/18 181 /16 196 7/14 222 /11 168 7/9 23 181 7/8 166 7/7 192 7/3 212 7/2 165 /28 138 ? Hypoglycemia: yes ? How corrected: life savers VITALS: BP 118/64 Pulse 92 Last 3 Encounter BP Readings: Date: BP: 2017 124/76 07/23/2017 112/60 06/12/2017 108/55 Wt: 84.4 kg (186 lb) BMI: 29.57 kg/(m2) LABS Lab Results Component Value Date HBA1C 7.5 06/12/2017 HBA1C 7.4 03/05/2017 HBA1C 7.8 11/12/2016 CMP: Glucose 415 06/12/2017 BUN 30 06/12/2017 Creatinine 1.16 06/12/2017 Sodium 132 06/12/2017 Potassium 5.3 06/12/2017 Chloride 96 06/12/2017 CO2 25 06/12/2017 Protein, Total 6.7 06/12/2017 Albumin 3.6 06/12/2017 Calcium 8.4 06/12/2017 Alkaline Phosphatase 83 06/12/2017 Bilirubin, Total <0.2 06/12/2017 AST 15 06/12/2017 ALT 13 06/12/2017 Estimated CrCL 67?mL/min (calculated using Ht 66, adjusted Wt 76?kg, sCr 1.16?mg/dL, using Cockroft Gault) Last Lipid Panel Lab Results Component Value Date CHOL 191 03/05/2017 Lab Results Component Value Date HDL 39 03/05/2017 Lab Results Component Value Date LDL 107 03/05/2017 Lab Results Component Value Date TG 225 03/05/2017 Albumin/Creat Ratio (mg/g) Date Value 03/05/2017 2,255 (H) PHARMACOTHERAPY ASSESSMENT/PLAN: 1. DM (diabetes mellitus) type II uncontrolled, periph vascular disorder (HCC) - ICD9: 250.72, 443.81, ICD10: E11.51, E11.65 (primary diagnosis) A1c goal <?8%, patient is at goal (7.5% on 06/12). Due for recheck. FBGs mostly at goal, fewer instances of hypoglycemia.?Tolerating and compliant with current therapy. Will continue at this time, might require further reduction in dose in the future. Renal fxn LFTs WNL appropriate for continued therapy. ? CONTINUE insulin glargine 42 units once daily and metformin 1,000 mg BID ? Instructed patient to continue to monitor FBG and at least one PPBG value during the day. ? Provided insulin pens from PAP shipment in , provided full [facility] ? A1c, BMP today 2. Essential hypertension - ICD9: 401.9, ICD10: I10 BP goal <?140/90, pt is at goal on current therapy. Renal fxn and K+ appropriate for continued therapy. K+ slightly elevated from last check, recheck today. ? CONTINUE lisinopril 2.5 mg once daily and metoprolol 25 mg BID ? 3. Mixed hyperlipidemia - ICD9: 272.2, ICD10: E78.2 Pt is on appropriate statin intensity (high?intensity d/t clinical ASCVD). Patient compliant with and tolerating current regimen. Will continue. ?LFTs and renal fxn WNL?and appropriate for continued therapy ? CONTINUE atorvastatin 40mg once daily Health Maintenance issues addressed: DILATED RETINAL EXAM due on 03/08/2017 Patient is scheduled to see PCP 12/27 unless following with [facility] PCP. Patient to return to clinic for PharmD f/u on as requested. Patient verbalized understanding of instructions. Werner Kennedy PharmD, [facility] WERNER KENNEDY, PHARMACIST 09/26/2017 12:27 PM Signed A1c and BMP today If sugar is less than 70, eat a couple lifesavers, then check sugar again Werner Kennedy PharmD, [facility] [phone] Referring Provider: DARIN CHRIS [[id number]] Allergies As of Date: 09/26/2017 (No Known Allergies) Date Reviewed: 2017 Reviewed by: Oumou Mosqueda Ma - Fully Assessed Reason for Visit: Allied Health Visit [5] Cmt: DM follow-up Primary Visit Diagnosis:DM (diabetes mellitus) type II uncontrolled, periph vascular disorder (HCC) [E11.51, E11.65] Other Visit Diagnoses:Essential hypertension [I10] Mixed hyperlipidemia [E78.2] Prescriptions as of 09/26/2017 Sig: INSULIN GLARGINE (U-100) 100 * Inject 42 Units subcutaneousl* METFORMIN 1,000 MG TABLET TAKE 1 TABLET BY MOUTH TWICE * ATORVASTATIN 40 MG TABLET Take 1 tablet by mouth once d* LISINOPRIL 2.5 MG TABLET TAKE 1 TABLET BY MOUTH DAILY METOPROLOL TARTRATE 25 MG TAB* Take 1 tablet by mouth twice * ASPIRIN 81 MG TABLET,DELAYED * Take 1 tablet by mouth once d* BLOOD SUGAR DIAGNOSTIC STRIPS Use as instructed to check bl* CHOLECALCIFEROL (VITAMIN D3) * Take 1 capsule by mouth once * PEN NEEDLE, DIABETIC 32 GAUGE* Use as directed once daily wi* LANCETS Use as instructed to check bl* Problem List As Of Date 09/26/2017 Noted Resolved Open wound of foot excluding toes [S91.309A] INVALID FOR* More... DM (diabetes mellitus) type II uncontrolled, pe*INVALID FOR* More... Essential hypertension [I10] INVALID FOR* More... DEPRESSIVE DISORDER NEC [F32.9] INVALID FOR* More... Diabetic polyneuropathy (HCC) [E11.42] INVALID FOR* Debility [R53.81] INVALID FOR* OVERWEIGHT [E66.9] INVALID FOR* Mixed hyperlipidemia [E78.2] INVALID FOR* More... Proteinuria [R80.9] INVALID FOR* More... Non-proliferative diabetic retinopathy, moderat*INVALID FOR* More... Proliferative diabetic retinopathy, right eye [*INVALID FOR* More... Angina pectoris (HCC) [I20.9] INVALID FOR*03/09/2016 More... CAD (coronary artery disease) [I25.10] INVALID FOR* Financial difficulties [Z59.8] INVALID FOR* Current non-adherence to medical treatment [Z91*INVALID FOR* Non-STEMI (non-ST elevated myocardial infarctio*INVALID FOR*04/25/2017 H/O: CVA (cerebrovascular accident) [Z86.73] INVALID FOR* Hemiparesis due to recent stroke (HCC) [I69.359]INVALID FOR* More... Other malaise and fatigue [R53.81, R53.83] INVALID FOR* Other instructions from your clinician: A1c and BMP today If sugar is less than 70, eat a couple lifesavers, then check sugar again Werner Kennedy PharmD, [facility] [phone] Encounter Status:Closed by BRENT (PHARMACIST)WERNER on 09/26/17 BASIC METABOLIC PANL Collected: 09/26/2017 Status: F Source: VICI 12:48 PM [facility] REPOSITORY TYPE CODE TESTS RESULT OUT OF REFERENCE UNITS RANGE LAB GLU 74-99 mg/dL High Glucose 233 Result Comment: The [place] Diabetes Association (ADA) provides guidance for cutoff values for fasting glucose and random glucose. The ADA defines fasting as no caloric intake for at least 8 hours. Fas ting plasma glucose results between 100 to 125 mg/dL indicate increased risk for diabetes (prediabetes). Fasting plasma glucose results greater than or equal to 126 mg/dL meet the criteria for diagnosis of diabetes. In the absence of unequivocal hyperglycemia, results should be confirmed by repeat testing. In a patient with classic symptoms of hyperglycemia or hyperglycemic crisis, random plasma glucose results greater than or equal to 200 mg/dL meet the criteria for diagnosis of diabetes. Reference: Standards of Medical Care in Diabetes 2016, [place] Diabetes Association. Diabetes Care. 2016.39(Suppl 1). LAB BUN 9-24 mg/dL BUN High 30 LAB CRET 0.73-1.22 mg/dL Creatinine 1.20 LAB NA 136-144 mmol/L Sodium 138 LAB K 3.7-5.1 mmol/L Potassium 4.8 LAB CL 97-105 mmol/L Chloride 100 LAB CO2 22-30 mmol/L Low CO2 21 LAB AGAP 9-18 mmol/L Anion Gap 17 LAB CA 8.5-10.2 mg/dL Calcium, Total 9.4 LAB GFRAA eGFR- Amer. >60 LAB GFRNAA . eGFR-All Other Races >60 Result Comment: eGFR (Estimated GFR) Units of measure: mL/min/1.73 meters squared eGFR is derived from the reexpressed MDRD Study equation using the following parameters: serum creatinine, age, gender and race. The creatinine assay has been calibrated to be traceable to IDMS. An eGFR <60 mL/min/1.73m2 for >3 months is consistent with chronic kidney disease. Refer to KDOQI guidelines for clinical interpretation. In patients with unstable renal function, e.g. those with acute kidney injury, the eGFR may not accurately reflect actual GFR. Performed By: #### BMP, HBA1C #### [facility] [address] [place] [id number] HEMOGLOBIN A1C Collected: 09/26/2017 Status: F Source: VICI 12:48 PM [facility] REPOSITORY TYPE CODE TESTS RESULT OUT OF REFERENCE UNITS RANGE LAB HGBA1C 4.3-5.6 % High Hemoglobin A1c 8.1 LAB HBA0 mg/dL Est. Average Glucose 186 Result Comment: eAG: (Estimated average glucose) is a calculated value from HgbA1c and is dairy supplies sales representative of the average blood glucose level in the last 2-3 month period. Performed By: #### BMP, HBA1C #### [facility] [address] [place] [address] PROGRESS Observed: 09/24/2017 Status: COMPLETED Source: VICI 1:41 PM [facility] REPOSITORY HNO ID: [id number] Author: Baylee Sullivan Cma Service: (none) Author Type: (none) Type: Progress Notes Filed: 09/24/2017 1:43 PM Note Text: Upcoming appointment with pcp on 12/27 (will be due for labs prior). I will send appointment/lab reminder with DM retinal reminder and release form. CNPTOUTREACH Observed: 09/24/2017 Status: COMPLETED Source: VICI 12:00 AM [facility] REPOSITORY Patient Outreach (FAMPWS) SUKI OKEEFE ([id number]) 1950 M Date Time Provider Department 09/24/17 BAYLEE SULLIVAN ([facility]) FAMPWS During your visit today, we recorded the following information about you: Baylee Sullivan Cma 09/24/2017 1:43 PM Signed Upcoming appointment with pcp on 12/27 (will be due for labs prior). I will send appointment/lab reminder with DM retinal reminder and release form. Allergies As of Date: 09/24/2017 (No Known Allergies) Date Reviewed: 2017 Reviewed by: Oumou Mosqueda Ma - Fully Assessed Reason for Visit: PHMA/Care Gap Outreach [[id number]] Prescriptions as of 09/24/2017 Sig: INSULIN GLARGINE (U-100) 100 * Inject 42 Units subcutaneousl* BLOOD SUGAR DIAGNOSTIC STRIPS Use as instructed to check bl* CHOLECALCIFEROL (VITAMIN D3) * Take 1 capsule by mouth once * METFORMIN 1,000 MG TABLET TAKE 1 TABLET BY MOUTH TWICE * ATORVASTATIN 40 MG TABLET Take 1 tablet by mouth once d* LISINOPRIL 2.5 MG TABLET TAKE 1 TABLET BY MOUTH DAILY METOPROLOL TARTRATE 25 MG TAB* Take 1 tablet by mouth twice * ASPIRIN 81 MG TABLET,DELAYED * Take 1 tablet by mouth once d* PEN NEEDLE, DIABETIC 32 GAUGE* Use as directed once daily wi* LANCETS Use as instructed to check bl* Problem List As Of Date 09/24/2017 Noted Resolved Open wound of foot excluding toes [S91.309A] INVALID FOR* More... DM (diabetes mellitus) type II uncontrolled, pe*INVALID FOR* More... Essential hypertension [I10] INVALID FOR* More... DEPRESSIVE DISORDER NEC [F32.9] INVALID FOR* More... Diabetic polyneuropathy (HCC) [E11.42] INVALID FOR* Debility [R53.81] INVALID FOR* OVERWEIGHT [E66.9] INVALID FOR* Mixed hyperlipidemia [E78.2] INVALID FOR* More... Proteinuria [R80.9] INVALID FOR* More... Non-proliferative diabetic retinopathy, moderat*INVALID FOR* More... Proliferative diabetic retinopathy, right eye [*INVALID FOR* More... Angina pectoris (HCC) [I20.9] INVALID FOR*03/09/2016 More... CAD (coronary artery disease) [I25.10] INVALID FOR* Financial difficulties [Z59.8] INVALID FOR* Current non-adherence to medical treatment [Z91*INVALID FOR* Non-STEMI (non-ST elevated myocardial infarctio*INVALID FOR*04/25/2017 H/O: CVA (cerebrovascular accident) [Z86.73] INVALID FOR* Hemiparesis due to recent stroke (HCC) [I69.359]INVALID FOR* More... Other malaise and fatigue [R53.81, R53.83] INVALID FOR* Letter Text [facility] Department of Internal Medicine Shimon Malcolm MD [address] [id number] Dear Suki Selena Okeefe Your health care is very important to us. Our records indicate that you may be due for a diabetic eye exam. If you have had a diabetic eye exam within the last year, please have your records sent to us so that we may update your medical records. There is a medical records of release of information included in this letter. Please take the release to your eye doctor for future appointments to have your records forwarded to us. Important facts about diabetic eye exams Diabetic retinal exams should be done yearly for all patients with a diagnosis of diabetes. Risks such as diabetic retinopathy can be reduced with blood glucose control and early detection of potential problems. Diabetic retinopathy is damage to the small blood vessels in the retina that can lead to blindness Thank you, Shimon Malcolm MD Letter [address] [address] Office: [phone] Shimon Malcolm MD REQUEST FOR EYE EXAM FINDINGS March 23, 2016 Dear eye medical care administrator, Thank you for coordinating eye care for our mutual patient, Suki Okeefe (1950). Please fax this letter back to me with the most appropriate response selected below. Please allow the patient's signature to serve as permission to share your findings. Sincerely, Shimon Malcolm MD Patient Signature Date Date of eye exam: Findings Both Eyes Right Left No Retinopathy Detected Non Proliferative Retinopathy Mild Moderate Severe Proliferative Retinopathy Macular Edema Further testing and/or treatment indicated Comments: Patient is to return: Encounter Status:Closed by BAYLEE SULLIVAN CMA on 09/24/17 CONSULTATION Observed: 09/11/2017 Status: F Source: TROPIC 2:55 PM [facility] REPOSITORY [facility] Medical Records Department [facility] [address] [address] Consultation 08/31/17 1232 MR#: [id number] Acct: [id number] Name: SUKI OKEEFE Rep #: [id number] : 1950 67 From: Carlos Gregg MD PCP: Shimon Arias MD Status: DIS IN Y Location: [address] Problem List (1) Confusion Status: Acute Reason for Consult Date of Consultation: 08/31/17 Reason for Consultation: confusion History of Present Illness: The patient is a 67 year old CM with PMH HTN, HLD, DM, H/O Stroke, CAD admitted with episode of confusion. Per patient yesterday (08/30/17) he started driving at around 8 am after dropping his friend at his place and later remembers being pulled over by the police since he was weaving in and out of the road, mounted police officer felt he was confused and by the time patient was in the ED he was back to his baseline per ED documentation. Per patient he remembers that he started to drive and the next thing he remembers was being pulled over, but probably does not remember driving for about 30 minutes. Patient is a poor historian, per patient he lives alone, denies any falls, does not use cane or walker to ambulate, does drive and does not need any assistance for his ADLs. Patient denies any neck pain but does have atrophy of the small muscles of hands bilaterally, with a weak gis programmer bilaterally. No fasciculations. MRI brain done on admission reported nothing acute. MRA head/neck reported to show possible small left cavernous ICA aneurysm. Patient denies any ESQUEDA, visual disturbances, speech disturbances, sensory loss or focal motor weakness.Per patient he takes ASA at baseline but does not take it everyday. Denies any witnessed seizures, tongue bite or urinary incontinence. [] Past Medical History Past Medical History (Chronic Problems): Chronic Problems HTN (hypertension) (Chronic) NSTEMI (non-ST elevation myocardial infarction) (Chronic) Type 2 diabetes mellitus (Chronic) Allergies No Known Allergies Allergy (Verified 08/30/17 10:22) Home Medications: Ambulatory Orders Medication Instructions Recorded Surgical History: - - Foot surgery Psychiatric History: No pertinent psych hx Lives: Alone Smoking Status: Never smoker Tobacco Use: Non-smoker Alcohol: None Drugs: None - *Family History Maternal History Items: Unknown Paternal History Items: Unknown Sibling History Items: Unknown Review of Systems Constitutional: Reports: - - complete ROS negative except as documented in HPI - Physical Exam General: Alert, - HEENT: Normocephalic Neck: Supple Lungs: Clear to auscultation Cardiovascular: Normal S1, Normal S2 Abdomen: Bowel Sounds Present Extremities: No cyanosis Skin: No rashes Musculoskeletal: No Tenderness to Palpation of Joints or Extremities Neurological: - - consious, alert, CN 2-12 grossly intact, power 5/5 proximally both UE, 5/5 both LE, but distal hand gis programmer weakness with atrophy of small muscles of hands, bilateral FDI, no fasciculations, Reflexes B/L +++ B/S/T/K/A, no clonus, no sensory loss, no cerebellar signs, gait deferred. Vital Signs Temp Pulse Resp BP Pulse Ox 98.9 F 89 18 166/92 H 96 08/31/17 09:10 08/31/17 09:10 08/31/17 09:10 08/31/17 09:10 08/31/17 09:10 Oxygen Delivery Method Room Air Weight: 81.4 kg Body Mass Index (BMI) 27.8 Intake and Output for Last 24 Hours Intake Total 655 / 655 406 / 406 Output Total 650 / 650 Balance 655 / 655 -244 / -244 Laboratory Tests Past 24 Hrs PT INR Sodium 138 Potassium 4.0 Chloride 105 PT 13.1 INR 1.0 Sodium Potassium Chloride Carbon Dioxide Anion Gap BUN Creatinine Estim Creat Clear Calc Est GFR (MDRD) Af Amer POC Glucose POC Glucose 331 H 223 H 170 H Assessment/Plan All Active Problems Acute ischemic stroke (Acute) Encephalopathy (Acute) Confusion (Acute) Acute renal insufficiency (Acute) The patient is a 67 year old CM with PMH HTN, HLD, DM, H/O Stroke, CAD admitted with episode of confusion. Per patient yesterday (08/30/17) he started driving at around 8 am after dropping his friend at his place and later remembers being pulled over by the police since he was weaving in and out of the road, mounted police officer felt he was confused and by the time patient was in the ED he was back to his baseline per ED documentation. Per patient he remembers that he started to drive and the next thing he remembers was being pulled over, but probably does not remember driving for about 30 minutes. Patient is a poor historian, per patient he lives alone, denies any falls, does not use cane or walker to ambulate, does drive and does not need any assistance for his ADLs. Patient denies any neck pain but does have atrophy of the small muscles of hands bilaterally, with a weak gis programmer bilaterally. No fasciculations. MRI brain done on admission reported nothing acute. MRA head/neck reported to show possible small left cavernous ICA aneurysm. Patient denies any ESQUEDA, visual disturbances, speech disturbances, sensory loss or focal motor weakness.Per patient he takes ASA at baseline but does not take it everyday. Impression Acute confusion episode- possible TGA Unlikely to be TIA/acute stroke at present ? Left ICA aneurysm R/O Compressive cervical myelopathy Plan -On ASA and statin -Recommend MRI C spine w/o contrast and CTA head/neck -If CTA head/neck shows aneurysm, need outpatient neurosurgery consult -Spine surgery consult if MRI C spine is abnormal -Await EEG -Recommend outpatient EMG/NCS both UE/LE. -Patient counseled to be compliant with medications, he understands the same. -Denies any illicit drug abuse, ETOH or tobacco abuse. -Fall precautions -PT/OT -Stroke risk factors discussed and stroke education provided -Plan discussed with Dr. Ocampo -Follow up with Neurology in 4-6 weeks as outpatient -Please call with questions if any -Thank you for allowing us to participate in patients care and management I spent 60 minutes taking history, doing physical examination, reviewing medical records, coordinating care and counseling the patient. Code Visit Inpatient E AND M: 07506 Init Hosp L3 09/11/17 1455 <Electronically signed by Carlos Gregg MD> Date Carlos Gregg MD Cosigner Signature (if applicable): Date CC: Julianna Gregg MD; Shimon Arias MD Signed ELECTROENCEPHALOGRAM Observed: 09/11/2017 Status: F Source: [place] 2:55 PM [facility] REPOSITORY [facility] Pulmonary Services/Neurology [address] [address] MR#: [id number] Acct: [id number] Name: SUKI OKEEFE Rep #: [id number] : 1950 67 From: Carlos Gregg MD Referring Dr: Irene Thompson MD Status: DIS IN Ordering Dr: Date: Location: [place] [address] Sex: M C - Electroencephalogram Date of Service: 08/31/17 History EEG is being done in this 67 yr M to rule out seizures EEG Description: This is an 18 channel EEG with 10-20 lead placement system. Bipolar montages, Referential and Circumferential montages were reviewed. Photic stimulation and Hyperventilation were performed. The posterior dominant background rhythm is 7 HZ synchronous, symmetric, reacting to eye opening and closing. Photo stimulation elicited normal driving response but no abnormal photoparoxysmal response, Hyperventilation did not elicit any abnormal photoparoxysmal response. Drowsiness was identified. There was no epileptiform discharges or electrographic seizures noted during this recording. The generalized back ground rhythm was in the theta frequency range. EEG Interpretation This is an abnormal EEG due to the presence of mild generalized slowing. This can be seen in generalized cerebral dysfunction like metabolic/toxic encephalopathy. Clinical correlation is advised. There is no epileptiform discharges or electrographic seizures noted during the record. 09/11/17 1455 <Electronically signed by Carlos Gregg MD> Date Carlos Gregg MD CC: Julianna Gregg MD; Irene Thompson MD; Shimon Arias MD Date Dictated: 09/02/17 1435 Date Transcribed: 09/02/17 1435 Speeder Frame Tender: RSR Signed 12 LEAD ELECTROCARDIOGRAM Observed: 09/05/2017 Status: F Source: [place] 3:10 PM [facility] REPOSITORY [facility] Cardiovascular Services [address] [place] [address] 12 Lead EKG 08/30/17 1048 MR#: [id number] Acct: [id number] Name: SUKI OKEEFE Rep #: [id number] : 1950 67 From: Chris Quinteros MD Attending Dr: Irene Thompson MD Status: DIS IN Ordering Dr: Silvano Siegel MD Date: 08/30/17 Location: [facility] Sex: M C Admitted: 08/30/17 Test Reason : NEURO Blood Pressure : / mmHG Vent. Rate : 086 BPM Atrial Rate : 086 BPM P-R Int : 146 ms QRS Dur : 090 ms QT Int : 360 ms P-R-T Axes : 019 036 063 degrees QTc Int : 430 ms Normal sinus rhythm Normal ECG Confirmed by ORLIN MOLINA, CHRIS ([id number]), editorial clerk ARDEN CERVANTES ([id number]) on 09/05/2017 3:10:18 PM Referred By: DEB Confirmed By:CHRIS QUINTEROS MD 09/05/17 1510 Date Chris Quinteros MD CC: Irene Thompson MD; Shimon Arias MD; Silvano Siegel MD Signed PROGRESS Observed: 09/02/2017 Status: COMPLETED Source: [place] 10:38 AM [facility] REPOSITORY [facility] ID: [id number] Author: Gunnar Mckeon LPN Service: (none) Author Type: (none) Type: Progress Notes Filed: 09/09/2017 1:32 PM Note Text: TRANSITION CARE MANAGEMENT (TCM) INITIAL CONTACT Welding Machine Operator Submerged [facility] Outreach Provider Action/FYI: Apt with Neurology 09-13-17 at 3 PM per JR. Per patient driving issues, JR has taken his keys tells him not safe for him to drive till after evaluation. Initial contact with patient post discharge, spoke to patient. Patient identified by name and . SUMMARY: -Pt discharged from [facility] on 08/31/17. -Admitted for: acute strok symptoms Do you have a hospital follow up appointment with your PCP? Appointment on 09/09/17 with Eloisa Elliott CNC LATHE MACHINIST. Yes. Remind patient of appointment date, time, and location. If not within 14 calendar days of discharge - please reschedule accordingly. MEDICATIONS: Many patients have questions or concerns about their medications once they are home. Were you prescribed any new medications? No Were you told to hold any medications? Yes Were any of your medications discontinued? No Do you have any questions about getting or taking your medications? No Your discharge instructions/After visit Summary (AVS) are important in guiding you through the recovery process. Is there anything I might help you understand? No Do you have all the necessary equipment and supplies at home? Yes Medical records from recent hospitalization: being copied from [facility] and will be given to Eloisa Elliott for upcoming apt CNPTOUTREACH Observed: 09/02/2017 Status: COMPLETED Source: [place] 12:00 AM [facility] REPOSITORY Patient Outreach (INTMWS) SUKI OKEEFE ([id number]) 1950 M Date Time Provider Department 09/02/17 SHIMON ARIAS INTMWS During your visit today, we recorded the following information about you: Gunnar Mckeon LPN 09/09/2017 1:32 PM Signed TRANSITION CARE MANAGEMENT (TCM) INITIAL CONTACT Welding Machine Operator Submerged [employer] Outreach Provider Action/FYI: Apt with Neurology 09-13-17 at 3 PM per JR. Per patient driving issues, JR has taken his keys tells him not safe for him to drive till after evaluation. Initial contact with patient post discharge, spoke to patient. Patient identified by name and . SUMMARY: -Pt discharged from [facility] on 08/31/17. -Admitted for: acute strok symptoms Do you have a hospital follow up appointment with your PCP? Appointment on 09/09/17 with Eloisa Elliott CNC LATHE MACHINIST. Yes. Remind patient of appointment date, time, and location. If not within 14 calendar days of discharge - please reschedule accordingly. MEDICATIONS: Many patients have questions or concerns about their medications once they are home. Were you prescribed any new medications? No Were you told to hold any medications? Yes Were any of your medications discontinued? No Do you have any questions about getting or taking your medications? No Your discharge instructions/After visit Summary (AVS) are important in guiding you through the recovery process. Is there anything I might help you understand? No Do you have all the necessary equipment and supplies at home? Yes Medical records from recent hospitalization: being copied from [facility] and will be given to Eloisa Elliott for upcoming apt Allergies As of Date: 09/02/2017 (No Known Allergies) Date Reviewed: 2017 Reviewed by: Oumou Mosqueda Ma - Fully Assessed Prescriptions as of 09/02/2017 Sig: INSULIN GLARGINE (U-100) 100 * Inject 42 Units subcutaneousl* BLOOD SUGAR DIAGNOSTIC STRIPS Use as instructed to check bl* CHOLECALCIFEROL (VITAMIN D3) * Take 1 capsule by mouth once * METFORMIN 1,000 MG TABLET TAKE 1 TABLET BY MOUTH TWICE * ATORVASTATIN 40 MG TABLET Take 1 tablet by mouth once d* LISINOPRIL 2.5 MG TABLET TAKE 1 TABLET BY MOUTH DAILY METOPROLOL TARTRATE 25 MG TAB* Take 1 tablet by mouth twice * ASPIRIN 81 MG TABLET,DELAYED * Take 1 tablet by mouth once d* PEN NEEDLE, DIABETIC 32 GAUGE* Use as directed once daily wi* LANCETS Use as instructed to check bl* Problem List As Of Date 09/02/2017 Noted Resolved Open wound of foot excluding toes [S91.309A] INVALID FOR* More... DM (diabetes mellitus) type II uncontrolled, pe*INVALID FOR* More... Essential hypertension [I10] INVALID FOR* More... DEPRESSIVE DISORDER NEC [F32.9] INVALID FOR* More... Diabetic polyneuropathy (HCC) [E11.42] INVALID FOR* Debility [R53.81] INVALID FOR* OVERWEIGHT [E66.9] INVALID FOR* Mixed hyperlipidemia [E78.2] INVALID FOR* More... Proteinuria [R80.9] INVALID FOR* More... Non-proliferative diabetic retinopathy, moderat*INVALID FOR* More... Proliferative diabetic retinopathy, right eye [*INVALID FOR* More... Angina pectoris (HCC) [I20.9] INVALID FOR*03/09/2016 More... CAD (coronary artery disease) [I25.10] INVALID FOR* Financial difficulties [Z59.8] INVALID FOR* Current non-adherence to medical treatment [Z91*INVALID FOR* Non-STEMI (non-ST elevated myocardial infarctio*INVALID FOR*04/25/2017 H/O: CVA (cerebrovascular accident) [Z86.73] INVALID FOR* Hemiparesis due to recent stroke (HCC) [I69.359]INVALID FOR* More... Other malaise and fatigue [R53.81, R53.83] INVALID FOR* Encounter Status:Closed by GUNNAR MCKEON LPN on 09/09/17 UJANITA Observed: 09/02/2017 Status: COMPLETED Source: [place] 12:00 AM [facility] REPOSITORY Telephone (PHMEWO) SUKI OKEEFE ([id number]) 1950 M Date Time Provider Department 09/02/17 BRENT (PHARMACIST)WERNER During your visit today, we recorded the following information about you: NIA DECKER 09/02/2017 12:45 PM Signed PharmD sent refill paperwork for Lantus to [facility]. Werner Kennedy PharmD, [facility] WERNER KENNEDY PHARMACIST 09/16/2017 12:55 PM Signed PharmD calling to check on status. Advised that insulin will be shipped to office this week. Werner Kennedy PharmD, [facility] Allergies As of Date: 09/02/2017 (No Known Allergies) Date Reviewed: 2017 Reviewed by: Oumou Mosqueda Ma - Fully Assessed Reason for Visit: Medication Assistance Program [4076] Cmt: Lantus Prescriptions as of 09/02/2017 Sig: INSULIN GLARGINE (U-100) 100 * Inject 42 Units subcutaneousl* BLOOD SUGAR DIAGNOSTIC STRIPS Use as instructed to check bl* CHOLECALCIFEROL (VITAMIN D3) * Take 1 capsule by mouth once * METFORMIN 1,000 MG TABLET TAKE 1 TABLET BY MOUTH TWICE * ATORVASTATIN 40 MG TABLET Take 1 tablet by mouth once d* LISINOPRIL 2.5 MG TABLET TAKE 1 TABLET BY MOUTH DAILY METOPROLOL TARTRATE 25 MG TAB* Take 1 tablet by mouth twice * ASPIRIN 81 MG TABLET,DELAYED * Take 1 tablet by mouth once d* PEN NEEDLE, DIABETIC 32 GAUGE* Use as directed once daily wi* LANCETS Use as instructed to check bl* Problem List As Of Date 09/02/2017 Noted Resolved Open wound of foot excluding toes [S91.309A] INVALID FOR* More... DM (diabetes mellitus) type II uncontrolled, pe*INVALID FOR* More... Essential hypertension [I10] INVALID FOR* More... DEPRESSIVE DISORDER NEC [F32.9] INVALID FOR* More... Diabetic polyneuropathy (HCC) [E11.42] INVALID FOR* Debility [R53.81] INVALID FOR* OVERWEIGHT [E66.9] INVALID FOR* Mixed hyperlipidemia [E78.2] INVALID FOR* More... Proteinuria [R80.9] INVALID FOR* More... Non-proliferative diabetic retinopathy, moderat*INVALID FOR* More... Proliferative diabetic retinopathy, right eye [*INVALID FOR* More... Angina pectoris (HCC) [I20.9] INVALID FOR*03/09/2016 More... CAD (coronary artery disease) [I25.10] INVALID FOR* Financial difficulties [Z59.8] INVALID FOR* Current non-adherence to medical treatment [Z91*INVALID FOR* Non-STEMI (non-ST elevated myocardial infarctio*INVALID FOR*04/25/2017 H/O: CVA (cerebrovascular accident) [Z86.73] INVALID FOR* Hemiparesis due to recent stroke (HCC) [I69.359]INVALID FOR* More... Other malaise and fatigue [R53.81, R53.83] INVALID FOR* Encounter Status:Closed by BRENT (PHARMACIST)WERNER on 09/02/17 DISCHARGE SUMMARY Observed: 09/01/2017 Status: F Source: [place] 3:52 PM [facility] REPOSITORY [facility] Medical Records Department [address] [place] [address] Discharge Summary 08/31/17 1041 MR#: [id number] Acct: [id number] Name: SUKI OKEEFE Rep #: [id number] : 1950 67 From: Irene Thompson MD PCP: Shimon Arias MD Status: DIS IN Y Location: [place] [id number] Discharge Date and Diagnosis Date of Admission: 08/30/17 Date of Discharge: 08/31/17 - Primary Discharge Diagnosis Acute metabolic encephalopathy CVA ruled out Cervical spondylosis - Secondary Discharge Diagnosis Chronic Problems HTN (hypertension) (Chronic) NSTEMI (non-ST elevation myocardial infarction) (Chronic) Type 2 diabetes mellitus (Chronic) Hospital Course and Treatment Imaging Results: Clinical Impression(s) from Imaging Studies Brain CT 08/30/17 10:40 IMPRESSION: Chronic involutional changes of the brain. Electronically Signed: Reese Segura MD at 11:25 EDT Tel [phone], Service support , Brain MRI 08/30/17 13:18 IMPRESSION: Involutional changes of the brain, as described above. Electronically Signed: Arnold Schmitt MD at 16:36 EDT , Service support , Head MRA 08/30/17 13:18 IMPRESSION: Possible minute 1 to 2 mm aneurysm left cavernous segment internal carotid artery. Follow-up CTA May BE helpful if clinically warranted. Electronically Signed: Arnold Schmitt MD at 16:47 EDT , Service support , Neck MRA 08/30/17 13:18 Neurology Operations: None Procedures: None Summary of Care Provided: 67 year old M with PMHx of Type 2DM, hypertension, history of CVA, CAD status post CO comes in with altered mental status/confusion. Patient was found by the police weaving in between traffic. He was brought into the ED and NIH score was said to be 2, repeat on the floor was 0. Neurology consulted and stroke workup begun. 1. Altered mental status/acute metabolic encephalopathy, unclear etiology, resolved. Admitting CT scan was negative, MRI was unremarkable, blood work was unremarkable. Patient was said to have had a focal neurological deficit in the ED with pronator drift of the left arm as well as the right leg drift was and NIH scale of 2. This is apparently absent by the time patient came to the medical floor. Neurology consulted. MRI of the brain showed no acute stroke. MRA of the head and neck as well as CT of the head and neck was stable. 2D echo was normal, patient statins were normal. PT and OT evaluated and recommended home 2. Hypertension, not on medications, blood pressure slightly elevated, made to his medications, discharged home on amlodipine 3. Type II DM, on metformin 4. CAD status post CO, on aspirin Discharge Diet: Low fat/ Low Cholesterol, 2000 mg Sodium Diet, Carb Control Diet Discharge Activity: Return to Normal Activity Home Medications: Medications to take at Discharge Amlodipine [Norvasc] 5 mg PO DAILY #30 tab 08/31/17 Aspirin [Aspirin, Baby] 81 mg PO DAILY@0800 #30 tab.chew 08/31/17 Insulin Glargine [Lantus SoloStar Pen] 42 units SC DAILY pen 08/31/17 Following Prescrptions Were Given to Patient: Amlodipine [Norvasc] 5 mg PO DAILY #30 tab Aspirin [Aspirin, Baby] 81 mg PO DAILY@0800 #30 tab.chew Primary Care Physician: Shimon Arias MD [Primary Care Provider] - Please follow up with your Primary Care Physician in: within 2 weeks Please Follow Up With: Carlos Gregg MD When: in 2 weeks Disposition: Home Minutes spent on discharge:: 45 Patient Condition:: Stable Medical Necessity - Tobacco Use Smoking Status: Never smoker Tobacco Use: Non-smoker Meaningful Use Info Meaningful Use Diagnoses (Choose all that apply): None applicable Code Visit Inpatient E AND M: 12227 Disch Hosp 09/01/17 1552 <Electronically signed by Irene Thompson MD> Date Irene Thompson MD Cosigner Signature (if applicable): Date CC: Irene Thompson MD; Shimon Arias MD Signed DISCHARGE INSTRUCTION Observed: 08/31/2017 Status: F Source: [place] 4:48 PM [facility] REPOSITORY [facility] Medical Records Department [address] [place] [address] Instructions for Home/Discharge Instructions 08/31/17 1029 MR#: [id number] Acct: [id number] Name: SUKI OKEEFE Rep #: [id number] : 1950 67 From: Irene Thompson MD PCP: Shimon Arias MD Status: ADM IN ADDENDUM by Irene Thompson MD on 08/31/17 at 1648 Follow-up with spine surgery, Dr. Hannah in the [place] outpatient. Be sure to see Neurology in 2-4 weeks. You will need an EMG and follow-up on your EEG results. You have been prescribed a new blood pressure pill, called amlodipine. Do not take your metformin for the next 3 days. Resume metformin after 3 days. You will need repeat blood work in 3 days. Follow-up with your PCP. If you do not have a PCP, choose from a list of providers we will give you. You should not drive until you have seen the neurology team. Keep a log of your blood sugar before meals and show it to your primary care physician within 2 weeks Date Irene Thompson MD cc: Shimon Arias MD; Koko Morocho MD * Signed ADDENDUM by Irene Thompson MD on 08/31/17 at 1044 Follow-up with DR. Gregg(neurology) in 2 weeks for EEG results and general follow-up. Date Irene Thompson MD cc: Shimon Arias MD; Koko Morocho MD * Signed - Discharge Diagnoses Reason(s) for Visit for Discharge Instructions: Confusion You will use the following diet at home:: Calorie/Carbohydrate Controlled (specify 1200, 1400, etc), Cardiac Your food should be the consistency of: Regular Your liquids should be the consistency of: Regular/Thin Discharge Activity: Return to Normal Activity Additional Instructions: Note the changes to your medications. Youshould avoid driving until yoiu have been re-evaluated by your primary physician and neurologist. Continue to monitor your blood glucose closely. Allergies/Adverse Reactions: Allergies No Known Allergies Allergy (Verified 08/30/17 10:22) Medications to take at Discharge Metformin HCl 1,000 mg PO BIDCM 04/21/17 Aspirin [Aspirin, Baby] 81 mg PO DAILY@0800 #30 tab.chew 08/31/17 Insulin Lispro [Humalog] 42 units SQ DAILY 08/31/17 Lisinopril [Zestril] 10 mg PO DAILY #30 tablet 08/31/17 The following prescriptions were given: Aspirin [Aspirin, Baby] 81 mg PO DAILY@0800 #30 tab.chew Lisinopril [Zestril] 10 mg PO DAILY #30 tablet Orders to be completed after discharge: Basic Metabolic Profile (BMP) Time Frame: 3 Days, Location: Laboratory Primary Care Physician: Shimon Arias MD [Primary Care Provider] - Please follow up with your Primary Care Physician in: within 2 weeks Proposed Discharge Date: 08/31/17 08/31/17 1038 <Electronically signed by Irene Thompson MD> Date Irene Thompson MD CC: Shimon Arias MD; Koko Morocho MD BEDSIDE GLUCOSE Collected: 08/31/2017 Status: F Source: [place] 11:54 AM [facility] REPOSITORY TYPE CODE TESTS RESULT OUT OF REFERENCE UNITS RANGE LAB L501.080 70-110 mg/dL High BEDSIDE GLU 331 Result Comment: MANAGEMENT OF PATIENT CARE PER NURSING PROTOCOL Performed By: #### L501.080 #### [facility] Point of Care [address] [place] [address] SPINE CERVICAL Observed: 08/31/2017 Status: F Source: [place] (ROUTINE) 11:44 AM [facility] REPOSITORY [facility] Imaging Services [address] [place] [id number] Spine Cervical (Routine) MR#: [id number] Acct: [id number] Name: SUKI OKEEFE Rep #: [id number] : 1950 M 67 From: Ramy Colin MD PCP: Shimon Arias MD Status: ADM IN Study: Spine Cervical (Routine) Date of Exam: 08/31/17 Exam# [id number] Ordering Dr: Carlos Grgeg MD STUDY: MRI CERVICAL SPINE WITHOUT CONTRAST REASON FOR EXAM: Male, 67 years old. Right arm weakness. Confusion TECHNIQUE: Standardized fat and water weighted pulse sequences were obtained in the sagittal and axial planes. COMPARISON: None FINDINGS: Mild straightening of the cervical lordotic curvature. Craniocervical junction appears unremarkable. No evidence for cord edema or myelomalacia. Mild anterior wedging of the C5 and C6 vertebral bodies which appear chronic. Disc desiccation all levels. Mild loss of disc at and C5-C6 and C6-C7 levels. Mild anterior and posterior ossific spurring. Mild endplate degenerative changes at C5-C6 level. Level by level segmental analysis: C2-C3 level: Uncovertebral joint and facet joint degenerative changes and broad-based disc osteophyte complexes resulting in moderate to severe right-sided and mild left-sided neural foraminal narrowing with mild effacement of ventral thecal sac. C3-C4 level: Uncovertebral joint and facet joint degenerative changes with broadbase disc osteophyte complex resulting in severe left- sided and [id number]-fc-ayigpyag right-sided neural foraminal narrowing with a superimposed small central disc protrusion with mild effacement of ventral thecal sac. C4-C5 level: Uncovertebral joint and facet joint degenerative changes of broad-based disc osteophyte complex resulting in moderate to severe right-sided and moderate left-sided neural foraminal narrowing without seen in central canal stenosis. C5-C6 level: Uncovertebral joint and facet joint degenerative changes with broad-based disc osteophyte complex resulting in moderate to severe bilateral neural foraminal narrowing and superimposed small central disc protrusion with mild effacement of ventral thecal sac. Thickening of the ligamentum flavum is seen. C6-C7 level: Uncovertebral joint and facet joint degenerative changes with broad-based disc osteophyte complexes resulting in jmpf-qe-ejqztndu bilateral neural foraminal narrowing and a superimposed small central disc protrusion with minimal effacement of ventral thecal sac. C7-T1 level: Uncovertebral joint and facet joint degenerative changes with broadbase disc osteophyte complex resulting in minimal bilateral neural foraminal narrowing without significant central canal stenosis. No paraspinal soft tissue mass. No evidence for acute cervical spine fractures. IMPRESSION: Cervical spondylotic changes with multilevel neural foraminal narrowing without significant central canal stenosis. As above level by level complete analysis and details. No evidence for acute cervical spine fractures. Electronically Signed: Ramy Colin, at 15:04 EDT Tel , Service support , MRI/Spine Cervical (Routine) CC: Julianna Gregg MD; Shimon Arias MD Speeder Frame Tender: Signed CTA HEAD W/WO Observed: 08/31/2017 Status: F Source: [place] CONTRAST 11:19 AM [facility] REPOSITORY [facility] Imaging Services [address] [place] [address] CTA Head W/WO Contrast MR#: [id number] Acct: [id number] Name: SUKI OKEEFE Rep #: [id number] : 1950 M 67 From: Benji Echols PCP: Shimon Arias MD Status: ADM IN Study: CTA Head W/WO Contrast Date of Exam: 08/31/17 Exam# [id number] Ordering Dr: Irene Thompson MD STUDY: CTA OF THE BRAIN REASON FOR EXAM: Male, 67 years old. ? 1-2 MM ANEURYSM LT INTERNAL CAROTID SEEN ON MRI, HX-CAD, CO, CVA, HTN, DB. RADIATION DOSAGE (If Supplied By Facility): CTDIvol = ( 30.44 ) mGy, DLP = ( 1606.53 ) mGycm TECHNIQUE: CT angiography was performed with a multi-detector CT scanner. Data acquisition was obtained from the skull base through the vertex following intravenous administration of ml of . MIP images were reconstructed from the axial data set. Post-processing of the angiographic images was performed, with multiplanar reformation and 3D reconstruction. Individualized dose optimization techniques were used for this CT. COMPARISON: MRA dated August 30, 2017 FINDINGS: Normal bilateral petrous carotid arteries. There is calcified plaque formation of the right cavernous carotid artery, without a cross-sectional luminal stenosis. There is calcified plaque formation of the left cavernous carotid artery, without a cross-sectional luminal stenosis. There is no demonstrated aneurysms of the left cavernous carotid artery. Normal right A1 segments of the anterior cerebral artery. Normal left A1 segments of the anterior cerebral artery. Normal intact anterior communicating artery (ACOM). Normal bilateral A2 segments of the anterior cerebral arteries. Normal right M1 and M2 segments of the middle cerebral arteries, with a normal M1 bifurcation. Normal left M1 and M2 segments of the middle cerebral arteries, with a normal M1 bifurcation. Normal bilateral vertebral arteries. Normal basilar artery with a normal basilar bifurcation. The visualized bilateral superior cerebellar (SCA) arteries are normal. Normal bilateral P1, P2 and visualized P3 segments of the posterior cerebral arteries. There is no demonstrated aneurysm of the [place] of [place]. There is no demonstrated abnormality of the visualized brain. CT/CTA Head W/WO Contrast IMPRESSION: Mild atherosclerotic plaque. No demonstrated aneurysm or hemodynamically significant stenosis. Electronically Signed: Benji Echols MD at 13:52 EDT Tel , Service support , CC: Irene Thompson MD; Shimon Arias MD Speeder Frame Tender: Signed CTA NECK W/WO Observed: 08/31/2017 Status: F Source: ARLENE CONTRAST 11:19 AM [facility] REPOSITORY [facility] Imaging Services [address] [place] [id number] CTA Neck W/WO Contrast MR#: [id number] Acct: [id number] Name: SUKI OKEEFE Rep #: [id number] : 1950 M 67 From: Benji Echols PCP: Shimon Arias MD Status: ADM IN Study: CTA Neck W/WO Contrast Date of Exam: 08/31/17 Exam# [id number] Ordering Dr: Irene Thompson MD STUDY: CTA NECK WITH CONTRAST REASON FOR EXAM: Male, 67 years old. ? 1-2 MM ANEURYSM LT INTERNAL CAROTID SEEN ON MRI, HX-CAD, CO, CVA, HTN, DB. RADIATION DOSAGE (If Supplied By Facility): CTDIvol = ( 30.44 ) mGy, DLP = ( 1606.53 ) mGycm TECHNIQUE: CT angiography with multi-detector data acquisition was performed from the aortic arch to the skull base following intravenous administration of 100 ml of Isovue 370 contrast. MIP images were reconstructed from the axial data set. Post-processing of the angiographic images was performed, with multiplanar reformation and 3D reconstruction. Individualized dose optimization techniques were used for this CT. COMPARISON: None. FINDINGS: AORTIC ARCH: There is mild atherosclerotic calcification of the aorta RIGHT CAROTID ARTERIES: Normal right common carotid artery (CCA). There is mild atherosclerotic plaque formation with minimal narrowing of the right carotid bulb. Normal origin of the right internal carotid (ICA) artery without a hemodynamically significant stenosis. Normal visualized cervical portion of the right internal carotid artery. Normal origin of the right external carotid artery (ECA). LEFT CAROTID ARTERIES: Normal left common carotid artery (CCA). There is mild atherosclerotic plaque formation with minimal narrowing of the left carotid bulb. There is mild atherosclerotic plaque formation of the origin of the left internal carotid artery with less than 50% cross sectional diameter stenosis. Normal visualized cervical portion of the left internal carotid artery. Normal origin of the left external carotid artery (ECA). VERTEBRAL ARTERIES: Normal bilateral vertebral arteries. CT/CTA Neck W/WO Contrast IMPRESSION: Less than 50% stenosis of the left ICA. Electronically Signed: Benji Echols MD at 15:29 EDT Tel , Service support , CC: Irene Thompson MD; Shimon Arias MD Speeder Frame Tender: Signed PROTHROMBIN TIME W/INR Collected: 08/31/2017 Status: F Source: ARLENE 6:53 AM [facility] REPOSITORY TYPE CODE TESTS RESULT OUT OF RANGE REFERENCE UNITS LAB L300.4150 11.7-14.9 SECONDS Normal PROTIME 13.1 LAB L300.4200 Normal INR 1.0 Performed By: #### L300.3900 #### [facility] [address] [place], [place], [address] BASIC METABOLIC Collected: 08/31/2017 Status: F Source: TROPIC PROFILE (BMP) 6:53 AM [facility] REPOSITORY TYPE CODE TESTS RESULT OUT OF RANGE REFERENCE UNITS LAB L501.0100 74-106 mg/dL High GLU 228 Result Comment: Glucose result greater than or equal to 200 mg/dL suggests DIABETES MELLITUS per A.D.A. criteria. Please note revised GLUCOSE reference range effective 2017. LAB L501.1000 7-18 mg/dL High BUN 23 LAB L501.1100 0.70-1.30 mg/dL Normal CREAT,SERUM 1.02 Result Comment: The validity of the calculated GFR AND GFRAA in patients over 70 years has not been determined. Clinical correlation is essential. LAB L501.1110 >60 mL/min Normal EST GFR 78 Result Comment: Non- GFR Calc LAB L501.1115 >60 mL/min Normal EST GFR - AA 94 Result Comment: GFR Calc LAB L501.1255 ml/min Normal Estimated CRCL 72.20 LAB L501.1300 10-20 RATIO High BUN/CRE 22.5 LAB L501.2200 8.5-10 mg/dL Normal .1 CA 8.7 LAB L501.5300 136-14 mmol/L Normal 5 NA 138 LAB L501.5600 3.5-5. mmol/L Normal 1 K 4.0 LAB L501.5900 98-107 mmol/L Normal CL 105 LAB L501.6100 21.0-3 mmol/L Normal 2.0 CO2 25.0 LAB L501.6200 5-15 Normal GAP 8 Performed By: #### L500.2500, L500.4100 #### [facility] [address] [place], [address] LIPID PROFILE Collected: 08/31/2017 Status: F Source: ARLENE 6:53 AM [facility] REPOSITORY TYPE CODE TESTS RESULT OUT OF RANGE REFERENCE UNITS LAB L501.4900 200 mg/dL Normal CHOL 126 Result Comment: <200 mg/dL Desirable 200-240 mg/dL Borderline >240 mg/dL High Risk LAB L501.5000 mg/dL Normal TRIG 87 Result Comment: The drugs N-Acetylcysteine and Metamizole may falsely depress this assay. Serum Triglycerides Reference Interval Normal <150 mg/dL Borderline high 150 - 199 mg/dL High 200 - 499 mg/dL Very High > or = 500 mg/dL LAB L501.6400 mg/dL Low HDL 36 Result Comment: The drugs N-Acetylcysteine and Metamizole may falsely depress this assay. Reference Range HDL <40 mg/dL Low HDL Cholesterol HDL >or= 60 mg/dL High HDL Cholesterol LAB L501.6500 0-130 mg/dL Normal LDL 73 LAB L501.6600 5-40 mg/dL Normal VLDL 17 Performed By: #### L500.2500, L500.4100 #### [facility] [address] [place], [address] BEDSIDE GLUCOSE Collected: 08/31/2017 Status: F Source: ARLENE 6:44 AM [facility] REPOSITORY TYPE CODE TESTS RESULT OUT OF REFERENCE UNITS RANGE LAB L501.080 70-110 mg/dL High BEDSIDE GLU 223 Result Comment: MANAGEMENT OF PATIENT CARE PER NURSING PROTOCOL Performed By: #### L501.080 #### [facility] Point of Care [address] [place] [address] HISTORY AND PHYSICAL Observed: 08/30/2017 Status: F Source: ARLENE EXAM 5:49 PM [facility] REPOSITORY [facility] Medical Records Department [address] [place] [address] History and Physical 08/30/17 1230 MR#: [id number] Acct: [id number] Name: SUKI OKEEFE Rep #: [id number] : 1950 67 From: Irene Thompson MD PCP: Shimon Arias MD Status: ADM IN Y Location: [place] [address] Problem List (1) HTN (hypertension) Status: Chronic Qualifiers: Hypertension type: essential hypertension Qualified Code(s): I10 - Essential (primary) hypertension (2) Type 2 diabetes mellitus Status: Chronic Qualifiers: Diabetes 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 Patient is a poor historian. He lives alone, was driving home when he was pulled over for weaving in and out of traffic. He appeared confused to the piece of is a. And was brought to the emergency department. Patient does not remember so will events prior to that. He remembers being pulled over. He denies any dizziness or palpitations or chest pain. His vitals in the emergency room was 90 7.5F, heart rate 89, blood pressure 155/88, respiratory 16, SPO2 is 98% on room air. Laboratory investigations with unremarkable, WBC count of 5.4, Hb 13.0, platelets of 559. INR 0.9, sodium 138, potassium 4.2, chloride 105, bicarbonate 26, BUN 27, creatinine 1.11. He had a initial CT scan of the brain that showed chronic inflammatory changes. Past Medical History Past Medical History (Chronic Problems): Chronic Problems HTN (hypertension) (Chronic) NSTEMI (non-ST elevation myocardial infarction) (Chronic) Type 2 diabetes mellitus (Chronic) Allergies No Known Allergies Allergy (Verified 08/30/17 10:22) Home Medications: Ambulatory Orders Medication Instructions Recorded Metformin HCl 1,000 mg PO BIDCM 04/21/17 Surgical History: - - Foot surgery Psychiatric History: No pertinent psych hx Lives: Alone Smoking Status: Never smoker Tobacco Use: Non-smoker Alcohol: None Drugs: None - *Family History Maternal History Items: Unknown Paternal History Items: Unknown Sibling History Items: Unknown Review of Systems Constitutional: Denies: Anorexia, Chills, Fever, Weakness, Weight Change Eyes: Denies: Blurred vision, Cataracts, Conjunctivae Inflammation, Double vision, Pain, Redness HEENT: Denies: Difficulty Hearing, Difficulty Swallowing, Head Aches, Hearing Changes, Nasal bleeding, Sinus Congestion, Sinus Drainage Cardiovascular: Denies: Chest Pain, Claudication, Chest Pressure, Chest Tightness, Orthopnea, Palpitations, Paroxysmal Noc. Dyspnea Respiratory: Denies: Cough, Hemoptysis, Pleuritic Pain, Shortness of breath at rest, Shortness of breath upon exertion, Sputum production Gastrointestinal: Denies: Abdominal Pain, Constipation, Hematemesis, Nausea, Vomiting Genitourinary: Denies: Dysuria, Frequency, Incontinence, Nocturia Musculoskeletal: Denies: Arm Pain, Back Pain, Joint Pain, Joint stiffness, Joint swelling, Joint Tenderness Skin: Denies: Pruritis, Rash, Wounds Neurological: Denies: Numbness, Tingling, Focal weakness Psychiatric: Denies: Anxiety, Depression, Homicidal Ideations, Suicidal Ideations Hematologic/ Lymphatic: Denies: Easy Bruising, Easy Bleeding VTE Information - Inpt Only VTE Present on Admission: No VTE Pharm Prophylaxis ordered?: Yes - Physical Exam General: Alert, Oriented x3, Cooperative HEENT: Atraumatic, PERRLA, EOMI, Normocephalic Oral: Dry Mucosa Neck: Supple Lungs: Clear to auscultation, Normal air movement Cardiovascular: Regular rate, Regular Rhythm, Normal S1, Normal S2, No murmurs Abdomen: Bowel Sounds Present, Soft, Non Tender, Non-Distended, No Hepato-splenomegaly Extremities: No edema, Capillary Refill Less than 3 Seconds Skin: No rashes Musculoskeletal: No Tenderness to Palpation of Joints or Extremities Lymphatic: No Cervical, Supraclavicular, or Inguinal Adenopathy Neurological: Cranial nerves II-XII grossly intact, Neuro grossly intact Psych/Mental Status: Normal Affect, Appropriate Vital Signs Temp Pulse Resp BP Pulse Ox 97.5 F L 83 21 H 158/92 H 98 08/30/17 10:17 08/30/17 11:53 08/30/17 11:53 08/30/17 11:53 08/30/17 11:53 Oxygen Delivery Method Room Air Weight: 85.5 kg Body Mass Index (BMI) 27.8 Finger Stick Blood Glucose 136 Laboratory Tests Past 24 Hrs WBC 5.4 RBC 3.96 L POC Glucose POC Glucose 136 H Assessment/Plan All Active Problems Acute ischemic stroke (Acute) Encephalopathy (Acute) Confusion (Acute) Acute renal insufficiency (Acute) 67 year old M with PMHx of Type 2DM, hypertension, history of CVA, CAD status post CO comes in with altered mental status/confusion. 1. Altered mental status/acute metaboli encephalopathy, unclear etiology, patient admitting CT scan was negative, MRI was unremarkable, blood work was unremarkable. Patient was said to have had a focal neurological deficit in the ED with pronator drift of the left arm as well as the right leg drift was and NIH scale of 2. This is apparently absent by the time patient came to the medical floor. Neurology consulted, will continue patient on aspirin, will follow-up on 2D echo, statins, PT and OT to evaluate 2. Hypertension, not on medications, blood pressure slightly elevated, will continue to observe for now 3. Type II DM, on metformin, would hold metformin, would put on Accu-Cheks with insulin sliding scale 4. CAD status post CO, continue on aspirin, statin 5. DVT prophylaxis with Lovenox subcu Code Visit Inpatient E AND M: [id number] Init Hosp L3 08/30/17 1749 <Electronically signed by Irene Thompson MD> Date Irene Thompson MD Cosigner Signature: Date (if applicable) CC: Irene Thompson MD; Shimon Arias MD Signed BEDSIDE GLUCOSE Collected: 08/30/2017 Status: F Source: ARLENE 5:15 PM [facility] REPOSITORY TYPE CODE TESTS RESULT OUT OF REFERENCE UNITS RANGE LAB L501.080 70-110 mg/dL High BEDSIDE GLU 170 Result Comment: MANAGEMENT OF PATIENT CARE PER NURSING PROTOCOL Performed By: #### L501.080 #### [facility] Point of Care [address] [place] [address] TROPONIN-I Collected: 08/30/2017 Status: F Source: TROPIC 5:09 PM [facility] REPOSITORY Order Comment: 'TROP' Serial specimen #1, #2 or #3: 3 TYPE CODE TESTS RESULT OUT OF RANGE REFERENCE UNITS LAB L501.4010 <0.045 ng/mL Normal < 0.015 TROPONIN-I Result Comment: TROPONIN-I EXPECTED VALUES <0.045 Negative 0.045 - 0.590 Consistent with Cardiac Damage > OR = 0.600 Critical Value Not every elevated troponin is indicative of CO. These values should be used with clinical judgement in examining the patient's clinical picture for diagnosis. To establish a diagnosis of CO versus myocardial injury, there must be a demonstrated rise and/or fall in the troponin values, in addition to ischemic symptoms, EKG changes, new regional wall motion abnormality, and/or angiographical evidence. PLEASE NOTE: REFERENCE RANGES EDITED 17 Performed By: #### L501.4010 #### [facility] [address] [facility] [place], [address] ECHOCARDIOGRAM COMPLETE Observed: 08/30/2017 Status: F Source: TROPIC 4:34 PM [facility] REPOSITORY [facility] Cardiovascular Services [address] [place] [address] Echo Complete 08/30/17 1355 MR#: [id number] Acct: [id number] Name: SUKI OKEEFE Rep #: [id number] : 1950 67 From: Chris Quinteros MD Attending Dr: Irene Thompson MD Status: ADM IN Ordering Dr: Irene Thompson MD Date: 08/30/17 Location: U Sex: M C Admitted: 08/30/17 Reason For Study: TIA/CVA Procedure This was a 2D Doppler, Color Flow transthoracic echocardiogram. The study was technically difficult. Exam performed portable in patient room. Left Ventricle Normal LV size. Left ventricular systolic function is normal. The estimated ejection fraction is 60 %. Transmitral diastolic flow velocities suggest mild (stage 1) diastolic dysfunction (reversed pattern). No regional wall motion abnormalities noted. Aortic Valve Trisinus/trileaflet aortic valve. Pulmonic Valve The pulmonic valve is not well visualized. Great Vessels Mildly dilated aortic root. The pulmonary artery is normal size. Normal inferior vena cava. Pericardium/Pleural No pericardial effusion. MMode/2D Measurements AND Calculations LVOT diam: 2.0 cm Ao root diam: 3.8 cm LAV(MOD-bp): 37.5 ml LVOT area: 3.1 cm2 ACS: 1.2 cm LAV(MOD-sp2): 31.6 ml LAV(MOD-sp4): 45.2 ml LVAd ap4: 24.8 cm2 SV(MOD-sp4): 38.0 ml SV(sp4-el): 37.6 ml EDV(MOD-sp4): 66.3 ml EDV(sp4-el): 66.7 ml LVAs ap4: 14.4 cm2 ESV(MOD-sp4): 28.3 ml ESV(sp4-el): 29.1 ml EF(MOD-sp4): 57.4 % EF(sp4-el): 56.4 % LA A4 area: 15.7 cm2 RA A4 area: 11.3 cm2 Time Measurements MV dec time: 0.25 sec Doppler Measurements AND Calculations MV E max martita: 59.9 cm/sec Lat Peak E' Martita: 3.9 cm/sec Med Peak E' Martita: 3.0 cm/sec MV A max martita: 113.2 cm/sec E/E' lat: 15.2 E/E' med: 20.2 MV E/A: 0.53 MV V2 max: 143.5 cm/sec MV P1/2t max martita: 73.2 cm/sec Ao V2 max: 127.1 cm/sec MV max P.2 mmHg MV P1/2t: 52.6 msec Ao max P.5 mmHg MV V2 mean: 74.9 cm/sec MV dec slope: 407.9 cm/sec2 Ao V2 mean: 76.4 cm/sec MV mean P.6 mmHg MVA(P1/2t): 4.2 cm2 Ao mean P.8 mmHg MV V2 VTI: 24.7 cm Ao V2 VTI: 22.0 cm MVA(VTI): 2.1 cm2 KARINA(I,D): 2.4 cm2 KARINA(V,D): 2.1 cm2 LV V1 max: 86.7 cm/sec SV(LVOT): 52.3 ml PA V2 max: 83.8 cm/sec LV V1 max P.0 mmHg LV V1 mean P.5 mmHg LV V1 mean: 57.1 cm/sec LV V1 VTI: 16.9 cm Interpretation Summary Normal LV size. Left ventricular systolic function is normal. The estimated ejection fraction is 60 %. Transmitral diastolic flow velocities suggest mild (stage 1) diastolic dysfunction (reversed pattern). Mildly dilated aortic root. Ordering Physician: Irene Thompson Referring Physician: Shimon Arias M.D. Performed By: Yann Ruby RCS 08/30/17 1633 Date Chris Quniteros MD CC: Irene Thompson MD; Shimon Arias MD Date Dictated: 08/30/17 1355 Date Transcribed: 08/30/17 1633 Speeder Frame Tender: Signed EMERGENCY DEPARTMENT Observed: 08/30/2017 Status: F Source: TROPIC SUMMARY 2:34 PM [facility] REPOSITORY [facility] Medical Records Department [address] [place] [address] Emergency Department Summary 08/30/17 1047 MR#: [id number] Acct: [id number] Name: SUKI OKEEFE Rep #: [id number] : 1950 67 From: Silvano Siegel MD PCP: Shimon Arias MD Status: ADM IN - ER Visit Summary Date of Service: 08/30/17 Chief Complaint: Confusion History of Present Illness: The patient is a 67 M who was driving home, he was pulled over for weaving in and out of traffic. He seemed confused to the mounted police officer and was sent to the emergency department. Now he feels like he is back to baseline, although he does not remember the episode of confusion but he does remember being pulled over. He denies any weakness. He denies any vision changes. No paresthesias. Physical Examination: Not appear in acute distress. Slightly dry mucous membranes, no obvious facial deformity No C-spine tenderness supple neck. Regular rate and rhythm without any obvious murmurs Clear lungs bilaterally speaking in full sentences without any obvious respiratory distress Abdomen soft and nontender no guarding or rebound Skin is unremarkable. Patient does have significant neurological findings. He has a pronator drift of the left arm as well as a right leg drift. His NIH stroke scale is 2. Emergency Department Course and Treatment: Patient is found to have an unremarkable CAT scan, blood work is unremarkable. Regardless he has objective focal neurological deficits on the NIH stroke scale. Because of this I will admit for stroke workup. Disposition: Admit in stable condition Impression: Acute stroke symptoms This note was generated with RECESS. dictation software. It may contain incorrect words, spelling, and punctuation that were not noted in review of the chart prior to signing ED Disposition - Plan for ED Patient: Chief Complaint: Neuro S/Sx Referrals: Shimon Arias MD [Primary Care Provider] - What to do if you have Problems For any increased pain, shortness of breath, bleeding, nausea or vomiting, chest pain, or any unexpected problems, contact your Primary Care Provider. Call [facility] [employer] [facility] ([phone]) or report to the closest Emergency Room. Call 911 if necessary. 08/30/17 1434 <Electronically signed by Silvano Siegel MD> Date Silvano Siegel MD Cosigner Signature (If Indicated): Date CC: Shimon Arias MD TROPONIN-I Collected: 08/30/2017 Status: F Source: ARLENE 1:55 PM [facility] REPOSITORY Order Comment: 'TROP' Serial specimen #1, #2 or #3: 2 TYPE CODE TESTS RESULT OUT OF RANGE REFERENCE UNITS LAB L501.4010 <0.045 ng/mL Normal < 0.015 TROPONIN-I Result Comment: TROPONIN-I EXPECTED VALUES <0.045 Negative 0.045 - 0.590 Consistent with Cardiac Damage > OR = 0.600 Critical Value Not every elevated troponin is indicative of CO. These values should be used with clinical judgement in examining the patient's clinical picture for diagnosis. To establish a diagnosis of CO versus myocardial injury, there must be a demonstrated rise and/or fall in the troponin values, in addition to ischemic symptoms, EKG changes, new regional wall motion abnormality, and/or angiographical evidence. PLEASE NOTE: REFERENCE RANGES EDITED 17 Performed By: #### L501.4010 #### [facility] [address] [place], [address] MRA NECK WITHOUT Observed: 08/30/2017 Status: F Source: TROPIC CONTRAST 1:19 PM [facility] REPOSITORY [facility] Imaging Services [address] [place] [address] MRA Neck without Contrast MR#: [id number] Acct: [id number] Name: SUKI OKEEFE Rep #: [id number] : 1950 M 67 From: Arnold Schmitt MD PCP: Shimon Arias MD Status: ADM IN Study: MRA Neck without Contrast Date of Exam: 08/30/17 Exam# [id number] Ordering Dr: Irene Thompson MD STUDY: MRA NECK WITHOUT CONTRAST REASON FOR EXAM: Male, 67 years old. November 16, 2013 TECHNIQUE: Source images were obtained, MIPs were performed. The study was performed unenhanced. COMPARISON: November 16, 2013 FINDINGS: RIGHT CAROTID ARTERIES: Normal right common carotid artery (CCA). Normal right common carotid bulb. Normal origin of the right internal carotid (ICA) artery without a hemodynamically significant stenosis. Normal visualized cervical portion of the right internal carotid artery. Normal origin of the right external carotid artery (ECA). LEFT CAROTID ARTERIES: Normal left common carotid artery (CCA). Normal left common carotid bulb. Normal origin of the left internal carotid (ICA) artery without a hemodynamically significant stenosis. Normal visualized cervical portion of the left internal carotid artery. Normal origin of the left external carotid artery (ECA). VERTEBRAL ARTERIES: Normal antegrade flow within the bilateral vertebral artery without a hemodynamically significant stenosis. IMPRESSION: Motion limited exam but grossly Normal bilateral cervical carotid and vertebral arteries. Electronically Signed: Arnold Schmitt MD at 16:22 EDT , Service support , MRI/MRA Neck without Contrast CC: Irene Thompson MD; Shimon Arias MD Speeder Frame Tender: Signed BRAIN WITHOUT Observed: 08/30/2017 Status: F Source: ARLENE CONTRAST 1:19 PM [facility] REPOSITORY [facility] Imaging Services [address] [place] [address] Brain without Contrast MR#: [id number] Acct: [id number] Name: SUKI OKEEFE Rep #: [id number] : 1950 M 67 From: Arnold Schmitt MD PCP: Shimon Arias MD Status: ADM IN Study: Brain without Contrast Date of Exam: 08/30/17 Exam# [id number] Ordering Dr: Irene Thompson MD STUDY: MRI BRAIN WITHOUT CONTRAST REASON FOR EXAM: Male, 67 years old. Altered mental status TECHNIQUE: Standardized multiplanar fat and water weighted pulse sequences were obtained. COMPARISON: August 30, 2017 CT brain and MR brain November 11, 2013 FINDINGS: There is moderate cerebral atrophy with widening of the extra- axial spaces and ventricular dilatation. There are multiple white matter hyperintensities, distributed throughout the deep white matter tracts of the cerebral hemispheres, consistent with moderate chronic white matter ischemic changes. There is no evidence for recent intracranial ischemia or other cause of cytotoxic edema on diffusion weighted imaging (DWI). There are prominent perivascular spaces (PVS) involving the basal ganglia. Remote lacunar infarcts are noted in the thalami bilaterally. There is no extra-axial fluid accumulation. Normal flow voids within the major intracranial circulation suggesting patency by spin echo criteria. Normal sella turcica, pituitary gland, infundibular stalk, optic chiasm and hypothalamus. Normal tectal plate and pineal gland. Normal midbrain, sloane and medulla. Remote lacunar infarcts noted in the left cerebellar hemisphere. Normal basal cisterns. Normal bilateral temporal bones. Normal bilateral internal auditory canals. Ocular prosthesis on the right. Normal visualized paranasal sinuses. Normal calvarium and skull base. Normal visualized soft tissue structures. Normal visualized upper cervical spine. MRI/Brain without Contrast IMPRESSION: Involutional changes of the brain, as described above. Electronically Signed: Arnold Schmitt MD at 16:36 EDT , Service support , CC: Irene Thompson MD; Shimon Arias MD Speeder Frame Tender: Signed MRA HEAD ONLY WITHOUT Observed: 08/30/2017 Status: F Source: TROPIC CONTRAST 1:19 PM [facility] REPOSITORY [facility] Imaging Services [address] [place] [id number] MRA Head ONLY without Contrast MR#: [id number] Acct: [id number] Name: SUKI OKEEFE Rep #: [id number] : 1950 M 67 From: Arnold Schmitt MD PCP: Shimon Arias MD Status: ADM IN Study: MRA Head ONLY without Contrast Date of Exam: 08/30/17 Exam# [id number] Ordering Dr: Irene Thompson MD STUDY: MRA OF THE HEAD WITHOUT CONTRAST REASON FOR EXAM: Male, 67 years old. Altered mental status TECHNIQUE: 3-D oszp-hc-udvpma (TOF) imaging was performed with MIPs. The study was performed unenhanced. COMPARISON: MRA brain November 16, 2013 FINDINGS: Normal bilateral petrous carotid arteries. Normal right cavernous carotid artery with a normal supraclinoid bifurcation. There may be a 1 to 2 mm aneurysm along the anterior lateral aspect of the cavernous segment on the left. Normal right A1 segments of the anterior cerebral artery. Normal left A1 segments of the anterior cerebral artery. Normal intact anterior communicating artery (ACOM). Normal bilateral A2 segments of the anterior cerebral arteries. Normal right M1 and M2 segments of the middle cerebral arteries, with a normal M1 bifurcation. Normal left M1 and M2 segments of the middle cerebral arteries, with a normal M1 bifurcation. Normal right posterior communicating artery (PCOM). Normal left posterior communicating artery (PCOM). Normal bilateral vertebral arteries. Normal basilar artery with a normal basilar bifurcation. The visualized bilateral superior cerebellar (SCA) arteries are normal. Normal bilateral P1, P2 and visualized P3 segments of the posterior cerebral arteries. There is no demonstrated aneurysm of the [place]. There is no major vessel occlusion or hemodynamically significant stenosis. There is no demonstrated abnormality of the visualized brain. 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 Follow-up CTA May BE helpful if clinically warranted. Electronically Signed: Arnold Schmitt MD at 16:47 EDT , Service support , CC: Irene Thompson MD; Shimon Arias MD Speeder Frame Tender: Signed PROTHROMBIN TIME W/INR Collected: 08/30/2017 Status: F Source: ARLENE 10:50 AM [facility] REPOSITORY TYPE CODE TESTS RESULT OUT OF RANGE REFERENCE UNITS LAB L300.4150 11.7-14.9 SECONDS Normal PROTIME 12.5 LAB L300.4200 Normal INR 0.9 Performed By: #### L300.3900, L300.4310 #### [facility] [address] [facility]. [place], [place], [id number] PARTIAL THROMBOPLAST Collected: 08/30/2017 Status: F Source: ARLENE TIME 10:50 AM [facility] REPOSITORY TYPE CODE TESTS RESULT OUT OF RANGE REFERENCE UNITS LAB L300.4310 24.1-36.2 Seconds Normal PTT 25.2 Performed By: #### L300.3900, L300.4310 #### [facility] [address] [place], [address] BASIC METABOLIC Collected: 08/30/2017 Status: F Source: ARLENE PROFILE (BMP) 10:50 AM [facility] REPOSITORY TYPE CODE TESTS RESULT OUT OF RANGE REFERENCE UNITS LAB L501.0100 74-106 mg/dL High GLU 129 Result Comment: Fasting Glucose result greater than or equal to 126 mg/dL suggests DIABETES MELLITUS per A.D.A. criteria. Please note revised GLUCOSE reference range effective 2017. LAB L501.1000 7-18 mg/dL High BUN 27 LAB L501.1100 0.70-1.30 mg/dL Normal CREAT,SERUM 1.11 Result Comment: The validity of the calculated GFR AND GFRAA in patients over 70 years has not been determined. Clinical correlation is essential. LAB L501.1110 >60 mL/min Normal EST GFR 71 Result Comment: Non- GFR Calc LAB L501.1115 >60 mL/min Normal EST GFR - AA 86 Result Comment: GFR Calc LAB L501.1255 ml/min Normal Estimated CRCL 66.35 LAB L501.1300 10-20 RATIO High BUN/CRE 24.3 LAB L501.2200 8.5-10 mg/dL Normal .1 CA 9.1 LAB L501.5300 136-14 mmol/L Normal 5 NA 138 LAB L501.5600 3.5-5. mmol/L Normal 1 K 4.2 LAB L501.5900 98-107 mmol/L Normal CL 105 LAB L501.6100 21.0-3 mmol/L Normal 2.0 CO2 26.0 LAB L501.6200 5-15 Normal GAP 7 Performed By: #### L500.2500, L501.4010 #### [facility] [address] [place], [address] TROPONIN-I Collected: 08/30/2017 Status: F Source: TROPIC 10:50 AM [facility] REPOSITORY TYPE CODE TESTS RESULT OUT OF RANGE REFERENCE UNITS LAB L501.4010 <0.045 ng/mL Normal < 0.015 TROPONIN-I Result Comment: TROPONIN-I EXPECTED VALUES <0.045 Negative 0.045 - 0.590 Consistent with Cardiac Damage > OR = 0.600 Critical Value Not every elevated troponin is indicative of CO. These values should be used with clinical judgement in examining the patient's clinical picture for diagnosis. To establish a diagnosis of CO versus myocardial injury, there must be a demonstrated rise and/or fall in the troponin values, in addition to ischemic symptoms, EKG changes, new regional wall motion abnormality, and/or angiographical evidence. PLEASE NOTE: REFERENCE RANGES EDITED 17 Performed By: #### L500.2500, L501.4010 #### [facility] [place], [address] CBC W/DIFF, AUTOMATED Collected: 08/30/2017 Status: F Source: ARLENE 10:50 AM [facility] REPOSITORY TYPE CODE TESTS RESULT OUT OF RANGE REFERENCE UNITS LAB L100.1000 4.4-11.0 K/mm3 Normal WBC 5.4 LAB L100.1200 4.6-6.2 M/mm3 Low RBC 3.96 LAB L100.1300 13.0-16.5 g/dl Normal HGB 13.0 LAB L100.1400 40-54 % Low HCT 37.8 LAB L100.1500 80-94 fL High MCV 95.5 LAB L100.1600 27.0-32.0 pg High MCH 32.8 LAB L100.1700 32-36 g/gl Normal MCHC 34.4 LAB L100.1810 11.6-14.6 % Normal RDW CV 12.5 LAB L100.1820 35.1-43.9 fl Normal RDW SD 43.1 LAB L100.1900 150-450 K/mm3 Normal PLT 159 LAB L100.2000 6.2-12.0 fl Normal MPV 8.8 LAB L100.2100 47-70 % Normal NEUT% 68.0 LAB L100.2200 19-41 % Normal LY% 19.4 LAB L100.2300 0-10 % Normal MONO% 9.9 LAB L100.2400 0-5 % Normal EO% 2.1 LAB L100.2500 0-1 % Normal BASO% 0.2 LAB L100.2550 0.0-0.9 % Normal IM GRAN % 0.400 Result Comment: IG% - Immature Granulocytes (promyelocytes, myelocytes and metamyelocytes) > 1% indicates that a LEFT SHIFT is Present. LAB L100.2620 2.0-7.7 X10 3/uL Normal Absolute Neut 3.6 LAB L100.2720 0.83-4.51 X10 3/ul Normal Absolute Lymph 1.04 LAB L100.4500 Normal SMEAR COMMENT COMMENT Result Comment: SLIDE SCANNED - 1+ LARGE PLTS SEEN. Performed By: #### L100.0100 #### [facility] [address] [place], [address] BRAIN/HEAD WITHOUT Observed: 08/30/2017 Status: F Source: TROPIC CONTRAST 10:41 AM [facility] REPOSITORY [facility] Imaging Services [address] [place] [address] Brain/Head without Contrast MR#: [id number] Acct: [id number] Name: SUKI OKEEFE Rep #: [id number] : 1950 M 67 From: Reese Segura MD PCP: Shimon Arias MD Status: REG ER Study: Brain/Head without Contrast Date of Exam: 08/30/17 Exam# [id number] Ordering Dr: Silvano Siegel MD STUDY: CT BRAIN WITHOUT CONTRAST REASON FOR EXAM: Male, 67 years old. Mental status changes. RADIATION DOSAGE (If Supplied By Facility): CTDIvol = ( 60.81 ) mGy, DLP = ( 1089.89 ) mGycm TECHNIQUE: Transaxial CT imaging of the brain was performed without administration of intravenous contrast material. Individualized dose optimization techniques were used for this CT. COMPARISON: Comparison is made with prior study dated September 05, 2015. FINDINGS: Normal soft tissue structures. Normal calvarium. There is moderate cerebral atrophy with widening of the extra- axial spaces and ventricular dilatation. There are areas of decreased attenuation within the white matter tracts of the supratentorial brain, consistent with microvascular disease changes. Old lacunar infarcts of the thalami bilaterally. Normal brainstem. Normal cerebellum. There is no intracranial hemorrhage. There are no findings of an acute ischemic infarction. Nodular mucosal thickening of the maxillary sinuses and ethmoid sinuses bilaterally. Stable increased density of the right globe most likely prosthetic. CT/Brain/Head without Contrast IMPRESSION: Chronic involutional changes of the brain. Electronically Signed: Reese Segura MD at 11:25 EDT Tel [phone], Service support , CC: Shimon Arias MD; Silvano Siegel MD Speeder Frame Tender: Signed BEDSIDE GLUCOSE Collected: 08/30/2017 Status: F Source: TROPIC 10:29 AM [facility] REPOSITORY TYPE CODE TESTS RESULT OUT OF REFERENCE UNITS RANGE LAB L501.080 70-110 mg/dL High BEDSIDE GLU 136 Result Comment: MANAGEMENT OF PATIENT CARE PER NURSING PROTOCOL Performed By: #### L501.080 #### [facility] Point of Care [address] [place] [address] PROGRESS Observed: 2017 Status: COMPLETED Source: VICI 4:26 PM [facility] [place] REPOSITORY HNO ID: [id number] Author: Lauren Graff Service: (none) Author Type: Registered Nurse Type: Progress Notes Filed: 09/01/2017 3:07 PM Note Text: PRIMARY CARE COORDINATION IN OFFICE VISIT WITH PCP Patient has been identified by name and date of . PCP Assessment/Plan: Reviewed PCP plan with patient using [facility] Continue meds per [facility]. A1c slowly coming down PCC Plan of Care: Patient concerns: Hasn't had eye exam in a while. Eyes are blurry. Not sure who he has seen. Patient goals: Has had some lows in AM but will decrease his Lantus per Werner. PCC Interventions: Schedule appt with [facility]. Next Office Visit: 12/27/2017 Plan For Next Call: with Eye Center appt Lauren Graff motion study engineer Director Family Internal Medicine [facility] 2017 PROGRESS Observed: 2017 Status: COMPLETED Source: VICI 3:51 PM [facility] REPOSITORY HNO ID: [id number] Author: Shimon Arias Service: (none) Author Type: Physician Type: Progress Notes Filed: 09/09/2017 1:25 AM Note Text: Patient presents with: Recheck: 4 month follow up SUBJECTIVE: Suki Okeefe is a 67 year old year old gentleman here today for 4 month follow up appointment for review of medical conditions. Sugars doing better Some lows Werner Kennedy adjusted meds with him today. PAST MEDICAL HISTORY Diagnosis Date - Angina pectoris (HCC) - Diabetes mellitus without mention of complication Diabetes mellitus - Hemiparesis due to recent stroke ([facility]) 11/2013 left leg weakness on admission; has felt weak all over today; some increased confusion today - HYPERTENSION NOS 01/28/2006 - Non-STEMI (non-ST elevated myocardial infarction) (HCC) 10/27/2013 - NSTEMI (non-ST elevated myocardial infarction) ([facility]) 10/2013 - Other and unspecified hyperlipidemia 08/24/2008 - Proliferative diabetic retinopathy, right eye (HCC) 09/20/[address] Mireles at the [facility] - Proteinuria 03/01/2010 Persistent elevation, 2007 - 111, and 02/2010 330. - Retinopathy due to secondary diabetes mellitus (HCC) 08/16/2009 - Type II or unspecified type diabetes mellitus with peripheral circulatory disorders, not stated as uncontrolled(250.70) Current Outpatient Prescriptions: insulin glargine (LANTUS SOLOSTAR U-100 INSULIN) 100 unit/mL (3 mL) inpn Inject 42 Units subcutaneously every morning. Cellcrypt PAP blood sugar diagnostic (RELION PRIME TEST STRIPS) test strip Use as instructed to check blood sugar twice daily metFORMIN (GLUCOPHAGE) 1,000 mg tablet TAKE 1 TABLET BY MOUTH TWICE A DAY WITH MEALS atorvastatin (LIPITOR) 40 mg tablet Take 1 tablet by mouth once daily. lisinopril 2.5 mg tablet TAKE 1 TABLET BY MOUTH DAILY metoprolol tartrate, short acting, (LOPRESSOR) 25 mg tablet Take 1 tablet by mouth twice daily. aspirin, enteric coated (ASPIRIN, ENTERIC COATED) 81 mg EC tablet Take 1 tablet by mouth once daily. Insulin [place], Disposable, (AJAY PEN NEEDLE) 32 gauge x 5/32 ndle Use as directed once daily with insulin DM:yes Insulin: yes DX: E11.51 Lancets (RELION ULTRA THIN PLUS LANCETS) lancets Use as instructed to check blood sugar BID. (E11.51, E11.65) DM (diabetes mellitus) type II uncontrolled, periph vascular disorder ([facility]) No current facility-administered medications for this visit. Social History Marital status: Single Spouse name: Years of education: Number of children: Social History Main Topics Smoking status: Former Smoker Packs/day: 0.00 Years: 0.00 Smokeless tobacco: Never Used Comment: quit 20 years ago OBJECTIVE: BP 124/76 Pulse 64 Resp 16 Wt 84.4 kg (186 lb) BMI 29.57 kg/m? Patient is alert, oriented times 3, no apparent distress, affect is bright, reactive. Last 5 Encounter BP Readings: Date: BP: 2017 124/76 07/23/2017 112/60 06/12/2017 108/55 05/13/2017 112/63 04/25/2017 142/70 Last 5 Encounter Wt Readings: Date: Wt: 2017 84.4 kg (186 lb) 04/25/2017 88 kg (194 lb) 03/29/2017 89.4 kg (197 lb) 12/07/2016 91.6 kg (202 lb) 07/25/2016 93.4 kg (206 lb) Heart: Regular rate, rhythm, no murmurs, gallops, rubs. Lungs: Clear to auscultation, bilaterally, breathing non labored. Ext: No cyanosis, clubbing, or edema. Component Latest Ref Rng AND Units 11/12/2016 03/05/2017 06/12/2017 Protein, Total 6.3 - 8.0 g/dL 7.4 6.7 Albumin 3.9 - 4.9 g/dL 3.9 3.6 (L) Calcium 8.5 - 10.2 mg/dL 10.4 (H) 9.2 8.4 (L) Bilirubin, Total 0.2 - 1.3 mg/dL 0.2 <0.2 (L) Alkaline Phosphatase 36 - 108 U/L 84 83 AST 14 - 40 U/L 17 15 Glucose 74 - 99 mg/dL 151 (H) 303 (H) 415 (H) BUN 9 - 24 mg/dL 31 (H) 26 (H) 30 (H) Creatinine 0.73 - 1.22 mg/dL 1.22 1.23 (H) 1.16 Sodium 136 - 144 mmol/L 141 135 (L) 132 (L) Potassium 3.7 - 5.1 mmol/L 4.6 4.4 5.3 (H) Chloride 97 - 105 mmol/L 106 (H) 96 (L) 96 (L) CO2 22 - 30 mmol/L 17 (L) 25 25 Anion Gap 9 - 18 mmol/L 18 14 11 ALT 10 - 54 U/L 17 13 eGFR- >60 >60 >60 eGFR-All Other Races . 60 59 >60 WBC 3.70 - 11.00 k/uL 6.71 RBC 4.20 - 6.00 m/uL 4.16 (L) Hemoglobin 13.0 - 17.0 g/dL 13.6 Hematocrit 39.0 - 51.0 % 40.9 MCV 80.0 - 100.0 fL 98.3 MCH 26.0 - 34.0 pG 32.7 MCHC 30.5 - 36.0 g/dL 33.3 RDW-CV 11.5 - 15.0 % 12.7 Platelet Count 150 - 400 k/uL 244 MPV 9.0 - 12.7 fL 9.8 Absolute nRBC <0.01 k/uL <0.01 Triglyceride 30 - 149 mg/dL 225 (H) Cholesterol, Total 100 - 199 mg/dL 191 HDL Cholesterol >45 mg/dL 39 (L) VLDL Cholesterol 6 - 40 mg/dL 45 (H) LDL Cholesterol 60 - 129 mg/dL 107 Fasting Time hrs 1 TC:HDL Ratio 1.00 - 5.00 4.90 LDL:HDL Ratio 0.50 - 3.55 2.74 Non HDL Cholesterol 90 - 159 mg/dL 152 Creatinine, Ur Random (UCRR) 20 - 300 mg/dL 47.4 Albumin, Urine Random 0.0 - 23.0 mg/L 1,068.7 (H) Albumin/Creat Ratio 0 - 30 mg/g 2,255 (H) Hemoglobin A1C 4.3 - 5.6 % 7.8 (H) 7.4 (H) 7.5 (H) Estimated Average Glucose mg/dL 177 166 169 Vitamin D 25 Hydroxy 31.0 - 80.0 ng/mL 27.1 (L) ASSESSMENT AND PLAN: Encounter Diagnosis ICD-10-CM 1. DM (diabetes mellitus) type II uncontrolled, periph vascular disorder (HCC) E11.51 E11.65 2. Essential hypertension I10 3. Vitamin D deficiency E55.9 Cholecalciferol, Vitamin D3, 1,000 unit cap VITAMIN D 25 HYDROXY 4. Financial difficulties Z59.8 Above issues addressed with patient. Patient involved in shared decision making for management of her medical issues. History and medications reviewed. Epic updated as needed Refills taken care of and meds adjusted as indicated after reviewed history, exam and labs. Health Maintenance reviewed. Updated record and/or ordered tests as recorded. Encouraged on efforts at healthy diet and regular exercise and adequate sleep. Needs to keep working on diet and exercise with lifestyle changes for effective weight loss as well as control of DM. Patient will continue to follow up with Werner Kennedy, as well as Lauren Graff and Mira Moore as indicated to keep them safe. Financial issues discussed. . The majority of the visit was spent counseling and/or coordinating care for the patient. Pbmo-it-gwpf time was at least 25 minutes. Shimon Arias MD CNOV Observed: 2017 Status: COMPLETED Source: VICI 3:40 PM [facility] REPOSITORY Office Visit (INTMWS) SUKI OKEEFE ([id number]) 1950 M Date Time Provider Department 08/28/17 3:40 PM SHIMON ARIAS INTMWS During your visit today, we recorded the following information about you: Pulse Respiration Blood pressure Weight 64/minute 16/minute 124/76 84.4 kg Shimon Arias MD 09/09/2017 1:25 AM Signed Patient presents with: Recheck: 4 month follow up SUBJECTIVE: Suki Okeefe is a 67 year old year old gentleman here today for 4 month follow up appointment for review of medical conditions. Sugars doing better Some lows Werner Kennedy adjusted meds with him today. PAST MEDICAL HISTORY Diagnosis Date - Angina pectoris (HCC) - Diabetes mellitus without mention of complication Diabetes mellitus - Hemiparesis due to recent stroke ([facility]) 11/2013 left leg weakness on admission; has felt weak all over today; some increased confusion today - HYPERTENSION NOS 01/28/2006 - Non-STEMI (non-ST elevated myocardial infarction) ([facility]) 10/27/2013 - NSTEMI (non-ST elevated myocardial infarction) ([facility]) 10/2013 - Other and unspecified hyperlipidemia 08/24/2008 - Proliferative diabetic retinopathy, right eye ([facility]) 09/20/[address] Mireles at the [facility] - Proteinuria 03/01/2010 Persistent elevation, 2008 - 111, and 02/2010 330. - Retinopathy due to secondary diabetes mellitus (HCC) 08/16/2009 - Type II or unspecified type diabetes mellitus with peripheral circulatory disorders, not stated as uncontrolled(250.70) Current Outpatient Prescriptions: insulin glargine (LANTUS SOLOSTAR U-100 INSULIN) 100 unit/mL (3 mL) inpn Inject 42 Units subcutaneously every morning. Cellcrypt PAP blood sugar diagnostic (RELION PRIME TEST STRIPS) test strip Use as instructed to check blood sugar twice daily metFORMIN (GLUCOPHAGE) 1,000 mg tablet TAKE 1 TABLET BY MOUTH TWICE A DAY WITH MEALS atorvastatin (LIPITOR) 40 mg tablet Take 1 tablet by mouth once daily. lisinopril 2.5 mg tablet TAKE 1 TABLET BY MOUTH DAILY metoprolol tartrate, short acting, (LOPRESSOR) 25 mg tablet Take 1 tablet by mouth twice daily. aspirin, enteric coated (ASPIRIN, ENTERIC COATED) 81 mg EC tablet Take 1 tablet by mouth once daily. Insulin [place], Disposable, (AJAY PEN NEEDLE) 32 gauge x 5/32 ndle Use as directed once daily with insulin DM:yes Insulin: yes DX: E11.51 Lancets (RELION ULTRA THIN PLUS LANCETS) lancets Use as instructed to check blood sugar BID. (E11.51, E11.65) DM (diabetes mellitus) type II uncontrolled, periph vascular disorder (HCC) No current facility-administered medications for this visit. Social History Marital status: Single Spouse name: Years of education: Number of children: Social History Main Topics Smoking status: Former Smoker Packs/day: 0.00 Years: 0.00 Smokeless tobacco: Never Used Comment: quit 20 years ago OBJECTIVE: BP 124/76 Pulse 64 Resp 16 Wt 84.4 kg (186 lb) BMI 29.57 kg/m? Patient is alert, oriented times 3, no apparent distress, affect is bright, reactive. Last 5 Encounter BP Readings: Date: BP: 2017 124/76 07/23/2017 112/60 06/12/2017 108/55 05/13/2017 112/63 04/25/2017 142/70 Last 5 Encounter Wt Readings: Date: Wt: 2017 84.4 kg (186 lb) 04/25/2017 88 kg (194 lb) 03/29/2017 89.4 kg (197 lb) 12/07/2016 91.6 kg (202 lb) 07/25/2016 93.4 kg (206 lb) Heart: Regular rate, rhythm, no murmurs, gallops, rubs. Lungs: Clear to auscultation, bilaterally, breathing non labored. Ext: No cyanosis, clubbing, or edema. Component Latest Ref Rng AND Units 11/12/2016 03/05/2017 06/12/2017 Protein, Total 6.3 - 8.0 g/dL 7.4 6.7 Albumin 3.9 - 4.9 g/dL 3.9 3.6 (L) Calcium 8.5 - 10.2 mg/dL 10.4 (H) 9.2 8.4 (L) Bilirubin, Total 0.2 - 1.3 mg/dL 0.2 <0.2 (L) Alkaline Phosphatase 36 - 108 U/L 84 83 AST 14 - 40 U/L 17 15 Glucose 74 - 99 mg/dL 151 (H) 303 (H) 415 (H) BUN 9 - 24 mg/dL 31 (H) 26 (H) 30 (H) Creatinine 0.73 - 1.22 mg/dL 1.22 1.23 (H) 1.16 Sodium 136 - 144 mmol/L 141 135 (L) 132 (L) Potassium 3.7 - 5.1 mmol/L 4.6 4.4 5.3 (H) Chloride 97 - 105 mmol/L 106 (H) 96 (L) 96 (L) CO2 22 - 30 mmol/L 17 (L) 25 25 Anion Gap 9 - 18 mmol/L 18 14 11 ALT 10 - 54 U/L 17 13 eGFR- >60 >60 >60 eGFR-All Other Races . 60 59 >60 WBC 3.70 - 11.00 k/uL 6.71 RBC 4.20 - 6.00 m/uL 4.16 (L) Hemoglobin 13.0 - 17.0 g/dL 13.6 Hematocrit 39.0 - 51.0 % 40.9 MCV 80.0 - 100.0 fL 98.3 MCH 26.0 - 34.0 pG 32.7 MCHC 30.5 - 36.0 g/dL 33.3 RDW-CV 11.5 - 15.0 % 12.7 Platelet Count 150 - 400 k/uL 244 MPV 9.0 - 12.7 fL 9.8 Absolute nRBC <0.01 k/uL <0.01 Triglyceride 30 - 149 mg/dL 225 (H) Cholesterol, Total 100 - 199 mg/dL 191 HDL Cholesterol >45 mg/dL 39 (L) VLDL Cholesterol 6 - 40 mg/dL 45 (H) LDL Cholesterol 60 - 129 mg/dL 107 Fasting Time hrs 1 TC:HDL Ratio 1.00 - 5.00 4.90 LDL:HDL Ratio 0.50 - 3.55 2.74 Non HDL Cholesterol 90 - 159 mg/dL 152 Creatinine, Ur Random (UCRR) 20 - 300 mg/dL 47.4 Albumin, Urine Random 0.0 - 23.0 mg/L 1,068.7 (H) Albumin/Creat Ratio 0 - 30 mg/g 2,255 (H) Hemoglobin A1C 4.3 - 5.6 % 7.8 (H) 7.4 (H) 7.5 (H) Estimated Average Glucose mg/dL 177 166 169 Vitamin D 25 Hydroxy 31.0 - 80.0 ng/mL 27.1 (L) ASSESSMENT AND PLAN: Encounter Diagnosis ICD-10-CM 1. DM (diabetes mellitus) type II uncontrolled, periph vascular disorder (HCC) E11.51 E11.65 2. Essential hypertension I10 3. Vitamin D deficiency E55.9 Cholecalciferol, Vitamin D3, 1,000 unit cap VITAMIN D 25 HYDROXY 4. Financial difficulties Z59.8 Above issues addressed with patient. Patient involved in shared decision making for management of her medical issues. History and medications reviewed. Epic updated as needed Refills taken care of and meds adjusted as indicated after reviewed history, exam and labs. Health Maintenance reviewed. Updated record and/or ordered tests as recorded. Encouraged on efforts at healthy diet and regular exercise and adequate sleep. Needs to keep working on diet and exercise with lifestyle changes for effective weight loss as well as control of DM. Patient will continue to follow up with Werner Kennedy, as well as Lauren Graff and Mira Moore as indicated to keep them safe. Financial issues discussed. . The majority of the visit was spent counseling and/or coordinating care for the patient. Zjxm-is-kkki time was at least 25 minutes. MD Lauren Martin, RN 09/05/2017 1:19 PM Signed Scheduled appt for pt with [facility] (Dr. Amanda- who he has seen in the past) for Sat10/04/17 at 2:30pm for diabetic eye exam. Referring Provider: SELF [[id number]] Allergies As of Date: 2017 (No Known Allergies) Date Reviewed: 2017 Reviewed by: Oumou Mosqueda Ma - Fully Assessed Reason for Visit: Recheck [92] Cmt: 4 month follow up Primary Visit Diagnosis:DM (diabetes mellitus) type II uncontrolled, periph vascular disorder (HCC) [E11.51, E11.65] Other Visit Diagnoses:Essential hypertension [I10] Vitamin D deficiency [E55.9] Financial difficulties [Z59.8] Order(s):Cholecalciferol, Vitamin D3, 1,000 unit capTake 1 capsule by mouth once daily.Disp: 30 capsuleRfl: 5 VITAMIN D 25 HYDROXY [SQVITD] Order #: [id number] FUTURE Prescriptions as of 2017 Sig: INSULIN GLARGINE (U-100) 100 * Inject 42 Units subcutaneousl* BLOOD SUGAR DIAGNOSTIC STRIPS Use as instructed to check bl* CHOLECALCIFEROL (VITAMIN D3) * Take 1 capsule by mouth once * METFORMIN 1,000 MG TABLET TAKE 1 TABLET BY MOUTH TWICE * ATORVASTATIN 40 MG TABLET Take 1 tablet by mouth once d* LISINOPRIL 2.5 MG TABLET TAKE 1 TABLET BY MOUTH DAILY METOPROLOL TARTRATE 25 MG TAB* Take 1 tablet by mouth twice * ASPIRIN 81 MG TABLET,DELAYED * Take 1 tablet by mouth once d* PEN NEEDLE, DIABETIC 32 GAUGE* Use as directed once daily wi* LANCETS Use as instructed to check bl* Problem List As Of Date 2017 Noted Resolved Open wound of foot excluding toes [S91.309A] INVALID FOR* More... DM (diabetes mellitus) type II uncontrolled, pe*INVALID FOR* More... Essential hypertension [I10] INVALID FOR* More... DEPRESSIVE DISORDER NEC [F32.9] INVALID FOR* More... Diabetic polyneuropathy (HCC) [E11.42] INVALID FOR* Debility [R53.81] INVALID FOR* OVERWEIGHT [E66.9] INVALID FOR* Mixed hyperlipidemia [E78.2] INVALID FOR* More... Proteinuria [R80.9] INVALID FOR* More... Non-proliferative diabetic retinopathy, moderat*INVALID FOR* More... Proliferative diabetic retinopathy, right eye [*INVALID FOR* More... Angina pectoris (HCC) [I20.9] INVALID FOR*03/09/2016 More... CAD (coronary artery disease) [I25.10] INVALID FOR* Financial difficulties [Z59.8] INVALID FOR* Current non-adherence to medical treatment [Z91*INVALID FOR* Non-STEMI (non-ST elevated myocardial infarctio*INVALID FOR*04/25/2017 H/O: CVA (cerebrovascular accident) [Z86.73] INVALID FOR* Hemiparesis due to recent stroke (HCC) [I69.359]INVALID FOR* More... Other malaise and fatigue [R53.81, R53.83] INVALID FOR* Visit Notes: >> Lauren Allen [facility] Sep 05, 2017 1:17 PM Status: Signed Scheduled appt for pt with [facility] (Dr. Amanda- who he has seen in the past) for Sat10/04/17 at 2:30pm for diabetic eye exam. Prescriptions ordered this encounter Disp Refills Start End CHOLECALCIFEROL (VITAMIN D3) 1,000 U* 30 c* 5 2017 Route: ORAL Sig: Take 1 capsule by mouth once daily. Disposition: Return for December . Follow-up and Disposition History Recorded Encounter Status:Closed by SHIMON ARIAS MD on 09/09/17 PROGRESS Observed: 2017 Status: COMPLETED Source: VICI 3:30 PM [facility] REPOSITORY [facility] ID: [id number] Author: Werner Kennedy (Pharmacist) Service: (none) Author Type: Pharmacist Type: Progress Notes Filed: 2017 1:33 PM Note Text: Patient consents to pharmacy collaborative practice agreement. REASON FOR CONSULT: DM? GOALS: A1c <?8% CONSULTING PROVIDER: Dr. Arias?? Date of Consult: 12/2015 Suki Okeefe is a 67 year old male was last seen in [facility] by PCP, Dr. Shimon Arias MD on 04/25/17. Patient is presenting today for f/u pharmacotherapy management appointment for DM. At last PharmD visit on 07/23 patient was continued on current regimen. INTERIM HISTORY: Reports feet hurt and has a headache today Otherwise doing ok overall Reports has 5 insulin pens at home Current DM Medications: Insulin glargine 44 units QAM (has 4 or 5 pens at home) Metformin 1,000mg BID ? Current HTN Medications: Lisinopril 2.5mg once daily Metoprolol tartrate 25mg BID Preventative Medications: ? On MIGUEL ANGEL/ARB: Yes ? On Statin: Yes ? On ASA: Yes ROS: ? Patient denies CP, SOB, ESQUEDA, blurred vision, dizziness or lightheadedness ? Patient denies symptoms of hypoglycemia (sweating, anxiety, palpitations, hunger, and tremor) ? Patient denies symptoms of hyperglycemia (polyuria, polydipsia, polyphagia) ? Patient denies potential medication adverse effects DIET/EXERCISE/SOCIAL Hx: ? Churches and homeless shelters for meals ? Denies any changes generally ? Had bread and donuts today ? Is drinking water MEDICATIONS: ? Pill bottles are not?present. ? Adherence: denies?missed doses. ? Pharmacy: [facility]? Rx coverage: Medicare ? Affordability: no issues, [employer] PAP for Lantus ? Diabetes supplies: [employer] ? Organization System: [facility] ACTIVE PROBLEM LIST Open Wound of Foot Excluding Toes Dm (Diabetes Mellitus) Type II Uncontrolled, Periph Vascular Disorder (Hcc) Essential Hypertension Depressive Disorder, Not Elsewhere Classified Diabetic Polyneuropathy (Hcc) Debility OVERWEIGHT Mixed Hyperlipidemia Proteinuria Non-Proliferative Diabetic Retinopathy, Moderate, Left Eye (Hcc) Proliferative Diabetic Retinopathy, Right Eye (Hcc) Cad (Coronary Artery Disease) Financial Difficulties Current Non-Adherence to Medical Treatment H/O: Cva (Cerebrovascular Accident) Hemiparesis Due to Recent Stroke ([facility]) Other Malaise and Fatigue PAST MEDICAL HISTORY Diagnosis Date - Angina pectoris (HCC) - Diabetes mellitus without mention of complication Diabetes mellitus - Hemiparesis due to recent stroke ([facility]) 11/2013 left leg weakness on admission; has felt weak all over today; some increased confusion today - HYPERTENSION NOS 01/28/2006 - Non-STEMI (non-ST elevated myocardial infarction) ([facility]) 10/27/2013 - NSTEMI (non-ST elevated myocardial infarction) ([facility]) 10/2013 - Other and unspecified hyperlipidemia 08/24/2008 - Proliferative diabetic retinopathy, right eye (HCC) 09/20/[address] Mireles at the [facility] - Proteinuria 03/01/2010 Persistent elevation, 2007 - 111, and 02/2010 330. - Retinopathy due to secondary diabetes mellitus (HCC) 08/16/2009 - Type II or unspecified type diabetes mellitus with peripheral circulatory disorders, not stated as uncontrolled(250.70) ALLERGIES No Known Allergies Current Outpatient Prescriptions: blood sugar diagnostic (RELION PRIME TEST STRIPS) test strip Use as instructed to check blood sugar twice daily insulin glargine (LANTUS SOLOSTAR) 100 unit/mL (3 mL) inpn Inject 44 Units subcutaneously once daily as directed metFORMIN (GLUCOPHAGE) 1,000 mg tablet TAKE 1 TABLET BY MOUTH TWICE A DAY WITH MEALS atorvastatin (LIPITOR) 40 mg tablet Take 1 tablet by mouth once daily. lisinopril 2.5 mg tablet TAKE 1 TABLET BY MOUTH DAILY metoprolol tartrate, short acting, (LOPRESSOR) 25 mg tablet Take 1 tablet by mouth twice daily. aspirin, enteric coated (ASPIRIN, ENTERIC COATED) 81 mg EC tablet Take 1 tablet by mouth once daily. Insulin [place], Disposable, (AJAY PEN NEEDLE) 32 gauge x 5/32 ndle Use as directed once daily with insulin DM:yes Insulin: yes DX: E11.51 Lancets (RELION ULTRA THIN PLUS LANCETS) lancets Use as instructed to check blood sugar BID. (E11.51, E11.65) DM (diabetes mellitus) type II uncontrolled, periph vascular disorder (HCC) No current facility-administered medications for this visit. Rx meds not listed in EPIC: none OTCs: none Herbals: none GLYCEMIC CONTROL: ? Glucometer present at visit: Yes ? SMBG?s: Date Fasting AM 2 hr PP Before Lunch 2 hr PP Before Dinner 2 hr PP Bedtime 08/28 196 08/27 157 08/26 162 08/25 256 08/23 178 08/22 249 08/21 21 17 248 /14 179 6/8 135 6/6 100 6/5 177 6/4 22 6/3 190 ? Hypoglycemia: yes ? How corrected: hard candy Last 3 Encounter BP Readings: Date: BP: 07/23/2017 112/60 06/12/2017 108/55 05/13/2017 112/63 Wt: 88 kg (194 lb) BMI: 30.84 kg/(m2) LABS Lab Results Component Value Date HBA1C 7.5 06/12/2017 HBA1C 7.4 03/05/2017 HBA1C 7.8 11/12/2016 CMP: Glucose 415 06/12/2017 BUN 30 06/12/2017 Creatinine 1.16 06/12/2017 Sodium 132 06/12/2017 Potassium 5.3 06/12/2017 Chloride 96 06/12/2017 CO2 25 06/12/2017 Protein, Total 6.7 06/12/2017 Albumin 3.6 06/12/2017 Calcium 8.4 06/12/2017 Alkaline Phosphatase 83 06/12/2017 Bilirubin, Total <0.2 06/12/2017 AST 15 06/12/2017 ALT 13 06/12/2017 Estimated CrCL 67?mL/min (calculated using Ht 66, adjusted Wt 76?kg, sCr 1.16?mg/dL, using [place] Gault) Last Lipid Panel Lab Results Component Value Date CHOL 191 03/05/2017 Lab Results Component Value Date HDL 39 03/05/2017 Lab Results Component Value Date LDL 107 03/05/2017 Lab Results Component Value Date TG 225 03/05/2017 Albumin/Creat Ratio (mg/g) Date Value 03/05/2017 2,255 (H) PHARMACOTHERAPY ASSESSMENT/PLAN: 1. DM (diabetes mellitus) type II uncontrolled, periph vascular disorder (HCC) - ICD9: 250.72, 443.81, ICD10: E11.51, E11.65 (primary diagnosis) A1c goal <?8%, patient is at goal (7.5% on 06/12). FBGs not at goal with continued instances of hypoglycemia.?Tolerating and compliant with current therapy. Will decrease basal insulin slightly. Renal fxn LFTs WNL appropriate for continued therapy. ? DECREASE insulin glargine to 42 units once daily ? CONTINUE metformin 1,000 mg BID ? Instructed patient to continue to monitor FBG and at least one PPBG value during the day. ? Provided 2 insulin pens from PAP shipment in , patient receives one box per month d/t past issues with storage of insulin ? Will refill insulin through [facility] ? A1c next PharmD visit 2. Essential hypertension - ICD9: 401.9, ICD10: I10 BP goal <?140/90, pt is at goal on current therapy. Renal fxn and K+ appropriate for continued therapy. K+ slightly elevated from last check, recheck today. ? CONTINUE lisinopril 2.5 mg once daily and metoprolol 25 mg BID - BASIC METABOLIC PNL ? 3. Mixed hyperlipidemia - ICD9: 272.2, ICD10: E78.2 Pt is on appropriate statin intensity (high?intensity d/t clinical ASCVD). Patient compliant with and tolerating current regimen. Will continue. ?LFTs and renal fxn WNL?and appropriate for continued therapy ? CONTINUE atorvastatin 40mg once daily Health Maintenance issues addressed: DILATED RETINAL EXAM due on 03/08/2017 Patient is scheduled to see PCP today. Patient to return to clinic for PharmD f/u on 09/26. Patient verbalized understanding of instructions. Werner Kennedy, PharmD, BCPS CNOV Observed: 2017 Status: COMPLETED Source: VICI 3:30 PM [facility] REPOSITORY Office Visit (PHMEWO) SUKI OKEEFE ([id number]) 1950 M Date Time Provider Department 08/28/17 3:30 PM BRENT (PHARMACIST), WERNER SPRAGUE During your visit today, we recorded the following information about you: NIA DECKER 2017 1:33 PM Signed Patient consents to pharmacy collaborative practice agreement. REASON FOR CONSULT: DM? GOALS: A1c <?8% CONSULTING PROVIDER: Dr. Arias?? Date of Consult: 12/2015 Suki Okeefe is a 67 year old male was last seen in [facility] by PCP, Dr. Shimon Arias MD on 04/25/17. Patient is presenting today for f/u pharmacotherapy management appointment for DM. At last PharmD visit on 07/23 patient was continued on current regimen. INTERIM HISTORY: Reports feet hurt and has a headache today Otherwise doing ok overall Reports has 5 insulin pens at home Current DM Medications: Insulin glargine 44 units QAM (has 4 or 5 pens at home) Metformin 1,000mg BID ? Current HTN Medications: Lisinopril 2.5mg once daily Metoprolol tartrate 25mg BID Preventative Medications: ? On MIGUEL ANGEL/ARB: Yes ? On Statin: Yes ? On ASA: Yes ROS: ? Patient denies CP, SOB, ESQUEDA, blurred vision, dizziness or lightheadedness ? Patient denies symptoms of hypoglycemia (sweating, anxiety, palpitations, hunger, and tremor) ? Patient denies symptoms of hyperglycemia (polyuria, polydipsia, polyphagia) ? Patient denies potential medication adverse effects DIET/EXERCISE/SOCIAL Hx: ? Churches and homeless shelters for meals ? Denies any changes generally ? Had bread and donuts today ? Is drinking water MEDICATIONS: ? Pill bottles are not?present. ? Adherence: denies?missed doses. ? Pharmacy: [facility]? Rx coverage: Medicare ? Affordability: no issues, [employer] PAP for Lantus ? Diabetes supplies: [employer] ? Organization System: [facility] ACTIVE PROBLEM LIST Open Wound of Foot Excluding Toes Dm (Diabetes Mellitus) Type II Uncontrolled, Periph Vascular Disorder (Hcc) Essential Hypertension Depressive Disorder, Not Elsewhere Classified Diabetic Polyneuropathy (Hcc) Debility OVERWEIGHT Mixed Hyperlipidemia Proteinuria Non-Proliferative Diabetic Retinopathy, Moderate, Left Eye (Hcc) Proliferative Diabetic Retinopathy, Right Eye (Hcc) Cad (Coronary Artery Disease) Financial Difficulties Current Non-Adherence to Medical Treatment H/O: Cva (Cerebrovascular Accident) Hemiparesis Due to Recent Stroke (Hcc) Other Malaise and Fatigue PAST MEDICAL HISTORY Diagnosis Date - Angina pectoris (HCC) - Diabetes mellitus without mention of complication Diabetes mellitus - Hemiparesis due to recent stroke (HCC) 11/2013 left leg weakness on admission; has felt weak all over today; some increased confusion today - HYPERTENSION NOS 01/28/2006 - Non-STEMI (non-ST elevated myocardial infarction) (HCC) 10/27/2013 - NSTEMI (non-ST elevated myocardial infarction) (HCC) 10/2013 - Other and unspecified hyperlipidemia 08/24/2008 - Proliferative diabetic retinopathy, right eye (HCC) 09/20/[address] Mireles at the [facility] - Proteinuria 03/01/2010 Persistent elevation, 2008 - 111, and 02/2010 330. - Retinopathy due to secondary diabetes mellitus (HCC) 08/16/2009 - Type II or unspecified type diabetes mellitus with peripheral circulatory disorders, not stated as uncontrolled(250.70) ALLERGIES No Known Allergies Current Outpatient Prescriptions: blood sugar diagnostic (RELION PRIME TEST STRIPS) test strip Use as instructed to check blood sugar twice daily insulin glargine (LANTUS SOLOSTAR) 100 unit/mL (3 mL) inpn Inject 44 Units subcutaneously once daily as directed metFORMIN (GLUCOPHAGE) 1,000 mg tablet TAKE 1 TABLET BY MOUTH TWICE A DAY WITH MEALS atorvastatin (LIPITOR) 40 mg tablet Take 1 tablet by mouth once daily. lisinopril 2.5 mg tablet TAKE 1 TABLET BY MOUTH DAILY metoprolol tartrate, short acting, (LOPRESSOR) 25 mg tablet Take 1 tablet by mouth twice daily. aspirin, enteric coated (ASPIRIN, ENTERIC COATED) 81 mg EC tablet Take 1 tablet by mouth once daily. Insulin [place], Disposable, (AJAY PEN NEEDLE) 32 gauge x 5/32 ndle Use as directed once daily with insulin DM:yes Insulin: yes DX: E11.51 Lancets (RELION ULTRA THIN PLUS LANCETS) lancets Use as instructed to check blood sugar BID. (E11.51, E11.65) DM (diabetes mellitus) type II uncontrolled, periph vascular disorder (HCC) No current facility-administered medications for this visit. Rx meds not listed in EPIC: none OTCs: none Herbals: none GLYCEMIC CONTROL: ? Glucometer present at visit: Yes ? SMBG?s: Date Fasting AM 2 hr PP Before Lunch 2 hr PP Before Dinner 2 hr PP Bedtime 08/28 196 08/27 157 08/26 162 08/25 256 08/23 178 08/22 249 08/21 21 08/18 248 14 179 6/8 135 6/6 100 6/5 177 6/4 22 6 190 ? Hypoglycemia: yes ? How corrected: hard candy Last 3 Encounter BP Readings: Date: BP: 07/23/2017 112/60 06/12/2017 108/55 05/13/2017 112/63 Wt: 88 kg (194 lb) BMI: 30.84 kg/(m2) LABS Lab Results Component Value Date HBA1C 7.5 06/12/2017 HBA1C 7.4 03/05/2017 HBA1C 7.8 11/12/2016 CMP: Glucose 415 06/12/2017 BUN 30 06/12/2017 Creatinine 1.16 06/12/2017 Sodium 132 06/12/2017 Potassium 5.3 06/12/2017 Chloride 96 06/12/2017 CO2 25 06/12/2017 Protein, Total 6.7 06/12/2017 Albumin 3.6 06/12/2017 Calcium 8.4 06/12/2017 Alkaline Phosphatase 83 06/12/2017 Bilirubin, Total <0.2 06/12/2017 AST 15 06/12/2017 ALT 13 06/12/2017 Estimated CrCL 67?mL/min (calculated using Ht 66, adjusted Wt 76?kg, sCr 1.16?mg/dL, using [place] Gault) Last Lipid Panel Lab Results Component Value Date CHOL 191 03/05/2017 Lab Results Component Value Date HDL 39 03/05/2017 Lab Results Component Value Date LDL 107 03/05/2017 Lab Results Component Value Date TG 225 03/05/2017 Albumin/Creat Ratio (mg/g) Date Value 03/05/2017 2,255 (H) PHARMACOTHERAPY ASSESSMENT/PLAN: 1. DM (diabetes mellitus) type II uncontrolled, periph vascular disorder (HCC) - ICD9: 250.72, 443.81, ICD10: E11.51, E11.65 (primary diagnosis) A1c goal <?8%, patient is at goal (7.5% on 06/12). FBGs not at goal with continued instances of hypoglycemia.?Tolerating and compliant with current therapy. Will decrease basal insulin slightly. Renal fxn LFTs WNL appropriate for continued therapy. ? DECREASE insulin glargine to 42 units once daily ? CONTINUE metformin 1,000 mg BID ? Instructed patient to continue to monitor FBG and at least one PPBG value during the day. ? Provided 2 insulin pens from PAP shipment in , patient receives one box per month d/t past issues with storage of insulin ? Will refill insulin through [facility] ? A1c next PharmD visit 2. Essential hypertension - ICD9: 401.9, ICD10: I10 BP goal <?140/90, pt is at goal on current therapy. Renal fxn and K+ appropriate for continued therapy. K+ slightly elevated from last check, recheck today. ? CONTINUE lisinopril 2.5 mg once daily and metoprolol 25 mg BID - BASIC METABOLIC PNL ? 3. Mixed hyperlipidemia - ICD9: 272.2, ICD10: E78.2 Pt is on appropriate statin intensity (high?intensity d/t clinical ASCVD). Patient compliant with and tolerating current regimen. Will continue. ?LFTs and renal fxn WNL?and appropriate for continued therapy ? CONTINUE atorvastatin 40mg once daily Health Maintenance issues addressed: DILATED RETINAL EXAM due on 03/08/2017 Patient is scheduled to see PCP today. Patient to return to clinic for PharmD f/u on 09/26. Patient verbalized understanding of instructions. Werner Kennedy, PharmD, BCPS WERNER KENNEDY, PHARMACIST 2017 12:58 PM Signed Less insulin - 42 units every morning Referring Provider: DARIN CHRIS [[id number]] Allergies As of Date: 2017 (No Known Allergies) Date Reviewed: 04/25/2017 Reviewed by: Shobha [employer] - Fully Assessed Reason for Visit: Allied Health Visit [5] Cmt: DM follow-up Primary Visit Diagnosis:DM (diabetes mellitus) type II uncontrolled, periph vascular disorder (HCC) [E11.51, E11.65] Other Visit Diagnoses:Essential hypertension [I10] Mixed hyperlipidemia [E78.2] Order(s):HGB A1C [MPTTK5V] Order #: [id number] FUTURE BASIC METABOLIC PNL [SQBMP] Order #: [id number] FUTURE insulin glargine (LANTUS SOLOSTAR U-100 INSULIN) 100 unit/mL (3 mL) inpnInject 42 Units subcutaneously every morning. SANOFI PAPDisp: Rfl: blood sugar diagnostic (RELION PRIME TEST STRIPS) test stripUse as instructed to check blood sugar twice dailyDisp: 100 StripRfl: 11 Prescriptions as of 2017 Sig: METFORMIN 1,000 MG TABLET TAKE 1 TABLET BY MOUTH TWICE * ATORVASTATIN 40 MG TABLET Take 1 tablet by mouth once d* LISINOPRIL 2.5 MG TABLET TAKE 1 TABLET BY MOUTH DAILY METOPROLOL TARTRATE 25 MG TAB* Take 1 tablet by mouth twice * ASPIRIN 81 MG TABLET,DELAYED * Take 1 tablet by mouth once d* INSULIN GLARGINE (U-100) 100 * Inject 42 Units subcutaneousl* BLOOD SUGAR DIAGNOSTIC STRIPS Use as instructed to check bl* PEN NEEDLE, DIABETIC 32 GAUGE* Use as directed once daily wi* LANCETS Use as instructed to check bl* Problem List As Of Date 2017 Noted Resolved Open wound of foot excluding toes [S91.309A] INVALID FOR* More... DM (diabetes mellitus) type II uncontrolled, pe*INVALID FOR* More... Essential hypertension [I10] INVALID FOR* More... DEPRESSIVE DISORDER NEC [F32.9] INVALID FOR* More... Diabetic polyneuropathy (HCC) [E11.42] INVALID FOR* Debility [R53.81] INVALID FOR* OVERWEIGHT [E66.9] INVALID FOR* Mixed hyperlipidemia [E78.2] INVALID FOR* More... Proteinuria [R80.9] INVALID FOR* More... Non-proliferative diabetic retinopathy, moderat*INVALID FOR* More... Proliferative diabetic retinopathy, right eye [*INVALID FOR* More... Angina pectoris (HCC) [I20.9] INVALID FOR*03/09/2016 More... CAD (coronary artery disease) [I25.10] INVALID FOR* Financial difficulties [Z59.8] INVALID FOR* Current non-adherence to medical treatment [Z91*INVALID FOR* Non-STEMI (non-ST elevated myocardial infarctio*INVALID FOR*04/25/2017 H/O: CVA (cerebrovascular accident) [Z86.73] INVALID FOR* Hemiparesis due to recent stroke (HCC) [I69.359]INVALID FOR* More... Other malaise and fatigue [R53.81, R53.83] INVALID FOR* Other instructions from your clinician: Less insulin - 42 units every morning Prescriptions ordered this encounter Disp Refills Start End INSULIN GLARGINE (U-100) 100 UNIT/ML* 2017 Class: Med Update Route: SUBCUTANEOUS Sig: Inject 42 Units subcutaneously every morning. SANOFI PAP BLOOD SUGAR DIAGNOSTIC STRIPS 100 * 11 2017 Sig: Use as instructed to check blood sugar twice daily Medications Discontinued During This Encounter insulin glargine (LANTUS SOLOSTAR) 1* 5 Pen 5 03/29/2017 2017 Sig: Inject 44 Units subcutaneously once daily as directed Disc: Reason for discontinue is not on file. blood sugar diagnostic (RELION PRIME* 100 * 11 07/23/2017 2017 Sig: Use as instructed to check blood sugar twice daily Disc: Reason for discontinue is not on file. Encounter Status:Closed by BRENT (PHARMACIST)WERNER on 08/28/17 TAISHA Observed: 2017 Status: COMPLETED Source: VICI 12:00 AM [facility] REPOSITORY Patient Outreach (INTMWS) CHESTERSUKI Selena ([id number]) 1950 M Date Time Provider Department 08/28/17 LAUREN GIBSON During your visit today, we recorded the following information about you: Lauren Allen RN 09/01/2017 3:07 PM Signed PRIMARY CARE COORDINATION IN OFFICE VISIT WITH PCP Patient has been identified by name and date of . PCP Assessment/Plan: Reviewed PCP plan with patient using [facility] Continue meds per [facility]. A1c slowly coming down PCC Plan of Care: Patient concerns: Hasn't had eye exam in a while. Eyes are blurry. Not sure who he has seen. Patient goals: Has had some lows in AM but will decrease his Lantus per Werner. PCC Interventions: Schedule appt with [facility]. Next Office Visit: 12/27/2017 Plan For Next Call: with Eye Center appt Lauren Graff RN Ambulatory Director Family Internal Medicine [facility] 2017 Allergies As of Date: 2017 (No Known Allergies) Date Reviewed: 2017 Reviewed by: Oumou Mosqueda Ma - Fully Assessed Reason for Visit: Director Family Chronic Care [[id number]] Prescriptions as of 2017 Sig: INSULIN GLARGINE (U-100) 100 * Inject 42 Units subcutaneousl* BLOOD SUGAR DIAGNOSTIC STRIPS Use as instructed to check bl* CHOLECALCIFEROL (VITAMIN D3) * Take 1 capsule by mouth once * METFORMIN 1,000 MG TABLET TAKE 1 TABLET BY MOUTH TWICE * ATORVASTATIN 40 MG TABLET Take 1 tablet by mouth once d* LISINOPRIL 2.5 MG TABLET TAKE 1 TABLET BY MOUTH DAILY METOPROLOL TARTRATE 25 MG TAB* Take 1 tablet by mouth twice * ASPIRIN 81 MG TABLET,DELAYED * Take 1 tablet by mouth once d* PEN NEEDLE, DIABETIC 32 GAUGE* Use as directed once daily wi* LANCETS Use as instructed to check bl* Problem List As Of Date 2017 Noted Resolved Open wound of foot excluding toes [S91.309A] INVALID FOR* More... DM (diabetes mellitus) type II uncontrolled, pe*INVALID FOR* More... Essential hypertension [I10] INVALID FOR* More... DEPRESSIVE DISORDER NEC [F32.9] INVALID FOR* More... Diabetic polyneuropathy (HCC) [E11.42] INVALID FOR* Debility [R53.81] INVALID FOR* OVERWEIGHT [E66.9] INVALID FOR* Mixed hyperlipidemia [E78.2] INVALID FOR* More... Proteinuria [R80.9] INVALID FOR* More... Non-proliferative diabetic retinopathy, moderat*INVALID FOR* More... Proliferative diabetic retinopathy, right eye [*INVALID FOR* More... Angina pectoris (HCC) [I20.9] INVALID FOR*03/09/2016 More... CAD (coronary artery disease) [I25.10] INVALID FOR* Financial difficulties [Z59.8] INVALID FOR* Current non-adherence to medical treatment [Z91*INVALID FOR* Non-STEMI (non-ST elevated myocardial infarctio*INVALID FOR*04/25/2017 H/O: CVA (cerebrovascular accident) [Z86.73] INVALID FOR* Hemiparesis due to recent stroke (HCC) [I69.359]INVALID FOR* More... Other malaise and fatigue [R53.81, R53.83] INVALID FOR* Follow-up and Disposition History Recorded Encounter Status:Closed by LAUREN GRAFF on 09/01/17 EMERGENCY DEPARTMENT Observed: 08/19/2017 Status: F Source: ARLENE SUMMARY 3:47 PM [facility] REPOSITORY [facility] Medical Records Department [address] [place] [address] Emergency Department Summary 08/19/17 0957 MR#: [id number] Acct: [id number] Name: SUKI OKEEFE Rep #: [id number] : 1950 66 From: Braulio Mueller MD PCP: Shimon Arias MD Status: DEP ER - ER Visit Summary Date of Service: 08/19/17 Chief Complaint: Ache, nausea History of Present Illness: The patient is a 66 M presents to the emergency department with headache and nausea. Patient states he has a history of migraine. He states this morning, he woke with a dull headache. He states over the past 2 hours it has slightly progressed. He does describe light sensitivity. He has had nausea without vomiting. Patient does admit to some mild abdominal cramping. He denies any fevers or chills. He denies any carbon monoxide exposure. He denies any trauma. He is on no anticoagulants. Patient denies any weakness, numbness, tingling, or other neurologic complaints. He states this feels like all his other headaches that he has had in the past. Physical Examination: Well-appearing patient is in no acute distress. Head is normocephalic, atraumatic. Pupils equal round reactive, extraocular muscles intact. There is no temporal artery tenderness. There is no vesicular rash. Neck supple. Kernig's and Brudzinski's are negative. Heart regular rate and rhythm. Lungs clear, chest nontender. Abdomen soft, nontender, nondistended. Neuro exam displays no focal or lateralizing deficit. 2+ symmetric lower extremity reflexes. No clonus. No ataxia or gait abnormality. Test Results: [] Emergency Department Course and Treatment: The patient presents with his normal migraine. He is not meningitic or encephalopathic. His neck is supple. His neurologic exam is benign. He was treated with IV fluids, Compazine, Benadryl, and Toradol. I did obtain some screening labs given his history of diabetes. He does have mild renal insufficiency which does appear to be chronic. With treatment, the patient symptoms are improved. His abdomen is nontender. I do not suspect a dangerous process. The patient be discharged home. Treatment Plan: [] Disposition: Charge Impression: 1. Migraine 2. Nausea This note was generated with FriendsE[employer]ation software. It may contain incorrect words, spelling, and punctuation that were not noted in review of the chart prior to signing ED Disposition - Plan for ED Patient: Chief Complaint: Headache Instructions: ED Headache Migraine Prescriptions: Ondansetron [Zofran Odt] 4 mg PO Q8H PRN PRN #10 tab PRN Reason: Nausea Referrals: Shimon Arias MD [Primary Care Provider] - What to do if you have Problems For any increased pain, shortness of breath, bleeding, nausea or vomiting, chest pain, or any unexpected problems, contact your Primary Care Provider. Call [facility] ([phone]) or report to the closest Emergency Room. Call 911 if necessary. 08/19/17 [id number] <Electronically signed by Braulio Mueller MD> Date Braulio Mueller MD Cosigner Signature (If Indicated): Date CC: Shimon Arias MD CBC W/DIFF, AUTOMATED Collected: 08/19/2017 Status: F Source: [place] 10:05 AM [facility] REPOSITORY TYPE CODE TESTS RESULT OUT OF RANGE REFERENCE UNITS LAB L100.1000 4.4-11.0 K/mm3 Normal WBC 8.1 LAB L100.1200 4.6-6.2 M/mm3 Low RBC 3.67 LAB L100.1300 13.0-16.5 g/dl Low HGB 12.3 LAB L100.1400 40-54 % Low HCT 35.3 LAB L100.1500 80-94 fL High MCV 96.2 LAB L100.1600 27.0-32.0 pg High MCH 33.5 LAB L100.1700 32-36 g/gl Normal MCHC 34.8 LAB L100.1810 11.6-14.6 % Normal RDW CV 12.1 LAB L100.1820 35.1-43.9 fl Normal RDW SD 41.6 LAB L100.1900 150-450 K/mm3 Normal PLT 222 LAB L100.2000 6.2-12.0 fl Normal MPV 9.0 LAB L100.2100 47-70 % High NEUT% 74.4 LAB L100.2200 19-41 % Low LY% 16.6 LAB L100.2300 0-10 % Normal MONO% 7.2 LAB L100.2400 0-5 % Normal EO% 1.2 LAB L100.2500 0-1 % Normal BASO% 0.4 LAB L100.2550 0.0-0.9 % Normal IM GRAN % 0.200 Result Comment: IG% - Immature Granulocytes (promyelocytes, myelocytes and metamyelocytes) > 1% indicates that a LEFT SHIFT is Present. LAB L100.2620 2.0-7.7 X10 3/uL Normal Absolute Neut 6.0 LAB L100.2720 0.83-4.51 X10 3/ul Normal Absolute Lymph 1.34 Performed By: #### L100.0100 #### [facility] [address] [place], [address] BASIC METABOLIC Collected: 08/19/2017 Status: F Source: TROPIC PROFILE ([facility]) 10:05 AM [facility] REPOSITORY TYPE CODE TESTS RESULT OUT OF RANGE REFERENCE UNITS LAB L501.0100 74-106 mg/dL High GLU 231 Result Comment: Glucose result greater than or equal to 200 mg/dL suggests DIABETES MELLITUS per A.D.A. criteria. Please note revised GLUCOSE reference range effective 2017. LAB L501.1000 7-18 mg/dL High BUN 38 LAB L501.1100 0.70-1.30 mg/dL High CREAT,SERUM 1.84 Result Comment: The validity of the calculated GFR AND GFRAA in patients over 70 years has not been determined. Clinical correlation is essential. LAB L501.1110 >60 mL/min Low EST GFR 39 Result Comment: Non- GFR Calc LAB L501.1115 >60 mL/min Low EST GFR - AA 48 Result Comment: GFR Calc LAB L501.1255 ml/min Normal Estimated CRCL 40.56 LAB L501.1300 10-20 RATIO High BUN/CRE 20.7 LAB L501.2200 8.5-10 mg/dL Normal .1 CA 8.9 LAB L501.5300 136-14 mmol/L Normal 5 NA 136 LAB L501.5600 3.5-5. mmol/L Normal 1 K 4.2 LAB L501.5900 98-107 mmol/L Normal CL 105 LAB L501.6100 21.0-3 mmol/L Normal 2.0 CO2 24.0 LAB L501.6200 5-15 Normal GAP 7 Performed By: #### L500.2500 #### [facility] [address] [place], [address] PROGRESS Observed: 07/23/2017 Status: COMPLETED Source: VICI 1:30 PM [facility] REPOSITORY HNO ID: [id number] Author: Werner Kennedy (Pharmacist) Service: (none) Author Type: Pharmacist Type: Progress Notes Filed: 07/23/2017 1:52 PM Note Text: Patient consents to pharmacy collaborative practice agreement. REASON FOR CONSULT: DM GOALS: A1c < 8% CONSULTING PROVIDER: Dr. Arias Date of Consult: 12/2015 Suki Okeefe is a 66 year old male was last seen in [facility] by PCP, Dr. Shimon Arias MD on 04/25/17. Patient is presenting today for f/u pharmacotherapy management appointment for DM. At last PharmD visit on 06/12 patient was continued on current regimen. INTERIM HISTORY: Reports doing well overall Feels tired today Reports a couple low sugars, isn't sure why they happened, denies feeling feeling s/s hypoglycemia during those times Current DM Medications: Insulin glargine 44 units QAM (has 4 or 5 pens at home) Metformin 1,000mg BID Current HTN Medications: Lisinopril 2.5mg once daily Metoprolol tartrate 25mg BID Preventative Medications: ? On MIGUEL ANGEL/ARB: Yes ? On Statin: Yes ? On ASA: Yes ROS: ? Patient denies CP, SOB, ESQUEDA, blurred vision, dizziness or lightheadedness ? Patient denies symptoms of hypoglycemia (sweating, anxiety, palpitations, hunger, and tremor) ? Patient denies symptoms of hyperglycemia (polyuria, polydipsia, polyphagia) ? Patient denies potential medication adverse effects DIET/EXERCISE/SOCIAL Hx: ? Churches and homeless shelters for meals ? Denies any changes generally MEDICATIONS: ? Pill bottles are not present. ? Adherence: denies missed doses. ? Pharmacy: [facility] ? Rx coverage: Medicare ? Affordability: no issues, [employer] PAP for Lantus ? Diabetes supplies: Relion ? Organization System: [employer] ACTIVE PROBLEM LIST Open Wound of Foot Excluding Toes Dm (Diabetes Mellitus) Type II Uncontrolled, Periph Vascular Disorder (Hcc) Essential Hypertension Depressive Disorder, Not Elsewhere Classified Diabetic Polyneuropathy (Hcc) Debility OVERWEIGHT Mixed Hyperlipidemia Proteinuria Non-Proliferative Diabetic Retinopathy, Moderate, Left Eye (Hcc) Proliferative Diabetic Retinopathy, Right Eye (Hcc) Cad (Coronary Artery Disease) Financial Difficulties Current Non-Adherence to Medical Treatment H/O: Cva (Cerebrovascular Accident) Hemiparesis Due to Recent Stroke ([facility]) Other Malaise and Fatigue PAST MEDICAL HISTORY Diagnosis Date - Angina pectoris ([facility]) - Diabetes mellitus without mention of complication Diabetes mellitus - Hemiparesis due to recent stroke ([facility]) 11/2013 left leg weakness on admission; has felt weak all over today; some increased confusion today - HYPERTENSION NOS 01/28/2006 - Non-STEMI (non-ST elevated myocardial infarction) ([facility]) 10/27/2013 - NSTEMI (non-ST elevated myocardial infarction) ([facility]) 10/2013 - Other and unspecified hyperlipidemia 08/24/2008 - Proliferative diabetic retinopathy, right eye ([facility]) 09/20/[address] Mireles at the [facility] - Proteinuria 03/01/2010 Persistent elevation, 2008 - 111, and 02/2010 330. - Retinopathy due to secondary diabetes mellitus (HCC) 08/16/2009 - Type II or unspecified type diabetes mellitus with peripheral circulatory disorders, not stated as uncontrolled(250.70) ALLERGIES No Known Allergies Current Outpatient Prescriptions: insulin glargine (LANTUS SOLOSTAR) 100 unit/mL (3 mL) inpn Inject 44 Units subcutaneously once daily as directed metFORMIN (GLUCOPHAGE) 1,000 mg tablet TAKE 1 TABLET BY MOUTH TWICE A DAY WITH MEALS atorvastatin (LIPITOR) 40 mg tablet Take 1 tablet by mouth once daily. lisinopril 2.5 mg tablet TAKE 1 TABLET BY MOUTH DAILY metoprolol tartrate, short acting, (LOPRESSOR) 25 mg tablet Take 1 tablet by mouth twice daily. aspirin, enteric coated (ASPIRIN, ENTERIC COATED) 81 mg EC tablet Take 1 tablet by mouth once daily. Insulin [place], Disposable, (AJAY PEN NEEDLE) 32 gauge x 5/32 ndle Use as directed once daily with insulin DM:yes Insulin: yes DX: E11.51 Lancets (RELION ULTRA THIN PLUS LANCETS) lancets Use as instructed to check blood sugar BID. (E11.51, E11.65) DM (diabetes mellitus) type II uncontrolled, periph vascular disorder (HCC) blood sugar diagnostic (RELION PRIME TEST STRIPS) test strip Use as instructed to check blood sugar twice daily No current facility-administered medications for this visit. Rx meds not listed in EPIC: none OTCs: none Herbals: none GLYCEMIC CONTROL: ? Glucometer present at visit: Yes ? SMBG?s: Date Fasting AM 2 hr PP Before Lunch 2 hr PP Before Dinner 2 hr PP Bedtime 07/22 165 07/18 182 07/17 144 07/13 178 07/12 40 07/04 159 07/03 238 07/02 171 07/01 190 06/30 183 06/28 LO 06/25 156 06/24 89 ? Hypoglycemia: yes ? How corrected: had something sweet right away VITALS: BP 112/60 Pulse 79 Last 3 Encounter BP Readings: Date: BP: 06/12/2017 108/55 05/13/2017 112/63 04/25/2017 142/70 Wt: 88 kg (194 lb) BMI: 30.84 kg/(m2) LABS Lab Results Component Value Date HBA1C 7.5 06/12/2017 HBA1C 7.4 03/05/2017 HBA1C 7.8 11/12/2016 CMP: Glucose 415 06/12/2017 BUN 30 06/12/2017 Creatinine 1.16 06/12/2017 Sodium 132 06/12/2017 Potassium 5.3 06/12/2017 Chloride 96 06/12/2017 CO2 25 06/12/2017 Protein, Total 6.7 06/12/2017 Albumin 3.6 06/12/2017 Calcium 8.4 06/12/2017 Alkaline Phosphatase 83 06/12/2017 Bilirubin, Total <0.2 06/12/2017 AST 15 06/12/2017 ALT 13 06/12/2017 Estimated CrCL 67?mL/min (calculated using Ht 66, adjusted Wt 76?kg, sCr 1.16?mg/dL, using [place] Gault) Last Lipid Panel Lab Results Component Value Date CHOL 191 03/05/2017 Lab Results Component Value Date HDL 39 03/05/2017 Lab Results Component Value Date LDL 107 03/05/2017 Lab Results Component Value Date TG 225 03/05/2017 Albumin/Creat Ratio (mg/g) Date Value 03/05/2017 2,255 (H) PHARMACOTHERAPY ASSESSMENT/PLAN: 1. DM (diabetes mellitus) type II uncontrolled, periph vascular disorder (HCC) - ICD9: 250.72, 443.81, ICD10: E11.51, E11.65 (primary diagnosis) A1c goal <?8%, patient is at goal (7.5% on 06/12). FBGs not at goal with a couple instances of hypoglycemia.?Tolerating and compliant with current therapy. Will continue current regimen at this time until further readings can be obtained. Renal fxn improved?and LFTs appropriate for continued therapy. ? CONTINUE insulin glargine 44 units once daily and metformin 1,000 mg BID ? Instructed patient to continue to monitor FBG and at least one PPBG value during the day. ? Provided box of insulin from PAP shipment in , patient receives one box per month d/t past issues with storage of insulin 2. Essential hypertension - ICD9: 401.9, ICD10: I10 BP goal <?140/90, pt is at goal on current therapy. Renal fxn and K+ appropriate for continued therapy. K+ slightly elevated from last check, recheck today. ? CONTINUE lisinopril 2.5 mg once daily and metoprolol 25 mg BID - BASIC METABOLIC PNL 3. Mixed hyperlipidemia - ICD9: 272.2, ICD10: E78.2 Pt is on appropriate statin intensity (high?intensity d/t clinical ASCVD). Patient compliant with and tolerating current regimen. Will continue. ?LFTs and renal fxn WNL?and appropriate for continued therapy ? CONTINUE atorvastatin 40mg once daily Health Maintenance issues addressed: DILATED RETINAL EXAM due on 03/08/2017 Patient is scheduled to see PCP 08/28. Patient to return to clinic for PharmD f/u on 08/28. Patient verbalized understanding of instructions. Werner Kennedy, ArgeliaD, BCPS CNOV Observed: 07/23/2017 Status: COMPLETED Source: V[place]I 1:30 PM [facility] REPOSITORY Office Visit (MEWO) SUKI OKEEFE ([id number]) 1950 M Date Time Provider Department 07/23/17 1:30 PM BRENT (PHARMACIST)WERNER During your visit today, we recorded the following information about you: Pulse Blood pressure 79/minute 112/60 WERNER KENNEDY, PHARMACIST 07/23/2017 1:52 PM Signed Patient consents to pharmacy collaborative practice agreement. REASON FOR CONSULT: DM GOALS: A1c < 8% CONSULTING PROVIDER: Dr. Arias Date of Consult: 12/2015 Suki Okeefe is a 66 year old male was last seen in [facility] by PCP, Dr. Shimon Arias MD on 04/25/17. Patient is presenting today for f/u pharmacotherapy management appointment for DM. At last PharmD visit on 06/12 patient was continued on current regimen. INTERIM HISTORY: Reports doing well overall Feels tired today Reports a couple low sugars, isn't sure why they happened, denies feeling feeling s/s hypoglycemia during those times Current DM Medications: Insulin glargine 44 units QAM (has 4 or 5 pens at home) Metformin 1,000mg BID Current HTN Medications: Lisinopril 2.5mg once daily Metoprolol tartrate 25mg BID Preventative Medications: ? On MIGUEL ANGEL/ARB: Yes ? On Statin: Yes ? On ASA: Yes ROS: ? Patient denies CP, SOB, ESQUEDA, blurred vision, dizziness or lightheadedness ? Patient denies symptoms of hypoglycemia (sweating, anxiety, palpitations, hunger, and tremor) ? Patient denies symptoms of hyperglycemia (polyuria, polydipsia, polyphagia) ? Patient denies potential medication adverse effects DIET/EXERCISE/SOCIAL Hx: ? Churches and homeless shelters for meals ? Denies any changes generally MEDICATIONS: ? Pill bottles are not present. ? Adherence: denies missed doses. ? Pharmacy: [facility] ? Rx coverage: Medicare ? Affordability: no issues, [employer] PAP for Lantus ? Diabetes supplies: Relion ? Organization System: [employer] ACTIVE PROBLEM LIST Open Wound of Foot Excluding Toes Dm (Diabetes Mellitus) Type II Uncontrolled, Periph Vascular Disorder (Hcc) Essential Hypertension Depressive Disorder, Not Elsewhere Classified Diabetic Polyneuropathy (Hcc) Debility OVERWEIGHT Mixed Hyperlipidemia Proteinuria Non-Proliferative Diabetic Retinopathy, Moderate, Left Eye (Hcc) Proliferative Diabetic Retinopathy, Right Eye (Hcc) Cad (Coronary Artery Disease) Financial Difficulties Current Non-Adherence to Medical Treatment H/O: Cva (Cerebrovascular Accident) Hemiparesis Due to Recent Stroke ([facility]) Other Malaise and Fatigue PAST MEDICAL HISTORY Diagnosis Date - Angina pectoris (HCC) - Diabetes mellitus without mention of complication Diabetes mellitus - Hemiparesis due to recent stroke ([facility]) 11/2013 left leg weakness on admission; has felt weak all over today; some increased confusion today - HYPERTENSION NOS 01/28/2006 - Non-STEMI (non-ST elevated myocardial infarction) ([facility]) 10/27/2013 - NSTEMI (non-ST elevated myocardial infarction) ([facility]) 10/2013 - Other and unspecified hyperlipidemia 08/24/2008 - Proliferative diabetic retinopathy, right eye (HCC) 09/20/[address] Mireles at the [facility] - Proteinuria 03/01/2010 Persistent elevation, 2008 - 111, and 02/2010 330. - Retinopathy due to secondary diabetes mellitus (HCC) 08/16/2009 - Type II or unspecified type diabetes mellitus with peripheral circulatory disorders, not stated as uncontrolled(250.70) ALLERGIES No Known Allergies Current Outpatient Prescriptions: insulin glargine (LANTUS SOLOSTAR) 100 unit/mL (3 mL) inpn Inject 44 Units subcutaneously once daily as directed metFORMIN (GLUCOPHAGE) 1,000 mg tablet TAKE 1 TABLET BY MOUTH TWICE A DAY WITH MEALS atorvastatin (LIPITOR) 40 mg tablet Take 1 tablet by mouth once daily. lisinopril 2.5 mg tablet TAKE 1 TABLET BY MOUTH DAILY metoprolol tartrate, short acting, (LOPRESSOR) 25 mg tablet Take 1 tablet by mouth twice daily. aspirin, enteric coated (ASPIRIN, ENTERIC COATED) 81 mg EC tablet Take 1 tablet by mouth once daily. Insulin [place], Disposable, (AJAY PEN NEEDLE) 32 gauge x 5/32 ndle Use as directed once daily with insulin DM:yes Insulin: yes DX: E11.51 Lancets (RELION ULTRA THIN PLUS LANCETS) lancets Use as instructed to check blood sugar BID. (E11.51, E11.65) DM (diabetes mellitus) type II uncontrolled, periph vascular disorder ([facility]) blood sugar diagnostic (RELION PRIME TEST STRIPS) test strip Use as instructed to check blood sugar twice daily No current facility-administered medications for this visit. Rx meds not listed in EPIC: none OTCs: none Herbals: none GLYCEMIC CONTROL: ? Glucometer present at visit: Yes ? SMBG?s: Date Fasting AM 2 hr PP Before Lunch 2 hr PP Before Dinner 2 hr PP Bedtime 07/22 165 07/18 182 07/17 144 07/13 178 07/12 40 5/3 159 5/2 238 5/ 171 07/01 190 06/30 183 06/28 LO 06/25 156 06/24 89 ? Hypoglycemia: yes ? How corrected: had something sweet right away VITALS: BP 112/60 Pulse 79 Last 3 Encounter BP Readings: Date: BP: 06/12/2017 108/55 05/13/2017 112/63 04/25/2017 142/70 Wt: 88 kg (194 lb) BMI: 30.84 kg/(m2) LABS Lab Results Component Value Date HBA1C 7.5 06/12/2017 HBA1C 7.4 03/05/2017 HBA1C 7.8 11/12/2016 CMP: Glucose 415 06/12/2017 BUN 30 06/12/2017 Creatinine 1.16 06/12/2017 Sodium 132 06/12/2017 Potassium 5.3 06/12/2017 Chloride 96 06/12/2017 CO2 25 06/12/2017 Protein, Total 6.7 06/12/2017 Albumin 3.6 06/12/2017 Calcium 8.4 06/12/2017 Alkaline Phosphatase 83 06/12/2017 Bilirubin, Total <0.2 06/12/2017 AST 15 06/12/2017 ALT 13 06/12/2017 Estimated CrCL 67?mL/min (calculated using Ht 66, adjusted Wt 76?kg, sCr 1.16?mg/dL, using [place] Gault) Last Lipid Panel Lab Results Component Value Date CHOL 191 03/05/2017 Lab Results Component Value Date HDL 39 03/05/2017 Lab Results Component Value Date LDL 107 03/05/2017 Lab Results Component Value Date TG 225 03/05/2017 Albumin/Creat Ratio (mg/g) Date Value 03/05/2017 2,255 (H) PHARMACOTHERAPY ASSESSMENT/PLAN: 1. DM (diabetes mellitus) type II uncontrolled, periph vascular disorder (HCC) - ICD9: 250.72, 443.81, ICD10: E11.51, E11.65 (primary diagnosis) A1c goal <?8%, patient is at goal (7.5% on 06/12). FBGs not at goal with a couple instances of hypoglycemia.?Tolerating and compliant with current therapy. Will continue current regimen at this time until further readings can be obtained. Renal fxn improved?and LFTs appropriate for continued therapy. ? CONTINUE insulin glargine 44 units once daily and metformin 1,000 mg BID ? Instructed patient to continue to monitor FBG and at least one PPBG value during the day. ? Provided box of insulin from PAP shipment in sat, patient receives one box per month d/t past issues with storage of insulin 2. Essential hypertension - ICD9: 401.9, ICD10: I10 BP goal <?140/90, pt is at goal on current therapy. Renal fxn and K+ appropriate for continued therapy. K+ slightly elevated from last check, recheck today. ? CONTINUE lisinopril 2.5 mg once daily and metoprolol 25 mg BID - BASIC METABOLIC PNL 3. Mixed hyperlipidemia - ICD9: 272.2, ICD10: E78.2 Pt is on appropriate statin intensity (high?intensity d/t clinical ASCVD). Patient compliant with and tolerating current regimen. Will continue. ?LFTs and renal fxn WNL?and appropriate for continued therapy ? CONTINUE atorvastatin 40mg once daily Health Maintenance issues addressed: DILATED RETINAL EXAM due on 03/08/2017 Patient is scheduled to see PCP 08/28. Patient to return to clinic for PharmD f/u on 08/28. Patient verbalized understanding of instructions. Werner Kennedy, PharmD, [facility] WERNER KENNEDY, PHARMACIST 07/23/2017 1:39 PM Signed Blood test when you get a chance Check sugar morning and at bedtime Referring Provider: DARIN CHRIS [[id number]] Allergies As of Date: 07/23/2017 (No Known Allergies) Date Reviewed: 04/25/2017 Reviewed by: Shobha [employer] - Fully Assessed Reason for Visit: Allied Health Visit [5] Cmt: DM follow-up Primary Visit Diagnosis:DM (diabetes mellitus) type II uncontrolled, periph vascular disorder (HCC) [E11.51, E11.65] Other Visit Diagnoses:Essential hypertension [I10] Mixed hyperlipidemia [E78.2] Order(s):BASIC METABOLIC PNL [SQBMP] Order #: [id number] FUTURE blood sugar diagnostic (RELION PRIME TEST STRIPS) test stripUse as instructed to check blood sugar twice dailyDisp: 100 StripRfl: 11 Prescriptions as of 07/23/2017 Sig: INSULIN GLARGINE (U-100) 100 * Inject 44 Units subcutaneousl* METFORMIN 1,000 MG TABLET TAKE 1 TABLET BY MOUTH TWICE * ATORVASTATIN 40 MG TABLET Take 1 tablet by mouth once d* LISINOPRIL 2.5 MG TABLET TAKE 1 TABLET BY MOUTH DAILY METOPROLOL TARTRATE 25 MG TAB* Take 1 tablet by mouth twice * ASPIRIN 81 MG TABLET,DELAYED * Take 1 tablet by mouth once d* BLOOD SUGAR DIAGNOSTIC STRIPS Use as instructed to check bl* PEN NEEDLE, DIABETIC 32 GAUGE* Use as directed once daily wi* LANCETS Use as instructed to check bl* Problem List As Of Date 07/23/2017 Noted Resolved Open wound of foot excluding toes [S91.309A] INVALID FOR* More... DM (diabetes mellitus) type II uncontrolled, pe*INVALID FOR* More... Essential hypertension [I10] INVALID FOR* More... DEPRESSIVE DISORDER NEC [F32.9] INVALID FOR* More... Diabetic polyneuropathy (HCC) [E11.42] INVALID FOR* Debility [R53.81] INVALID FOR* OVERWEIGHT [E66.9] INVALID FOR* Mixed hyperlipidemia [E78.2] INVALID FOR* More... Proteinuria [R80.9] INVALID FOR* More... Non-proliferative diabetic retinopathy, moderat*INVALID FOR* More... Proliferative diabetic retinopathy, right eye [*INVALID FOR* More... Angina pectoris (HCC) [I20.9] INVALID FOR*03/09/2016 More... CAD (coronary artery disease) [I25.10] INVALID FOR* Financial difficulties [Z59.8] INVALID FOR* Current non-adherence to medical treatment [Z91*INVALID FOR* Non-STEMI (non-ST elevated myocardial infarctio*INVALID FOR*04/25/2017 H/O: CVA (cerebrovascular accident) [Z86.73] INVALID FOR* Hemiparesis due to recent stroke (HCC) [I69.359]INVALID FOR* More... Other malaise and fatigue [R53.81, R53.83] INVALID FOR* Other instructions from your clinician: Blood test when you get a chance Check sugar morning and at bedtime Prescriptions ordered this encounter Disp Refills Start End BLOOD SUGAR DIAGNOSTIC STRIPS 100 * 11 07/23/2017 Sig: Use as instructed to check blood sugar twice daily Medications Discontinued During This Encounter blood sugar diagnostic (RELION PRIME* 50 S* 11 12/14/2015 07/23/2017 Sig: Use as instructed to check blood sugar twice daily Disc: Reason for discontinue is not on file. Encounter Status:Closed by BRENT (PHARMACIST)WERNER on 07/23/17 COMP METABOLIC PANEL Collected: 06/12/2017 Status: F Source: VICI 1:36 PM [facility] REPOSITORY TYPE CODE TESTS RESULT OUT OF REFERENCE UNITS RANGE LAB TP 6.3-8.0 g/dL Protein, Total 6.7 LAB ALB 3.9-4.9 g/dL Low Albumin 3.6 LAB CA 8.5-10.2 mg/dL Low Calcium, Total 8.4 LAB TBIL 0.2-1.3 mg/dL Low Bilirubin, Total <0.2 LAB ALKP 36-108 U/L Alkaline Phosphatase 83 LAB AST 14-40 U/L AST 15 LAB GLU 74-99 mg/dL Glucose High 415 Result Comment: The [place] [employer] (ADA) provides guidance for cutoff values for fasting glucose and random glucose. The ADA defines fasting as no caloric intake for at least 8 hours. Fas ting plasma glucose results between 100 to 125 mg/dL indicate increased risk for diabetes (prediabetes). Fasting plasma glucose results greater than or equal to 126 mg/dL meet the criteria for diagnosis of diabetes. In the absence of unequivocal hyperglycemia, results should be confirmed by repeat testing. In a patient with classic symptoms of hyperglycemia or hyperglycemic crisis, random plasma glucose results greater than or equal to 200 mg/dL meet the criteria for diagnosis of diabetes. Reference: Standards of Medical Care in Diabetes 2016, [place] [employer]. Diabetes Care. 2016.39(Suppl 1). LAB BUN 9-24 mg/dL BUN High 30 LAB CRET 0.73-1.22 mg/dL Creatinine 1.16 LAB NA 136-144 mmol/L Low Sodium 132 LAB K 3.7-5.1 mmol/L Potassium High 5.3 LAB CL 97-105 mmol/L Low Chloride 96 LAB CO2 22-30 mmol/L CO2 25 LAB AGAP 9-18 mmol/L Anion Gap 11 LAB ALT 10-54 U/L ALT 13 LAB GFRAA eGFR- Amer. >60 LAB GFRNAA . eGFR-All Other Races >60 Result Comment: eGFR (Estimated GFR) Units of measure: mL/min/1.73 meters squared eGFR is derived from the reexpressed MDRD Study equation using the following parameters: serum creatinine, age, gender and race. The creatinine assay has been calibrated to be traceable to IDMS. An eGFR <60 mL/min/1.73m2 for >3 months is consistent with chronic kidney disease. Refer to KDOQI guidelines for clinical interpretation. In patients with unstable renal function, e.g. those with acute kidney injury, the eGFR may not accurately reflect actual GFR. Performed By: #### CMP, HBA1C #### [facility] [address] [place], [place] [address] HEMOGLOBIN A1C Collected: 06/12/2017 Status: F Source: VICI 1:36 PM [facility] REPOSITORY TYPE CODE TESTS RESULT OUT OF REFERENCE UNITS RANGE LAB HGBA1C 4.3-5.6 % High Hemoglobin A1c 7.5 LAB HBA0 mg/dL Est. Average Glucose 169 Result Comment: eAG: (Estimated average glucose) is a calculated value from HgbA1c and is dairy supplies sales representative of the average blood glucose level in the last 2-3 month period. Performed By: #### CMP, HBA1C #### [facility] [address] [place], [place] [address] PROGRESS Observed: 06/12/2017 Status: COMPLETED Source: VICI 1:30 PM [facility] REPOSITORY HNO ID: [id number] Author: Werner Kennedy (Pharmacist) Service: (none) Author Type: Pharmacist Type: Progress Notes Filed: 06/12/2017 1:27 PM Note Text: Patient consents to pharmacy collaborative practice agreement. REASON FOR CONSULT: DM GOALS: A1c < 8% CONSULTING PROVIDER: Dr. Arias Date of Consult: 12/2015 Suki Okeefe is a 66 year old male was last seen in [facility] by PCP, Dr. Shimon Arias MD on 04/25/17. Patient is presenting today for f/u pharmacotherapy management appointment for DM. At last PharmD visit on 05/13 patient was continued on current regimen. INTERIM HISTORY: Reports feeling well overall, a little tired Reports received mailing regarding signing up for Medicare when he turns 67 Current DM Medications: Insulin glargine 44 units QAM (has 4 pens at home) Metformin 1,000mg BID Current HTN Medications: Lisinopril 2.5mg once daily Metoprolol tartrate 25mg BID Preventative Medications: ? On MIGUEL ANGEL/ARB: Yes ? On Statin: Yes ? On ASA: Yes ROS: ? Patient denies CP, SOB, ESQUEDA, blurred vision, dizziness or lightheadedness ? Patient denies symptoms of hypoglycemia (sweating, anxiety, palpitations, hunger, and tremor) ? Patient denies symptoms of hyperglycemia (polyuria, polydipsia, polyphagia) ? Patient denies potential medication adverse effects DIET/EXERCISE/SOCIAL Hx: Churches and homeless shelters for meals ? Breakfast: eggs or beans or hot dog ? Lunch: had beef sandwich and mashed potatoes today ? Dinner: chicken and satrch ? Snacks: denies ? Following Na restrictions: no ? Beverages: water, occasional coffee ? Exercise: walking ? Tobacco: denies ? Alcohol: denies ? Illicits: denies MEDICATIONS: ? Pill bottles are not present. ? Adherence: denies missed doses. ? Pharmacy: [facility] ? Rx coverage: Medicare ? Affordability: no issues, [employer] PAP for Lantus ? Diabetes supplies: Relion ? Organization System: [facility] ACTIVE PROBLEM LIST Open Wound of Foot Excluding Toes Dm (Diabetes Mellitus) Type II Uncontrolled, Periph Vascular Disorder (Hcc) Essential Hypertension Depressive Disorder, Not Elsewhere Classified Diabetic Polyneuropathy (Hcc) Debility OVERWEIGHT Mixed Hyperlipidemia Proteinuria Non-Proliferative Diabetic Retinopathy, Moderate, Left Eye (Hcc) Proliferative Diabetic Retinopathy, Right Eye (Hcc) Cad (Coronary Artery Disease) Financial Difficulties Current Non-Adherence to Medical Treatment H/O: Cva (Cerebrovascular Accident) Hemiparesis Due to Recent Stroke ([facility]) Other Malaise and Fatigue PAST MEDICAL HISTORY Diagnosis Date - Angina pectoris (HCC) - Diabetes mellitus without mention of complication Diabetes mellitus - Hemiparesis due to recent stroke ([facility]) 11/2013 left leg weakness on admission; has felt weak all over today; some increased confusion today - HYPERTENSION NOS 01/28/2006 - Non-STEMI (non-ST elevated myocardial infarction) (HCC) 10/27/2013 - NSTEMI (non-ST elevated myocardial infarction) (HCC) 10/2013 - Other and unspecified hyperlipidemia 08/24/2008 - Proliferative diabetic retinopathy, right eye (HCC) 09/20/[address] Mireles at the [facility] - Proteinuria 03/01/2010 Persistent elevation, 2008 - 111, and 02/2010 330. - Retinopathy due to secondary diabetes mellitus (HCC) 08/16/2009 - Type II or unspecified type diabetes mellitus with peripheral circulatory disorders, not stated as uncontrolled(250.70) ALLERGIES No Known Allergies Current Outpatient Prescriptions: insulin glargine (LANTUS SOLOSTAR) 100 unit/mL (3 mL) inpn Inject 44 Units subcutaneously once daily as directed metFORMIN (GLUCOPHAGE) 1,000 mg tablet TAKE 1 TABLET BY MOUTH TWICE A DAY WITH MEALS atorvastatin (LIPITOR) 40 mg tablet Take 1 tablet by mouth once daily. lisinopril 2.5 mg tablet TAKE 1 TABLET BY MOUTH DAILY metoprolol tartrate, short acting, (LOPRESSOR) 25 mg tablet Take 1 tablet by mouth twice daily. aspirin, enteric coated (ASPIRIN, ENTERIC COATED) 81 mg EC tablet Take 1 tablet by mouth once daily. Insulin [place], Disposable, (AJAY PEN NEEDLE) 32 gauge x 5/32 ndle Use as directed once daily with insulin DM:yes Insulin: yes DX: E11.51 Lancets (RELION ULTRA THIN PLUS LANCETS) lancets Use as instructed to check blood sugar BID. (E11.51, E11.65) DM (diabetes mellitus) type II uncontrolled, periph vascular disorder ([facility]) blood sugar diagnostic (RELION PRIME TEST STRIPS) test strip Use as instructed to check blood sugar twice daily No current facility-administered medications for this visit. Rx meds not listed in EPIC: none OTCs: none Herbals: none GLYCEMIC CONTROL: ? Glucometer present at visit: Yes ? SMBG?s: Date Fasting AM 2 hr PP Before Lunch 2 hr PP Before Dinner 2 hr PP Bedtime 06/12 182 4/10 189 4/9 156 4/6 176 4/5 190 4/4 146 4/3 120 4/2 146 / 101 06/01 155 05/31 190 05/30 148 05/29 112 05/28 119 ? Hypoglycemia: no VITALS: BP 108/55 Pulse 87 Last 3 Encounter BP Readings: Date: BP: 05/13/2017 112/63 04/25/2017 142/70 03/29/2017 128/74 Wt: 88 kg (194 lb) BMI: 30.84 kg/(m2) LABS Lab Results Component Value Date HBA1C 7.4 03/05/2017 HBA1C 7.8 11/12/2016 HBA1C 7.9 05/11/2016 CMP: Glucose 303 03/05/2017 BUN 26 03/05/2017 Creatinine 1.23 03/05/2017 Sodium 135 03/05/2017 Potassium 4.4 03/05/2017 Chloride 96 03/05/2017 CO2 25 03/05/2017 Protein, Total 7.4 03/05/2017 Albumin 3.9 03/05/2017 Calcium 9.2 03/05/2017 Alkaline Phosphatase 84 03/05/2017 Bilirubin, Total 0.2 03/05/2017 AST 17 03/05/2017 ALT 17 03/05/2017 Estimated CrCL 65?mL/min (calculated using Ht 66, adjusted Wt 76?kg, sCr 1.23?mg/dL, using [place] Gault) Last Lipid Panel Lab Results Component Value Date CHOL 191 03/05/2017 Lab Results Component Value Date HDL 39 03/05/2017 Lab Results Component Value Date LDL 107 03/05/2017 Lab Results Component Value Date TG 225 03/05/2017 Albumin/Creat Ratio (mg/g) Date Value 03/05/2017 2255 (H) PHARMACOTHERAPY ASSESSMENT/PLAN: 1. DM (diabetes mellitus) type II uncontrolled, periph vascular disorder (HCC) - ICD9: 250.72, 443.81, ICD10: E11.51, E11.65 (primary diagnosis) A1c goal <?8%, patient is at goal (7.4% on 03/05/17). Tolerating and compliant with current therapy. FBGs mostly at goal. No instances of hypoglycemia.?Will continue current regimen at this time. If elevations continue next month, will increase basal insulin by 10%. Renal fxn improved?and LFTs appropriate for continued therapy. ? CONTINUE insulin glargine 44 units once daily and metformin 1,000 mg BID ? Instructed patient to continue to monitor FBG and at least one PPBG value during the day. ? Provided box of insulin from PAP shipment in sate, patient receives one box per month d/t past issues with storage of insulin ? A1c today 2. Essential hypertension - ICD9: 401.9, ICD10: I10 BP goal <?140/90, pt is at goal on current therapy. Renal fxn and K+ appropriate for continued therapy. ? CONTINUE lisinopril 2.5 mg once daily and metoprolol 25 mg BID 3. Mixed hyperlipidemia - ICD9: 272.2, ICD10: E78.2 Pt is on appropriate statin intensity (high intensity d/t clinical ASCVD). Patient compliant with and tolerating current regimen. Will continue. LFTs and renal fxn WNL and appropriate for continued therapy ? CONTINUE atorvastatin 40mg once daily Health Maintenance issues addressed: DILATED RETINAL EXAM due on 03/08/2017 Patient is scheduled to see PCP 08/28. Patient to return to clinic for PharmD f/u on 07/23. Patient verbalized understanding of instructions. Werner Kennedy, PharmD, BCPS CNOV Observed: 06/12/2017 Status: COMPLETED Source: VICI 1:30 PM [facility] REPOSITORY Office Visit (PHMEWO) SUKI OKEEFE ([id number]) 1950 M Date Time Provider Department 06/12/17 1:30 PM BRENT (PHARMACIST)WERNER During your visit today, we recorded the following information about you: Pulse Blood pressure 87/minute 108/55 NIA DECKER 06/12/2017 1:27 PM Signed Patient consents to pharmacy collaborative practice agreement. REASON FOR CONSULT: DM GOALS: A1c ANDlt; 8% CONSULTING PROVIDER: Dr. Arias Date of Consult: 12/2015 Suki Okeefe is a 66 year old male was last seen in [facility] by PCP, Dr. Shimon Arias MD on 04/25/17. Patient is presenting today for f/u pharmacotherapy management appointment for DM. At last PharmD visit on 05/13 patient was continued on current regimen. INTERIM HISTORY: Reports feeling well overall, a little tired Reports received mailing regarding signing up for Medicare when he turns 67 Current DM Medications: Insulin glargine 44 units QAM (has 4 pens at home) Metformin 1,000mg BID Current HTN Medications: Lisinopril 2.5mg once daily Metoprolol tartrate 25mg BID Preventative Medications: ? On MIGUEL ANGEL/ARB: Yes ? On Statin: Yes ? On ASA: Yes ROS: ? Patient denies CP, SOB, ESQUEDA, blurred vision, dizziness or lightheadedness ? Patient denies symptoms of hypoglycemia (sweating, anxiety, palpitations, hunger, and tremor) ? Patient denies symptoms of hyperglycemia (polyuria, polydipsia, polyphagia) ? Patient denies potential medication adverse effects DIET/EXERCISE/SOCIAL Hx: Churches and homeless shelters for meals ? Breakfast: eggs or beans or hot dog ? Lunch: had beef sandwich and mashed potatoes today ? Dinner: chicken and satrch ? Snacks: denies ? Following Na restrictions: no ? Beverages: water, occasional coffee ? Exercise: walking ? Tobacco: denies ? Alcohol: denies ? Illicits: denies MEDICATIONS: ? Pill bottles are not present. ? Adherence: denies missed doses. ? Pharmacy: [facility] ? Rx coverage: Medicare ? Affordability: no issues, [employer] PAP for Lantus ? Diabetes supplies: Relion ? Organization System: [facility] ACTIVE PROBLEM LIST Open Wound of Foot Excluding Toes Dm (Diabetes Mellitus) Type II Uncontrolled, Periph Vascular Disorder (Hcc) Essential Hypertension Depressive Disorder, Not Elsewhere Classified Diabetic Polyneuropathy (Hcc) Debility OVERWEIGHT Mixed Hyperlipidemia Proteinuria Non-Proliferative Diabetic Retinopathy, Moderate, Left Eye (Hcc) Proliferative Diabetic Retinopathy, Right Eye (Hcc) Cad (Coronary Artery Disease) Financial Difficulties Current Non-Adherence to Medical Treatment H/O: Cva (Cerebrovascular Accident) Hemiparesis Due to Recent Stroke (Hcc) Other Malaise and Fatigue PAST MEDICAL HISTORY Diagnosis Date - Angina pectoris (HCC) - Diabetes mellitus without mention of complication Diabetes mellitus - Hemiparesis due to recent stroke ([facility]) 11/2013 left leg weakness on admission; has felt weak all over today; some increased confusion today - HYPERTENSION NOS 01/28/2006 - Non-STEMI (non-ST elevated myocardial infarction) ([facility]) 10/27/2013 - NSTEMI (non-ST elevated myocardial infarction) ([facility]) 10/2013 - Other and unspecified hyperlipidemia 08/24/2008 - Proliferative diabetic retinopathy, right eye (HCC) 09/20/[address] Mireles at the [facility] - Proteinuria 03/01/2010 Persistent elevation, 2007 - 111, and 02/2010 330. - Retinopathy due to secondary diabetes mellitus (HCC) 08/16/2009 - Type II or unspecified type diabetes mellitus with peripheral circulatory disorders, not stated as uncontrolled(250.70) ALLERGIES No Known Allergies Current Outpatient Prescriptions: insulin glargine (LANTUS SOLOSTAR) 100 unit/mL (3 mL) inpn Inject 44 Units subcutaneously once daily as directed metFORMIN (GLUCOPHAGE) 1,000 mg tablet TAKE 1 TABLET BY MOUTH TWICE A DAY WITH MEALS atorvastatin (LIPITOR) 40 mg tablet Take 1 tablet by mouth once daily. lisinopril 2.5 mg tablet TAKE 1 TABLET BY MOUTH DAILY metoprolol tartrate, short acting, (LOPRESSOR) 25 mg tablet Take 1 tablet by mouth twice daily. aspirin, enteric coated (ASPIRIN, ENTERIC COATED) 81 mg EC tablet Take 1 tablet by mouth once daily. Insulin [place], Disposable, (AJAY PEN NEEDLE) 32 gauge x 5/32ANDquot; ndle Use as directed once daily with insulin DM:yes Insulin: yes DX: E11.51 Lancets (RELION ULTRA THIN PLUS LANCETS) lancets Use as instructed to check blood sugar BID. (E11.51, E11.65) DM (diabetes mellitus) type II uncontrolled, periph vascular disorder (HCC) blood sugar diagnostic (RELION PRIME TEST STRIPS) test strip Use as instructed to check blood sugar twice daily No current facility-administered medications for this visit. Rx meds not listed in EPIC: none OTCs: none Herbals: none GLYCEMIC CONTROL: ? Glucometer present at visit: Yes ? SMBG?s: Date Fasting AM 2 hr PP Before Lunch 2 hr PP Before Dinner 2 hr PP Bedtime 06/12 182 4/10 189 4/9 156 4/6 176 4/5 190 4/4 146 4/3 120 4/2 146 / 101 06/01 155 05/31 190 05/30 148 05/29 112 05/28 119 ? Hypoglycemia: no VITALS: BP 108/55 Pulse 87 Last 3 Encounter BP Readings: Date: BP: 05/13/2017 112/63 04/25/2017 142/70 03/29/2017 128/74 Wt: 88 kg (194 lb) BMI: 30.84 kg/(m2) LABS Lab Results Component Value Date HBA1C 7.4 03/05/2017 HBA1C 7.8 11/12/2016 HBA1C 7.9 05/11/2016 CMP: Glucose 303 03/05/2017 BUN 26 03/05/2017 Creatinine 1.23 03/05/2017 Sodium 135 03/05/2017 Potassium 4.4 03/05/2017 Chloride 96 03/05/2017 CO2 25 03/05/2017 Protein, Total 7.4 03/05/2017 Albumin 3.9 03/05/2017 Calcium 9.2 03/05/2017 Alkaline Phosphatase 84 03/05/2017 Bilirubin, Total 0.2 03/05/2017 AST 17 03/05/2017 ALT 17 03/05/2017 Estimated CrCL 65?mL/min (calculated using Ht 66ANDquot;, adjusted Wt 76?kg, sCr 1.23?mg/dL, using [place] Gault) Last Lipid Panel Lab Results Component Value Date CHOL 191 03/05/2017 Lab Results Component Value Date HDL 39 03/05/2017 Lab Results Component Value Date LDL 107 03/05/2017 Lab Results Component Value Date TG 225 03/05/2017 Albumin/Creat Ratio (mg/g) Date Value 03/05/2017 2255 (H) PHARMACOTHERAPY ASSESSMENT/PLAN: 1. DM (diabetes mellitus) type II uncontrolled, periph vascular disorder (HCC) - ICD9: 250.72, 443.81, ICD10: E11.51, E11.65 (primary diagnosis) A1c goal ANDlt;?8%, patient is at goal (7.4% on 03/05/17). Tolerating and compliant with current therapy. FBGs mostly at goal. No instances of hypoglycemia.?Will continue current regimen at this time. If elevations continue next month, will increase basal insulin by 10%. Renal fxn improved?and LFTs appropriate for continued therapy. ? CONTINUE insulin glargine 44 units once daily and metformin 1,000 mg BID ? Instructed patient to continue to monitor FBG and at least one PPBG value during the day. ? Provided box of insulin from PAP shipment in , patient receives one box per month d/t past issues with storage of insulin ? A1c today 2. Essential hypertension - ICD9: 401.9, ICD10: I10 BP goal ANDlt;?140/90, pt is at goal on current therapy. Renal fxn and K+ appropriate for continued therapy. ? CONTINUE lisinopril 2.5 mg once daily and metoprolol 25 mg BID 3. Mixed hyperlipidemia - ICD9: 272.2, ICD10: E78.2 Pt is on appropriate statin intensity (high intensity d/t clinical ASCVD). Patient compliant with and tolerating current regimen. Will continue. LFTs and renal fxn WNL and appropriate for continued therapy ? CONTINUE atorvastatin 40mg once daily Health Maintenance issues addressed: DILATED RETINAL EXAM due on 03/08/2017 Patient is scheduled to see PCP 08/28. Patient to return to clinic for PharmD f/u on 07/23. Patient verbalized understanding of instructions. Werner Kennedy, PharmD, BCPS WERNER KENNEDY, PHARMACIST 06/12/2017 12:52 PM Addendum Blood work today Keep taking insulin 44 units every day Referring Provider: DARIN CHRIS [[id number]] Allergies As of Date: 06/12/2017 (No Known Allergies) Date Reviewed: 04/25/2017 Reviewed by: Shobha Hung [employer] - Fully Assessed Reason for Visit: Allied Health Visit [5] Cmt: DM follow-up Primary Visit Diagnosis:DM (diabetes mellitus) type II uncontrolled, periph vascular disorder (HCC) [E11.51, E11.65] Other Visit Diagnoses:Essential hypertension [I10] Mixed hyperlipidemia [E78.2] Prescriptions as of 06/12/2017 Sig: INSULIN GLARGINE (U-100) 100 * Inject 44 Units subcutaneousl* METFORMIN 1,000 MG TABLET TAKE 1 TABLET BY MOUTH TWICE * ATORVASTATIN 40 MG TABLET Take 1 tablet by mouth once d* LISINOPRIL 2.5 MG TABLET TAKE 1 TABLET BY MOUTH DAILY METOPROLOL TARTRATE 25 MG TAB* Take 1 tablet by mouth twice * ASPIRIN 81 MG TABLET,DELAYED * Take 1 tablet by mouth once d* PEN NEEDLE, DIABETIC 32 GAUGE* Use as directed once daily wi* LANCETS Use as instructed to check bl* BLOOD SUGAR DIAGNOSTIC STRIPS Use as instructed to check bl* Problem List As Of Date 06/12/2017 Noted Resolved Open wound of foot excluding toes [S91.309A] INVALID FOR* More... DM (diabetes mellitus) type II uncontrolled, pe*INVALID FOR* More... Essential hypertension [I10] INVALID FOR* More... DEPRESSIVE DISORDER NEC [F32.9] INVALID FOR* More... Diabetic polyneuropathy (HCC) [E11.42] INVALID FOR* Debility [R53.81] INVALID FOR* OVERWEIGHT [E66.9] INVALID FOR* Mixed hyperlipidemia [E78.2] INVALID FOR* More... Proteinuria [R80.9] INVALID FOR* More... Non-proliferative diabetic retinopathy, moderat*INVALID FOR* More... Proliferative diabetic retinopathy, right eye [*INVALID FOR* More... Angina pectoris (HCC) [I20.9] INVALID FOR*03/09/2016 More... CAD (coronary artery disease) [I25.10] INVALID FOR* Financial difficulties [Z59.8] INVALID FOR* Current non-adherence to medical treatment [Z91*INVALID FOR* Non-STEMI (non-ST elevated myocardial infarctio*INVALID FOR*04/25/2017 H/O: CVA (cerebrovascular accident) [Z86.73] INVALID FOR* Hemiparesis due to recent stroke (HCC) [I69.359]INVALID FOR* More... Other malaise and fatigue [R53.81, R53.83] INVALID FOR* Other instructions from your clinician: Blood work today Keep taking insulin 44 units every day Encounter Status:Closed by BRENT (PHARMACIST)WERNER on 06/12/17 EMERGENCY DEPARTMENT Observed: 05/19/2017 Status: F Source: TROPIC SUMMARY 9:53 PM [facility] REPOSITORY [facility] Medical Records Department [address] [place] [id number] Emergency Department Summary 05/19/17 2147 MR#: [id number] Acct: [id number] Name: SUKI OKEEFE Rep #: [id number] : 1950 66 From: Shai Mcfarlane DO PCP: Shimon Arias MD Status: REG ER - ER Visit Summary Date of Service: 05/19/17 Chief Complaint: Abdominal pain History of Present Illness: The patient is a 66 M who presents with abdominal pain that has been getting worse over the past 2 hours. Patient states the pain is diffuse across his abdomen. Patient denies any nausea or vomiting. Patient denies any chest pain. Patient states he has occasional episodes where he gets short of breath. Patient also states he feels like he is unsteady on his feet and has occasional headaches. Patient states he does have a history of diabetes and thinks this may be was causing him to be unsteady on his feet. Physical Examination: Vital signs are stable. Patient is afebrile. Patient is in no acute distress. Oral mucosa is pink and moist. Neck is supple. Trachea is midline. There is no JVD or lymphadenopathy noted. Heart was regular rate and rhythm. Lungs are clear and equal bilaterally. Abdomen is soft. There is mild diffuse tenderness. There is no rebound or guarding noted. Cranial nerves II through XII are intact. There are no focal motor or sensory deficits noted. The remaining physical exam is within normal limits. Test Results: Acute abdominal x-rays were obtained and were negative. CBC, basic metabolic profile, and urinalysis were obtained and were all within normal limits. Emergency Department Course and Treatment: Patient was able to eat a meal here in the emergency department. Patient felt better on reevaluation. Treatment Plan: Patient was instructed to follow-up with his primary care physician in 7-10 days. Patient was instructed to return if worse in any way. Patient understood and was agreeable with the plan. All questions were answered. Disposition: Discharged home Impression: Abdominal pain This note was generated with RECESS. dictation software. It may contain incorrect words, spelling, and punctuation that were not noted in review of the chart prior to signing ED Disposition - Plan for ED Patient: Disposition: Home or Assisted Living Chief Complaint: General Illness Diagnosis: Abdominal pain Instructions: ED Abdominal Pain Unkn Cause Referrals: Shimon Arias MD [Primary Care Provider] - What to do if you have Problems For any increased pain, shortness of breath, bleeding, nausea or vomiting, chest pain, or any unexpected problems, contact your Primary Care Provider. Call [facility] ([phone]) or report to the closest Emergency Room. Call 911 if necessary. 05/19/17 0403 <Electronically signed by Shai Mcfarlane DO> Date Shai Mcfarlane DO Cosigner Signature (If Indicated): Date CC: Shimon Arias MD URINALYSIS, COMPLETE Collected: 05/19/2017 Status: F Source: ARLENE 8:50 PM [facility] REPOSITORY Order Comment: Order Date: 05/19/17 How was Urine Obtained? CLEAN CATCH TYPE CODE TESTS RESULT OUT OF RANGE REFERENCE UNITS LAB L400.3000 Yellow COLOR Normal Yellow LAB L400.3050 Clear Normal CLARITY Sl. Cloudy LAB L400.3200 Normal mg/dl Normal GLUCOSE, UR Normal LAB L400.3300 Negative mg/dL Normal BILIRUBIN URINE Negative LAB L400.3400 Negative mg/dl High 5 KETONE UR LAB L400.3465 1.002-1.030 Normal SP.GR. DIPSTX 1.020 LAB L400.3550 5.0 - 8.0 pH UR Normal 5.0 LAB L400.3600 Negative mg/dl High PROT DIPSTX 500 LAB L400.3700 Normal mg/dl Normal UROBILI Normal LAB L400.3750 Negative Normal NITRITE UR Negative LAB L400.3780 Negative /ul High 25 OCCULT BLOOD-UR LAB L400.3800 Negative /ul LEUK Normal ESTERASE Negative LAB L400.4050 0-5 /hpf WBC Normal 0-5 SEEN LAB L400.4100 0-5 /hpf 0 Normal RBC-UA SEEN LAB L400.4150 0-5 /hpf SQUAM Normal EPI 0-5 SEEN LAB L400.4300 None Seen /hpf 0 Normal BACTERIA SEEN LAB L400.4350 <or=2+ /hpf 2+ Normal MUCUS, URINE LAB L400.4400 0-5 /lpf Normal HYALINE CAST 0-5 SEEN LAB L400.4750 <or=1+ /hpf URIC Normal CRYSTALS RARE Performed By: #### L400.0001 #### [facility] [address] [place], [address] CBC W/DIFF, AUTOMATED Collected: 05/19/2017 Status: F Source: ARLENE 6:50 PM [facility] REPOSITORY TYPE CODE TESTS RESULT OUT OF RANGE REFERENCE UNITS LAB L100.1000 4.4-11.0 K/mm3 Normal WBC 8.4 LAB L100.1200 4.6-6.2 M/mm3 Low RBC 3.89 LAB L100.1300 13.0-16.5 g/dl Low HGB 12.4 LAB L100.1400 40-54 % Low HCT 37.2 LAB L100.1500 80-94 fL High MCV 95.6 LAB L100.1600 27.0-32.0 pg Normal MCH 31.9 LAB L100.1700 32-36 g/gl Normal MCHC 33.3 LAB L100.1810 11.6-14.6 % Normal RDW CV 13.4 LAB L100.1820 35.1-43.9 fl High RDW SD 46.4 LAB L100.1900 150-450 K/mm3 Normal PLT 203 LAB L100.2000 6.2-12.0 fl Normal MPV 8.8 LAB L100.2100 47-70 % Normal NEUT% 62.6 LAB L100.2200 19-41 % Normal LY% 24.8 LAB L100.2300 0-10 % High MONO% 10.6 LAB L100.2400 0-5 % Normal EO% 1.1 LAB L100.2500 0-1 % Normal BASO% 0.5 LAB L100.2550 0.0-0.9 % Normal IM GRAN % 0.400 Result Comment: IG% - Immature Granulocytes (promyelocytes, myelocytes and metamyelocytes) > 1% indicates that a LEFT SHIFT is Present. LAB L100.2620 2.0-7.7 X10 3/uL Normal Absolute Neut 5.3 LAB L100.2720 0.83-4.51 X10 3/ul Normal Absolute Lymph 2.08 Performed By: #### L100.0100 #### [facility] [address] [place], [address] COMPREHENSIVE METABOLIC Collected: 05/19/2017 Status: F Source: [facility] 6:50 PM [facility] REPOSITORY TYPE CODE TESTS RESULT OUT OF RANGE REFERENCE UNITS LAB L501.0100 74-106 mg/dL Low GLU 61 Result Comment: Please note revised GLUCOSE reference range effective 2017. LAB L501.1000 7-18 mg/dL Normal BUN 18 LAB L501.1100 0.70-1.30 mg/dL Normal CREAT,SERUM 1.02 Result Comment: The validity of the calculated GFR AND GFRAA in patients over 70 years has not been determined. Clinical correlation is essential. LAB L501.1110 >60 mL/min Normal EST GFR 78 Result Comment: Non- GFR Calc LAB L501.1115 >60 mL/min Normal EST GFR - AA 94 Result Comment: GFR Calc LAB L501.1255 ml/min Normal Estimated CRCL 73.16 LAB L501.1300 10-20 RATIO Normal BUN/CRE 17.6 LAB L501.1500 6.4-8. g/dL Normal 2 T PROT 7.4 LAB L501.1800 3.2-5. g/dL Normal 0 ALB 3.4 LAB L501.1950 2.2-4. g/dL Normal 2 GLOB 4.0 LAB L501.2000 0.9-2. RATIO Low 4 A/G 0.8 LAB L501.2200 8.5-10 mg/dL Normal .1 CA 8.7 LAB L501.4100 15-37 U/L Normal AST 17 LAB L501.4305 45-117 U/L Normal ALK P 94 LAB L501.4405 16-61 U/L Normal ALT 18 Result Comment: Please note revised ALT reference range effective 2017. LAB L501.4600 0.20-1.00 mg/dL Normal T BILI 0.30 LAB L501.5300 136-145 mmol/L Normal NA 142 LAB L501.5600 3.5-5.1 mmol/L Low K 3.4 LAB L501.5900 98-107 mmol/L Normal CL 106 LAB L501.6100 21.0-32.0 mmol/L Normal CO2 26.0 LAB L501.6200 5-15 Normal GAP 10 Performed By: #### L500.4050, L501.2450 #### [facility] [address] [place], [place], [id number] LIPASE Collected: 05/19/2017 Status: F Source: [facility] 6:50 PM [facility] REPOSITORY TYPE CODE TESTS RESULT OUT OF RANGE REFERENCE UNITS LAB L501.2450 73-393 U/L Normal LIPASE 96 Performed By: #### L500.4050, L501.2450 #### [facility] [address] [place], [address] BEDSIDE GLUCOSE Collected: 05/19/2017 Status: F Source: [facility] 6:38 PM [facility] REPOSITORY TYPE CODE TESTS RESULT OUT OF REFERENCE UNITS RANGE LAB L501.080 70-110 mg/dL Low BEDSIDE GLU 61 Result Comment: MANAGEMENT OF PATIENT CARE PER NURSING PROTOCOL Performed By: #### L501.080 #### [facility] Point of Care [address] [place] [place] [address] ACUTE ABDOMEN INC Observed: 05/19/2017 Status: F Source: [facility] CHEST 6:22 PM [facility] REPOSITORY [facility] Imaging Services [address] [facility] [place] [address] Acute Abdomen Inc Chest MR#: [id number] Acct: [id number] Name: SUKI OKEEFE Rep #: [id number] : 1950 M 66 From: Phyllis Cohen MD PCP: Shimon Arias MD Status: REG ER Study: Acute Abdomen Inc Chest Date of Exam: 05/19/17 Exam# [id number] Ordering Dr: Shai Mcfarlane DO STUDY: X-RAY - ACUTE ABDOMINAL SERIES REASON FOR EXAM: Male, 66 years old. Abdominal pain TECHNIQUE: Single view of the chest. Supine, and erect view(s) of the abdomen were obtained. COMPARISON: September 05, 2015 FINDINGS: The lungs are underexpanded with bibasilar compression of lung markings.. Normal size heart. Normal mediastinum and ofelia. Normal visualized pulmonary arteries. There is atherosclerotic calcification of the aortic arch with tortuosity. There is mild retained stool throughout the colon. No bowel obstruction. The soft tissue structures of the abdomen and pelvis are unremarkable. There are diffuse degenerative changes of the visualized lumbar spine. RAD/Acute Abdomen Inc Chest IMPRESSION: There is mild retained stool throughout the colon. Electronically Signed: Phyllis Cohen MD at 19:32 EDT , Service support , CC: Shai Mcfarlane DO; Shimon Arias MD Speeder Frame Tender: Signed PROGRESS Observed: 05/13/2017 Status: COMPLETED Source: [facility] 1:00 PM [facility] REPOSITORY HN ID: [id number] Author: Werner Kennedy (Pharmacist) Service: (none) Author Type: Pharmacist Type: Progress Notes Filed: 05/13/2017 1:26 PM Note Text: Patient consents to pharmacy collaborative practice agreement. REASON FOR CONSULT: DM GOALS: A1c < 8% CONSULTING PROVIDER: Dr. Arias Date of Consult: 12/2015 Suki Okeefe is a 66 year old male was last seen in [facility] by PCP, Dr. Shimon Arias MD on 04/25/17. Patient is presenting today for f/u pharmacotherapy management appointment for DM. At last PharmD visit on 04/09 patient was continued on current remine. INTERIM HISTORY: Reports eyes are bad, will schedule eye doctor appointment Otherwise reports feeling well Does not bring glucometer to visit today Current DM Medications: Insulin glargine 44 units QAM (has 4 pens in the fridge remaining) Metformin 1,000mg BID Current HTN Medications: Lisinopril 2.5mg once daily Metoprolol tartrate 25mg BID Preventative Medications: ? On MIGUEL ANGEL/ARB: Yes ? On Statin: Yes ? On ASA: Yes ROS: ? Patient denies CP, SOB, ESQUEDA, blurred vision, dizziness or lightheadedness ? Patient denies symptoms of hypoglycemia (sweating, anxiety, palpitations, hunger, and tremor) ? Patient denies symptoms of hyperglycemia (polyuria, polydipsia, polyphagia) ? Patient denies potential medication adverse effects DIET/EXERCISE/SOCIAL Hx: Churches and homeless shelters for meals ? Breakfast: eggs or beans or hot dog ? Lunch: had beef sandwich and mashed potatoes today ? Dinner: chicken and satrch ? Snacks: denies ? Following Na restrictions: no ? Beverages: water, occasional coffee ? Exercise: walking ? Tobacco: denies ? Alcohol: denies ? Illicits: denies MEDICATIONS: ? Pill bottles are not present. ? Adherence: denies missed doses. ? Pharmacy: [facility] ? Rx coverage: Medicare ? Affordability: no issues, [employer] PAP for Lantus ? Diabetes supplies: Relion ? Organization System: [employer] ACTIVE PROBLEM LIST Open Wound of Foot Excluding Toes Dm (Diabetes Mellitus) Type II Uncontrolled, Periph Vascular Disorder (Hcc) Essential Hypertension Depressive Disorder, Not Elsewhere Classified Diabetic Polyneuropathy (Hcc) Debility OVERWEIGHT Mixed Hyperlipidemia Proteinuria Non-Proliferative Diabetic Retinopathy, Moderate, Left Eye (Hcc) Proliferative Diabetic Retinopathy, Right Eye (Hcc) Cad (Coronary Artery Disease) Financial Difficulties Current Non-Adherence to Medical Treatment H/O: Cva (Cerebrovascular Accident) Hemiparesis Due to Recent Stroke ([facility]) Other Malaise and Fatigue PAST MEDICAL HISTORY Diagnosis Date - Angina pectoris ([facility]) - Diabetes mellitus without mention of complication Diabetes mellitus - Hemiparesis due to recent stroke ([facility]) 11/2013 left leg weakness on admission; has felt weak all over today; some increased confusion today - HYPERTENSION NOS 01/28/2006 - Non-STEMI (non-ST elevated myocardial infarction) ([facility]) 10/27/2013 - NSTEMI (non-ST elevated myocardial infarction) ([facility]) 10/2013 - Other and unspecified hyperlipidemia 08/24/2008 - Proliferative diabetic retinopathy, right eye ([facility]) 09/20/[address] Mireles at the [facility] - Proteinuria 03/01/2010 Persistent elevation, 2008 - 111, and 02/2010 330. - Retinopathy due to secondary diabetes mellitus ([facility]) 08/16/2009 - Type II or unspecified type diabetes mellitus with peripheral circulatory disorders, not stated as uncontrolled(250.70) ALLERGIES No Known Allergies Current Outpatient Prescriptions: insulin glargine (LANTUS SOLOSTAR) 100 unit/mL (3 mL) inpn Inject 44 Units subcutaneously once daily as directed metFORMIN (GLUCOPHAGE) 1,000 mg tablet TAKE 1 TABLET BY MOUTH TWICE A DAY WITH MEALS atorvastatin (LIPITOR) 40 mg tablet Take 1 tablet by mouth once daily. lisinopril 2.5 mg tablet TAKE 1 TABLET BY MOUTH DAILY metoprolol tartrate, short acting, (LOPRESSOR) 25 mg tablet Take 1 tablet by mouth twice daily. aspirin, enteric coated (ASPIRIN, ENTERIC COATED) 81 mg EC tablet Take 1 tablet by mouth once daily. Insulin [place], Disposable, (AJAY PEN NEEDLE) 32 gauge x 5/32 ndle Use as directed once daily with insulin DM:yes Insulin: yes DX: E11.51 Lancets (RELION ULTRA THIN PLUS LANCETS) lancets Use as instructed to check blood sugar BID. (E11.51, E11.65) DM (diabetes mellitus) type II uncontrolled, periph vascular disorder (HCC) blood sugar diagnostic (RELION PRIME TEST STRIPS) test strip Use as instructed to check blood sugar twice daily No current facility-administered medications for this visit. Rx meds not listed in EPIC: none OTCs: none Herbals: none GLYCEMIC CONTROL: ? Glucometer present at visit: No ? SMBG?s: reports lowest 135 to highest 200 ? Hypoglycemia: denies VITALS: BP 112/63 Pulse 87 Last 3 Encounter BP Readings: Date: BP: 04/25/2017 142/70 03/29/2017 128/74 03/05/2017 139/78 Wt: 88 kg (194 lb) BMI: 30.84 kg/(m2) LABS Lab Results Component Value Date HBA1C 7.4 03/05/2017 HBA1C 7.8 11/12/2016 HBA1C 7.9 05/11/2016 CMP: Glucose 303 03/05/2017 BUN 26 03/05/2017 Creatinine 1.23 03/05/2017 Sodium 135 03/05/2017 Potassium 4.4 03/05/2017 Chloride 96 03/05/2017 CO2 25 03/05/2017 Protein, Total 7.4 03/05/2017 Albumin 3.9 03/05/2017 Calcium 9.2 03/05/2017 Alkaline Phosphatase 84 03/05/2017 Bilirubin, Total 0.2 03/05/2017 AST 17 03/05/2017 ALT 17 03/05/2017 Estimated CrCL 65?mL/min (calculated using Ht 66, adjusted Wt 76?kg, sCr 1.23?mg/dL, using [place] Gault) Last Lipid Panel Lab Results Component Value Date CHOL 191 03/05/2017 Lab Results Component Value Date HDL 39 03/05/2017 Lab Results Component Value Date LDL 107 03/05/2017 Lab Results Component Value Date TG 225 03/05/2017 Albumin/Creat Ratio (mg/g) Date Value 03/05/2017 2255 (H) PHARMACOTHERAPY ASSESSMENT/PLAN: 1. DM (diabetes mellitus) type II uncontrolled, periph vascular disorder (HCC) - ICD9: 250.72, 443.81, ICD10: E11.51, E11.65 (primary diagnosis) A1c goal < 8%, patient is at goal (7.4% on 03/05/17). Reported SMBGs mostly at goal without instances of hypoglycemia. Patient compliant with and tolerating current regimen. Will continue at this time until further data obtained. Renal fxn and LFTs WNL and appropriate for continued therapy ? CONTINUE insulin glargine 44 units once daily and metformin 1,000mg BID ? Instructed patient to continue checking BGs daily ? Provided box of insulin from PAP shipment in , patient receives one box per month d/t past issues with storage of insulin ? A1c next PharmD visit 2. Essential hypertension - ICD9: 401.9, ICD10: I10 BP goal <?140/90, pt is at goal on current therapy. Renal fxn and K+ appropriate for continued therapy. ? CONTINUE lisinopril 2.5 mg once daily and metoprolol 25 mg BID 3. Mixed hyperlipidemia - ICD9: 272.2, ICD10: E78.2 Pt is on appropriate statin intensity (high intensity d/t clinical ASCVD). Patient compliant with and tolerating current regimen. Will continue. LFTs and renal fxn WNL and appropriate for continued therapy ? CONTINUE atorvastatin 40mg once daily Health Maintenance issues addressed: DILATED RETINAL EXAM due on 03/08/2017 - patient will schedule Patient is scheduled to see PCP Patient to return to clinic for PharmD f/u on 06/12. Patient verbalized understanding of instructions. Werner Kennedy, Stan, BCPS CNOV Observed: 05/13/2017 Status: COMPLETED Source: [facility] 1:00 PM [facility] REPOSITORY Office Visit (PHMEWO) SUKI OKEEFE ([id number]) 1950 M Date Time Provider Department 05/13/17 1:00 PM BRENT (PHARMACIST), WERNER SPRAGUE During your visit today, we recorded the following information about you: Pulse Blood pressure 87/minute 112/63 WERNER KENNEDY PHARMACIST 05/13/2017 1:26 PM Signed Patient consents to pharmacy collaborative practice agreement. REASON FOR CONSULT: DM GOALS: A1c ANDlt; 8% CONSULTING PROVIDER: Dr. Arias Date of Consult: 12/2015 Suki Okeefe is a 66 year old male was last seen in [facility] by PCP, Dr. Shimon Arias MD on 04/25/17. Patient is presenting today for f/u pharmacotherapy management appointment for DM. At last PharmD visit on 04/09 patient was continued on current remine. INTERIM HISTORY: Reports eyes ANDquot;are badANDquot;, will schedule eye doctor appointment Otherwise reports feeling well Does not bring glucometer to visit today Current DM Medications: Insulin glargine 44 units QAM (has 4 pens in the fridge remaining) Metformin 1,000mg BID Current HTN Medications: Lisinopril 2.5mg once daily Metoprolol tartrate 25mg BID Preventative Medications: ? On MIGUEL ANGEL/ARB: Yes ? On Statin: Yes ? On ASA: Yes ROS: ? Patient denies CP, SOB, ESQUEDA, blurred vision, dizziness or lightheadedness ? Patient denies symptoms of hypoglycemia (sweating, anxiety, palpitations, hunger, and tremor) ? Patient denies symptoms of hyperglycemia (polyuria, polydipsia, polyphagia) ? Patient denies potential medication adverse effects DIET/EXERCISE/SOCIAL Hx: Churches and homeless shelters for meals ? Breakfast: eggs or beans or hot dog ? Lunch: had beef sandwich and mashed potatoes today ? Dinner: chicken and satrch ? Snacks: denies ? Following Na restrictions: no ? Beverages: water, occasional coffee ? Exercise: walking ? Tobacco: denies ? Alcohol: denies ? Illicits: denies MEDICATIONS: ? Pill bottles are not present. ? Adherence: denies missed doses. ? Pharmacy: [facility] ? Rx coverage: Medicare ? Affordability: no issues, [employer] PAP for Lantus ? Diabetes supplies: Relion ? Organization System: [employer] ACTIVE PROBLEM LIST Open Wound of Foot Excluding Toes Dm (Diabetes Mellitus) Type II Uncontrolled, Periph Vascular Disorder (Hcc) Essential Hypertension Depressive Disorder, Not Elsewhere Classified Diabetic Polyneuropathy (Hcc) Debility OVERWEIGHT Mixed Hyperlipidemia Proteinuria Non-Proliferative Diabetic Retinopathy, Moderate, Left Eye (Hcc) Proliferative Diabetic Retinopathy, Right Eye (Hcc) Cad (Coronary Artery Disease) Financial Difficulties Current Non-Adherence to Medical Treatment H/O: Cva (Cerebrovascular Accident) Hemiparesis Due to Recent Stroke ([facility]) Other Malaise and Fatigue PAST MEDICAL HISTORY Diagnosis Date - Angina pectoris (HCC) - Diabetes mellitus without mention of complication Diabetes mellitus - Hemiparesis due to recent stroke ([facility]) 11/2013 left leg weakness on admission; has felt weak all over today; some increased confusion today - HYPERTENSION NOS 01/28/2006 - Non-STEMI (non-ST elevated myocardial infarction) ([facility]) 10/27/2013 - NSTEMI (non-ST elevated myocardial infarction) ([facility]) 10/2013 - Other and unspecified hyperlipidemia 08/24/2008 - Proliferative diabetic retinopathy, right eye (HCC) 09/20/[address] Mireles at the [facility] - Proteinuria 03/01/2010 Persistent elevation, 2008 - 111, and 02/2010 330. - Retinopathy due to secondary diabetes mellitus (HCC) 08/16/2009 - Type II or unspecified type diabetes mellitus with peripheral circulatory disorders, not stated as uncontrolled(250.70) ALLERGIES No Known Allergies Current Outpatient Prescriptions: insulin glargine (LANTUS SOLOSTAR) 100 unit/mL (3 mL) inpn Inject 44 Units subcutaneously once daily as directed metFORMIN (GLUCOPHAGE) 1,000 mg tablet TAKE 1 TABLET BY MOUTH TWICE A DAY WITH MEALS atorvastatin (LIPITOR) 40 mg tablet Take 1 tablet by mouth once daily. lisinopril 2.5 mg tablet TAKE 1 TABLET BY MOUTH DAILY metoprolol tartrate, short acting, (LOPRESSOR) 25 mg tablet Take 1 tablet by mouth twice daily. aspirin, enteric coated (ASPIRIN, ENTERIC COATED) 81 mg EC tablet Take 1 tablet by mouth once daily. Insulin [place], Disposable, (AJAY PEN NEEDLE) 32 gauge x 5/32ANDquot; ndle Use as directed once daily with insulin DM:yes Insulin: yes DX: E11.51 Lancets (RELION ULTRA THIN PLUS LANCETS) lancets Use as instructed to check blood sugar BID. (E11.51, E11.65) DM (diabetes mellitus) type II uncontrolled, periph vascular disorder ([facility]) blood sugar diagnostic (RELION PRIME TEST STRIPS) test strip Use as instructed to check blood sugar twice daily No current facility-administered medications for this visit. Rx meds not listed in EPIC: none OTCs: none Herbals: none GLYCEMIC CONTROL: ? Glucometer present at visit: No ? SMBG?s: reports lowest 135 to highest 200 ? Hypoglycemia: denies VITALS: BP 112/63 Pulse 87 Last 3 Encounter BP Readings: Date: BP: 04/25/2017 142/70 03/29/2017 128/74 03/05/2017 139/78 Wt: 88 kg (194 lb) BMI: 30.84 kg/(m2) LABS Lab Results Component Value Date HBA1C 7.4 03/05/2017 HBA1C 7.8 11/12/2016 HBA1C 7.9 05/11/2016 CMP: Glucose 303 03/05/2017 BUN 26 03/05/2017 Creatinine 1.23 03/05/2017 Sodium 135 03/05/2017 Potassium 4.4 03/05/2017 Chloride 96 03/05/2017 CO2 25 03/05/2017 Protein, Total 7.4 03/05/2017 Albumin 3.9 03/05/2017 Calcium 9.2 03/05/2017 Alkaline Phosphatase 84 03/05/2017 Bilirubin, Total 0.2 03/05/2017 AST 17 03/05/2017 ALT 17 03/05/2017 Estimated CrCL 65?mL/min (calculated using Ht 66ANDquot;, adjusted Wt 76?kg, sCr 1.23?mg/dL, using [place] Gault) Last Lipid Panel Lab Results Component Value Date CHOL 191 03/05/2017 Lab Results Component Value Date HDL 39 03/05/2017 Lab Results Component Value Date LDL 107 03/05/2017 Lab Results Component Value Date TG 225 03/05/2017 Albumin/Creat Ratio (mg/g) Date Value 03/05/2017 2255 (H) PHARMACOTHERAPY ASSESSMENT/PLAN: 1. DM (diabetes mellitus) type II uncontrolled, periph vascular disorder (HCC) - ICD9: 250.72, 443.81, ICD10: E11.51, E11.65 (primary diagnosis) A1c goal ANDlt; 8%, patient is at goal (7.4% on 03/05/17). Reported SMBGs mostly at goal without instances of hypoglycemia. Patient compliant with and tolerating current regimen. Will continue at this time until further data obtained. Renal fxn and LFTs WNL and appropriate for continued therapy ? CONTINUE insulin glargine 44 units once daily and metformin 1,000mg BID ? Instructed patient to continue checking BGs daily ? Provided box of insulin from PAP shipment in , patient receives one box per month d/t past issues with storage of insulin ? A1c next PharmD visit 2. Essential hypertension - ICD9: 401.9, ICD10: I10 BP goal ANDlt;?140/90, pt is at goal on current therapy. Renal fxn and K+ appropriate for continued therapy. ? CONTINUE lisinopril 2.5 mg once daily and metoprolol 25 mg BID 3. Mixed hyperlipidemia - ICD9: 272.2, ICD10: E78.2 Pt is on appropriate statin intensity (high intensity d/t clinical ASCVD). Patient compliant with and tolerating current regimen. Will continue. LFTs and renal fxn WNL and appropriate for continued therapy ? CONTINUE atorvastatin 40mg once daily Health Maintenance issues addressed: DILATED RETINAL EXAM due on 03/08/2017 - patient will schedule Patient is scheduled to see PCP . Patient to return to clinic for PharmD f/u on 06/12. Patient verbalized understanding of instructions. Werner Kennedy, PharmD, BCPS WERNER KENNEDY PHARMACIST 05/13/2017 1:09 PM Addendum Eye doctor appointment [phone] Bring sugar machine to appointment on June 12 Referring Provider: DARIN CHRIS [[id number]] Allergies As of Date: 05/13/2017 (No Known Allergies) Date Reviewed: 04/25/2017 Reviewed by: Shobha Hung [employer] - Fully Assessed Reason for Visit: Allied Health Visit [5] Cmt: DM follow-up Primary Visit Diagnosis:DM (diabetes mellitus) type II uncontrolled, periph vascular disorder (HCC) [E11.51, E11.65] Other Visit Diagnoses:Essential hypertension [I10] Mixed hyperlipidemia [E78.2] Order(s):HGB A1C [[id number]] Order #: [id number] FUTURE COMP METABOLIC PANEL [SQCMP] Order #: [id number] FUTURE Prescriptions as of 05/13/2017 Sig: INSULIN GLARGINE (U-100) 100 * Inject 44 Units subcutaneousl* METFORMIN 1,000 MG TABLET TAKE 1 TABLET BY MOUTH TWICE * ATORVASTATIN 40 MG TABLET Take 1 tablet by mouth once d* LISINOPRIL 2.5 MG TABLET TAKE 1 TABLET BY MOUTH DAILY METOPROLOL TARTRATE 25 MG TAB* Take 1 tablet by mouth twice * ASPIRIN 81 MG TABLET,DELAYED * Take 1 tablet by mouth once d* PEN NEEDLE, DIABETIC 32 GAUGE* Use as directed once daily wi* LANCETS Use as instructed to check bl* BLOOD SUGAR DIAGNOSTIC STRIPS Use as instructed to check bl* Problem List As Of Date 05/13/2017 Noted Resolved Open wound of foot excluding toes [S91.309A] INVALID FOR* More... DM (diabetes mellitus) type II uncontrolled, pe*INVALID FOR* More... Essential hypertension [I10] INVALID FOR* More... DEPRESSIVE DISORDER NEC [F32.9] INVALID FOR* More... Diabetic polyneuropathy (HCC) [E11.42] INVALID FOR* Debility [R53.81] INVALID FOR* OVERWEIGHT [E66.9] INVALID FOR* Mixed hyperlipidemia [E78.2] INVALID FOR* More... Proteinuria [R80.9] INVALID FOR* More... Non-proliferative diabetic retinopathy, moderat*INVALID FOR* More... Proliferative diabetic retinopathy, right eye [*INVALID FOR* More... Angina pectoris (HCC) [I20.9] INVALID FOR*03/09/2016 More... CAD (coronary artery disease) [I25.10] INVALID FOR* Financial difficulties [Z59.8] INVALID FOR* Current non-adherence to medical treatment [Z91*INVALID FOR* Non-STEMI (non-ST elevated myocardial infarctio*INVALID FOR*04/25/2017 H/O: CVA (cerebrovascular accident) [Z86.73] INVALID FOR* Hemiparesis due to recent stroke (HCC) [I69.359]INVALID FOR* More... Other malaise and fatigue [R53.81, R53.83] INVALID FOR* Other instructions from your clinician: Eye doctor appointment [phone] Bring sugar machine to appointment on June 12 Encounter Status:Closed by BRENT (PHARMACIST)WERNER on 05/13/17 MARCO Observed: 04/25/2017 Status: COMPLETED Source: [facility] 3:40 PM [facility] RE[facility]IT[facility] Office Visit (INTMWS) SUKI OKEEFE ([id number]) 1950 M Date Time Provider Department 04/25/17 3:40 PM SHIMON ARIAS [facility] During your visit today, we recorded the following information about you: Temperature Pulse Respiration Blood pressure 98.4 degrees 97/minute 16/minute 142/70 Weight 88 kg Shimon Arias MD 05/02/2017 3:11 PM Signed Patient presents with: Recheck SUBJECTIVE: Suki Okeefe is a 66 year old year old gentleman here today for follow up appointment for review of medical conditions. Noted started supplement from [place] distributed from [place]. Past year. Vitamin A and D, etc. Feels better. BSs 175 at home at different times of day. A couple 300's but none in 70s or less range. Discussed recent fall on the ice--went to ER. No significant injuries. Will follow up with eye doctor. Dues this year March according to record. Should be seeing routinely given retinopathy history. Clinically seems stable--no complaints of acute vision changes. Blood pressure controlled fairly well (running a bit higher than usual even on recheck) without adverse effects from medications. PAST MEDICAL HISTORY Diagnosis Date - Angina pectoris (HCC) - Diabetes mellitus without mention of complication Diabetes mellitus - Hemiparesis due to recent stroke ([facility]) 11/2013 left leg weakness on admission; has felt weak all over today; some increased confusion today - HYPERTENSION NOS 01/28/2006 - NSTEMI (non-ST elevated myocardial infarction) [facility] [facility] 10[facility]2013 - Other and unspecified hyperlipidemia 08/24/2008 - Proliferative diabetic retinopathy, right eye ([facility]) 09/20/[address] Mireles at the [facility] - Proteinuria 03/01/2010 Persistent elevation, 2008 - 111, and 02/2010 330. - Retinopathy due to secondary diabetes mellitus ([facility]) 08/16/2009 - Type II or unspecified type diabetes mellitus with peripheral circulatory disorders, not stated as uncontrolled(250.70) Current Outpatient Prescriptions: insulin glargine (LANTUS SOLOSTAR) 100 unit/mL (3 mL) inpn Inject 44 Units subcutaneously once daily as directed metFORMIN (GLUCOPHAGE) 1,000 mg tablet TAKE 1 TABLET BY MOUTH TWICE A DAY WITH MEALS atorvastatin (LIPITOR) 40 mg tablet Take 1 tablet by mouth once daily. lisinopril 2.5 mg tablet TAKE 1 TABLET BY MOUTH DAILY metoprolol tartrate, short acting, (LOPRESSOR) 25 mg tablet Take 1 tablet by mouth twice daily. aspirin, enteric coated (ASPIRIN, ENTERIC COATED) 81 mg EC tablet Take 1 tablet by mouth once daily. Insulin [place], Disposable, (AJAY PEN NEEDLE) 32 gauge x 5/32ANDquot; ndle Use as directed once daily with insulin DM:yes Insulin: yes DX: E11.51 Lancets (RELION ULTRA THIN PLUS LANCETS) lancets Use as instructed to check blood sugar BID. (E11.51, E11.65) DM (diabetes mellitus) type II uncontrolled, periph vascular disorder (HCC) blood sugar diagnostic (RELION PRIME TEST STRIPS) test strip Use as instructed to check blood sugar twice daily No current facility-administered medications for this visit. OBJECTIVE: BP 162/82 Pulse 97 Temp 36.9 ?C (98.4 ?F) (Temporal Artery) Resp 16 Wt 88 kg (194 lb) SpO2 98% BMI 30.84 kg/m2 Patient is alert, oriented times 3, no apparent distress, affect is bright, reactive. Last 5 Encounter BP Readings: Date: BP: 04/25/2017 162/82 03/29/2017 128/74 03/05/2017 139/78 12/10/2016 100/54 12/07/2016 132/72 Last 5 Encounter Wt Readings: Date: Wt: 04/25/2017 88 kg (194 lb) 03/29/2017 89.4 kg (197 lb) 12/07/2016 91.6 kg (202 lb) 07/25/2016 93.4 kg (206 lb) 04/10/2016 88.9 kg (196 lb) 04/25/17 1514 04/25/17 1548 BP: 162/82 142/70 Pulse: 97 Resp: 16 Temp: 36.9 ?C (98.4 ?F) TempSrc: Temporal Artery SpO2: 98% Weight: 88 kg (194 lb) Heart: Regular rate, rhythm, no murmurs, gallops, rubs. Lungs: Clear to auscultation, bilaterally, breathing non labored. Ext: No cyanosis, clubbing, or edema. Feet:Shoes and socks removed, No deformities, ulcers, calluses and sensitive to 10 gm monofilament though states can barely feel at balls of feet Component Latest Ref Rng ANDamp; Units 11/12/2016 03/05/2017 Protein, Total 6.3 - 8.0 g/dL 7.4 Albumin 3.9 - 4.9 g/dL 3.9 Calcium 8.5 - 10.2 mg/dL 10.4 (H) 9.2 Bilirubin, Total 0.2 - 1.3 mg/dL 0.2 Alkaline Phosphatase 36 - 108 U/L 84 AST 14 - 40 U/L 17 Glucose 74 - 99 mg/dL 151 (H) 303 (H) BUN 9 - 24 mg/dL 31 (H) 26 (H) Creatinine 0.73 - 1.22 mg/dL 1.22 1.23 (H) Sodium 136 - 144 mmol/L 141 135 (L) Potassium 3.7 - 5.1 mmol/L 4.6 4.4 Chloride 97 - 105 mmol/L 106 (H) 96 (L) CO2 22 - 30 mmol/L 17 (L) 25 Anion Gap 9 - 18 mmol/L 18 14 ALT 10 - 54 U/L 17 eGFR- ANDgt;60 ANDgt;60 eGFR-All Other Races . 60 59 WBC 3.70 - 11.00 k/uL 6.71 RBC 4.20 - 6.00 m/uL 4.16 (L) Hemoglobin 13.0 - 17.0 g/dL 13.6 Hematocrit 39.0 - 51.0 % 40.9 MCV 80.0 - 100.0 fL 98.3 MCH 26.0 - 34.0 pG 32.7 MCHC 30.5 - 36.0 g/dL 33.3 RDW-CV 11.5 - 15.0 % 12.7 Platelet Count 150 - 400 k/uL 244 MPV 9.0 - 12.7 fL 9.8 Absolute nRBC ANDlt;0.01 k/uL ANDlt;0.01 Triglyceride 30 - 149 mg/dL 225 (H) Cholesterol, Total 100 - 199 mg/dL 191 HDL Cholesterol ANDgt;45 mg/dL 39 (L) VLDL Cholesterol 6 - 40 mg/dL 45 (H) LDL Cholesterol 60 - 129 mg/dL 107 Fasting Time hrs 1 TC:HDL Ratio 1.00 - 5.00 4.90 LDL:HDL Ratio 0.50 - 3.55 2.74 Non HDL Cholesterol 90 - 159 mg/dL 152 Creatinine, Ur Random (UCRR) 20 - 300 mg/dL 47.4 Albumin, Urine Random 0.0 - 23.0 mg/L 1068.7 (H) Albumin/Creat Ratio 0 - 30 mg/g 2255 (H) Hemoglobin A1C 4.3 - 5.6 % 7.8 (H) 7.4 (H) Estimated Average Glucose mg/dL 177 166 Vitamin D 25 Hydroxy 31.0 - 80.0 ng/mL 27.1 (L) ASSESSMENT AND PLAN: Encounter Diagnosis ICD-10-CM 1. DM (diabetes mellitus) type II uncontrolled, periph vascular disorder ([facility]) E11.51 E11.65 2. Essential hypertension I10 3. Retinopathy due to secondary diabetes mellitus ([facility]) E13.319 4. Financial difficulties Z59.8 5. 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 Proliferative diabetic retinopathy of right eye associated with type 2 diabetes mellitus, unspecified proliferative retinopathy type ([facility]) E11.3591 7. Hemiparesis due to recent stroke ([facility]) I69.359 8. Diabetic polyneuropathy associated with type 2 diabetes mellitus ([facility]) E11.42 Form completed to get DM shoes through Dr. Monteiro (press assistant) for DM shoes. Stable on current meds. Continues to follow up with Werner Kennedy PharmD. Blood sugars improving. Can adjust BP meds as indicated at close follow up. Above issues addressed with patient. Patient involved in shared decision making for management of her medical issues. History and medications reviewed. Epic updated as needed Refills taken care of and meds adjusted as indicated after reviewed history, exam and labs. Health Maintenance reviewed. Updated record and/or ordered tests as recorded. Encouraged on efforts at healthy diet and regular exercise and adequate sleep. The majority of the visit was spent counseling and/or coordinating care for the patient. Jahq-sz-szlb time was at least 25 minutes. Shimon Arias MD Referring Provider: SELF [200] Allergies As of Date: 04/25/2017 (No Known Allergies) Date Reviewed: 04/25/2017 Reviewed by: Shobha [employer] - Fully Assessed Reason for Visit: Recheck [92] Primary Visit Diagnosis:DM (diabetes mellitus) type II uncontrolled, periph vascular disorder (HCC) [E11.51, E11.65] Other Visit Diagnoses:Essential hypertension [I10] Retinopathy due to secondary diabetes mellitus (HCC) [E13.319] Financial difficulties [Z59.8] Moderate nonproliferative diabetic retinopathy of left eye associated with type 2 diabetes mellitus, macular edema presence unspecified (HCC) [E11.3392] Proliferative diabetic retinopathy of right eye associated with type 2 diabetes mellitus, unspecified proliferative retinopathy type (HCC) [E11.3591] Hemiparesis due to recent stroke ([facility]) [I69.359] Diabetic polyneuropathy associated with type 2 diabetes mellitus (HCC) [E11.42] Prescriptions as of 04/25/2017 Sig: INSULIN GLARGINE (U-100) 100 * Inject 44 Units subcutaneousl* METFORMIN 1,000 MG TABLET TAKE 1 TABLET BY MOUTH TWICE * ATORVASTATIN 40 MG TABLET Take 1 tablet by mouth once d* LISINOPRIL 2.5 MG TABLET TAKE 1 TABLET BY MOUTH DAILY METOPROLOL TARTRATE 25 MG TAB* Take 1 tablet by mouth twice * ASPIRIN 81 MG TABLET,DELAYED * Take 1 tablet by mouth once d* PEN NEEDLE, DIABETIC 32 GAUGE* Use as directed once daily wi* LANCETS Use as instructed to check bl* BLOOD SUGAR DIAGNOSTIC STRIPS Use as instructed to check bl* Problem List As Of Date 04/25/2017 Noted Resolved Open wound of foot excluding toes [S91.309A] INVALID FOR* More... DM (diabetes mellitus) type II uncontrolled, pe*INVALID FOR* More... Essential hypertension [I10] INVALID FOR* More... DEPRESSIVE DISORDER NEC [F32.9] INVALID FOR* More... Diabetic polyneuropathy (HCC) [E11.42] INVALID FOR* Debility [R53.81] INVALID FOR* OVERWEIGHT [E66.9] INVALID FOR* Mixed hyperlipidemia [E78.2] INVALID FOR* Retinopathy due to Secondary Diabetes Mellitus *INVALID FOR* More... Proteinuria [R80.9] INVALID FOR* More... Non-proliferative diabetic retinopathy, moderat*INVALID FOR* More... Proliferative diabetic retinopathy, right eye [*INVALID FOR* More... Angina pectoris (HCC) [I20.9] INVALID FOR*03/09/2016 More... CAD (coronary artery disease) [I25.10] INVALID FOR* Financial difficulties [Z59.8] INVALID FOR* Current non-adherence to medical treatment [Z91*INVALID FOR* Non-STEMI (non-ST elevated myocardial infarctio*INVALID FOR*04/25/2017 H/O: CVA (cerebrovascular accident) [Z86.73] INVALID FOR* Hemiparesis due to recent stroke (HCC) [I69.359]INVALID FOR* More... Other malaise and fatigue [R53.81, R53.83] INVALID FOR* Disposition: Return in about 4 months (around 08/23/2017) for 4 months follow up, With labs prior. Follow-up and Disposition History Recorded Encounter Status:Closed by SHIMON ARIAS MD on 05/02/17 PROGRESS Observed: 04/25/2017 Status: COMPLETED Source: VICI 3:37 PM [facility] REPOSITORY O ID: [id number] Author: Shimon Arias Service: (none) Author Type: Physician Type: Progress Notes Filed: 05/02/2017 3:11 PM Note Text: Patient presents with: Recheck SUBJECTIVE: Suki Okeefe is a 66 year old year old gentleman here today for follow up appointment for review of medical conditions. Noted started supplement from [place] distributed from [place]. Past year. Vitamin A and D, etc. Feels better. BSs 175 at home at different times of day. A couple 300's but none in 70s or less range. Discussed recent fall on the ice--went to ER. No significant injuries. Will follow up with eye doctor. Dues this year March according to record. Should be seeing routinely given retinopathy history. Clinically seems stable--no complaints of acute vision changes. Blood pressure controlled fairly well (running a bit higher than usual even on recheck) without adverse effects from medications. PAST MEDICAL HISTORY Diagnosis Date - Angina pectoris (HCC) - Diabetes mellitus without mention of complication Diabetes mellitus - Hemiparesis due to recent stroke (HCC) 11/2013 left leg weakness on admission; has felt weak all over today; some increased confusion today - HYPERTENSION NOS 01/28/2006 - NSTEMI (non-ST elevated myocardial infarction) (HCC) 10/2013 - Other and unspecified hyperlipidemia 08/24/2008 - Proliferative diabetic retinopathy, right eye (HCC) 09/20/[address] Mireles at the [facility] - Proteinuria 03/01/2010 Persistent elevation, 2008 - 111, and 02/2010 330. - Retinopathy due to secondary diabetes mellitus (HCC) 08/16/2009 - Type II or unspecified type diabetes mellitus with peripheral circulatory disorders, not stated as uncontrolled(250.70) Current Outpatient Prescriptions: insulin glargine (LANTUS SOLOSTAR) 100 unit/mL (3 mL) inpn Inject 44 Units subcutaneously once daily as directed metFORMIN (GLUCOPHAGE) 1,000 mg tablet TAKE 1 TABLET BY MOUTH TWICE A DAY WITH MEALS atorvastatin (LIPITOR) 40 mg tablet Take 1 tablet by mouth once daily. lisinopril 2.5 mg tablet TAKE 1 TABLET BY MOUTH DAILY metoprolol tartrate, short acting, (LOPRESSOR) 25 mg tablet Take 1 tablet by mouth twice daily. aspirin, enteric coated (ASPIRIN, ENTERIC COATED) 81 mg EC tablet Take 1 tablet by mouth once daily. Insulin [place], Disposable, (AJAY PEN NEEDLE) 32 gauge x 5/32 ndle Use as directed once daily with insulin DM:yes Insulin: yes DX: E11.51 Lancets (RELION ULTRA THIN PLUS LANCETS) lancets Use as instructed to check blood sugar BID. (E11.51, E11.65) DM (diabetes mellitus) type II uncontrolled, periph vascular disorder ([facility]) blood sugar diagnostic (RELION PRIME TEST STRIPS) test strip Use as instructed to check blood sugar twice daily No current facility-administered medications for this visit. OBJECTIVE: BP 162/82 Pulse 97 Temp 36.9 ?C (98.4 ?F) (Temporal Artery) Resp 16 Wt 88 kg (194 lb) SpO2 98% BMI 30.84 kg/m2 Patient is alert, oriented times 3, no apparent distress, affect is bright, reactive. Last 5 Encounter BP Readings: Date: BP: 04/25/2017 162/82 03/29/2017 128/74 03/05/2017 139/78 12/10/2016 100/54 12/07/2016 132/72 Last 5 Encounter Wt Readings: Date: Wt: 04/25/2017 88 kg (194 lb) 03/29/2017 89.4 kg (197 lb) 12/07/2016 91.6 kg (202 lb) 07/25/2016 93.4 kg (206 lb) 04/10/2016 88.9 kg (196 lb) 04/25/17 1514 04/25/17 1548 BP: 162/82 142/70 Pulse: 97 Resp: 16 Temp: 36.9 ?C (98.4 ?F) TempSrc: Temporal Artery SpO2: 98% Weight: 88 kg (194 lb) Heart: Regular rate, rhythm, no murmurs, gallops, rubs. Lungs: Clear to auscultation, bilaterally, breathing non labored. Ext: No cyanosis, clubbing, or edema. Feet:Shoes and socks removed, No deformities, ulcers, calluses and sensitive to 10 gm monofilament though states can barely feel at balls of feet Component Latest Ref Rng AND Units 11/12/2016 03/05/2017 Protein, Total 6.3 - 8.0 g/dL 7.4 Albumin 3.9 - 4.9 g/dL 3.9 Calcium 8.5 - 10.2 mg/dL 10.4 (H) 9.2 Bilirubin, Total 0.2 - 1.3 mg/dL 0.2 Alkaline Phosphatase 36 - 108 U/L 84 AST 14 - 40 U/L 17 Glucose 74 - 99 mg/dL 151 (H) 303 (H) BUN 9 - 24 mg/dL 31 (H) 26 (H) Creatinine 0.73 - 1.22 mg/dL 1.22 1.23 (H) Sodium 136 - 144 mmol/L 141 135 (L) Potassium 3.7 - 5.1 mmol/L 4.6 4.4 Chloride 97 - 105 mmol/L 106 (H) 96 (L) CO2 22 - 30 mmol/L 17 (L) 25 Anion Gap 9 - 18 mmol/L 18 14 ALT 10 - 54 U/L 17 eGFR- >60 >60 eGFR-All Other Races . 60 59 WBC 3.70 - 11.00 k/uL 6.71 RBC 4.20 - 6.00 m/uL 4.16 (L) Hemoglobin 13.0 - 17.0 g/dL 13.6 Hematocrit 39.0 - 51.0 % 40.9 MCV 80.0 - 100.0 fL 98.3 MCH 26.0 - 34.0 pG 32.7 MCHC 30.5 - 36.0 g/dL 33.3 RDW-CV 11.5 - 15.0 % 12.7 Platelet Count 150 - 400 k/uL 244 MPV 9.0 - 12.7 fL 9.8 Absolute nRBC <0.01 k/uL <0.01 Triglyceride 30 - 149 mg/dL 225 (H) Cholesterol, Total 100 - 199 mg/dL 191 HDL Cholesterol >45 mg/dL 39 (L) VLDL Cholesterol 6 - 40 mg/dL 45 (H) LDL Cholesterol 60 - 129 mg/dL 107 Fasting Time hrs 1 TC:HDL Ratio 1.00 - 5.00 4.90 LDL:HDL Ratio 0.50 - 3.55 2.74 Non HDL Cholesterol 90 - 159 mg/dL 152 Creatinine, Ur Random (UCRR) 20 - 300 mg/dL 47.4 Albumin, Urine Random 0.0 - 23.0 mg/L 1068.7 (H) Albumin/Creat Ratio 0 - 30 mg/g 2255 (H) Hemoglobin A1C 4.3 - 5.6 % 7.8 (H) 7.4 (H) Estimated Average Glucose mg/dL 177 166 Vitamin D 25 Hydroxy 31.0 - 80.0 ng/mL 27.1 (L) ASSESSMENT AND PLAN: Encounter Diagnosis ICD-10-CM 1. DM (diabetes mellitus) type II uncontrolled, periph vascular disorder ([facility]) E11.51 E11.65 2. Essential hypertension I10 3. Retinopathy due to secondary diabetes mellitus ([facility]) E13.319 4. Financial difficulties Z59.8 5. 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 Proliferative diabetic retinopathy of right eye associated with type 2 diabetes mellitus, unspecified proliferative retinopathy type ([facility]) E11.3591 7. Hemiparesis due to recent stroke ([facility]) I69.359 8. Diabetic polyneuropathy associated with type 2 diabetes mellitus ([facility]) E11.42 Form completed to get DM shoes through Dr. Monteiro (press assistant) for DM shoes. Stable on current meds. Continues to follow up with Werner Kennedy PharmD. Blood sugars improving. Can adjust BP meds as indicated at close follow up. Above issues addressed with patient. Patient involved in shared decision making for management of her medical issues. History and medications reviewed. Epic updated as needed Refills taken care of and meds adjusted as indicated after reviewed history, exam and labs. Health Maintenance reviewed. Updated record and/or ordered tests as recorded. Encouraged on efforts at healthy diet and regular exercise and adequate sleep. The majority of the visit was spent counseling and/or coordinating care for the patient. Uaav-td-xmpb time was at least 25 minutes. Shimon Arias MD DISCHARGE INSTRUCTION Observed: 04/21/2017 Status: F Source: ARLENE 10:18 AM [facility] REPOSITORY [facility] Medical Records Department [address] [place] [address] Discharge Instruction 04/21/17 1017 MR#: [id number] Acct: [id number] Name: SUKI OKEEFE Rep #: [id number] : 1950 66 From: Racquel Segal PCP: Shimon Arias MD Status: REG ER ED Disposition - Plan for ED Patient: Chief Complaint: Upper Extremity Injury Instructions: ED Torn Rotator Cuff Referrals: Shimon Arias MD [Primary Care Provider] - 04/25/17 What to do if you have Problems For any increased pain, shortness of breath, bleeding, nausea or vomiting, chest pain, or any unexpected problems, contact your Primary Care Provider. Call [facility] ([phone]) or report to the closest Emergency Room. Call 911 if necessary. 04/21/17 1018 <Electronically signed by Racquel Segal > Date Racquel Segal Cosigner Signature (If Indicated): Date CC: Shimon Arias MD EMERGENCY DEPARTMENT Observed: 04/21/2017 Status: F Source: ARLENE SUMMARY 10:17 AM [facility] REPOSITORY [facility] Medical Records Department [address] [place] [address] Emergency Department Summary 04/21/17 0840 MR#: [id number] Acct: [id number] Name: SUKI OKEEFE Rep #: [id number] : 1950 66 From: Racquel Segal PCP: Shimon Arias MD Status: REG ER - ER Visit Summary Date of Service: 04/21/17 Chief Complaint: [right Shoulder pain] History of Present Illness: The patient is a 66 M [who presents the emergency department with right shoulder pain. He fell on the ice 3 days ago. He fell directly on his right shoulder. He continues to have a sharp pain over the top and lateral aspect of the shoulder joint. He does have pain with range of motion. No numbness or tingling. No previous injuries. No other injuries during his fall. Past medical history: Diabetes] Physical Examination: [] Blood pressure 150/85 other vitals within acceptable limits Nation of the right upper extremity reveals no tenderness over the clavicle he has mild tenderness over the lateral proximal humerus there is no ecchymosis or swelling is no erythema he has full range of motion but does have some pain with abduction over 45 . Sensation is intact there is no motor weakness he has strong distal radial pulses skin is unremarkable Test Results: [] Emergency Department Course and Treatment: [X-rays of the shoulder were obtained.x ray show no fracture. sling will be counter productive and may result in frozen shoulder. patient will need physical therapy. he has an appointment with his primary doctor on . he does not want any additional pain medication. he will ice and rest.] Treatment Plan: [] Disposition: [discharge ] Impression: [right rotator cuff injury.] This note was generated with RECESS. dictation software. It may contain incorrect words, spelling, and punctuation that were not noted in review of the chart prior to signing ED Disposition - Plan for ED Patient: Chief Complaint: Upper Extremity Injury Referrals: Shimon Arias MD [Primary Care Provider] - What to do if you have Problems For any increased pain, shortness of breath, bleeding, nausea or vomiting, chest pain, or any unexpected problems, contact your Primary Care Provider. Call [facility] [employer] [facility] ([phone]) or report to the closest Emergency Room. Call 911 if necessary. 04/21/17 1017 <Electronically signed by Racquel Segal > Date Racquel Pickett Signature (If Indicated): Date CC: Shimon Arias MD SHOULDER MIN 2 VIEWS Observed: 04/21/2017 Status: F Source: TROPIC 8:40 AM [facility] REPOSITORY [facility] Imaging Services [address] [place] [address] Shoulder min 2 Views MR#: [id number] Acct: [id number] Name: SUKI OKEEFE Rep #: [id number] : 1950 M 66 From: Stacy Bates MD PCP: Shimon Arias MD Status: PRE ER Study: Shoulder min 2 Views Date of Exam: 04/21/17 Exam# [id number] Ordering Dr: Racquel Segal STUDY: X-RAY - RIGHT SHOULDER REASON FOR EXAM: Male, 66 years old. Pain, fall TECHNIQUE: 4 view(s) of the shoulder. COMPARISON: Chest x-ray 06/12/2015 FINDINGS: Normal glenohumeral articulation. There is degenerative arthrosis of the acromioclavicular joint without inferior osseous spur formation. Normal acromion. High riding humeral head. There is periarticular soft tissue calcification consistent with a calcific tendinitis. Stable calcification along the inferior glenoid. Normal visualized pulmonary apex. RAD/Shoulder min 2 Views IMPRESSION: There is no acute displaced fracture or dislocation. Degenerative changes of the acromioclavicular joint, high riding humeral head frequency with ligamentous laxity or injury of the rotator cuff. Stable calcification along the inferior glenoid. Electronically Signed: Stacy Bates MD at 9:33 EST , Service support , CC: Racquel Segal; Shimon Arias MD Speeder Frame Tender: Signed PROGRESS Observed: 04/09/2017 Status: COMPLETED Source: VICI 2:00 PM [facility] REPOSITORY HNO ID: [id number] Author: Werner Kennedy (Pharmacist) Service: (none) Author Type: Pharmacist Type: Progress Notes Filed: 04/09/2017 1:22 PM Note Text: Patient consents to pharmacy collaborative practice agreement. REASON FOR CONSULT: DM GOALS: A1c < 8% CONSULTING PROVIDER: Dr. Arias Date of Consult: 12/2015 Suki Okeefe is a 66 year old male was last seen in [facility] by PCP, Dr. Shimon Arias MD on 12/07/16. Patient is presenting today for f/u pharmacotherapy management appointment for DM. At last PharmD visit patient was continued on current regimen. INTERIM HISTORY: Denies any questions or concerns at this time Current DM Medications: Insulin glargine 44 units QAM Metformin 1,000mg BID Current HTN Medications: Lisinopril 2.5mg once daily Metoprolol tartrate 25mg BID Preventative Medications: ? On MIGUEL ANGEL/ARB: Yes ? On Statin: Yes ? On ASA: Yes ROS: ? Patient denies CP, SOB, ESQUEDA, blurred vision, dizziness or lightheadedness ? Patient denies symptoms of hypoglycemia (sweating, anxiety, palpitations, hunger, and tremor) ? Patient denies symptoms of hyperglycemia (polyuria, polydipsia, polyphagia) ? Patient denies potential medication adverse effects DIET/EXERCISE/SOCIAL Hx: Churches and shelters for meals ? Breakfast: eggs or beans and hot dog ? Lunch: soup sandwich or spaghetti ? Dinner: chicken ? Snacks: denies ? Following Na restrictions: no ? Beverages: water and occasional coffee ? Exercise: walking ? Tobacco: denies ? Alcohol: denies ? Illicits: denies MEDICATIONS: ? Pill bottles are present. ? Adherence: denies missed doses. ? Pharmacy: [facility] ? Rx coverage: Medicare ? Affordability: no issues, [employer] PAP for Lantus ? Diabetes supplies: Relion ? Organization System: [employer] packaging ACTIVE PROBLEM LIST Open Wound of Foot Excluding Toes Dm (Diabetes Mellitus) Type II Uncontrolled, Periph Vascular Disorder (Hcc) Essential Hypertension Depressive Disorder, Not Elsewhere Classified Diabetic Polyneuropathy ([facility]) Debility, Unspecified OVERWEIGHT Mixed Hyperlipidemia Retinopathy Due to Secondary Diabetes Mellitus ([facility]) Proteinuria Non-Proliferative Diabetic Retinopathy, Moderate, Left Eye ([facility]) Proliferative Diabetic Retinopathy, Right Eye ([facility]) Cad (Coronary Artery Disease) Financial Difficulties Current Non-Adherence to Medical Treatment Non-Stemi (Non-St Elevated Myocardial Infarction) ([facility]) H/O: Cva (Cerebrovascular Accident) Hemiparesis Due to Recent Stroke ([facility]) Other Malaise and Fatigue PAST MEDICAL HISTORY Diagnosis Date - Angina pectoris ([facility]) - Diabetes mellitus without mention of complication Diabetes mellitus - Hemiparesis due to recent stroke ([facility]) 11/2013 left leg weakness on admission; has felt weak all over today; some increased confusion today - HYPERTENSION NOS 01/28/2006 - NSTEMI (non-ST elevated myocardial infarction) ([facility]) 10/2013 - Other and unspecified hyperlipidemia 08/24/2008 - Proliferative diabetic retinopathy, right eye ([facility]) 09/20/[address] Mireles at the [facility] - Proteinuria 03/01/2010 Persistent elevation, 2007 - 111, and 02/2010 330. - Retinopathy due to secondary diabetes mellitus (HCC) 08/16/2009 - Type II or unspecified type diabetes mellitus with peripheral circulatory disorders, not stated as uncontrolled(250.70) ALLERGIES No Known Allergies Current Outpatient Prescriptions: insulin glargine (LANTUS SOLOSTAR) 100 unit/mL (3 mL) inpn Inject 44 Units subcutaneously once daily as directed metFORMIN (GLUCOPHAGE) 1,000 mg tablet TAKE 1 TABLET BY MOUTH TWICE A DAY WITH MEALS atorvastatin (LIPITOR) 40 mg tablet Take 1 tablet by mouth once daily. lisinopril 2.5 mg tablet TAKE 1 TABLET BY MOUTH DAILY metoprolol tartrate, short acting, (LOPRESSOR) 25 mg tablet Take 1 tablet by mouth twice daily. aspirin, enteric coated (ASPIRIN, ENTERIC COATED) 81 mg EC tablet Take 1 tablet by mouth once daily. Insulin [place], Disposable, (AJAY PEN NEEDLE) 32 gauge x 5/32 ndle Use as directed once daily with insulin DM:yes Insulin: yes DX: E11.51 Lancets (RELION ULTRA THIN PLUS LANCETS) lancets Use as instructed to check blood sugar BID. (E11.51, E11.65) DM (diabetes mellitus) type II uncontrolled, periph vascular disorder (HCC) blood sugar diagnostic (RELION PRIME TEST STRIPS) test strip Use as instructed to check blood sugar twice daily No current facility-administered medications for this visit. Rx meds not listed in EPIC: none OTCs: none Herbals: none GLYCEMIC CONTROL: ? Glucometer present at visit: Yes ? SMBG?s: Date Fasting AM 2 hr PP Before Lunch 2 hr PP Before Dinner 2 hr PP Bedtime 04/09 173 04/04 151 04/02 290 03/26 367 03/20 156 03/17 265 03/16 169 03/10 168 03/07 213 ? Hypoglycemia: no Last 3 Encounter BP Readings: Date: BP: 03/29/2017 128/74 03/05/2017 139/78 12/10/2016 100/54 Wt: 89.4 kg (197 lb) BMI: 31.32 kg/(m2) LABS Lab Results Component Value Date HBA1C 7.4 03/05/2017 HBA1C 7.8 11/12/2016 HBA1C 7.9 05/11/2016 CMP: Glucose 303 03/05/2017 BUN 26 03/05/2017 Creatinine 1.23 03/05/2017 Sodium 135 03/05/2017 Potassium 4.4 03/05/2017 Chloride 96 03/05/2017 CO2 25 03/05/2017 Protein, Total 7.4 03/05/2017 Albumin 3.9 03/05/2017 Calcium 9.2 03/05/2017 Alkaline Phosphatase 84 03/05/2017 Bilirubin, Total 0.2 03/05/2017 AST 17 03/05/2017 ALT 17 03/05/2017 GFR 59 Estimated CrCL 65?mL/min (calculated using Ht 66, adjusted Wt 76?kg, sCr 1.23?mg/dL, using [place]) Last Lipid Panel Lab Results Component Value Date CHOL 191 03/05/2017 Lab Results Component Value Date HDL 39 03/05/2017 Lab Results Component Value Date LDL 107 03/05/2017 Lab Results Component Value Date TG 225 03/05/2017 Albumin/Creat Ratio (mg/g) Date Value 03/05/2017 2255 (H) PHARMACOTHERAPY ASSESSMENT/PLAN: 1. DM (diabetes mellitus) type II uncontrolled, periph vascular disorder (HCC) - ICD9: 250.72, 443.81, ICD10: E11.51, E11.65 (primary diagnosis) A1c goal <?8%, patient is at goal (7.4% on 03/05/17). Tolerating and compliant with current therapy. Limited SMBGs recorded. No instances of hypoglycemia.?Will continue current regimen at this time. Renal fxn improved?and LFTs appropriate for continued therapy. ? CONTINUE insulin glargine 44 units once daily and metformin 1,000 mg BID ? Instructed patient to continue to monitor FBG and at least one PPBG value during the day. ? Provided box of insulin from PAP shipment in , patient receives one box per month d/t past issues with storage of insulin 2. Essential hypertension - ICD9: 401.9, ICD10: I10 BP goal <?140/90, pt is at goal on current therapy. Renal fxn and K+ appropriate for continued therapy. ? CONTINUE lisinopril 2.5 mg once daily and metoprolol 25 mg BID Health Maintenance issues addressed: INFLUENZA(1) due on 11/02/2016 DILATED RETINAL EXAM due on 03/08/2017 Patient is scheduled to see PCP 04/25/17. Patient to return to clinic for PharmD f/u on 05/13/17. Patient verbalized understanding of instructions. Werner Kennedy, PharmD, [facility] ALLERGIES ALLERGIES DATE TYPE / CODE NAME / CODE REACTION SEVERITY SOURCE 12/16/2017 Drug No Known Unknown [facility] Allergy/416 Allergies/E45126 Hospital 754681(SNOM 0388(RXNORM) Repository ED CT) Drug NO KNOWN [facility] Class/92770 ALLERGIES [facility] 1003(SNOMED Repository CT) ENCOUNTERS ENCOUNTERS ADMIT/DISCHARGE ACCOUNT ADMITTING ENCOUNTER LOCATION SOURCE NUMBER CLASS 03/20/2018 [id number] Ambulatory [facility] ing:[facility] Repository 12/23/2017 [id number] Ambulatory [facility] ing:[facility] Repository 12/17/2017/12/21/19 [id number] Silvano Espinoza Inpatient [facility] 18 Encounter [facility] ing:PCURoom: Repository [id number]: 1 12/17/2017 [id number] Silvano Espinoza Ambulatory B[facility]:[place] [facility] Repository 12/17/2017 [id number] Silvano Espinoza Ambulatory BMSBuilding:Tomeka [facility] Repository 12/17/2017 [id number] Silvano Espinoza Ambulatory BMSBuilding:[facility] Repository 12/17/2017 [id number] Silvano Espinoza Ambulatory BMSBuilding:[facility] Repository 12/16/2017 [id number] Ambulatory BMSBuilding:[facility] Repository 11/26/2017/11/29/19 [id number] Shelley Perez Inpatient [address] ing:PCURoom: Repository [id number]: 1 11/26/2017 [id number] Shelley Perez Ambulatory BMSBuilding:[facility] Repository 11/26/2017 [id number] Shelley Perez Ambulatory BMSBuilding:[facility] Repository 11/26/2017 [id number] Shelley Perez Ambulatory BMSBuilding:[facility] Repository 11/26/2017/11/29/19 [id number] Ambulatory BMSBuilding:W Arlene [facility] Repository 10/29/2017 [id number] Ambulatory [facility] ing:[facility] Repository 09/26/2017/09/27/19 [id number] Ambulatory [address] Repository 09/26/2017/09/27/19 [id number] Ambulatory [address] Repository 08/30/2017/09/01/19 [id number] [place], Lyerly Inpatient [address] ing:PCURoom: Repository CRP158Epv: 1 08/30/2017 [id number] [place], [place] Ambulatory BMSBuilding:[facility] Repository 08/30/2017 [id number] [place], [place] Ambulatory BMSBuilding:[facility] Repository 08/30/2017/06/30 [id number] Ambulatory BMSBuilding:[place] [facility] Repository 08/28/2017/09/11/19 [id number] Ambulatory [address] Repository 08/28/2017/08/29/19 [id number] Ambulatory [address] Repository 08/19/2017/08/20/19 [id number] Emergency Arlene Arlene [facility] ing:ED Repository 07/23/2017/07/24/19 [id number] Ambulatory [address] Repository 06/12/2017/06/13/19 [id number] Ambulatory [address] Repository 06/12/2017/06/13/19 [id number] Ambulatory [address] Repository 05/19/2017/05/20/19 [id number] Emergency Arlene [place] [facility] ing:ED Repository 05/13/2017/05/14/19 [id number] Ambulatory [address] Repository 04/25/2017/05/04/19 [id number] Ambulatory [address] Repository 04/21/2017/04/21/19 [id number] Emergency Arlene Arlene[address] ing:ED Repository 04/09/2017/04/09/19 [id number] Ambulatory [address] Repository PAYERS PAYERS ENCOUNTER GUARANTOR PAYER SUBSCRIBER SOURCE 03/20/2018 Suki A Primary NOT GIVENUNK Arlene WeaverWAYNE Insurance:SELF PAY [place] [id number] S Number: Effective Repository [facility] Date:2018-03-20 [place], [place] [address]Rlt: () 12/23/2017 Suki A Primary NOT GIVENUNK [place] WeaverWAYNE Insurance:SELF PAY [place] [id number] S Number: Effective Repository [facility] Date:2017-12-23 [place], [place] [address]Rwv: (XF) 12/17/2017 SUKI A Primary SUKI A Arlene WEAVERWAYNE Insurance:MEDICARE WEAVERDOB: [facility] PART A [facility] [id number] [place] [address] S Number: Mitesh [facility] [id number] [place] Date:2017-12-16 [id number]: () 12/17/2017 Secondary NOT GIVENUNK Arlene Insurance:SELF PAY [facility] Number: Effective Repository Date:2017-12-16 12/17/2017 SUKI A Primary SUKI A [place] WEAVERWAYNE Insurance:MEDICARE [facility] A [facility] [id number] [address] S Number: Mitesh TOSHA [facility] [id number] [place], [place] Date:2017-12-16 590[address]Sfl: () 12/17/2017 Secondary NOT GIVENUNK Arlene Insurance:SELF PAY [facility] Number: Effective Repository Date:2017-12-17 12/17/2017 SUKI A Primary SUKI A [place] WEAVERWAYNE Insurance:MEDICARE WEAVERDOB: [facility] A [facility] [id number] [address] S Number: Mitesh SMITH [facility] [id number] [place] Date:2017-12-16 21718Mvp: () 12/17/2017 Secondary NOT GIVENUNK [place] Insurance:SELF PAY [facility] Number: Effective Repository Date:2017-12-17 12/17/2017 SUKI A Primary SUKI A [place] WEAVERWAYNE Insurance:MEDICARE WEAVERDOB: [facility] PART A [facility] [id number] [place] [address] S Number: Mitesh SMITH [facility] [id number] [place] Date:2017-12-16 [id number]: () 12/17/2017 Secondary NOT GIVENUNK [place] Insurance:SELF PAY [facility] Number: Effective Repository Date:2017-12-17 12/17/2017 SUKI A Primary SUKI A [place] WEAVERWAYNE Insurance:MEDICARE WEAVERDOB: [facility] A [facility] [id number] [place] [address] S Number: Mitesh SMITH [facility] [id number] [place] Date:2017-12-16 [id number]: () 12/17/2017 Secondary NOT GIVENUNK [place] Insurance:SELF PAY [facility] Number: Effective Repository Date:2017-12-17 12/16/2017 SUKI A Primary SUKI A Arlene WEAVERWAYNE Insurance:MEDICARE WEAVERDOB: [facility] A [facility] [id number] [place] [address] S Number: Mitesh TOSHA [facility] [id number] [place] Date:2017-12-16 [phone]: () 12/16/2017 Secondary NOT GIVENUNK Arlene Insurance:SELF PAY [facility] Number: Effective Repository Date:2017-12-16 11/26/2017 SUKI A Primary SUKI A Arlene WEAVERWAYNE Insurance:MEDICARE WEAVERDOB: [facility] A [facility] [id number] [address] S Number: Mitesh SMITH [facility] [id number] [place] Date:2017-11-26 [phone]: () 11/26/2017 Secondary NOT GIVENUNK Arlene Insurance:SELF PAY [facility] Number: Effective Repository Date:2017-11-26 11/26/2017 SUKI A Primary SUKI A [place] WEAVERWAYNE Insurance:MEDICARE WEAVERDOB: [facility] A [facility] [id number] [place] [address] S Number: Mitesh SMITH [facility] [id number] [place] Date:2017-11-26 [phone]: () 11/26/2017 Secondary NOT GIVENUNK Arlene Insurance:SELF PAY [facility] Number: Effective Repository Date:2017-11-26 11/26/2017 SUKI A Primary SUKI A [place] WEAVERWAYNE Insurance:MEDICARE WEAVERDOB: [facility] A [facility] [id number] [address] S Number: Mitesh SMITH [facility] [id number] [place] Date:2017-11-26 [phone]: () 11/26/2017 Secondary NOT GIVENUNK Arlene Insurance:SELF PAY [facility] Number: Effective Repository Date:2017-11-26 11/26/2017 SUKI A Primary SUKI A Arlene WEAVERWAYNE Insurance:MEDICARE WEAVERDOB: [facility] A [facility] [id number] [place] [address] S Number: Mitesh TOSHA [facility] [id number] [place] Date:2017-11-26 [phone]: () 11/26/2017 Secondary NOT GIVENUNK Arlene Insurance:SELF PAY [facility] Number: Effective Repository Date:2017-11-26 11/26/2017 SUKI A Primary SUKI A Arlene WEAVERWAYNE Insurance:MEDICARE WEAVERDOB: [facility] A [facility] [id number] [place] [address] S Number: Mitesh SMITH [facility] [id number] [place] Date:2017-11-26 [phone]: () 11/26/2017 Secondary NOT GIVENUNK [place] Insurance:SELF PAY [facility] Number: Effective Repository Date:2017-11-26 10/29/2017 Suki A Primary Suki A [place] WeaverWAYNE Insurance:MEDICARE WeaverDOB: [facility] A [facility] [id number] [address] S Number: Mitesh SMITH [facility] [id number] [place] Date:2017-10-29 [phone]: () 10/29/2017 Secondary NOT GIVENUNK Arlene Insurance:SELF PAY [facility] Number: Effective Repository Date:2017-10-29 08/30/2017 SUKI A Primary SUKI A [place] [id number] Insurance:MEDICARE WEAVERDOB: [facility] PART A [facility] [id number] [place] Number[facility] Repository [address]Lkm: 330 [id number] [phone] () Date:2017-08-30 08/30/2017 Secondary NOT GIVENUNK [place] Insurance:SELF PAY [facility] Number: Effective Repository Date:2017-08-30 08/30/2017 SUKI A Primary SUKI A Arlene [id number] Insurance:MEDICARE WEAVERDOB: [facility] PART A [facility] [id number] [facility] [place] Number: Repository [address]Htf: 330 [id number] [phone] () Date:2017-08-30 08/30/2017 Secondary NOT GIVENUNK [place] Insurance:SELF PAY [facility] Number: Effective Repository Date:2017-08-30 08/30/2017 SUKI A Primary SUKI A [place] [id number] Insurance:MEDICARE WEAVERDOB: [facility] PART A [facility] [id number] [place] Number: Repository [address]Xbr: 330 [id number] [phone] () Date:2017-08-30 08/30/2017 Secondary NOT GIVENUNK [place] Insurance:SELF PAY [facility] Effective Rep[facility] Date:2017-08-30 08/30/2017 SUKI A Primary SUKI A Arlene [id number] Insurance:MEDICARE WEAVERDOB: [facility] PART A [facility] [id number] [facility] [place] Number: Repository [address]Tke: 330 [id number] [phone] () Date:2017-08-30 08/30/2017 Secondary NOT GIVENUNK Arlene Insurance:SELF PAY [facility] Number: Effective Repository Date:2017-08-30 08/19/2017 SUKI A Primary SUKI A Arlene [id number] Insurance:MEDICARE WEAVERDOB: [facility] PART A [facility] [id number] Medical [facility] [place] Number: Repository [address]Nyh: 330 [id number] [phone] () Date:2017-08-19 08/19/2017 Secondary NOT GIVENUNK [place] Insurance:SELF PAY [facility] Number[facility] Effective Repository Date:2017-08-19 05/19/2017 SUKI Walters Primary SUKI Jacobs [id number] Insurance:MEDICARE WEAVERDOB: [facility] PART A [facility] [id number] Number: Repository [address]Sdc: 330 [id number] [phone] () Date:2017-05-19 05/19/2017 Secondary NOT GIVENUNK Arlene Insurance:SELF PAY [facility] Number: Effective Repository Date:2017-05-19 04/21/2017 Suki Walters Primary Suki Jacobs [id number] Insurance:MEDICARE WeaverDOB: [facility] PART A [facility] [id number] Number: Repository [address]Evh: 330 [id number] [phone] () Date:2017-04-21 04/21/2017 Secondary NOT GIVENUNK [place] Insurance:SELF PAY [facility] Number: Effective Repository Date:2017-04-21
== END ==
LOC: OLS.WCC 04:30
PROVIDERS: Visit Provider Family Medicine
DX: E11.9 Type 2 diabetes mellitus without complications (principal); I10 Essential (primary) hypertension; Z79.899 Other long term (current) drug therapy
CPT/HCPCS: 36415; 80048; 80061; 83036; 84443; 85027

== ENCOUNTER → 2018-05-20 06:53 | Outpatient (CLI) | payer MEDICARE, SELFPAY ==
--- NOTE | 2018-05-20 10:42 | NEURO ---
NCS and/or EMG Patient Report Ordering Doctor: Xiao Rogers DATE OF SERVICE: 05/20/18 This is a bilateral upper extremity nerve conduction study performed on this 67-year-old male with a history of weakness in the left arm, present for approximately 3 months. Bilateral upper extremity sensory and motor nerve conduction studies were performed demonstrating moderate to severe prolongation of the median motor and sensory distal latencies bilaterally with asymmetric reduction of motor amplitude on the right and bilateral mild suppression of conduction velocities. The ulnar responses are also bilaterally abnormal with symmetric reduction of amplitudes diffusely, prolongation of distal latencies and mild reduction of conduction velocities. The median and ulnar F-wave latencies are mildly symmetrically prolonged. EMG testing was deferred. Impression: 1. 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 2. 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
== END ==
PROVIDERS: Family Provider Family Medicine; PCP Family Medicine; Referring Provider Clinical Nurse Specialist Acute Care; Visit Provider Clinical Nurse Specialist Acute Care
DX: M47.892 Other spondylosis, cervical region (principal); M48.00 Spinal stenosis, site unspecified; R20.0 Anesthesia of skin; R20.2 Paresthesia of skin
CPT/HCPCS: 95911

== ENCOUNTER → 2018-06-04 07:47 | Outpatient (CLI) | payer MEDICARE, SELFPAY ==
[2017-12-18 14:13] VITALS: BMI 28.0
--- NOTE | 2018-06-04 10:48 | NEURO ---
NCS and/or EMG Patient Report Ordering Doctor: Xiao Rogers DATE OF SERVICE: 06/04/18 This is a nerve conduction study of the bilateral lower extremities performed on this 67-year-old male with weakness and abnormal movements in his bilateral lower extremities for 3 months. There is a history of diabetes and previous nerve conduction study of his upper extremities demonstrated median and ulnar neuropathy bilaterally. Bilateral lower extremity sensory and motor nerve conduction study is performed demonstrating prolonged distal latencies diffusely with diffuse reduction in amplitude and slowing of conduction velocities in all nerves tested. F-wave latencies of diffusely prolonged and H reflex responses bilaterally are suppressed. Impression abnormal nerve conduction study of the bilateral lower extremities consistent with polyneuropathy.
== END ==
PROVIDERS: Family Provider Family Medicine; PCP Family Medicine; Referring Provider Clinical Nurse Specialist Acute Care; Visit Provider Clinical Nurse Specialist Acute Care
DX: M47.892 Other spondylosis, cervical region (principal); R22.0 Localized swelling, mass and lump, head; R20.2 Paresthesia of skin; M48.00 Spinal stenosis, site unspecified
CPT/HCPCS: 95910

== ENCOUNTER → 2018-06-18 05:00 | Outpatient (REF) | payer MEDICARE, SELFPAY ==
[2017-12-18 14:13] VITALS: BMI 28.0
[2018-06-18 07:28] LABS: Anion Gap 4 (5-15); BUN 33 mg/dL (7-18); BUN/Creat Ratio 23.6 RATIO (10-20); Calcium,Total 8.9 mg/dL (8.5-10.1); Chloride 106 mmol/L (98-107); EST Glomerular Filtration Rate 54 mL/min (>60); Est Glom Filt Rate - Afr Amer 65 mL/min (>60); Glucose 148 mg/dL (74-106); Hematocrit 35.8 % (40-54); Hemoglobin 12.2 g/dl (13.0-16.5); Mean Corp Hgb Conc 34.1 g/gl (32-36); Mean Corpuscular Hgb 32.1 pg (27.0-32.0); Mean Corpuscular Volume 94.2 fL (80-94); Mean Platelet Vol. 9.3 fl (6.2-12.0); Platelet Count 293 K/mm3 (150-450); Potassium 4.3 mmol/L (3.5-5.1); RBC Distribution Width CV 12.8 % (11.6-14.6); RBC Distribution Width SD 42.2 fl (35.1-43.9); Sodium Level 137 mmol/L (136-145); Thyroid Stim Hormone (TSH) 3.92 uIU/mL (0.358-3.74); White Blood Count 7.6 K/mm3 (4.4-11.0)
[2018-06-18 07:33] LABS: Scan Indicated on CBC? Y/N NO
[2018-06-18 08:20] LABS: Hemoglobin A1c 7.8 % (4.2-6.3)
== END ==
LOC: OLS.WCC 05:00
PROVIDERS: Visit Provider Family Medicine
DX: I10 Essential (primary) hypertension (principal); E11.9 Type 2 diabetes mellitus without complications
CPT/HCPCS: 36415; 80048; 83036; 84443; 85027

== ENCOUNTER 2018-07-05 09:52 | Inpatient (IN) | payer MEDICARE, SELFPAY ==
[2018-07-05] VITALS (12 sets, daily range): BP systolic 106–146; BP diastolic 43–88; PULSE 81–95; RESP 15–20; TEMP 36.3–36.6; O2SAT 93–98; BMI 26.4; BMI 24.5
--- NOTE | 2018-07-05 09:59 | CT_ITS ---
STUDY: CT BRAIN WITHOUT CONTRAST REASON FOR EXAM: Male, 67 years old. Stroke signs and symptoms. RADIATION DOSAGE (If Supplied By Facility): CTDIvol = ( 44.99 ) mGy, DLP = ( 745.49 ) mGycm TECHNIQUE: Transaxial CT imaging of the brain was performed without administration of intravenous contrast material. Individualized dose optimization techniques were used for this CT. COMPARISON: December 18, 2017. FINDINGS: Normal soft tissue structures. Normal calvarium. Normal size ventricles and extra-axial spaces for the patient's age. There is stable, age-appropriate atrophy/involutional change manifested by ventriculomegaly and prominence of cortical sulci and subarachnoid cisterns. There are areas of decreased attenuation within the white matter tracts of the supratentorial brain, consistent with microvascular disease changes. Normal basal ganglia and thalami. There is a stable, approximately 7 mm maximum dimension chronic lacunar infarct in the right ventrolateral sloane. There is a stable, subtle, approximately 1.1 cm in length linear chronic lacunar infarct within the right thalamus in retrospect this finding appears stable. Normal cerebellum. There is no intracranial hemorrhage. There is no CT evidence of large vessel territory ischemia or edema. Normal visualized paranasal sinuses. Again seen is a stable diffuse increased density within the right globe CT/Brain/Head without Contrast IMPRESSION: Stable examination. No CT evident acute intracranial pathology. Volume loss manifested by ventriculomegaly and prominence of cortical sulci and subarachnoid cisterns. Multifocal chronic lacunar infarcts as above, stable. No CT evidence of large vessel territory ischemia/edema. Stable diffuse increased density within the right globe. Recommend correlation for prior trauma versus instrumentation/surgery. Please note that retinoblastoma can also present in this fashion. Consider consultation with ophthalmology. Upon further review, is stable cortical thinning in the anterior right frontal lobe near the vertex that may also represent sequela of chronic vascular event/ischemia. Electronically Signed: Livan Au MD at 10:30 EDT , Service support ,
--- NOTE | 2018-07-05 09:59 | EKG12_ITS ---
Test Reason : STROKE Blood Pressure : / mmHG Vent. Rate : 095 BPM Atrial Rate : 095 BPM P-R Int : 138 ms QRS Dur : 080 ms QT Int : 366 ms P-R-T Axes : 000 075 042 degrees QTc Int : 459 ms Normal sinus rhythm Normal ECG Confirmed by DERRICK ORDAZ MD ([id number]), script editor NOLA BRAGG ([id number]) on 07/08/2018 1:23:34 PM Referred By: ERMA Confirmed By:DERRICK ORDAZ MD
--- NOTE | 2018-07-05 09:59 | RAD_ITS ---
STUDY: X-RAY CHEST REASON FOR EXAM: Male, 67 years old. Cough. TECHNIQUE: Single AP view of the chest was obtained. COMPARISON: None. FINDINGS: The lungs are clear and expanded. There is no demonstrated pleural abnormality. Normal size heart. Normal mediastinum and ofelia. Normal visualized pulmonary arteries. Normal visualized aortic arch and descending thoracic aorta. Normal visualized thoracic spine. Normal visualized ribs, clavicles, and shoulders. There is no demonstrated abnormality of the visualized soft tissue structures of the upper abdomen. RAD/Chest 1 View IMPRESSION: Normal x-ray examination of the chest. Electronically Signed: Harish Tirado, at 10:24 EDT Tel , Service support ,
[2018-07-05 10:11] LABS: Absolute Lymphocyte Count 1.63 X10^3/ul (0.83-4.51); Absolute Neutrophil Count 5.6 X10^3/uL (2.0-7.7); Basophil# 0.04 X10^3/uL; Basophil% 0.5 % (0-1); Eosinophil# 0.14 X10^3/uL; Eosinophils% 1.7 % (0-5); Hematocrit 33.8 % (40-54); Hemoglobin 11.7 g/dl (13.0-16.5); Lymphocyte # 1.63 X10^3/ul (4.0); Lymphocyte % 20.2 % (19-41); Mean Corp Hgb Conc 34.6 g/gl (32-36); Mean Corpuscular Hgb 32.8 pg (27.0-32.0); Mean Corpuscular Volume 94.7 fL (80-94); Mean Platelet Vol. 8.5 fl (6.2-12.0); Monocyte# 0.64 X10^3/uL; Monocyte% 7.9 % (0-10); Neutrophil % 69.3 % (47-70); Platelet Count 238 K/mm3 (150-450); RBC Distribution Width CV 12.8 % (11.6-14.6); Red Blood Count 3.57 M/mm3 (4.6-6.2); White Blood Count 8.1 K/mm3 (4.4-11.0)
[2018-07-05 10:13] LABS: POSITIVE COUNT NO; POSITIVE DIFFERENTIAL NO; POSITIVE MORPHOLOGY NO
[2018-07-05 10:14] LABS: Prothrombin Time (Protime)PT. 12.8 SECONDS (11.7-14.9)
[2018-07-05 10:15] LABS: Partial Thromboplast Time 28.9 Seconds (24.1-36.2)
--- NOTE | 2018-07-05 10:25 | CT_ITS ---
STUDY: CTA NECK WITH CONTRAST REASON FOR EXAM: Male, 67 years old. Stroke signs and symptoms. RADIATION DOSAGE (If Supplied By Facility): CTDIvol = ( 22.00 ) mGy, DLP = ( 728.38 ) mGycm TECHNIQUE: CT angiography with multi-detector data acquisition was performed from the aortic arch to the skull base following intravenous administration of 100 IV Isovue 370. MIP images were reconstructed from the axial data set. Post-processing of the angiographic images was performed, with multiplanar reformation and 3D reconstruction. Individualized dose optimization techniques were used for this CT. COMPARISON: None. FINDINGS: AORTIC ARCH: There is a normal three-vessel arch. The arch is remarkable only for multifocal calcified plaque. There are a few, scattered, multistation mediastinal lymph nodes within the superior mediastinum that is included within the [id number]. One of these is pathologic by size criteria in the retrocaval-pretracheal space measuring 1.1 cm in maximum dimension, sequence 2, image 6 the superior regions of the lungs within the field of view are remarkable only for a small focus of peripheral subsegmental atelectasis within the anterolateral right upper lobe, sequence 2, image 5. Normal origins of the brachiocephalic, left common carotid, and left subclavian arteries. RIGHT CAROTID ARTERIES: Normal right common carotid artery (CCA). Normal right common carotid bulb. Normal origin of the right internal carotid (ICA) artery without a hemodynamically significant stenosis. Normal visualized cervical portion of the right internal carotid artery. Normal origin of the right external carotid artery (ECA). LEFT CAROTID ARTERIES: Normal left common carotid artery (CCA). Significant focal calcified hard plaque involves the left carotid bulb narrowing the takeoff of the left internal carotid artery by approximately 45% luminal dimension, sequence 2, image 109. Normal visualized cervical portion of the left internal carotid artery. Normal origin of the left external carotid artery (ECA). VERTEBRAL ARTERIES: Normal bilateral vertebral arteries. There is no evident acute osseous abnormality. There is no suspicious lytic or blastic osseous finding. There is peripheral soft tissue density marginating the inferolateral right maxillary sinus potentially representing mucosal edema. There are findings most compatible with mucous retention cysts within the left maxillary sinus. Nonspecific soft tissue density is seen within bilateral external auditory canals, recommend direct visualization. CT/CTA Neck W/WO Contrast IMPRESSION: Borderline hemodynamically significant stenosis involving the region of the left carotid bulb/takeoff of the left internal carotid artery with approximately 45-50% luminal/diameter dimension narrowing, sequence 2, image 109. Atherosclerotic peripheral vascular disease. Nonspecific pathologic by size criteria retrocaval-pretracheal space lymph node within the visualized superior mediastinum, sequence 2, image 6. No suspicious lytic or blastic osseous pathology. No acute osseous abnormality. Tiny focus of subsegmental atelectasis within the right upper lobe within visualized upper lungs. Electronically Signed: Livan Au MD at 11:39 EDT , Service support ,
--- NOTE | 2018-07-05 10:25 | CT_ITS ---
STUDY: CTA OF THE BRAIN REASON FOR EXAM: Male, 67 years old. Stroke RADIATION DOSAGE (If Supplied By Facility): CTDIvol = ( 22.00 ) mGy, DLP = ( 728.38 ) mGycm TECHNIQUE: CT angiography was performed with a multi-detector CT scanner. Data acquisition was obtained from the skull base through the vertex following intravenous administration of 100 IV Isovue 370. MIP images were reconstructed from the axial data set. Post-processing of the angiographic images was performed, with multiplanar reformation and 3D reconstruction. Individualized dose optimization techniques were used for this CT. COMPARISON: None. FINDINGS: Normal bilateral petrous carotid arteries. There is mild atherosclerotic change in the right cavernous carotid artery and left cavernous carotid artery. Normal right A1 segments of the anterior cerebral artery. Normal left A1 segments of the anterior cerebral artery. Normal intact anterior communicating artery (ACOM). Normal bilateral A2 segments of the anterior cerebral arteries. Normal right M1 and M2 segments of the middle cerebral arteries, with a normal M1 bifurcation. Normal left M1 and M2 segments of the middle cerebral arteries, with a normal M1 bifurcation. Normal right posterior communicating artery (PCOM). Normal left posterior communicating artery (PCOM). Normal bilateral vertebral arteries. Normal basilar artery with a normal basilar bifurcation. The visualized bilateral superior cerebellar (SCA) arteries are normal. Normal bilateral P1, P2 and visualized P3 segments of the posterior cerebral arteries. There is no demonstrated aneurysm of the ute of [place]. There is no demonstrated abnormality of the visualized brain. CT/CTA Head W/WO Contrast IMPRESSION: Normal ute of [place] without a demonstrated aneurysm or hemodynamically significant stenosis. Electronically Signed: Harish Tirado, at 11:13 EDT Tel , Service support ,
[2018-07-05 10:26] LABS: Anion Gap 5 (5-15); BUN 45 mg/dL (7-18); BUN/Creat Ratio 23.7 RATIO (10-20); Calcium,Total 8.9 mg/dL (8.5-10.1); Chloride 103 mmol/L (98-107); EST Glomerular Filtration Rate 38 mL/min (>60); Est Glom Filt Rate - Afr Amer 46 mL/min (>60); Estimated Creatinine Clearance 42.54 ml/min; Glucose 194 mg/dL (74-106); Potassium 4.9 mmol/L (3.5-5.1); Sodium Level 133 mmol/L (136-145)
[2018-07-05 10:31] LABS: Bedside Glucose 181 mg/dL (70-110)
--- NOTE | 2018-07-05 12:32 | ED.VISSUMM ---
- ER Visit Summary Date of Service: 07/05/18 Chief Complaint: Left-sided weakness History of Present Illness: The patient is a 67 M who has left-sided weakness. Started today. According to nursing staff his last known well was 850 in the morning. He had weakness of his left arm and leg. He was started on Keppra yesterday for being rigid. EMS is noted that his pupils are unequal. He is on aspirin and Plavix. According to his chart he has had a stroke and multiple TIAs in the past. Physical Examination: Vital signs reviewed. HEENT exam reveals his right pupil is 1 mm in his left pupil is 3 mm. Heart is regular rate and rhythm. Lungs are clear. Abdomen soft. Extremities reveal no edema. Skin exam has no rashes. His NIH is 4. He scores 1 points for questions, left arm, left leg and language. Test Results: CAT scan of the head reveals no acute findings. CTA of the head and neck reveals no stenosis of the head. There is a left carotid stenosis. Chest x-ray reveals no acute findings. EKG is sinus rhythm with no ST changes. His creatinine is 1.9 which is baseline. Sodium 133. Emergency Department Course and Treatment: I discussed with Dr. Morocho after stroke team was initiated. Due to the unclear last known well as well as his fluctuating NIH that he would not be given TPA. I reevaluated him and his left arm is now 0. I do not feel that TPA would be necessary as his NIH is now less than 4. He is resting comfortably. The patient will be admitted to the hospital for further work-up Treatment Plan: [] Disposition: Admit Impression: TIA History of TIA and stroke This note was generated with [employer] dictation software. It may contain incorrect words, spelling, and punctuation that were not noted in review of the chart prior to signing ED Disposition - Plan for ED Patient: Referrals: Armaan Mendez MD [Primary Care Provider] -
--- NOTE | 2018-07-05 12:43 | ED.RN ---
REPORT GIVEN GRADY NURSE AT [facility].
--- NOTE | 2018-07-05 12:55 | PCM.HP.STD ---
Problem List (1) TIA (transient ischemic attack) Status: Acute (2) HTN (hypertension) Status: Chronic Qualifiers: Hypertension type: essential hypertension (3) Type 2 diabetes mellitus Status: Chronic Qualifiers: Diabetes mellitus long term care pharmacist insulin use: with long term care pharmacist use Diabetes mellitus complication status: with unspecified complications Qualified Code(s): E11.8 - Type 2 diabetes mellitus with unspecified complications; Z79.4 - long term acute care registered nurse (current) use of insulin History of Present Illness Date of Admission: 07/05/18 Chief Complaint: Left sided weakness The patient is a 67 year old M with past medical history of CVA, hypertension, type II DM, who was last known to be normal at age 52 in the morning of admission. He had complained of weakness in left arm and left leg. He was recently started on Keppra the day before admission for being rigid. He is on aspirin and Plavix. Patient's admitting NIHSS was 4. Vitals in the ED show blood pressure 114/80, temperature 97.3 F, heart rate 94, respiratory rate 20, SPO2 is 98% on room air. His admitting blood work included WBC count of 8.1, hemoglobin 11.7, platelets 238, BMP showed sodium 133, potassium 4.9, chloride 103, bicarbonate 25, BUN 45, creatinine 1.90. Blood sugar was 181 CT of the head showed no acute findings. CT of the head was negative. Neck showed less than 50% stenosis in the left carotid. Chest x-ray is negative Past Medical History Past Medical History (Chronic Problems): Chronic Problems HTN (hypertension) (Chronic) Type 2 diabetes mellitus (Chronic) Allergies No Known Allergies Allergy (Verified 07/05/18 10:19) Home Medications: Ambulatory Orders Medication Instructions Recorded Aspirin [Aspirin EC] 81 mg PO DAILY 11/26/17 Cholecalciferol (Vitamin D3) 1,000 unit PO DAILY 11/26/17 [Vitamin D3] Lisinopril [Zestril] 2.5 mg PO DAILY 11/26/17 Insulin Aspart [Novolog Flexpen] 14 units SC BID 12/16/17 Latanoprost [Xalatan] 2.5 ml RIGHT EYE QHS 12/16/17 Metformin HCl 500 mg PO BIDCM 12/16/17 Clopidogrel Bisulfate [Plavix] 75 mg PO DAILY tablet 12/20/17 Glucerna Shake 120 ml PO 4X/DAY liquid 12/20/17 Acetaminophen 650 mg PO Q4H PRN PRN 07/05/18 Cimetidine [Tagamet Hb] 300 mg PO BID 07/05/18 Dextrose [Glucose Gel] 1 tube PO PRN PRN 07/05/18 Escitalopram Oxalate [Lexapro] 5 mg PO DAILY 07/05/18 Glucagon,Human Recombinant 1 mg IJ PRN PRN 07/05/18 [Glucagon Emergency Kit] Insulin Glargine [Lantus SoloStar 20 units SC QHS 07/05/18 Pen] Levetiracetam [Keppra] 500 mg PO BID 07/05/18 Mag Hydrox/Al Hydrox/Simeth 30 ml PO Q4H PRN PRN 07/05/18 [Mylanta II] Magnesium Hydroxide [Milk Of 30 ml PO DAILY PRN PRN 07/05/18 Magnesia] Metoclopramide HCl [Reglan] 5 mg PO TID 07/05/18 Nitroglycerin [Nitrostat] 0.4 mg SL PRN PRN 07/05/18 Sennosides/Docusate Sodium [Senna 2 each PO DAILY 07/05/18 Plus Tablet] Tamsulosin HCl 0.4 mg PO DAILY 07/05/18 Surgical History: - - Foot surgery, recent cataract surgery Psychiatric History: No pertinent psych hx Lives: Half-Way Smoking Status: Former smoker - *Family History Maternal History Items: Unknown Paternal History Items: Unknown Sibling History Items: Unknown Review of Systems Unable to obtain accurate/complete ROS d/t: Because patient is lethargic at the time of history taking VTE Information - Inpt Only VTE Present on Admission: No VTE Pharm Prophylaxis ordered?: Yes Patient Problems: Active and Suspected Problems TIA (transient ischemic attack) (Acute) - Physical Exam General: Lethargic - arouses to commands and stimuli HEENT: Atraumatic, PERRLA, EOMI, Normocephalic Oral: Moist Mucosa Neck: Supple Lungs: Clear to auscultation, Normal air movement Cardiovascular: Regular rate, Regular Rhythm, Normal S1, Normal S2, No murmurs Abdomen: Bowel Sounds Present, Soft, Non Tender, Non-Distended, No Hepato-splenomegaly Extremities: No edema Skin: No rashes Musculoskeletal: No Tenderness to Palpation of Joints or Extremities Lymphatic: No Cervical, Supraclavicular, or Inguinal Adenopathy Neurological: Cranial nerves II-XII grossly intact, Neuro grossly intact Psych/Mental Status: Normal Affect Vital Signs Temp Pulse Resp BP Pulse Ox 97.3 F L 81 15 123/77 H 98 07/05/18 09:53 07/05/18 12:31 07/05/18 11:30 07/05/18 12:31 07/05/18 12:00 Oxygen Flow Rate (L/min) 2 Oxygen Delivery Method Nasal Cannula Weight: 88.2 kg Body Mass Index (BMI) 26.4 Finger Stick Blood Glucose 181 Laboratory Tests Past 24 Hrs 07/05/18 07/05/18 07/05/18 09:57 09:57 09:57 WBC 8.1 RBC 3.57 L Hgb 11.7 L Hct 33.8 L MCV 94.7 H MCH 32.8 H MCHC 34.6 RDW 12.8 RDW Differential 44.0 H Plt Count 238 MPV 8.5 Immature Gran % (Auto) 0.400 Neut % (Auto) 69.3 Lymph % (Auto) 20.2 [place] % (Auto) 7.9 Eos % (Auto) 1.7 Baso % (Auto) 0.5 Absolute Neuts (auto) 5.6 Absolute Lymphs (auto) 1.63 Total Counted Not Reportable PT 12.8 INR 1.0 APTT 28.9 Sodium 133 L Potassium 4.9 Chloride 103 Carbon Dioxide 25.0 Anion Gap 5 BUN 45 H Creatinine 1.90 H Estim Creat Clear Calc 42.54 Est GFR (MDRD) Af Amer 46 L Est GFR (MDRD) Non-Af 38 L BUN/Creatinine Ratio 23.7 H Glucose 194 H Calcium 8.9 Troponin I < 0.015 POC Glucose 07/05/18 10:20 POC Glucose 181 H Assessment/Plan All Active Problems Transient left leg weakness (Acute) TIA (transient ischemic attack) (Acute) Headache (Acute) Acute ischemic stroke (Ruled-out) NSTEMI (non-ST elevation myocardial infarction) (Resolved) Encephalopathy (Resolved) Confusion (Resolved) Acute renal insufficiency (Resolved) 67 year old M with past medical history of CVA, hypertension, type II DM, who was last known to be normal at 8:50 in the morning of admission. He had complained of weakness in left arm and left leg. He was recently started on Keppra for rigidity. He was found to be in altered mental status at time of exam. 1. Acute metabolic encephalopathy, unclear etiology for now, likely secondary to CVA versus seizure disorder Plan: Admit to PCU, monitor on telemetry, stroke and seizure regimens as below 2. Probable TIA/CVA, history of right pontine infarct, on aspirin and Plavix as well as statin, continue with stroke management Not a TPA candidate. Admitting NIH SS score was 4, said to be improving over the course of his time in the ED PT/OT/ST to evaluate, repeat 2D echo, neurology consulted 3. Probable seizure disorder, recently started on Keppra, EEG, neurology consulted 4. Hypertension, will allow for permissive hypertension, hold lisinopril, continue to monitor vitals 5. Type II DM, on insulin, continue same, with insulin sliding scale 6. Elevated creatinine likely second to dehydration, will continue fluids, trend BMP 7. DVT PPx- Heparin SC Code Visit Inpatient E&M: 78946 Init Hosp L3
--- NOTE | 2018-07-05 13:02 | HP.PCM_ITS ---
Problem List (1) TIA (transient ischemic attack) Status: Acute (2) HTN (hypertension) Status: Chronic Qualifiers: Hypertension type: essential hypertension (3) Type 2 diabetes mellitus Status: Chronic Qualifiers: Diabetes mellitus roasterman insulin use: with roasterman use Diabetes mellitus complication status: with unspecified complications Qualified Code(s): E11.8 - Type 2 diabetes mellitus with unspecified complications; Z79.4 - termite control technician (current) use of insulin History of Present Illness Date of Admission: 07/05/18 Chief Complaint: Left sided weakness The patient is a 67 year old M with past medical history of CVA, hypertension, type II DM, who was last known to be normal at age 52 in the morning of admission. He had complained of weakness in left arm and left leg. He was recently started on Keppra the day before admission for being rigid. He is on aspirin and Plavix. Patient's admitting NIHSS was 4. Vitals in the ED show blood pressure 114/80, temperature 97.3 F, heart rate 94, respiratory rate 20, SPO2 is 98% on room air. His admitting blood work included WBC count of 8.1, hemoglobin 11.7, platelets 238, BMP showed sodium 133, potassium 4.9, chloride 103, bicarbonate 25, BUN 45, creatinine 1.90. Blood sugar was 181 CT of the head showed no acute findings. CT of the head was negative. Neck showed less than 50% stenosis in the left carotid. Chest x-ray is negative Past Medical History Past Medical History (Chronic Problems): Chronic Problems HTN (hypertension) (Chronic) Type 2 diabetes mellitus (Chronic) Allergies No Known Allergies Allergy (Verified 07/05/18 10:19) Home Medications: Ambulatory Orders Medication Instructions Recorded Aspirin [Aspirin EC] 81 mg PO DAILY 11/26/17 Cholecalciferol (Vitamin D3) 1,000 unit PO DAILY 11/26/17 [Vitamin D3] Lisinopril [Zestril] 2.5 mg PO DAILY 11/26/17 Insulin Aspart [Novolog Flexpen] 14 units SC BID 12/16/17 Latanoprost [Xalatan] 2.5 ml RIGHT EYE QHS 12/16/17 Metformin HCl 500 mg PO BIDCM 12/16/17 Clopidogrel Bisulfate [Plavix] 75 mg PO DAILY tablet 12/20/17 Glucerna Shake 120 ml PO 4X/DAY liquid 12/20/17 Acetaminophen 650 mg PO Q4H PRN PRN 07/05/18 Cimetidine [Tagamet Hb] 300 mg PO BID 07/05/18 Dextrose [Glucose Gel] 1 tube PO PRN PRN 07/05/18 Escitalopram Oxalate [Lexapro] 5 mg PO DAILY 07/05/18 Glucagon,Human Recombinant 1 mg IJ PRN PRN 07/05/18 [Glucagon Emergency Kit] Insulin Glargine [Lantus SoloStar 20 units SC QHS 07/05/18 Pen] Levetiracetam [Keppra] 500 mg PO BID 07/05/18 Mag Hydrox/Al Hydrox/Simeth 30 ml PO Q4H PRN PRN 07/05/18 [Mylanta II] Magnesium Hydroxide [Milk Of 30 ml PO DAILY PRN PRN 07/05/18 Magnesia] Metoclopramide HCl [Reglan] 5 mg PO TID 07/05/18 Nitroglycerin [Nitrostat] 0.4 mg SL PRN PRN 07/05/18 Sennosides/Docusate Sodium [Senna 2 each PO DAILY 07/05/18 Plus Tablet] Tamsulosin HCl 0.4 mg PO DAILY 07/05/18 Surgical History: - - Foot surgery, recent cataract surgery Psychiatric History: No pertinent psych hx Lives: Alf Smoking Status: Former smoker - *Family History Maternal History Items: Unknown Paternal History Items: Unknown Sibling History Items: Unknown Review of Systems Unable to obtain accurate/complete ROS d/t: Because patient is lethargic at the time of history taking VTE Information - Inpt Only VTE Present on Admission: No VTE Pharm Prophylaxis ordered?: Yes Patient Problems: Active and Suspected Problems TIA (transient ischemic attack) (Acute) - Physical Exam General: Lethargic - arouses to commands and stimuli HEENT: Atraumatic, PERRLA, EOMI, Normocephalic Oral: Moist Mucosa Neck: Supple Lungs: Clear to auscultation, Normal air movement Cardiovascular: Regular rate, Regular Rhythm, Normal S1, Normal S2, No murmurs Abdomen: Bowel Sounds Present, Soft, Non Tender, Non-Distended, No Hepato- splenomegaly Extremities: No edema Skin: No rashes Musculoskeletal: No Tenderness to Palpation of Joints or Extremities Lymphatic: No Cervical, Supraclavicular, or Inguinal Adenopathy Neurological: Cranial nerves II-XII grossly intact, Neuro grossly intact Psych/Mental Status: Normal Affect Vital Signs Temp Pulse Resp BP Pulse Ox 97.3 F L 81 15 123/77 H 98 07/05/18 09:53 07/05/18 12:31 07/05/18 11:30 07/05/18 12:31 07/05/18 12:00 Oxygen Flow Rate (L/min) 2 Oxygen Delivery Method Nasal Cannula Weight: 88.2 kg Body Mass Index (BMI) 26.4 Finger Stick Blood Glucose 181 Laboratory Tests Past 24 Hrs 07/05/18 07/05/18 07/05/18 09:57 09:57 09:57 WBC 8.1 RBC 3.57 L Hgb 11.7 L Hct 33.8 L MCV 94.7 H MCH 32.8 H MCHC 34.6 RDW 12.8 RDW Differential 44.0 H Plt Count 238 MPV 8.5 Immature Gran % (Auto) 0.400 Neut % (Auto) 69.3 Lymph % (Auto) 20.2 [place] % (Auto) 7.9 Eos % (Auto) 1.7 Baso % (Auto) 0.5 Absolute Neuts (auto) 5.6 Absolute Lymphs (auto) 1.63 Total Counted Not Reportable PT 12.8 INR 1.0 APTT 28.9 Sodium 133 L Potassium 4.9 Chloride 103 Carbon Dioxide 25.0 Anion Gap 5 BUN 45 H Creatinine 1.90 H Estim Creat Clear Calc 42.54 Est GFR (MDRD) Af Amer 46 L Est GFR (MDRD) Non-Af 38 L BUN/Creatinine Ratio 23.7 H Glucose 194 H Calcium 8.9 Troponin I < 0.015 POC Glucose 07/05/18 10:20 POC Glucose 181 H Assessment/Plan All Active Problems Transient left leg weakness (Acute) TIA (transient ischemic attack) (Acute) Headache (Acute) Acute ischemic stroke (Ruled-out) NSTEMI (non-ST elevation myocardial infarction) (Resolved) Encephalopathy (Resolved) Confusion (Resolved) Acute renal insufficiency (Resolved) 67 year old M with past medical history of CVA, hypertension, type II DM, who was last known to be normal at 8:50 in the morning of admission. He had complained of weakness in left arm and left leg. He was recently started on Keppra for rigidity. He was found to be in altered mental status at time of exam. 1. Acute metabolic encephalopathy, unclear etiology for now, likely secondary to CVA versus seizure disorder Plan: Admit to PCU, monitor on telemetry, stroke and seizure regimens as below 2. Probable TIA/CVA, history of right pontine infarct, on aspirin and Plavix as well as statin, continue with stroke management Not a TPA candidate. Admitting NIH SS score was 4, said to be improving over the course of his time in the ED PT/OT/ST to evaluate, repeat 2D echo, neurology consulted 3. Probable seizure disorder, recently started on Keppra, EEG, neurology consulted 4. Hypertension, will allow for permissive hypertension, hold lisinopril, continue to monitor vitals 5. Type II DM, on insulin, continue same, with insulin sliding scale 6. Elevated creatinine likely second to dehydration, will continue fluids, trend BMP 7. DVT PPx- Heparin SC Code Visit Inpatient E&M: 91760 Init Hosp L3
[2018-07-05 13:16] LABS: Allen Test POS; Base Excess -7 mmol/L (-2 to +2); Bicarbonate 18.7 mmol/L (22-26); Blood Gas Specimen Type ART; O2 Delivery Device Room Air; PO2 82 mmHG (75-100); SITE R Radial; SO2 96 % (95-99); Time Given 1307; Total Carbon Dioxide 20 mmol/L; pH 7.37 (7.35-7.45)
--- NOTE | 2018-07-05 13:22 | MRI_ITS ---
STUDY: MRI BRAIN WITHOUT CONTRAST REASON FOR EXAM: Male, 67 years old. CVA and left leg weakness TECHNIQUE: Standardized multiplanar fat and water weighted pulse sequences were obtained. COMPARISON: CTA same day, MRI 12/17/2017 FINDINGS: Normal size of the ventricles and extra-axial spaces for the patient's age. There are multiple confluent white matter hyperintensities, distributed throughout the deep white matter tracts of the cerebral hemispheres, consistent with severe chronic white matter ischemic changes. Remote infarct in the right frontal lobe. Remote infarct in the right occipital lobe. Remote infarcts in the bilateral hogan radiata. Normal bilateral basal ganglia. Normal thalami. There is no extra-axial fluid accumulation. Normal flow voids within the major intracranial circulation suggesting patency by spin echo criteria. Normal sella turcica, pituitary gland, infundibular stalk, optic chiasm and hypothalamus. Normal tectal plate and pineal gland. Microangiopathic changes in the [place]. Remote right pontine infarct. Multiple remote cerebellar infarcts. Normal basal cisterns. Normal bilateral temporal bones. Normal bilateral internal auditory canals. Bilateral lens replacements. Probable chronic vitreous hemorrhage on the right. Normal visualized paranasal sinuses. Normal calvarium and skull base. Normal visualized soft tissue structures. Normal visualized upper cervical spine. MRI/Brain without Contrast IMPRESSION: No evidence of acute infarct or hemorrhage. Multiple remote infarcts as described. Extensive microangiopathic white matter disease. Electronically Signed: Babatunde Graham MD at 16:37 EDT Tel , Service support ,
[2018-07-05] MEDS: 0.9% Normal Saline 1,000 ML 100 ML IV (16:37)
[2018-07-05] MEDS: Heparin Injection (Vial) 5,000 UNIT/ML VIAL 5000 UNIT SC ×2 (16:38→22:58)
--- NOTE | 2018-07-05 16:40 | CPS ---
Pt. was unable to do IS exercise. Tried to instruct patient on use, without success.
[2018-07-05 16:51] LABS: Bedside Glucose 170 mg/dL (70-110)
--- NOTE | 2018-07-05 20:31 | NURSING ---
patient moved to 110 at this time d/t confusion and jumping out of bed.
[2018-07-05] MEDS: Latanoprost 0.005% 1 Bottle 2 DRP RIGHT EYE (23:01)
[2018-07-05 23:05] LABS: Bedside Glucose 141 mg/dL (70-110)
[2018-07-06] VITALS (13 sets, daily range): BP systolic 83–156; BP diastolic 44–83; PULSE 82–108; RESP 16–18; TEMP 36.5–36.9; O2SAT 95–100
[2018-07-06] MEDS: 0.9% Normal Saline 1,000 ML 100 ML IV (03:00)
[2018-07-06 06:12] LABS: Cholesterol 128 mg/dL (200); High Density Lipoprotein 36 mg/dL; Triglycerides 168 mg/dL; Very Low Density Lipoprotein 34 mg/dL (5-40)
[2018-07-06] MEDS: Heparin Injection (Vial) 5,000 UNIT/ML VIAL 5000 UNIT SC ×3 (06:14→21:24)
[2018-07-06 06:40] LABS: Bedside Glucose 125 mg/dL (70-110)
--- NOTE | 2018-07-06 10:11 | PCM.PN.HOSP ---
Patient Problems: Active and Suspected Problems TIA (transient ischemic attack) (Acute) Subjective: Patient seen and examined. He is much awake. No seizures noted. Denied any new complaints. MRI of the brain was negative. Objective: Physical Exam General: Lethargic - arouses to commands and stimuli HEENT: Atraumatic, PERRLA, EOMI, Normocephalic Oral: Moist Mucosa Neck: Supple Lungs: Clear to auscultation, Normal air movement Cardiovascular: Regular rate, Regular Rhythm, Normal S1, Normal S2, No murmurs Abdomen: Bowel Sounds Present, Soft, Non Tender, Non-Distended, No Hepato-splenomegaly Extremities: No edema Skin: No rashes Musculoskeletal: No Tenderness to Palpation of Joints or Extremities Lymphatic: No Cervical, Supraclavicular, or Inguinal Adenopathy Neurological: Cranial nerves II-XII grossly intact, Neuro grossly intact Psych/Mental Status: Normal Affect Vitals/I&O's: Vital Signs Temp Pulse Resp BP Pulse Ox 97.7 F L 86 18 156/83 H 98 07/06/18 06:09 07/06/18 06:49 07/06/18 06:09 07/06/18 06:09 07/06/18 06:09 Oxygen Flow Rate (L/min) 2 Oxygen Delivery Method Room Air Weight: 82.2 kg Body Mass Index (BMI) 24.5 Finger Stick Blood Glucose 181 Intake and Output for Last 24 Hours 07/04/18 07/05/18 07/06/18 23:59 23:59 23:59 Intake Total 763.6 / 763.6 592 / 592 Balance 763.6 / 763.6 592 / 592 General: Alert, Oriented x3, Cooperative, No apparent distress HEENT: Atraumatic, PERRLA, EOMI, Normocephalic Oral: Moist Mucosa Neck: Supple Lungs: Clear to auscultation, Normal air movement Cardiovascular: Regular rate, Regular Rhythm, Normal S1, Normal S2, No murmurs Abdomen: Bowel Sounds Present, Soft, Non Tender, Non-Distended, No Hepato-splenomegaly Extremities: No edema Skin: No rashes, No breakdown Musculoskeletal: No Tenderness to Palpation of Joints or Extremities Lymphatic: No Cervical, Supraclavicular, or Inguinal Adenopathy Neurological: Cranial nerves II-XII grossly intact, Neuro grossly intact Psych/Mental Status: Normal Affect, Appropriate Laboratory Results 07/05/18 09:57: WBC 8.1, RBC 3.57 L, Hgb 11.7 L, Hct 33.8 L, MCV 94.7 H, MCH 32.8 H, MCHC 34.6, RDW 12.8, RDW Differential 44.0 H, Plt Count 238, MPV 8.5, Immature Gran % (Auto) 0.400, Neut % (Auto) 69.3, Lymph % (Auto) 20.2, [place] % (Auto) 7.9, Eos % (Auto) 1.7, Baso % (Auto) 0.5, Absolute Neuts (auto) 5.6, Absolute Lymphs (auto) 1.63, Total Counted Not Reportable 07/05/18 09:57: PT 12.8, INR 1.0, APTT 28.9 07/05/18 09:57: Sodium 133 L, Potassium 4.9, Chloride 103, Carbon Dioxide 25.0, Anion Gap 5, BUN 45 H, Creatinine 1.90 H, Estim Creat Clear Calc 42.54, Est GFR (MDRD) Af Amer 46 L, Est GFR (MDRD) Non-Af 38 L, BUN/Creatinine Ratio 23.7 H, Glucose 194 H, Calcium 8.9, Troponin I < 0.015 07/05/18 10:20: POC Glucose 181 H 07/05/18 13:13: Specimen Type ART, Sample Site R Radial, pH 7.37, Bicarbonate Actual 18.7 L, POC Total CO2 20, Base Excess -7 L, O2 Saturation 96, ABG pCO2 32.0 L, ABG pO2 82, Jem Test POS, O2 Delivery Device Room Air, Blood Gas Notified Whom ED , Blood Gas Notified Time 7581 07/05/18 14:00: Troponin I < 0.015 07/05/18 16:00: Troponin I < 0.015 07/05/18 16:36: POC Glucose 170 H 07/05/18 23:00: POC Glucose 141 H 07/06/18 05:39: Triglycerides 168, Cholesterol 128, LDL Cholesterol 58, VLDL Cholesterol 34, HDL Cholesterol 36 L 07/06/18 06:13: POC Glucose 125 H Current Medications Acetaminophen (Tylenol) 650 mg PO Q6H PRN PRN PRN Reason: Mild pain 1-3/Temp > 100.7 F Al Hydroxide/Mg Hydroxide (Mylanta Ii) 30 ml PO Q4H PRN PRN PRN Reason: INDIGESTION [facility]in ([facility] Cholecalciferol (Vitamin D) 1,000 unit PO DAILY [facility] Clopidogrel Bisulfate (Plavix) 75 mg PO DAILY [facility] Dextrose (D50w Syringe) 0 gm IV X1 PRN; Protocol PRN Reason: Hypoglycemia Escitalopram Oxalate (Lexapro) 5 mg PO DAILY [facility] Glucagon () 1 mg IM .X1 PRN PRN Reason: Hypoglycemia Heparin Sodium (Porcine) (Heparin Na) 5,000 unit SC Q8 [facility] Last Admin: 07/06/18 06:14 Dose: 5,000 unit Levetiracetam 250 mg/ Sodium (Chloride) 102.5 mls @ 410 mls/hr IV BID [facility] Last Admin: 07/06/18 09:28 Dose: 410 mls/hr Insulin Glargine (Lantus (Bkc)) 20 units SC QHS [facility] Last Admin: 07/05/18 23:01 Dose: Not Given Insulin Human Lispro (Humalog Kwikpen (Bkc)) 14 unit SC 1200,1700 [facility] Last Admin: 07/05/18 16:37 Dose: Not Given Insulin Human Lispro (Humalog Kwikpen (Bkc)) 0 unit SQ Q6 [facility]; Protocol Last Admin: 07/06/18 06:15 Dose: Not Given Latanoprost (Xalatan Opthalmic) 2 drop RIGHT EYE QHS [facility] Last Admin: 07/05/18 23:01 Dose: 2 drop Nutritional Formula (Lactose Free) (Glucerna Shake) 120 ml PO 4X/DAY [facility] Last Admin: 07/05/18 22:56 Dose: Not Given Senna/Docusate Sodium (Senokot-S, Latisha-Colace) 2 tablet PO DAILY [facility] Sodium Chloride () 5 - 15 ml IV UD PRN PRN Reason: SALINE FLUSH Tamsulosin HCl (Flomax) 0.4 mg PO DAILY [facility] Medical Necessity - Tobacco Use Smoking Status: Former smoker Assessment/Plan All Active Problems Transient left leg weakness (Acute) TIA (transient ischemic attack) (Acute) Headache (Acute) Acute ischemic stroke (Ruled-out) NSTEMI (non-ST elevation myocardial infarction) (Resolved) Encephalopathy (Resolved) Confusion (Resolved) Acute renal insufficiency (Resolved) 67 year old M with past medical history of CVA, hypertension, type II DM, who was last known to be normal at 8:50 in the morning of admission. He had complained of weakness in left arm and left leg. He was recently started on Keppra for rigidity. He was found to be in altered mental status at time of exam. 1. Acute metabolic encephalopathy, resolved 2. Left-sided weakness, likely TIA versus complex seizure disorder, acute stroke ruled out from MRI 3. Probable seizure disorder, recently started on Keppra, status post EEG, neuro consulted, started on Depakote, and Keppra increased Will continue to monitor 4. Hypertension, will resume lisinopril, continue to monitor vitals 5. Type II DM, on insulin, continue same, with insulin sliding scale 6. Elevated creatinine likely secondary to dehydration, will continue fluids, trend BMP 7. DVT PPx- Heparin SC Code Visit Inpatient E&M: 53432 Subs Hosp L2
--- NOTE | 2018-07-06 11:06 | CASEMGMT ---
DEANNA CM NOTE: Call received from Jose recycle coordinator, inquiring if pt would need pre-cert prior to pt retuning to [facility], if he should return today. Pt has straight MCR and does not require pre-cert. Spoke with FRANCISCO Simon energy project manager. She states pt is @ [facility] as long-term resident and is not there there as skilled pt. She states pt can return to long-term care and does not require a 3 [place] qualifying stay either. Call placed back to Jose and she was made aware of all of the above. Silvio PHILLIPSN RN CM
[2018-07-06 11:45] LABS: Bedside Glucose 190 mg/dL (70-110)
--- NOTE | 2018-07-06 12:37 | PCM.CONS.GEN ---
Reason for Consult Date of Consultation: 07/06/18 Reason for Consultation: confusion History of Present Illness: 67 yo patient presented from [facility] yesterday with left weakness. pt unable to give me history. per phone call with ed physician yesterday his baseline was not known, and does not appear to be known now. pt is somnolent, arouses briefly. per admit note:The patient is a 67 year old M with past medical history of CVA, hypertension, type II DM, who was last known to be normal at age 52 in the morning of admission. He had complained of weakness in left arm and left leg. He was recently started on Keppra the day before admission for being rigid. He is on aspirin and Plavix. Patient's admitting NIHSS was 4. Vitals in the ED show blood pressure 114/80, temperature 97.3 F, heart rate 94, respiratory rate 20, SPO2 is 98% on room air. His admitting blood work included WBC count of 8.1, hemoglobin 11.7, platelets 238, BMP showed sodium 133, potassium 4.9, chloride 103, bicarbonate 25, BUN 45, creatinine 1.90. Blood sugar was 181 CT of the head showed no acute findings. CT of the head was negative. Neck showed less than 50% stenosis in the left carotid. Chest x-ray is negative Past Medical History Past Medical History (Chronic Problems): Chronic Problems HTN (hypertension) (Chronic) Type 2 diabetes mellitus (Chronic) Allergies No Known Allergies Allergy (Verified 07/05/18 10:19) Home Medications: Ambulatory Orders Medication Instructions Recorded Aspirin [Aspirin EC] 81 mg PO DAILY 11/26/17 Cholecalciferol (Vitamin D3) 1,000 unit PO DAILY 11/26/17 [Vitamin D3] Lisinopril [Zestril] 2.5 mg PO DAILY 11/26/17 Insulin Aspart [Novolog Flexpen] 14 units SC 1200,1700 12/16/17 Latanoprost [Xalatan] 2 drop RIGHT EYE QHS 12/16/17 Metformin HCl 500 mg PO BIDCM 12/16/17 Clopidogrel Bisulfate [Plavix] 75 mg PO DAILY tablet 12/20/17 Acetaminophen 650 mg PO Q4H PRN PRN 07/05/18 Atorvastatin Calcium 40 mg PO QHS 07/05/18 Cimetidine [Tagamet Hb] 300 mg PO BID 07/05/18 Dextrose [Glucose Gel] 1 tube PO PRN PRN 07/05/18 Escitalopram Oxalate [Lexapro] 5 mg PO DAILY 07/05/18 Glucagon,Human Recombinant 1 mg IJ PRN PRN 07/05/18 [Glucagon Emergency Kit] Glucerna Shake 120 ml PO QHS 07/05/18 Insulin Glargine [Lantus SoloStar 20 units SC QHS 07/05/18 Pen] Levetiracetam [Keppra] 500 mg PO BID 07/05/18 Mag Hydrox/Al Hydrox/Simeth 30 ml PO Q4H PRN PRN 07/05/18 [Mylanta II] Magnesium Hydroxide [Milk Of 30 ml PO DAILY PRN PRN 07/05/18 Magnesia] Nitroglycerin [Nitrostat] 0.4 mg SL PRN PRN 07/05/18 Sennosides/Docusate Sodium [Senna 2 each PO DAILY 07/05/18 Plus Tablet] Tamsulosin HCl 0.4 mg PO QHS 07/05/18 Surgical History: - - Foot surgery, recent cataract surgery Psychiatric History: No pertinent psych hx Lives: [facility] Smoking Status: Former smoker - *Family History Maternal History Items: Unknown Paternal History Items: Unknown Sibling History Items: Unknown Review of Systems Unable to obtain accurate/complete ROS d/t: somnolent Patient Problems: Active and Suspected Problems TIA (transient ischemic attack) (Acute) Objective: limited exam, answers yes/no shook squeezes to command bilat - Physical Exam Vital Signs Temp Pulse Resp BP Pulse Ox 36.9 C 101 H 18 99/46 L 95 07/06/18 12:00 07/06/18 12:00 07/06/18 12:00 07/06/18 12:00 07/06/18 12:00 Oxygen Flow Rate (L/min) 2 Oxygen Delivery Method Room Air Weight: 82.2 kg Body Mass Index (BMI) 24.5 Finger Stick Blood Glucose 181 Intake and Output for Last 24 Hours 07/04/18 07/05/18 07/06/18 23:59 23:59 23:59 Intake Total 763.6 / 763.6 1033 / 1033 Balance 763.6 / 763.6 1033 / 1033 Laboratory Tests Past 24 Hrs 07/05/18 07/05/18 07/05/18 13:13 14:00 16:00 Specimen Type ART Sample Site R Radial pH 7.37 Bicarbonate Actual 18.7 L POC Total CO2 20 Base Excess -7 L O2 Saturation 96 ABG pCO2 32.0 L ABG pO2 82 Jem Test POS O2 Delivery Device Room Air Blood Gas Notified Whom ED MD Blood Gas Notified Time 1307 Troponin I < 0.015 < 0.015 Triglycerides Cholesterol LDL Cholesterol VLDL Cholesterol HDL Cholesterol 07/06/18 05:39 Specimen Type Sample Site pH Bicarbonate Actual POC Total CO2 Base Excess O2 Saturation ABG pCO2 ABG pO2 Jem Test O2 Delivery Device Blood Gas Notified Whom Blood Gas Notified Time Troponin I Triglycerides 168 Cholesterol 128 LDL Cholesterol 58 VLDL Cholesterol 34 HDL Cholesterol 36 L POC Glucose 07/06/18 07/06/18 07/05/18 11:27 06:13 23:00 POC Glucose 190 H 125 H 141 H 07/05/18 16:36 POC Glucose 170 H Current Home Med List Medication Instructions Recorded Confirmed Type Aspirin [Aspirin EC] 81 mg PO DAILY 11/26/17 07/05/18 History Cholecalciferol (Vitamin D3) 1,000 unit PO DAILY 11/26/17 07/05/18 History [Vitamin D3] Lisinopril [Zestril] 2.5 mg PO DAILY 11/26/17 07/05/18 History Insulin Aspart [Novolog Flexpen] 14 units SC 1200,1700 12/16/17 07/05/18 History Latanoprost [Xalatan] 2 drop RIGHT EYE QHS 12/16/17 07/05/18 History Metformin HCl 500 mg PO BIDCM 12/16/17 07/05/18 History Clopidogrel Bisulfate [Plavix] 75 mg PO DAILY tablet 12/20/17 07/05/18 Rx Acetaminophen 650 mg PO Q4H PRN PRN 07/05/18 07/05/18 History Atorvastatin Calcium 40 mg PO QHS 07/05/18 07/05/18 History Cimetidine [Tagamet Hb] 300 mg PO BID 07/05/18 07/05/18 History Dextrose [Glucose Gel] 1 tube PO PRN PRN 07/05/18 07/05/18 History Escitalopram Oxalate [Lexapro] 5 mg PO DAILY 07/05/18 07/05/18 History Glucagon,Human Recombinant 1 mg IJ PRN PRN 07/05/18 07/05/18 History [Glucagon Emergency Kit] Glucerna Shake 120 ml PO QHS 07/05/18 07/05/18 History Insulin Glargine [Lantus SoloStar 20 units SC QHS 07/05/18 07/05/18 History Pen] Levetiracetam [Keppra] 500 mg PO BID 07/05/18 07/05/18 History Mag Hydrox/Al Hydrox/Simeth 30 ml PO Q4H PRN PRN 07/05/18 07/05/18 History [Mylanta II] Magnesium Hydroxide [Milk Of 30 ml PO DAILY PRN PRN 07/05/18 07/05/18 History Magnesia] Nitroglycerin [Nitrostat] 0.4 mg SL PRN PRN 07/05/18 07/05/18 History Sennosides/Docusate Sodium [Senna 2 each PO DAILY 07/05/18 07/05/18 History Plus Tablet] Tamsulosin HCl 0.4 mg PO QHS 07/05/18 07/05/18 History Current Medications Generic Name Dose Route Start Last Admin Trade Name Freq PRN Reason Stop Dose Admin Acetaminophen 650 mg 07/05/18 13:22 Tylenol PO Q6H PRN PRN Mild pain 1-3/Temp > 100.7 F Al Hydroxide/Mg Hydroxide 30 ml 07/05/18 13:22 Mylanta Ii PO Q4H PRN PRN INDIGESTION Aspirin 81 mg 07/06/18 08:00 [facility] Cholecalciferol 1,000 unit 07/06/18 10:00 Vitamin D PO DAILY [facility] Clopidogrel Bisulfate 75 mg 07/06/18 10:00 Plavix PO DAILY [facility] Dextrose 0 gm 07/05/18 13:22 D50w Syringe IV X1 PRN Hypoglycemia Protocol Escitalopram Oxalate 5 mg 07/06/18 10:00 Lexapro PO DAILY [facility] Glucagon 1 mg 07/05/18 13:22 IM .X1 PRN Hypoglycemia Heparin Sodium (Porcine) 5,000 unit 07/05/18 15:00 07/06/18 06:14 Heparin Na SC 5,000 unit Q8 [facility] Administration Levetiracetam 250 mg/ Sodium 102.5 mls @ 410 mls/hr 07/05/18 22:00 07/06/18 09:28 Chloride IV 410 mls/hr BID [facility] Administration Insulin Glargine 20 units 07/05/18 22:00 07/05/18 23:01 Lantus ([facility]) SC Not Given QHS [facility] Insulin Human Lispro 14 unit 07/05/18 17:00 07/05/18 16:37 Humalog Kwikpen ([facility]) SC Not Given 1200,1700 [facility] Insulin Human Lispro 0 unit 07/05/18 18:00 07/06/18 06:15 Humalog Kwikpen ([facility]) SQ Not Given Q6 [facility] Protocol Latanoprost 2 drop 07/05/18 22:00 07/05/18 23:01 Xalatan Opthalmic RIGHT EYE 2 drop QHS [facility] Administration Nutritional Formula (Lactose Free) 120 ml 07/05/18 14:00 07/06/18 12:15 Glucerna Shake PO Not Given 4X/DAY [facility] Senna/Docusate Sodium 2 tablet 07/06/18 10:00 Senokot-S, Latisha-Colace PO DAILY [facility] Sodium Chloride 5 - 15 ml 07/05/18 14:35 IV UD PRN SALINE FLUSH Tamsulosin HCl 0.4 mg 07/06/18 10:00 Flomax PO DAILY [facility] mri reviewed, multiple old strokes no acute Assessment/Plan All Active Problems Transient left leg weakness (Acute) TIA (transient ischemic attack) (Acute) Headache (Acute) Acute ischemic stroke (Ruled-out) NSTEMI (non-ST elevation myocardial infarction) (Resolved) Encephalopathy (Resolved) Confusion (Resolved) Acute renal insufficiency (Resolved) encephalopathy, unclear etiology, sz vs metabolic eeg in process mri neg for acute stroke but old strokes and increased risk of sz, will load with depakote and increase keppra
--- NOTE | 2018-07-06 12:41 | CON.PCM_ITS ---
Reason for Consult Date of Consultation: 07/06/18 Reason for Consultation: confusion History of Present Illness: 67 yo patient presented from [facility] yesterday with left weakness. pt unable to give me history. per phone call with ed physician yesterday his baseline was not known, and does not appear to be known now. pt is somnolent, arouses briefly. per admit note:The patient is a 67 year old M with past medical history of CVA, hypertension, type II DM, who was last known to be normal at age 52 in the morning of admission. He had complained of weakness in left arm and left leg. He was recently started on Keppra the day before admission for being rigid. He is on aspirin and Plavix. Patient's admitting NIHSS was 4. Vitals in the ED show blood pressure 114/80, temperature 97.3 F, heart rate 94, respiratory rate 20, SPO2 is 98% on room air. His admitting blood work included WBC count of 8.1, hemoglobin 11.7, platelets 238, BMP showed sodium 133, potassium 4.9, chloride 103, bicarbonate 25, BUN 45, creatinine 1.90. Blood sugar was 181 CT of the head showed no acute findings. CT of the head was negative. Neck showed less than 50% stenosis in the left carotid. Chest x-ray is negative Past Medical History Past Medical History (Chronic Problems): Chronic Problems HTN (hypertension) (Chronic) Type 2 diabetes mellitus (Chronic) Allergies No Known Allergies Allergy (Verified 07/05/18 10:19) Home Medications: Ambulatory Orders Medication Instructions Recorded Aspirin [Aspirin EC] 81 mg PO DAILY 11/26/17 Cholecalciferol (Vitamin D3) 1,000 unit PO DAILY 11/26/17 [Vitamin D3] Lisinopril [Zestril] 2.5 mg PO DAILY 11/26/17 Insulin Aspart [Novolog Flexpen] 14 units SC 1200,1700 12/16/17 Latanoprost [Xalatan] 2 drop RIGHT EYE QHS 12/16/17 Metformin HCl 500 mg PO BIDCM 12/16/17 Clopidogrel Bisulfate [Plavix] 75 mg PO DAILY tablet 12/20/17 Acetaminophen 650 mg PO Q4H PRN PRN 07/05/18 Atorvastatin Calcium 40 mg PO QHS 07/05/18 Cimetidine [Tagamet Hb] 300 mg PO BID 07/05/18 Dextrose [Glucose Gel] 1 tube PO PRN PRN 07/05/18 Escitalopram Oxalate [Lexapro] 5 mg PO DAILY 07/05/18 Glucagon,Human Recombinant 1 mg IJ PRN PRN 07/05/18 [Glucagon Emergency Kit] Glucerna Shake 120 ml PO QHS 07/05/18 Insulin Glargine [Lantus SoloStar 20 units SC QHS 07/05/18 Pen] Levetiracetam [Keppra] 500 mg PO BID 07/05/18 Mag Hydrox/Al Hydrox/Simeth 30 ml PO Q4H PRN PRN 07/05/18 [Mylanta II] Magnesium Hydroxide [Milk Of 30 ml PO DAILY PRN PRN 07/05/18 Magnesia] Nitroglycerin [Nitrostat] 0.4 mg SL PRN PRN 07/05/18 Sennosides/Docusate Sodium [Senna 2 each PO DAILY 07/05/18 Plus Tablet] Tamsulosin HCl 0.4 mg PO QHS 07/05/18 Surgical History: - - Foot surgery, recent cataract surgery Psychiatric History: No pertinent psych hx Lives: Prison Smoking Status: Former smoker - *Family History Maternal History Items: Unknown Paternal History Items: Unknown Sibling History Items: Unknown Review of Systems Unable to obtain accurate/complete ROS d/t: somnolent Patient Problems: Active and Suspected Problems TIA (transient ischemic attack) (Acute) Objective: limited exam, answers yes/no shook squeezes to command bilat - Physical Exam Vital Signs Temp Pulse Resp BP Pulse Ox 36.9 C 101 H 18 99/46 L 95 07/06/18 12:00 07/06/18 12:00 07/06/18 12:00 07/06/18 12:00 07/06/18 12:00 Oxygen Flow Rate (L/min) 2 Oxygen Delivery Method Room Air Weight: 82.2 kg Body Mass Index (BMI) 24.5 Finger Stick Blood Glucose 181 Intake and Output for Last 24 Hours 07/04/18 07/05/18 07/06/18 23:59 23:59 23:59 Intake Total 763.6 / 763.6 1033 / 1033 Balance 763.6 / 763.6 1033 / 1033 Laboratory Tests Past 24 Hrs 07/05/18 07/05/18 07/05/18 13:13 14:00 16:00 Specimen Type ART Sample Site R Radial pH 7.37 Bicarbonate Actual 18.7 L POC Total CO2 20 Base Excess -7 L O2 Saturation 96 ABG pCO2 32.0 L ABG pO2 82 Jem Test POS O2 Delivery Device Room Air Blood Gas Notified Whom ED MD Blood Gas Notified Time 1307 Troponin I < 0.015 < 0.015 Triglycerides Cholesterol LDL Cholesterol VLDL Cholesterol HDL Cholesterol 07/06/18 05:39 Specimen Type Sample Site pH Bicarbonate Actual POC Total CO2 Base Excess O2 Saturation ABG pCO2 ABG pO2 Jem Test O2 Delivery Device Blood Gas Notified Whom Blood Gas Notified Time Troponin I Triglycerides 168 Cholesterol 128 LDL Cholesterol 58 VLDL Cholesterol 34 HDL Cholesterol 36 L POC Glucose 07/06/18 07/06/18 07/05/18 11:27 06:13 23:00 POC Glucose 190 H 125 H 141 H 07/05/18 16:36 POC Glucose 170 H Current Home Med List Medication Instructions Recorded Confirmed Type Aspirin [Aspirin EC] 81 mg PO DAILY 11/26/17 07/05/18 History Cholecalciferol (Vitamin D3) 1,000 unit PO DAILY 11/26/17 07/05/18 History [Vitamin D3] Lisinopril [Zestril] 2.5 mg PO DAILY 11/26/17 07/05/18 History Insulin Aspart [Novolog Flexpen] 14 units SC 1200,1700 12/16/17 07/05/18 History Latanoprost [Xalatan] 2 drop RIGHT EYE QHS 12/16/17 07/05/18 History Metformin HCl 500 mg PO BIDCM 12/16/17 07/05/18 History Clopidogrel Bisulfate [Plavix] 75 mg PO DAILY tablet 12/20/17 07/05/18 Rx Acetaminophen 650 mg PO Q4H PRN PRN 07/05/18 07/05/18 History Atorvastatin Calcium 40 mg PO QHS 07/05/18 07/05/18 History Cimetidine [Tagamet Hb] 300 mg PO BID 07/05/18 07/05/18 History Dextrose [Glucose Gel] 1 tube PO PRN PRN 07/05/18 07/05/18 History Escitalopram Oxalate [Lexapro] 5 mg PO DAILY 07/05/18 07/05/18 History Glucagon,Human Recombinant 1 mg IJ PRN PRN 07/05/18 07/05/18 History [Glucagon Emergency Kit] Glucerna Shake 120 ml PO QHS 07/05/18 07/05/18 History Insulin Glargine [Lantus SoloStar 20 units SC QHS 07/05/18 07/05/18 History Pen] Levetiracetam [Keppra] 500 mg PO BID 07/05/18 07/05/18 History Mag Hydrox/Al Hydrox/Simeth 30 ml PO Q4H PRN PRN 07/05/18 07/05/18 History [Mylanta II] Magnesium Hydroxide [Milk Of 30 ml PO DAILY PRN PRN 07/05/18 07/05/18 History Magnesia] Nitroglycerin [Nitrostat] 0.4 mg SL PRN PRN 07/05/18 07/05/18 History Sennosides/Docusate Sodium [Senna 2 each PO DAILY 07/05/18 07/05/18 History Plus Tablet] Tamsulosin HCl 0.4 mg PO QHS 07/05/18 07/05/18 History Current Medications Generic Name Dose Route Start Last Admin Trade Name Freq PRN Reason Stop Dose Admin Acetaminophen 650 mg 07/05/18 13:22 Tylenol PO Q6H PRN PRN Mild pain 1-3/Temp > 100.7 F Al Hydroxide/Mg Hydroxide 30 ml 07/05/18 13:22 Mylanta Ii PO Q4H PRN PRN INDIGESTION Aspirin 81 mg 07/06/18 08:00 [facility] Cholecalciferol 1,000 unit 07/06/18 10:00 Vitamin D PO DAILY [facility] Clopidogrel Bisulfate 75 mg 07/06/18 10:00 Plavix PO DAILY MING Dextrose 0 gm 07/05/18 13:22 D50w Syringe IV X1 PRN Hypoglycemia Protocol Escitalopram Oxalate 5 mg 07/06/18 10:00 Lexapro PO DAILY MING Glucagon 1 mg 07/05/18 13:22 IM .X1 PRN Hypoglycemia Heparin Sodium (Porcine) 5,000 unit 07/05/18 15:00 07/06/18 06:14 Heparin Na SC 5,000 unit Q8 MING Administration Levetiracetam 250 mg/ Sodium 102.5 mls @ 410 mls/hr 07/05/18 22:00 07/06/18 09:28 Chloride IV 410 mls/hr BID MING Administration Insulin Glargine 20 units 07/05/18 22:00 07/05/18 23:01 Lantus ([facility]) SC Not Given QHS MING Insulin Human Lispro 14 unit 07/05/18 17:00 07/05/18 16:37 Humalog Kwikpen ([facility]) SC Not Given 1200,1700 MING Insulin Human Lispro 0 unit 07/05/18 18:00 07/06/18 06:15 Humalog Kwikpen ([facility]) SQ Not Given Q6 [facility] Protocol Latanoprost 2 drop 07/05/18 22:00 07/05/18 23:01 Xalatan Opthalmic RIGHT EYE 2 drop QHS MING Administration Nutritional Formula (Lactose Free) 120 ml 07/05/18 14:00 07/06/18 12:15 Glucerna Shake PO Not Given 4X/DAY [facility] Senna/Docusate Sodium 2 tablet 07/06/18 10:00 Senokot-S, Latisha-Colace PO DAILY [facility] Sodium Chloride 5 - 15 ml 07/05/18 14:35 IV UD PRN SALINE FLUSH Tamsulosin HCl 0.4 mg 07/06/18 10:00 Flomax PO DAILY [facility] mri reviewed, multiple old strokes no acute Assessment/Plan All Active Problems Transient left leg weakness (Acute) TIA (transient ischemic attack) (Acute) Headache (Acute) Acute ischemic stroke (Ruled-out) NSTEMI (non-ST elevation myocardial infarction) (Resolved) Encephalopathy (Resolved) Confusion (Resolved) Acute renal insufficiency (Resolved) encephalopathy, unclear etiology, sz vs metabolic eeg in process mri neg for acute stroke but old strokes and increased risk of sz, will load with depakote and increase keppra
[2018-07-06 16:50] LABS: Bedside Glucose 156 mg/dL (70-110)
[2018-07-06] MEDS: Aspirin E.C. 81 MG Tablet PO (16:59)
[2018-07-06] MEDS: Escitalopram Oxalate 10 MG Tablet 5 MG PO (16:59)
[2018-07-06] MEDS: Tamsulosin HCl 0.4 MG Capsule PO (16:59)
[2018-07-06] MEDS: Senna/Docusate Sodium 1 Tablet 2 TABLET PO (17:00)
[2018-07-06] MEDS: Clopidogrel Bisulfate 75 MG Tablet PO (17:00)
[2018-07-06] MEDS: 0.9% NaCl Peripheral Flush Adult/Peds IV ×3 (17:01→23:20)
[2018-07-06] MEDS: Glucerna Shake 120 ML LIQUID PO ×2 (17:04→21:23)
[2018-07-06] MEDS: Latanoprost 0.005% 1 Bottle 2 DRP RIGHT EYE (21:24)
[2018-07-06] MEDS: Insulin Lispro 100 UNIT/ML INSULN.PEN SQ (21:32)
[2018-07-06] MEDS: Atorvastatin Calcium 40 MG Tablet PO (21:34)
[2018-07-06 23:00] LABS: Bedside Glucose 254 mg/dL (70-110)
--- NOTE | 2018-07-06 23:00 | NURSING ---
bed exit was going off in room. TRANSCRIBING OPERATOR HEAD and I entered room to see what the patient needed. he was not trying to crawl out of bed, but just laying there saying he needed to use the RR. this RN unhooked patient from his IV because his infusion was complete. with the help from the TRANSCRIBING OPERATOR HEAD and sales account manager, we got patient to the edge of bed and standing with his walker. the TRANSCRIBING OPERATOR HEAD assisted patient to the RR. at this time, patient was walking fine. when she asked him to turn around, patient just stood there with blank look on his face. instructions were repeated multiple times and patient did not follow command. this RN jumped in to help TRANSCRIBING OPERATOR HEAD turn patient around to sit on the toilet. at this time we asked the patient to start taking small steps backwards towards the toilet. patient did not listen and instead started sitting down. his bottom was far from the toilet and he was too heavy to lift and hold up so the TRANSCRIBING OPERATOR HEAD and I lowered patient to the floor. no injuries occurred. sales account manager and another RN Ophelia came to help lift patient up and into the computer chair. max x4 assist. upon assessment, patient had complaints of dizziness and feeling lighteheaded/weak. his temp, HR and RR were stable but his BP was hypotensive. he was 83/44 and 88/58 sitting. BG was 239. A&Ox2. patient stated he needed to have a BM, so with the help of the 3 other staff members, we assisted patient onto BSC. patient had BM and then we assisted him back into bed safely. patient's BL legs were very weak at this point, almost as if he was not bearing any weight on them. patient was a complete assist and weight. after getting patient back into bed, vitals were taken again and BP was normal: 114/75. sheet metal shop supervisor and MD notified and fall protocol was followed. new orders placed.
[2018-07-06 23:01] LABS: Bedside Glucose 239 mg/dL (70-110)
[2018-07-06] MEDS: 0.9% Normal Saline 1,000 ML 999 ML IV (23:08)
[2018-07-07] VITALS (8 sets, daily range): BP systolic 101–120; BP diastolic 59–74; PULSE 66–85; RESP 16–18; TEMP 36.6–37.2; O2SAT 96–100
[2018-07-07 05:58] LABS: Absolute Lymphocyte Count 1.54 X10^3/ul (0.83-4.51); Absolute Neutrophil Count 2.7 X10^3/uL (2.0-7.7); Basophil# 0.03 X10^3/uL; Basophil% 0.6 % (0-1); Eosinophil# 0.22 X10^3/uL; Eosinophils% 4.3 % (0-5); Hematocrit 31.1 % (40-54); Hemoglobin 10.7 g/dl (13.0-16.5); Lymphocyte # 1.54 X10^3/ul (4.0); Lymphocyte % 29.8 % (19-41); Mean Corp Hgb Conc 34.4 g/gl (32-36); Mean Corpuscular Hgb 32.3 pg (27.0-32.0); Mean Platelet Vol. 8.5 fl (6.2-12.0); Monocyte# 0.64 X10^3/uL; Monocyte% 12.4 % (0-10); Neutrophil # 2.71 X10^3/uL (2.7-7.7); Neutrophil % 52.5 % (47-70); Platelet Count 230 K/mm3 (150-450); RBC Distribution Width CV 12.7 % (11.6-14.6); RBC Distribution Width SD 43.8 fl (35.1-43.9); Red Blood Count 3.31 M/mm3 (4.6-6.2); White Blood Count 5.2 K/mm3 (4.4-11.0)
[2018-07-07 06:05] LABS: POSITIVE COUNT NO; POSITIVE DIFFERENTIAL NO; POSITIVE MORPHOLOGY NO
[2018-07-07 06:14] LABS: Anion Gap 8 (5-15); BUN 26 mg/dL (7-18); BUN/Creat Ratio 22.8 RATIO (10-20); Calcium,Total 8.3 mg/dL (8.5-10.1); Chloride 107 mmol/L (98-107); Creatinine, Serum 1.14 mg/dL (0.70-1.30); EST Glomerular Filtration Rate 68 mL/min (>60); Est Glom Filt Rate - Afr Amer 83 mL/min (>60); Estimated Creatinine Clearance 70.91 ml/min; Glucose 147 mg/dL (74-106); Potassium 3.7 mmol/L (3.5-5.1); Sodium Level 138 mmol/L (136-145)
[2018-07-07] MEDS: Heparin Injection (Vial) 5,000 UNIT/ML VIAL 5000 UNIT SC ×2 (07:04→13:13)
[2018-07-07] MEDS: Insulin Lispro 100 UNIT/ML INSULN.PEN SQ ×2 (07:04→11:27)
[2018-07-07 07:11] LABS: Bedside Glucose 161 mg/dL (70-110)
[2018-07-07] MEDS: Senna/Docusate Sodium 1 Tablet 2 TABLET PO (08:29)
[2018-07-07] MEDS: Tamsulosin HCl 0.4 MG Capsule PO (08:29)
[2018-07-07] MEDS: Aspirin E.C. 81 MG Tablet PO (08:29)
[2018-07-07] MEDS: Clopidogrel Bisulfate 75 MG Tablet PO (08:29)
[2018-07-07] MEDS: Lisinopril 2.5 MG Tablet PO (08:30)
[2018-07-07] MEDS: Escitalopram Oxalate 10 MG Tablet 5 MG PO (08:30)
[2018-07-07] MEDS: Glucerna Shake 120 ML LIQUID PO ×2 (08:38→13:13)
--- NOTE | 2018-07-07 09:52 | CASEMGMT ---
Addendum entered by Daphnie Sepulveda 07/07/18 10:39: Received call from Britney at [facility]. FRANCISCO let her know patient will likely be returning today. Daphnie OAKLEY Original Note: Patient is ready for discharge today. FRANCISCO called and left a message requesting a return call. Daphnie OAKLEY
--- NOTE | 2018-07-07 11:18 | PCM.EXTCARCO ---
- Diet 07/06/18 11:06 Diet: Regular Diet Food consistency:: Mechanical Soft/Ground Liquid Consistency:: Regular/Thin Is pt able to select menu?: No Diet Comments: total supervision; cut foods into small bites - Routine Orders/Code Status Suppository Type: Dulcolax 10mg Suppository Frequency: Daily PRN Routine Lab Work: CBC - 5 days, BMP - 5 days Code Status: DNRCC-A - Therapies Physical Therapy: Eval and Treat Occupational Therapy: Eval and Treat Speech Therapy: Eval and Treat - Problem/Diagnosis (1) Seizure Status: Acute Current Visit: Yes (2) Headache Status: Acute Current Visit: No (3) HTN (hypertension) Status: Chronic Current Visit: No (4) Type 2 diabetes mellitus Status: Chronic Current Visit: No (5) Acute renal insufficiency Status: Resolved Current Visit: No (6) Encephalopathy Status: Resolved Current Visit: No - Allergies/Procedures Done in Hospital Allergies/Adverse Reactions: Allergies No Known Allergies Allergy (Verified 07/05/18 10:19) Procedures: Electroencephalogram - Type of Care/Length of Stay Estimated LOS: Convalescent Care Less Than 30 days Type of Care Needed: Skilled Rehab Potential: Fair Prognosis: Fair - Additional Orders/Day of Discharge Day of Discharge: 07/07/18 - Dietary and Speech Recommendations Dietitian Recommendations/Changes: Rec RUDY to [address] [facility] when medically able- consistency per SENIOR MARKETING ANALYST - Follow Up Care Primary Care Physician: Armaan Mendez MD [Primary Care Provider] - Please follow up with your Primary Care Physician in: 2 weeks Please Follow Up With: Koko Morocho MD When: 2 weeks
--- NOTE | 2018-07-07 11:21 | TREXTCA.CO_ITS ---
- Diet 07/06/18 11:06 Diet: Regular Diet Food consistency:: Mechanical Soft/Ground Liquid Consistency:: Regular/Thin Is pt able to select menu?: No Diet Comments: total supervision; cut foods into small bites - Routine Orders/Code Status Suppository Type: Dulcolax 10mg Suppository Frequency: Daily PRN Routine Lab Work: CBC - 5 days, BMP - 5 days Code Status: DNRCC-A - Therapies Physical Therapy: Eval and Treat Occupational Therapy: Eval and Treat Speech Therapy: Eval and Treat - Problem/Diagnosis (1) Seizure Status: Acute Current Visit: Yes (2) Headache Status: Acute Current Visit: No (3) HTN (hypertension) Status: Chronic Current Visit: No (4) Type 2 diabetes mellitus Status: Chronic Current Visit: No (5) Acute renal insufficiency Status: Resolved Current Visit: No (6) Encephalopathy Status: Resolved Current Visit: No - Allergies/Procedures Done in Hospital Allergies/Adverse Reactions: Allergies No Known Allergies Allergy (Verified 07/05/18 10:19) Procedures: Electroencephalogram - Type of Care/Length of Stay Estimated LOS: Convalescent Care Less Than 30 days Type of Care Needed: Skilled Rehab Potential: Fair Prognosis: Fair - Additional Orders/Day of Discharge Day of Discharge: 07/07/18 - Dietary and Speech Recommendations Dietitian Recommendations/Changes: Rec RUDY to [address] [facility] when medically able- consistency per STONE SETTER - Follow Up Care Primary Care Physician: Armaan Mendez MD [Primary Care Provider] - Please follow up with your Primary Care Physician in: 2 weeks Please Follow Up With: Koko Morocho MD When: 2 weeks
[2018-07-07 11:35] LABS: Bedside Glucose 248 mg/dL (70-110)
--- NOTE | 2018-07-07 12:52 | PCM.DC.SUM ---
<Adam Wesley - Last Filed: 07/07/18 12:52> Discharge Date and Diagnosis - Problem List Patient Problems: Active and Suspected Problems TIA (transient ischemic attack) (Acute) Seizure (Acute) Date of Admission: 07/05/18 Date of Discharge: 07/07/18 - Primary Discharge Diagnosis Active and Suspected Problems Acute metabolic encephalopathy 2/2 FAVIAN FAVIAN, resolved unknown etiology CVA ruled out HTN T2DM - Secondary Discharge Diagnosis Chronic Problems HTN (hypertension) (Chronic) Type 2 diabetes mellitus (Chronic) Hospital Course and Treatment Imaging Results: Diagnostics:: EEG: RESULTS PENDING. CT/Brain/Head without Contrast IMPRESSION: Stable examination. No CT evident acute intracranial pathology. Volume loss manifested by ventriculomegaly and prominence of cortical sulci and subarachnoid cisterns. Multifocal chronic lacunar infarcts as above, stable. No CT evidence of large vessel territory ischemia/edema. Stable diffuse increased density within the right globe. Recommend correlation for prior trauma versus instrumentation/surgery. Please note that retinoblastoma can also present in this fashion. Consider consultation with ophthalmology. Upon further review, is stable cortical thinning in the anterior right frontal lobe near the vertex that may also represent sequela of chronic vascular event/ischemia. RAD/Chest 1 View IMPRESSION: Normal x-ray examination of the chest. CT/CTA Head W/WO Contrast IMPRESSION: Normal [place] without a demonstrated aneurysm or hemodynamically significant stenosis. CT/CTA Neck W/WO Contrast IMPRESSION: Borderline hemodynamically significant stenosis involving the region of the left carotid bulb/takeoff of the left internal carotid artery with approximately 45-50% luminal/diameter dimension narrowing, sequence 2, image 109. Atherosclerotic peripheral vascular disease. Nonspecific pathologic by size criteria retrocaval-pretracheal space lymph node within the visualized superior mediastinum, sequence 2, image 6. No suspicious lytic or blastic osseous pathology. No acute osseous abnormality. Tiny focus of subsegmental atelectasis within the right upper lobe within visualized upper lungs. MRI/Brain without Contrast IMPRESSION: No evidence of acute infarct or hemorrhage. Multiple remote infarcts as described. Extensive microangiopathic white matter disease. Consults: Neuro - [place] Operations: None Procedures: Electroencephalogram Summary of Care Provided: Hospital course: The patient is a 67 year old M with past medical history of CVA, hypertension, type 2 diabetes, questionable seizure, who presented the emergency room with left-sided weakness. He had been seen in the emergency room the day before and started on Keppra for rigidity. He is Davon on aspirin and Plavix for prior stroke. His NIH SS was [address] the brain was negative. CTA of the head neck revealed 45 to 50% stenosis of the left carotid. He is admitted to the PCU for stroke work-up. MRI of the brain was obtained was negative. Neurology was consulted. An EEG was obtained-the results are pending at this time. Neurology loaded him with Depakote and increased his Keppra dose to 750 twice daily. Patient also had elevated creatinine at admission consistent with acute kidney injury. The cause of this is unknown at this time. He was felt to have acute metabolic encephalopathy-this is likely secondary to acute kidney injury. This could possibly be related to recent seizure activity as well. FAVIAN resolved overnight with fluid administration. The patient will return back to ECF with Depakote as directed by neurology-final prescription is pending at this time. He will also have his increase Keppra dose. He will continue other medications as previously described. He will need to follow-up with his PCP in 1 to 2 weeks, and with neurology in 2 weeks. Patient was discharged to ECF in stable condition. This patient was seen by Adam Wesley PA-C under the supervision of Doctor Gee. [] Patient Problems: Active and Suspected Problems TIA (transient ischemic attack) (Acute) Seizure (Acute) - Physical Exam General: Alert, Oriented x3, Cooperative HEENT: Atraumatic, PERRLA, EOMI, Normocephalic Neck: Supple, No JVD, Negative Carotid Bruits Lungs: Clear to auscultation, Normal air movement Cardiovascular: Regular rate, No murmurs Abdomen: Bowel Sounds Present, Soft, Non Tender Extremities: No edema, Capillary Refill Less than 3 Seconds Skin: No rashes, No breakdown Musculoskeletal: No Tenderness to Palpation of Joints or Extremities Neurological: Cranial nerves II-XII grossly intact Psych/Mental Status: Normal Affect, Appropriate, Alert and oriented to time, place, person, mood and affect Vital Signs Temp Pulse Resp BP Pulse Ox 97.8 F 85 16 112/74 96 07/07/18 08:22 07/07/18 11:11 07/07/18 08:22 07/07/18 08:22 07/07/18 08:22 Oxygen Flow Rate (L/min) 2 Oxygen Delivery Method Room Air Weight: 181 lb 3.52 oz Body Mass Index (BMI) 24.5 Finger Stick Blood Glucose 181 Intake and Output for Last 24 Hours 07/05/18 07/06/18 07/07/18 23:59 23:59 23:59 Intake Total 763.6 / 763.6 2177 / 2177 808 / 808 Output Total 400 / 400 Balance 763.6 / 763.6 2177 / 2177 408 / 408 Laboratory Tests Past 24 Hrs 07/07/18 07/07/18 05:45 05:45 WBC 5.2 RBC 3.31 L Hgb 10.7 L Hct 31.1 L MCV 94.0 MCH 32.3 H MCHC 34.4 RDW 12.7 RDW Differential 43.8 Plt Count 230 MPV 8.5 Immature Gran % (Auto) 0.400 Neut % (Auto) 52.5 Lymph % (Auto) 29.8 [place] % (Auto) 12.4 H Eos % (Auto) 4.3 Baso % (Auto) 0.6 Absolute Neuts (auto) 2.7 Absolute Lymphs (auto) 1.54 Total Counted Not Reportable Sodium 138 Potassium 3.7 Chloride 107 Carbon Dioxide 23.0 Anion Gap 8 BUN 26 H Creatinine 1.14 Estim Creat Clear Calc 70.91 Est GFR (MDRD) Af Amer 83 Est GFR (MDRD) Non-Af 68 BUN/Creatinine Ratio 22.8 H Glucose 147 H Calcium 8.3 L POC Glucose 07/07/18 07/07/18 07/06/18 11:24 07:01 22:23 POC Glucose 248 H 161 H 239 H 07/06/18 07/06/18 21:30 16:31 POC Glucose 254 H 156 H Discharge Diet: No Restrictions, Low fat/ Low Cholesterol, 1800 Calorie Control Diet, 2000 mg Sodium Diet Discharge Activity: Return to Normal Activity Home Medications: Medications to take at Discharge Aspirin [Aspirin EC] 81 mg PO DAILY 11/26/17 Cholecalciferol (Vitamin D3) [Vitamin D3] 1,000 unit PO DAILY 11/26/17 Lisinopril [Zestril] 2.5 mg PO DAILY 11/26/17 Insulin Aspart [Novolog Flexpen] 14 units SC 1200,1700 12/16/17 Latanoprost [Xalatan] 2 drop RIGHT EYE QHS 12/16/17 Metformin HCl 500 mg PO BIDCM 12/16/17 Clopidogrel Bisulfate [Plavix] 75 mg PO DAILY tablet 12/20/17 Atorvastatin Calcium 40 mg PO QHS 07/05/18 Cimetidine [Tagamet Hb] 300 mg PO BID 07/05/18 Dextrose [Glucose Gel] 1 tube PO PRN PRN 07/05/18 Escitalopram Oxalate [Lexapro] 5 mg PO DAILY 07/05/18 Glucagon,Human Recombinant [Glucagon Emergency Kit] 1 mg IJ PRN PRN 07/05/18 Insulin Glargine [Lantus SoloStar Pen] 20 units SC QHS 07/05/18 Mag Hydrox/Al Hydrox/Simeth [Mylanta II] 30 ml PO Q4H PRN PRN 07/05/18 Magnesium Hydroxide [Milk Of Magnesia] 30 ml PO DAILY PRN PRN 07/05/18 Nitroglycerin [Nitrostat] 0.4 mg SL PRN PRN 07/05/18 Sennosides/Docusate Sodium [Senna Plus Tablet] 2 each PO DAILY 07/05/18 Tamsulosin HCl 0.4 mg PO QHS 07/05/18 Acetaminophen [Tylenol Tablet] 650 mg PO Q6H PRN PRN tablet 07/07/18 Glucerna Shake 120 ml PO 4X/DAY liquid 07/07/18 Levetiracetam [Keppra] 750 mg PO BID #0 07/07/18 Primary Care Physician: Armaan Mendez MD [Primary Care Provider] - Please follow up with your Primary Care Physician in: 2 weeks Please Follow Up With: Koko Morocho MD When: 2 weeks Disposition: [facility] facility Minutes spent on discharge:: 35 Patient Condition:: Stable Medical Necessity - Tobacco Use Smoking Status: Former smoker Meaningful Use Info Meaningful Use Diagnoses (Choose all that apply): None applicable <Bandar Gee - Last Filed: 07/07/18 13:59> Discharge Date and Diagnosis - Primary Discharge Diagnosis Active and Suspected Problems TIA (transient ischemic attack) (Acute) Seizure (Acute) - Secondary Discharge Diagnosis Chronic Problems HTN (hypertension) (Chronic) Type 2 diabetes mellitus (Chronic) Hospital Course and Treatment Summary of Care Provided: This patient was seen in conjunction with Adam LEIGH. I have independently interviewed and examined the patient and reviewed pertinent history, examination findings, laboratory and plan of management. I have reviewed the note and agree with the documented findings with the few additional points. In brief, patient is a 67-year-old gentleman with history of CVA , probable seizure disorder on Keppra was admitted with left-sided weakness. Patient was recently started on Keppra for rigidity. Patient answers yes or no for most of the questions and has monosyllable speech. Patient has history of right pontine infarct and is on aspirin, Plavix and statin. Patient admitting NIH stroke scale was 4. Patient seen by neurologist and his impression is encephalopathy, with unclear etiology metabolic or seizure disorder. Patient was loaded with valproic acid and increased Keppra 750 mg twice daily.. MRI brain was done showed no evidence of acute infarct or hemorrhage but multiple remote infarcts in the right frontal lobe, right occipital lobe and bilateral hogan radiata. CT of head and neck shows 45 to 50% stenosis of left carotid. EEG result is pending. FAVIAN resolved. His other comorbidities including hypertension, diabetes mellitus type 2 was controlled. Discharge medication reconciliation done. Discharge follow-up instructions completed. Discharge process discussed with the patient and all questions were answered to patient's satisfaction. Follow-up with neurology in 2 weeks. Total time spent, exact 35 minutes on discharge meds reconciliation, examination, review of imaging and blood test and discussion with the patient on follow-up instructions. I have discussed my assessment with Adam LEIGH and orders have been reviewed. [] Clinical Impression(s) from Imaging Studies Brain CT 07/05/18 09:59 IMPRESSION: Stable examination. No CT evident acute intracranial pathology. Volume loss manifested by ventriculomegaly and prominence of cortical sulci and subarachnoid cisterns. Multifocal chronic lacunar infarcts as above, stable. No CT evidence of large vessel territory ischemia/edema. Stable diffuse increased density within the right globe. Recommend correlation for prior trauma versus instrumentation/surgery. Please note that retinoblastoma can also present in this fashion. Consider consultation with ophthalmology. Upon further review, is stable cortical thinning in the anterior right frontal lobe near the vertex that may also represent sequela of chronic vascular event/ischemia. Chest X-Ray 07/05/18 09:59 IMPRESSION: Normal x-ray examination of the chest. Head CTA 07/05/18 10:25 IMPRESSION: Normal [place] without a demonstrated aneurysm or hemodynamically significant stenosis. Neck CTA 07/05/18 10:25 IMPRESSION: Borderline hemodynamically significant stenosis involving the region of the left carotid bulb/takeoff of the left internal carotid artery with approximately 45-50% luminal/diameter dimension narrowing, sequence 2, image 109. Atherosclerotic peripheral vascular disease. Nonspecific pathologic by size criteria retrocaval-pretracheal space lymph node within the visualized superior mediastinum, sequence 2, image 6. No suspicious lytic or blastic osseous pathology. No acute osseous abnormality. Tiny focus of subsegmental atelectasis within the right upper lobe within visualized upper lungs. Brain MRI 07/05/18 13:22 IMPRESSION: No evidence of acute infarct or hemorrhage. Multiple remote infarcts as described. Extensive microangiopathic white matter disease. Subjective: Seen and examined. Patient answers most of the question in yes or no. It seems patient has chronic left-sided weakness. He said he has seizure about 2 weeks ago although exact duration unclear. There is no one near the bedside to corroborate the history. - Physical Exam General: Alert, Oriented x3, Cooperative HEENT: Atraumatic, PERRLA, EOMI, Normocephalic Neck: Supple, No JVD, Negative Carotid Bruits Lungs: Clear to auscultation, No rhonchi, No wheeze, No rales, Diminished Cardiovascular: Regular rate, No murmurs Abdomen: Bowel Sounds Present, Soft, Non Tender, Non-Distended Extremities: No edema, Capillary Refill Less than 3 Seconds Skin: No rashes, No breakdown Musculoskeletal: No Tenderness to Palpation of Joints or Extremities, Arthritic Changes, Muscle Wasting Lymphatic: No Cervical, Supraclavicular, or Inguinal Adenopathy Neurological: Cranial nerves II-XII grossly intact, Deep Tendon Reflexes 2+/4 and Symmetrical, - - Left lower extremity weakness, 4/5. Mild left upper extremity weakness 4+/5. Psych/Mental Status: Normal Affect, Appropriate Vital Signs Temp Pulse Resp BP Pulse Ox 97.8 F 85 16 112/74 96 07/07/18 08:22 07/07/18 11:11 07/07/18 08:22 07/07/18 08:22 07/07/18 08:22 Oxygen Flow Rate (L/min) 2 Oxygen Delivery Method Room Air Weight: 181 lb 3.52 oz Body Mass Index (BMI) 24.5 Finger Stick Blood Glucose 181 Intake and Output for Last 24 Hours 07/05/18 07/06/18 07/07/18 23:59 23:59 23:59 Intake Total 763.6 / 763.6 2177 / 2177 808 / 808 Output Total 400 / 400 Balance 763.6 / 763.6 2177 / 2177 408 / 408 Laboratory Tests Past 24 Hrs 07/07/18 07/07/18 05:45 05:45 WBC 5.2 RBC 3.31 L Hgb 10.7 L Hct 31.1 L MCV 94.0 MCH 32.3 H MCHC 34.4 RDW 12.7 RDW Differential 43.8 Plt Count 230 MPV 8.5 Immature Gran % (Auto) 0.400 Neut % (Auto) 52.5 Lymph % (Auto) 29.8 [place] % (Auto) 12.4 H Eos % (Auto) 4.3 Baso % (Auto) 0.6 Absolute Neuts (auto) 2.7 Absolute Lymphs (auto) 1.54 Total Counted Not Reportable Sodium 138 Potassium 3.7 Chloride 107 Carbon Dioxide 23.0 Anion Gap 8 BUN 26 H Creatinine 1.14 Estim Creat Clear Calc 70.91 Est GFR (MDRD) Af Amer 83 Est GFR (MDRD) Non-Af 68 BUN/Creatinine Ratio 22.8 H Glucose 147 H Calcium 8.3 L POC Glucose 07/07/18 07/07/18 07/06/18 11:24 07:01 22:23 POC Glucose 248 H 161 H 239 H 07/06/18 07/06/18 21:30 16:31 POC Glucose 254 H 156 H Code Visit Inpatient E&M: 41435 Disch Hosp
--- NOTE | 2018-07-07 13:16 | CASEMGMT ---
FRANCISCO faxed orders to [facility]. Neurologist would like to see patient before he leaves. Await Neurology before setting up transport. Plan: d/c back to [facility] pending Neurology. Daphnie DEXTER MSW
--- NOTE | 2018-07-07 13:43 | CASEMGMT ---
FRANCISCO called patient's sister and left her a voice mail letting her know patient is being discharged back to [facility] today. Daphnie DEXTER MSW
--- NOTE | 2018-07-07 14:01 | EEG ---
- Electroencephalogram Date of service 07/06/2018 History EEG is being done in this 67 yr M to rule out seizures EEG Description: This is an 18 channel EEG with 10-20 lead placement system. Bipolar montages, and Referential montages were reviewed. Photic stimulation was performed but Hyperventilation was not performed as patient was lethargic. The posterior dominant rhythm was absent. Photo stimulation did not elicit normal driving response or any abnormal photoparoxysmal response, Hyperventilation was not performed as patient was lethargic. Prolonged apneic episodes were identified during sleep. There is abnormal background slowing in the 6Hz theta range frequency noted during the record. EKG artefact noted during the record. There was no epileptiform discharges or electrographic seizures noted during this recording. EEG Interpretation This is an abnormal EEG due to the presence of mild to moderate generalized back ground slowing. This may be seen in generalized cerebral dysfunction like metabolic/toxic encephalopathy. Clinical correlation is advised. Prolonged apneic spells noted during sleep, recommend polysomnography testing (by PCP or treating physician) for further evaluation and management of sleep apnea. There is no epileptiform discharges or electrographic seizures noted during the record.
--- NOTE | 2018-07-07 14:58 | NURSING ---
This RN called report to DEANNA Urbina at [facility].
== END 2018-07-07 16:22 | disposition skilled nursing facility (03) | DRG 682 ==
LOC: ED 10:19 → PCU 13:00
PROVIDERS: Admitting Provider Internal Medicine; Emergency Provider Emergency Medicine; Family Provider Family Medicine; PCP Family Medicine; Visit Provider Internal Medicine
DX: N17.9 Acute kidney failure, unspecified (principal); G93.41 Metabolic encephalopathy; E11.9 Type 2 diabetes mellitus without complications; G40.909 Epilepsy, unspecified, not intractable, without status epilepticus; I10 Essential (primary) hypertension; Z79.4 Long term (current) use of insulin; Z86.73 Personal history of transient ischemic attack (TIA), and cerebral infarction without residual deficits; Z87.891 Personal history of nicotine dependence
CPT/HCPCS: 36415; 36600; 70450; 70496; 70498; 70551; 71045; 80048; 80061; 82803; 82962; 84484; 85025; 85610; 85730; 92526; 92610; 93005; 95819; 97110; 97162; 97166; 97530; 97802; 99285; J7030; Q9967; A4216

== ENCOUNTER → 2018-07-12 07:50 | Outpatient (REF) | payer MEDICARE, SELFPAY ==
[2018-07-05 15:04] VITALS: BMI 24.5
[2018-07-12 08:46] LABS: Hematocrit 32.2 % (40-54); Hemoglobin 11.1 g/dl (13.0-16.5); Mean Corp Hgb Conc 34.5 g/gl (32-36); Mean Corpuscular Hgb 32.8 pg (27.0-32.0); Mean Corpuscular Volume 95.3 fL (80-94); Mean Platelet Vol. 9.1 fl (6.2-12.0); Platelet Count 268 K/mm3 (150-450); RBC Distribution Width CV 13.2 % (11.6-14.6); RBC Distribution Width SD 45.3 fl (35.1-43.9); Red Blood Count 3.38 M/mm3 (4.6-6.2); White Blood Count 7.9 K/mm3 (4.4-11.0)
[2018-07-12 08:54] LABS: Scan Indicated on CBC? Y/N NO
[2018-07-12 09:04] LABS: Anion Gap 6 (5-15); BUN 32 mg/dL (7-18); BUN/Creat Ratio 21.9 RATIO (10-20); Chloride 107 mmol/L (98-107); Creatinine, Serum 1.46 mg/dL (0.70-1.30); EST Glomerular Filtration Rate 51 mL/min (>60); Est Glom Filt Rate - Afr Amer 62 mL/min (>60); Glucose 97 mg/dL (74-106); Potassium 3.8 mmol/L (3.5-5.1); Sodium Level 137 mmol/L (136-145)
== END ==
LOC: OLS.WCC 07:50
PROVIDERS: Visit Provider Family Medicine
DX: E11.9 Type 2 diabetes mellitus without complications (principal); G24.01 Drug induced subacute dyskinesia; G40.89 Other seizures
CPT/HCPCS: 36415; 80048; 85027

== ENCOUNTER → 2018-09-17 | Outpatient (REF) | payer MEDICARE, SELFPAY ==
[2018-07-05 15:04] VITALS: BMI 24.5
[2018-09-17 07:10] LABS: Hematocrit 33.9 % (40-54); Hemoglobin 11.4 g/dL (13.0-16.5); Mean Corp Hgb Conc 33.6 g/dL (32-36); Mean Corpuscular Hgb 33.3 pg (27.0-32.0); Mean Corpuscular Volume 99.1 fL (80-94); Mean Platelet Vol. 9.5 fl (6.2-12.0); Platelet Count 267 K/mm3 (150-450); RBC Distribution Width CV 12.3 % (11.6-14.6); RBC Distribution Width SD 44.6 fl (35.1-43.9); Red Blood Count 3.42 M/mm3 (4.6-6.2); White Blood Count 7.7 K/mm3 (4.4-11.0)
[2018-09-17 07:41] LABS: Anion Gap 2 (5-15); BUN 25 mg/dL (7-18); BUN/Creat Ratio 21.9 RATIO (10-20); Calcium,Total 8.6 mg/dL (8.5-10.1); Chloride 108 mmol/L (98-107); Cholesterol 127 mg/dL (200); Creatinine, Serum 1.14 mg/dL (0.70-1.30); EST Glomerular Filtration Rate 68 mL/min (>60); Est Glom Filt Rate - Afr Amer 83 mL/min (>60); Glucose 172 mg/dL (74-106); High Density Lipoprotein 33 mg/dL; Potassium 3.8 mmol/L (3.5-5.1); Sodium Level 136 mmol/L (136-145); Triglycerides 147 mg/dL; Very Low Density Lipoprotein 29 mg/dL (5-40)
[2018-09-17 13:56] LABS: Hemoglobin A1c 7.8 % (4.2-6.3)
== END | disposition home or self-care (01) ==
LOC: OLS.WCC 05:00
PROVIDERS: Visit Provider Family Medicine
DX: E11.9 Type 2 diabetes mellitus without complications (principal); I10 Essential (primary) hypertension; E78.5 Hyperlipidemia, unspecified
CPT/HCPCS: 36415; 80048; 80061; 83036; 85027